=== PATIENT | female | born 1990 | race Two or more races ===

== ENCOUNTER 2023-09-21 12:13 | Outpatient (REF) | payer MEDICAID, SELFPAY ==
[2023-09-21 13:19] LABS: MANUAL DIFF FLAG NO
[2023-09-21 13:37] LABS: Basophils Percent Auto 0.3 % (0-2); Eosinophils Absolute Auto 0.1 X10*3/uL (0.0-0.4); Eosinophils Percent Auto 0.8 % (0-4); Hematocrit 39.1 % (37.0-47.0); Hemoglobin 12.3 g/dl (12.0-16.0); Imm Gran Abs Auto 0.05 X10*3/uL (0.00-0.03); Imm Gran Pct Auto 0.4 % (0.0-0.4); Lymphocytes Percent Auto 23.7 % (20-40); Mean Corpuscular HGB Conc 31.5 g/dl (31.0-35.0); Mean Corpuscular Hemoglobin 27.8 pg (27.0-33.0); Mean Corpuscular Volume 88.3 fL (80.0-98.0); Mean Platelet Volume 11.8 fL (9.4-12.3); Monocytes Absolute Auto 0.5 X10*3/uL (0.1-1.2); Monocytes Percent Auto 4.1 % (2-11); Neutrophils Absolute Auto 8.9 x10*3/uL (2.0-8.3); Neutrophils Percent Auto 70.7 % (45-73); Platelet Count 216 X10*3/uL (160-400); Red Blood Count 4.43 X10*6/uL (4.20-5.50); Red Cell Distribution Width 13.8 % (11.0-16.0); White Blood Count 12.5 X10*3/uL (4.8-10.8)
[2023-09-21 13:49] LABS: Estimated Average Glucose 97 mg/dL
[2023-09-21 13:55] LABS: Alanine Aminotransferase 12 U/L (0-31); Alkaline Phosphatase 70 U/L (39-117); Anion Gap 11 (12-20); Aspartate Amino Transferase 16 U/L (5-31); Bilirubin Direct 0.2 mg/dL (0.0-0.5); Bilirubin Total 0.5 mg/dL (0.0-1.0); Blood Urea Nitrogen 23 mg/dL (9-16); Calcium 8.9 mg/dL (8.4-10.2); Carbon Dioxide 22 mmol/L (22-29); Chloride 109 mmol/L (96-108); Estimated Glomerular Filt Rate 22; Glucose Random 84 mg/dL (60-115); Potassium 3.3 mmol/L (3.3-5.1); Sodium 139 mmol/L (135-145); Total Protein 7.6 g/dL (6.5-8.0)
[2023-09-22 06:04] LABS: HIV AB/AG Nonreactive (Nonreactive); HIV Num 1 0.06 S/CO (0.00-0.99); ~Hepatitis C Antibody Nonreactive (Nonreactive)
== END 2023-09-21 12:14 | disposition home or self-care (01) ==
LOC: HO.HHCL 12:13
PROVIDERS: Visit Provider Internal Medicine
DX: N18.30 Chronic kidney disease, stage 3 unspecified (principal)
CPT/HCPCS: 36415; 80048; 80076; 83036; 85025; 86803; 87389

== ENCOUNTER 2023-11-10 09:46 | Outpatient (RCR) | payer MEDICAID, SELFPAY | END 2023-11-24 11:37 | disposition home or self-care (01) | LOC: HO.PT 09:46 | PROVIDERS: PCP Internal Medicine; Visit Provider Internal Medicine | DX: M54.50 Low back pain, unspecified (principal) | CPT/HCPCS: 97110; 97161 ==

== ENCOUNTER 2024-03-20 13:30 | Outpatient (REF) | payer MEDICAID, SELFPAY ==
[2024-03-23 02:33] LABS: TS Negative Control Passed; TS Panel A 0; TS Panel B 1; TS Positive Control Passed; TSpotTB Negative (Negative)
== END 2024-03-20 13:31 | disposition home or self-care (01) ==
LOC: HO.HHCL 13:30
PROVIDERS: Visit Provider Internal Medicine
DX: Z11.1 Encounter for screening for respiratory tuberculosis (principal)
CPT/HCPCS: 36415; 86481

== ENCOUNTER 2024-07-07 13:18 | Outpatient (REF) | payer MEDICAID, SELFPAY ==
--- NOTE | ~2024-07-07 | XR_ITS ---
EXAMINATION: XR FOOT, LEFT CLINICAL INFORMATION: Atraumatic left foot pain. Dorsal lump/mass. COMPARISON: None available. TECHNIQUE: AP, lateral, and oblique views of the left foot. FINDINGS: No acute fracture or dislocation. No joint space narrowing or marginal osteophytes. No osseous erosion. Tiny plantar calcaneal spur. Focal soft tissue swelling dorsal to the first tarsometatarsal joint which could represent an underlying ganglion cyst. XR/XR foot LT min 3V IMPRESSION: 1. Focal soft tissue swelling dorsal to the first tarsometatarsal joint which could represent an underlying ganglion cyst. 2. Tiny plantar calcaneal spur. Electronically signed by: Fredis Mari MD 07/07/2024 02:47 PM [facility]
== END 2024-07-07 13:19 | disposition home or self-care (01) ==
LOC: HO.HHCX 13:18
PROVIDERS: Visit Provider Nurse Practitioner Primary Care
DX: M79.672 Pain in left foot (principal)
CPT/HCPCS: 73630

== ENCOUNTER 2024-07-13 12:09 | Outpatient (REF) | payer MEDICAID, SELFPAY ==
--- NOTE | ~2024-07-13 | US_ITS ---
EXAMINATION: US TRIPLEX LOWER EXTREMITY, LEFT CLINICAL INFORMATION: Left foot swelling, pain COMPARISON: None available. TECHNIQUE: Color-flow triplex imaging with spectral analysis and compression Doppler were performed on the left lower extremity. FINDINGS: Respiratory variation, normal compression and augmented flow are noted throughout the left lower extremity. The visualized common femoral vein, superficial femoral vein, profunda femoral vein, popliteal vein and midcalf peroneal and posterior tibial venous segments show no evidence of deep venous thrombosis. There is no Crawford's cyst. Over the dorsum of the foot, there is a cyst measuring 2.3 x 0.9 x 2.0 cm which is adjacent to the dorsalis pedis artery and likely represents a ganglion cyst US/US venous duplex LE LT IMPRESSION: 1. No evidence of deep venous thrombosis involving the left lower extremity. 2. Ganglion cyst over the dorsum of the foot. Electronically signed by: Cedric Olson MD 07/13/2024 01:34 PM EST RP
== END 2024-07-13 12:10 | disposition home or self-care (01) ==
LOC: HO.US 12:09
PROVIDERS: PCP Internal Medicine; Visit Provider Nurse Practitioner Primary Care
DX: M79.605 Pain in left leg (principal); R22.42 Localized swelling, mass and lump, left lower limb
CPT/HCPCS: 93971

== ENCOUNTER 2024-09-13 11:22 | Outpatient (REF) | payer MEDICAID, SELFPAY ==
--- OUTSIDE RECORDS SUMMARY | 2024-09-13 13:07 | XMS_ITS | Encounter Summary ---
Author Organization [employer] Address [address] [place] [address] Care Team Providers Care Commodities Requirements Analyst Name Role Phone Anabel Patel MD Primary Care Provide r Reason for Visit * Reason Onset Date Comments rs SRP appt 06/06/2024 Encounter Details Date Type Department Care Team ([facility] st Contact Info) Description 06/06/[address] [facility] AD[facility] D[facility]AL [address] [place] [address] Jeremiah Shepherd rs SRP appt Social History Tobacco Use Types Packs/Day Years Used Date Smoking Tobacco: Every Day Cigarettes Passive Smoke Exposure: Current Smokeless Tobacco: Never Depression Answer Date Recorded Patient Health Questionnaire-9 Score 09/21/2023 Patient Health Questionnaire-9 Score 19 09/21/2023 Last PHQ-9: Questionnaire Data Not on file 0 09/21/2023 Housing Stability Answer Date Recorded What is your housing situation today? I have mernalit leal 09/10/[address] you li ve. Do you have problems with any of the following? None of the above 09/10/2023 Food Insecurity Answer Date Recorded Within the past 12 months, y ou worried that your food would run out before you got money to buy more: Never True 09/21/2023 Within the past 12 months,th e food you bought just didn't last and you didn't have enough money to get more: Never True Transportation Answer Date Recorded In the past 12 months, has l ack of transportation kept you from medical appts, meetings, work or from getting things needed for daily living? No 09/21/2023 Utilities Answer Date Recorded In the past 12 months, has t he electric, gas, oil or water company threatened to shut off services in your home? No 09/10/2023 Depression Answer Date Recorded Patient Health Questionnaire-2 Score 6 09/21/2023 Comments Unknown Sex and Gender Information Value Date Recorded Sex Assigned at Female 07/27/2023 1:41 PM EST Legal Sex Female 12:24 PM EDT Gender Identity Female 07/27/2023 1:41 PM EST Sexual Orientation Don't know 07/27/2023 1: 41 PM EST documented as of this encounter Miscellaneous Notes * Telephone Encounter - Frida Fontenot - 06/06/2024 11:19 AM EDT Patient called in unable to make it to SRP appt today due to illness. She would like to rs. [facility] appts not available on PAR side. Pls reach out to patient for rajan HADDAD documented in this encounter Plan of Treatment Not on file documented as of this encounter Visit Diagnoses Not on filedocumented in this encounter Additional Health Concerns Assessment Noted Time PHQ-9 Depression Total Score: 19 024 10:24 AM EST documented as of this encounter Care Teams Commodities Requirements Analyst Relationship Specialty Start Date End Date Anabel Patel MD [address] [place] [id number] PCP - General Internal Medicine 09/21/23 documented as of this encounter
--- OUTSIDE RECORDS SUMMARY | 2024-09-13 13:07 | XMS_ITS | Clinical Summary ---
Author Organization [facility] Address [address] [place] [address] Care Team Providers Care Is Technician Name Role Phone Unavailable Primary Care Provider Unavailabl e Source Comments PLEASE NOTE, if this patient is a minor, it may be UNLAWFUL to discuss sensitive information that is contained in these records (such as FAMILY PLANNING, MENTAL HEALTH or SUBSTANCE ABUSE) with the minor patient's parent or other person without the patient's specific authorization.[facility] Medications ibuprofen (ADVIL,MOTRIN) 600 mg tablet Take 1 Tab by mouth 4 (four) times daily as needed for pain 20 Tab 11/29/2018 Active Social History Tobacco Use Types Packs/Day Years Used Date Smoking Tobacco: Never Assessed Social Connections Answer Date Recorded Social Connections and Isolation 0 10/15/2021 Financial Resource Strain Answer Date R ecorded Financial Resource Strain 0 2021 Stress Answer Date Recorded Stress 0 10/15/2021 Physical Activity Answer Date Recorded Physical Activity 0 10/15/2021 Food Insecurity Answer Date Recorded Food 0 10/15/2021 Transportation Needs Answer Date Record ed Transportation 0 10/15/2021 Housing Stability Answer Date Recorded Housing 0 10/15/2021 Safety and Environment Answer Date Beau rded Safety 0 10/15/2021 Utilities Answer Date Recorded Utilities 0 10/15/2021 Employment Answer Date Recorded Employment 0 10/15/2021 Comments Unknown Sex and Gender Information Value Date Recorded Sex Assigned at Not on file Legal Sex Female 8:30 AM PDT Gender Identity Not on file Sexual Orientation Not on file Plan of Treatment Not on file Insurance [place] D[place] [facility] [place] [address]
--- OUTSIDE RECORDS SUMMARY | 2024-09-13 13:07 | XMS_ITS | Encounter Summary ---
Author Organization [employer] Address [address] [place] [address] Care Team Providers Care Servicer Name Role Phone Anabel Patel MD Primary Care Provide r Reason for Visit * Reason Onset Date Comments ER Follow-up 08/31/2024 Encounter Details Date Type Department Care Team ([facility] st Contact Info) Description 08/31/2024 Telephone [facility] MEDICINE [address] [place], [place] [phone] Anabel Patel MD [address] [place], [place] [phone] ER Follow-up Social History Tobacco Use Types Packs/Day Years Used Date Smoking Tobacco: Every Day Cigarettes Passive Smoke Exposure: Current Smokeless Tobacco: Never Depression Answer Date Recorded Patient Health Questionnaire-9 Score 09/21/2023 Patient Health Questionnaire-9 Score 19 09/21/2023 Last PHQ-9: Questionnaire Data Not on file 0 09/21/2023 Housing Stability Answer Date Recorded What is your housing situation today? I have merna leal 09/10/[address] you [...] encounter Miscellaneous Notes * Telephone Encounter - Nahed López RN - 08/31/2024 2:10 PM EST Call returned to Thomas Dougherty Fontenot to triage below. Reports continues to have diarrhea, cold like sx. New onset of vomiting with bright red blood and clots. 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 Pt advised of disposition, agrees to return to [facility] ER now for re-evaluation. Will send Status check reminder for triage team tomorrow. Protocol Used: Vomiting Blood (Adult) Protocol-Based Disposition: Go to ED Now Positive Triage Question: * Vomited blood (Exceptions: Few streaks that occurred only once, or swallowed blood from a nosebleed or cut in the mouth.) * All higher-acuity triage questions were negative * Telephone Encounter - Carlos Molina - 08/31/2024 1:47 PM EST Patient calling to report ED visit on : Date: 08/29/24 Hospital: [facility] Seen for: RSV Symptomatic Yes Symptom: Breathing Trouble Outcome: Talk to a nurse or provider within 15 minutes Reason: Trouble breathing through the mouth Please contact pt at [phone]. (Georgian Speaker) documented in this encounter Plan of Treatment Not on file documented as of this encounter Visit Diagnoses Not on filedocumented in this encounter Additional Health Concerns Assessment Noted Time PHQ-9 Depression Total Score: 19 024 10:24 AM EST documented as of this encounter Care Teams Servicer Relationship Specialty Start Date End Date Anabel Patel MD [address] [place] [address] PCP - General Internal Medicine 09/21/23 documented as of this encounter
--- OUTSIDE RECORDS SUMMARY | 2024-09-13 13:07 | XMS_ITS | Encounter Summary ---
Author Organization [employer] Address [address] [facility] [address] [place] [address] Care Team Providers Care Photoengraver Apprentice Name Role Phone Anabel Patel MD Primary Care Provide r Reason for Referral * Imaging (Routine) - Pending Review Specialty Diagnoses / Procedures Referred By Contnicolas t Referred To Contact Radiology Diagnoses Abdominal bloating Procedures US Abdomen Complete Kristel Marin DO [address] [place] [address] Phone: tel: fax: Referral ID Status Reason Start Date Expiration Date V isits Requested Visits Authorized [id number] Pending Review 09/13/2024 09/13/2025 1 1 Reason for Visit * Reason Comments Gas Nausea Encounter Details Date Type Department Care Team (Late st Contact Info) Description 09/13/2024 11:00 AM EST Office Visit [facility] [address] [place] [address] Kristel Marin DO [address] [place] [address] Decreased appetite (Primary Dx); Abdominal bloating Social History Tobacco Use Types Packs/Day Years Used Date Smoking Tobacco: Every Day Cigarettes Passive Smoke Exposure: Current Smokeless Tobacco: Never Depression Answer Date Recorded Patient Health Questionnaire-9 Score 19 09/21/2023 Patient Health Questionnaire-9 Score 19 09/21/2023 [...] PM EST documented as of this encounter Last Filed Vital Signs Vital Sign Reading Time Taken Comments Blood Pressure 120/79 09/13/2024 10:54 AM EST Pulse 88 09/13/2024 10:54 AM EST Temperature - - Respiratory Rate 18 09/13/2024 10:54 AM EST Oxygen Saturation 100% 09/13/2024 10:54 AM EST Inhaled Oxygen Concentration - - Weight 92.5 kg (204 lb) 09/13/2024 10:54 AM EST Height 162.6 cm (5' 4 ) 09/13/2024 10:54 AM EST Body Mass Index 35.02 09/13/2024 10:54 AM EST documented in this encounter Progress Notes * Kristel Marin, DO - 09/13/2024 11:00 AM EST SUBJECTIVE: Thomas Fontenot is a 34 y.o. year old female who presents for sick visit . She comes to [place] c/o abdominal discomfort and bloating. She says that her sx have been present sinceshe was sick. She was seen in [facility] ED a couple of times earlier this mos RSV bronchitis and finally admitted. Her hospitalization was c/b ARF and electrolyte abnormalities. She says that since she's been home she has not had any appetite and every time she eats she feels bloated and gassy. She is belching a lot. She has some nausea but no vomiting. She denies any diarrhea or constipation. She has not had BM recently. She has not tried any OTC meds. No fevers. History provided by: Patient arts administrator or manager used: No Abdominal Pain This is a new problem. The current episode started in the past 7 days. The onset quality is gradual. The problem has been unchanged. The quality of the pain is colicky and a sensation of fullness. The abdominal pain does not radiate. Associated symptoms include anorexia, belching and nausea. Pertinent negatives include no constipation, diarrhea, dysuria, fever, headaches or vomiting. She has tried nothing for the symptoms. Review of Systems Constitutional: Positive for appetite change and fatigue. Negative for chills and fever. Respiratory: Negative for shortness of breath. Cardiovascular: Negative for chest pain and leg swelling. Gastrointestinal: Positive for abdominal pain, anorexia and nausea. Negative for constipation, diarrhea and vomiting. Genitourinary: Negative for dysuria. Neurological: Negative for headaches. Patient Active Problem List Diagnosis Stage 3 chronic kidney disease ([facility]) Chronic midline low back pain without sciatica Bipolar 2 disorder ([facility]) Depression with anxiety Cannabis abuse CKD (chronic kidney disease) stage 4, GFR 15-29 ml/min ([facility]) Allergies Allergen Reactions Penicillins Anaphylaxis and Swelling OBJECTIVE Vitals: 09/13/24 1054 BP: 120/79 BP Location: Left arm Patient Position: Sitting BP Cuff Size: Adult Pulse: 88 Resp: 18 SpO2: 100% Weight: 204 lb (92.5 kg) Height: 5' 4 (1.626 m) Physical Exam Constitutional: General: She is not in acute distress. Appearance: Normal appearance. Cardiovascular: Rate and Rhythm: Normal rate and regular rhythm. Heart sounds: Normal heart sounds. No murmur heard. Pulmonary: Effort: Pulmonary effort is normal. Breath sounds: Normal breath sounds. No wheezing or rhonchi. Abdominal: Palpations: Abdomen is soft. There is no mass. Tenderness: There is no abdominal tenderness. There is no guarding or rebound. Neurological: General: No focal deficit present. Mental Status: She is alert and oriented to person, place, and time. Cranial Nerves: No cranial nerve deficit. Motor: No weakness. Gait: Gait normal. Psychiatric: Mood and Affect: Mood normal. ASSESSMENT/PLAN Diagnoses and all orders for this visit: Decreased appetite Abdominal bloating Persistent sx since hospitalization for RSV bronchitis -provided reassurance -advised pt that appetite decreases with illness and will slowly return to nml -advised pt that gut motility has likely decreased with decreased PO intake and needs time to normalize -check basic labs -referred for abd US -trial simethicone to help with gassiness -cont zofran prn -will have HDF appt scheduled -advised rtc if sx change or worsen, she agrees with plans - CBC auto differential; Future - Basic Metabolic Panel; Future - Hepatic Function Panel; Future - Amylase; Future - Lipase; Future - US Abdomen Complete; Future F/U with PCP for HDF or sooner prn Current Outpatient Medications: allopurinol (Zyloprim) 100 MG tablet, TAKE 1 TABLET BY MOUTH EVERY DAY IN THE MORNING, Disp: 90 tablet, Rfl: 1 buPROPion XL (Wellbutrin XL) 150 MG 24 hr tablet, , Disp: , Rfl: busPIRone (Buspar) 15 MG tablet, TAKE 1 TABLET BY MOUTH EVERY DAY, Disp: 90 tablet, Rfl: 1 Farxiga 10 MG, TAKE 1 TABLET BY MOUTH EVERY DAY IN THE MORNING, Disp: 90 tablet, Rfl: 0 FLUoxetine (PROzac) 10 MG capsule, Take 10 mg by mouth in the morning., Disp: , Rfl: gabapentin (Neurontin) 300 MG capsule, Take 1 capsule (300 mg) by mouth every 12 (twelve) hours., Disp: 60 capsule, Rfl: 1 hydrOXYzine HCl (Atarax) 25 MG tablet, Take 1 tablet (25 mg) by mouth every 8 (eight) hours if needed for itching for up to 20 days., Disp: 30 tablet, Rfl: 1 ondansetron (Zofran) 4 MG tablet, Take 4 mg by mouth., Disp: , Rfl: traZODone (Desyrel) 50 MG tablet, TAKE 1/2-1 TABLET BY MOUTH AT BEDTIME TOME 08/24-1 TABLETA 30 MIN RONY ROOT, Disp: , Rfl: documented in this encounter Plan of Treatment Scheduled Orders Name Type Priority Associated Diagnoses Orde r Schedule CBC auto differential Lab Routine Abdominal bloating Expected: 09/13/2024 (Approximate), Expires: 09/13/2025 Basic Metabolic Panel Lab Routine Abdominal bloating Expected: 09/13/2024 (Approximate), Expires: 09/13/2025 Hepatic Function Panel Lab Routine Abdominal bloating Expected: 09/13/2024 (Approximate), Expires: 09/13/2025 Amylase Lab Routine Abdominal bloating Expected: 09/13/2024 (Approximate), Expires: 09/13/2025 Lipase Lab Routine Abdominal bloating Expected: 09/13/2024, Expires: 09/13/2025 US Abdomen Complete Imaging Routine Abdominal bloating Expected: 09/13/2024, Expires: 09/13/2025 documented as of this encounter Visit Diagnoses Diagnosis Decreased appetite- Primary Anorexia Abdominal bloating Flatulence, eructation, and gas pain documented in this encounter Additional Health Concerns Assessment Noted Time PHQ-9 Depression Total Score: 19 024 10:24 AM EST documented as of this encounter Care Teams Photoengraver Apprentice Relationship Specialty Start Date End Date Anabel Patel MD [address] [place] [id number] PCP - General Internal Medicine 09/21/23 documented as of this encounter
--- OUTSIDE RECORDS SUMMARY | 2024-09-13 13:07 | XMS_ITS | Clinical Summary ---
Author Organization [employer] Address [address] [facility] [address] [place] [address] Care Team Providers Care Diabetes Specialist Name Role Phone Anabel Patel MD Primary Care Provide r Allergies Active Allergy Reactions Criticality Noted Date Comments Penicillins Anaphylaxis,Swelling High 01/20/2023 Medications * This document contains information received from the source organization and may not represent a complete record from that organization. gabapentin (Neurontin) 300 MG capsuleIndicati ons:Chronic midline low back pain without sciatica Take 1 capsule (300 mg) by mouth every 12 (twelve) hours. 60 capsule 1 10/19/19 24 025 Active hydrOXYzine HCl (Atarax) 25 MG tabletIndicatio ns:Depression with anxiety Take 1 tablet (25 mg) by mouth every 8 (eight) hours if needed for itching for up to 20 days. 30 tablet 1 10/19/19 24 Active busPIRone (Buspar) 15 MG tabletIndicatio ns:Depression with anxiety TAKE 1 TABLET BY MOUTH EVERY DAY 90 tablet 1 12/07/19 24 Active buPROPion XL (Wellbutrin XL) 150 MG 24 hr tablet 03/17/20 18 Active FLUoxetine (PROzac) 10 MG capsule Take 10 mg by mouth in the morning. 12/15/19 24 Active traZODone (Desyrel) 50 MG tablet TAKE 1/2-1 TABLET BY MOUTH AT BEDTIME TOME 1/2-1 TABLETA 30 MIN ANTES DE DORMIR 12/14/19 24 Active allopurinol (Zyloprim) 100 MG tabletIndicatio ns:Stage 3 chronic kidney disease, unspecified whether stage 3a or 3b CKD (CMS/HCC) TAKE 1 TABLET BY MOUTH EVERY DAY IN THE MORNING 90 tablet 1 06/06/20 24 Active Farxiga 10 MGIndications:S caesar 3 chronic kidney disease, unspecified whether stage 3a or 3b CKD (CMS/HCC) TAKE 1 TABLET BY MOUTH EVERY DAY IN THE MORNING 90 tablet 06/12/20 24 Active ondansetron (Zofran) 4 MG tablet Take 1 tablet (4 mg) by mouth every 8 (eight) hours if needed for nausea or vomiting. 20 tablet 09/13/19 25 Active Simethicone (Gas-Ex) 125 MG tablet tablet Take 1 tablet (125 mg) by mouth every 6 (six) hours if needed (gassiness) . 60 tablet 1 09/13/19 25 Active ondansetron (Zofran) 4 MG tablet Take 4 mg by mouth. 10/28/19 24 025 Discontinued(Re order (will not trigger notification to Pharmacy)) Active Problems Problem Noted Date Diagnosed Date CKD (chronic kidney disease) stage 4, GFR 15-29 ml/min 10/19/2023 Cannabis abuse 09/22/2023 Stage 3 chronic kidney disease 09/21/2023 Assessment & Plan (09/22/2023 11:14 AM EST): Patient was educated to avoid nephrotoxic medications like NSAIDs BMP ordered today records to be review Nephrology referral Chronic midline low back pain without sciatica 0 09/21/2023 Assessment & Plan (10/19/2023 12:03 PM EST): Apply heat on affected area XRAY ordered PT referral Gabapentin dose had to be reduce to 300mg BID due to eGFR, I added acetaminophen PRN Assessment & Plan (09/22/2023 11:15 AM EST): Apply heat on affected area Gabapentin used to help her a lot prescription done today Consider PT referral on next appointments Bipolar 2 disorder 09/21/2023 Assessment & Plan (09/22/2023 11:21 AM EST): [facility] call today Counseling done today I will renew her buspar today Depression with anxiety 09/21/2023 Assessment & Plan (10/19/2023 12:04 PM EST): I added today hydroxyzine 25mg Q 8hrs for anxiety Assessment & Plan (09/22/2023 11:24 AM EST): As above Resolved Problems Problem Noted Date Diagnosed Date Resolved Date Gout 09/21/2023 09/22/2023 Encounters Date Type Department Care Team Description 09/13/2024 11:00 AM EST Office Visit [facility] [address] [place] [phone] Kristel Marin DO Decreased appetite (Primary Dx); Abdominal bloating 09/01/[address] [address] Anabel Patel MD ER Follow-up 08/31/[address] [address] Anabel Patel MD ER Follow-up 07/14/2024 Telephone [facility] [address] [place] [address] Hazel Lopes, SILAS Results 07/13/2024 Orders Only [address] [address] Leoncio Hendricks ANP 07/07/2024 1:00 PM EST Office Visit [facility] [address] [place] [phone] Leoncio Hendricks ANP Localized swelling of left foot (Primary Dx); Left foot pain; Left leg pain; Smoking 07/07/[address] [address] Anabel Patel MD Triage from Last 3 Months Immunizations Name Administration Dates Next Due INFLUENZA INJECTABLE QUADRIV ALANT CCIIV4 MDCK Multi-dose vial 06/02/2018 Influenza injectable quadrivalent preservative f ree 09/21/2023 Influenza, Unspecified 05/19/2017,09/09/2011 Tdap 02/18/2012 Social History Tobacco Use Types Packs/Day Years Used Date Smoking Tobacco: Every Day Cigarettes Passive Smoke Exposure: Current Smokeless Tobacco: Never Tobacco Cessation:Ready to Q uit: Not Asked; Counseling Given: Not Answered Depression Answer Date Recorded Patient Health Questionnaire-9 [...] Don't know 07/27/2023 1: 41 PM EST Last Filed Vital Signs Vital Sign Reading Time Taken Comments Blood Pressure 120/79 09/13/2024 10:54 AM EST Pulse 88 09/13/2024 10:54 AM EST Temperature 36.1 ??C (96.9 ??F) 07/07/2024 1:03 PM ES T Respiratory Rate 18 09/13/2024 10:54 AM EST Oxygen Saturation 100% 09/13/2024 10:54 AM EST Inhaled Oxygen Concentration - - Weight 92.5 kg (204 lb) 09/13/2024 10:54 AM EST Height 162.6 cm (5' 4 ) 09/13/2024 10:54 AM EST Body Mass Index 35.02 09/13/2024 10:54 AM EST Plan of Treatment Health Maintenance Due Date Last Done Comments Lipid Panel 1988 Pneumococcal Vaccine: Pediatrics (0 to 5 Years) and At-Risk Patients (6 to 64 Years) (1 of 2 - PCV) 1994 Family Planning (PISQ) 2003 Hepatitis A Vaccines (1 of 2 - Risk 2-dose series) 2007 Hepatitis B Vaccines (1 of 3 - 19+ 3-dose series) 2007 DTaP/Tdap/Td Vaccines (2 - Td or Tdap) 02/17/2022 02/18/2012 Dental Oral Exam 03/18/2024 09/17/2023 Depression Monitoring (PHQ-9) 03/21/2024 09/21/2023, 09/21/2023 COVID-19 Vaccine ( season) 2024 Influenza Vaccine (#1) 2024 , 06/02/2018, 05/19/2017, Additional history exists Dental Prophylaxis 07/03/2024 12/31/2023 Dental X-Ray: Bitewings 09/18/2024 09/17/2023 Alcohol/Substance Use Screening 09/21/2024 09/21/2023 Depression Screening 09/21/2024 09/21/2023, 09/21/19 24 SDOH Screening 09/21/2024 09/21/2023 Tobacco Screening 07/07/2025 07/07/2024 Cervical Cancer Screening 05/07/2026 HPV/Cotest 05/07/2026 05/07/2021 Pap Smear 05/07/2026 05/07/2021 Dental X-Ray: Full Mouth 09/18/2026 09/17/2023 Zoster Vaccines (1 of 2) 2038 RSV Patients and Patients Aged 60 years or older (1 - 1-dose 75+ series) 2063 HIV Screening Completed 09/21/2023 Hepatitis C Screening Completed 09/21/2023 HIB Vaccines Aged Out No longer eligi ble based on patient's age to complete this topic HPV Vaccines Aged Out No longer eligi ble based on patient's age to complete this topic IPV Vaccines Aged Out No longer eligi ble based on patient's age to complete this topic Meningococcal Vaccine Aged Out No loi saranya eligible based on patient's age to complete this topic RSV under 20 months Aged Out No longe r eligible based on patient's age to complete this topic Rotavirus Vaccines Aged Out No longer eligible based on patient's age to complete this topic Procedures Procedure Name Priority Date/Time Associated Diagnosis Comments US VENOUS DUPLEX LE LT Routine 12:12 PM EST XR FOOT 3+ VIEWS LEFT Routine 07/07/2024 1:18 PM EST Left foot pain Full PROPHYLAXIS - ADULT Routine 12/31/2023 2:00 PM EDT HEPATITIS C AB W/REFL TO HCV RNA, QN, PCR Routine 09/21/2023 12:19 PM EST Stage 3 chronic kidney disease, unspecified whether stage 3a or 3b CKD (CMS/HCC) HIV 1/2 ANTIGEN/ANTIBODY, FOURTH GENERATION W/RFL Routine 09/21/2023 12:19 PM EST Stage 3 chronic kidney disease, unspecified whether stage 3a or 3b CKD (CMS/HCC) DIAGNOSTIC - DIAGNOSTIC IMAGING - INTRAORAL - COMPREHENSIVE SERIES OF RADIOGRAPHIC IMAGES Routine 09/17/2023 8:00 AM EST COMPREHENSIVE ORAL EVALUATION - NEW OR ESTABLISHED PATIENT Routine 09/17/2023 8:00 AM EST HM PAP/HPV Routine 05/07/2021 from Last 3 Months or Most Recently Relevant to Health Maintenance Results * US VENOUS DUPLEX LE LT (07/13/2024 12:12 PM EST) Anatomical Region Laterality Modality Abdomen Ultrasound 07/13/2024 12:1 2 PM EST Narrative 07/13/2024 1:36 PM EST ? [facility] ?[address] ?[place] [address] ? Ultrasound Report ? Signed ? Patient: Dougherty Fontenot,Jashira ?MR#: [id number] ?? [id number] ? : 1990 ?Acct:[id number] ? Age/Sex: 33 / F ?ADM Date: 11/21/24 ? Loc: HO.US ? Attending Dr: Leoncio Hendricks NP ? Ordering Physician: LEONCIO HENDRICKS NP ?? Date of Service: 07/13/24 ?? Procedure(s): US venous duplex LE LT ?? Accession Number(s): [id number] ? cc: Anabel Patel MD; LEONCIO HENDRICKS NP ? EXAMINATION: ?? US TRIPLEX LOWER EXTREMITY, LEFT ? CLINICAL INFORMATION: ?? Left foot swelling, pain ? COMPARISON: ?? None available. ? TECHNIQUE: ?? Color-flow triplex imaging with spectral analysis and compression ?? Doppler were performed on the left lower extremity. ? FINDINGS: ?? Respiratory variation, normal compression and augmented flow are noted ?? throughout the left lower extremity. The visualized common femoral ?? vein, superficial femoral vein, profunda femoral vein, popliteal vein ?? and midcalf peroneal and posterior tibial venous segments show no ?? evidence of deep venous thrombosis. ? There is no Crawford's cyst. ? Over the dorsum of the foot, there is a cyst measuring 2.3 x 0.9 x 2.0 ?? cm which is adjacent to the dorsalis pedis artery and likely represents ?? a ganglion cyst ? US/US venous duplex LE LT ?? IMPRESSION: ?? 1. ??No evidence of deep venous thrombosis involving the left lower ?? extremity. ?? 2. ??Ganglion cyst over the dorsum of the foot. ? Electronically signed by: ??Cedric Olson MD ??07/13/2024 01:34 PM EST RP ? Dictated By: ?Cedric Olson MD ? Signed By: ?<Electronically signed by Cedric Olson MD in OV> ? 07/13/24 1334 ? DD/ 1212 ? TD/TT: 07/13/24 1240 ? Reinforced Ironworker: ? Procedure Note Edward, Image - 07/13/[address] [address] Ultrasound Report Signed Patient: Thomas Valentin#: [id number] : 1990Acct:[id number] Age/Sex: 33 / FADM Date: 07/13/24 Loc: HO.US Attending Dr: Leoncio Hendricks WATER SUPPLY TECHNICIAN Ordering Physician: LEONCIO HENDRICKS NP Date of Service: 07/13/24 Procedure(s): US venous duplex LE LT Accession Number(s): [id number] cc: Anabel Patel MD; LEONCIO HENDRICKS NP EXAMINATION: US TRIPLEX LOWER EXTREMITY, LEFT CLINICAL INFORMATION: Left foot swelling, pain COMPARISON: None available. TECHNIQUE: Color-flow triplex imaging with spectral analysis and compression Doppler were performed on the left lower extremity. FINDINGS: Respiratory variation, normal compression and augmented flow are noted throughout the left lower extremity. The visualized common femoral vein, superficial femoral vein, profunda femoral vein, popliteal vein and midcalf peroneal and posterior tibial venous segments show no evidence of deep venous thrombosis. There is no Crawford's cyst. Over the dorsum of the foot, there is a cyst measuring 2.3 x 0.9 x 2.0 cm which is adjacent to the dorsalis pedis artery and likely represents a ganglion cyst US/US venous duplex LE LT IMPRESSION: 1. No evidence of deep venous thrombosis involving the left lower extremity. 2. Ganglion cyst over the dorsum of the foot. Electronically signed by: Cedric Olson MD 07/13/2024 01:34 PM EST RP Dictated By: Cedric Olson MD Signed By: <Electronically signed by Cedric Olson MD in OV> 07/13/24 1334 DD/ 1212 TD/TT: 07/13/24 1240 Reinforced Ironworker: us Leoncio Hendricks ANP IMG US PROCEDURES Final Result * XR Foot 3+ Views Left (07/07/2024 1:18 PM EST) Anatomical Region Laterality Modality Lower Extremities, Foot Left Radiogra phic Imaging 07/07/2024 1:18 PM EST Narrative 07/07/2024 2:50 PM EST ?[facility] ?[address] ?[place] [address] ?XRay Report ? Signed ? Patient: Doughertykeri Fontenot,Jashira ?MR#: [id number] ?? [id number] ? : 1990 ?Acct:[id number] ? Age/Sex: 33 / F ?ADM Date: 11/15/24 ? Loc: HO.HHCX ? Attending Dr: Leoncio Hendricks WATER SUPPLY TECHNICIAN ? Ordering Physician: LEONCIO HENDRICKS NP ?? Date of Service: 07/07/24 ?? Procedure(s): XR foot LT min 3V ?? Accession Number(s): [id number] ? cc: LEONCIO HENDRICKS NP ? EXAMINATION: ?? XR FOOT, LEFT ? CLINICAL INFORMATION: ?? Atraumatic left foot pain. Dorsal lump/mass. ? COMPARISON: ?? None available. ? TECHNIQUE: ?? AP, lateral, and oblique views of the left foot. ? FINDINGS: ?? No acute fracture or dislocation. No joint space narrowing or marginal ?? osteophytes. No osseous erosion. Tiny plantar calcaneal spur. Focal ?? soft tissue swelling dorsal to the first tarsometatarsal joint which ?? could represent an underlying ganglion cyst. ? XR/XR foot LT min 3V ?? IMPRESSION: ?? 1. Focal soft tissue swelling dorsal to the first tarsometatarsal joint ?? which could represent an underlying ganglion cyst. ? 2. Tiny plantar calcaneal spur. ? Electronically signed by: ??Fredis Mari MD ??07/07/2024 02:47 PM EST ? Dictated By: ?Fredis Mari MD ? Signed By: ?<Electronically signed by Fredis Mari MD in OV> ?07/07/24 1447 ? DD/ 1318 ? TD/TT: 07/07/24 1325 ? Reinforced Ironworker: SR ? Procedure Note Edward, Image - 07/07/[address] [address] XRay Report Signed Patient: Thomas ValentinMR#: [id number] : 1990Acct:[id number] Age/Sex: 33 / FADM Date: 07/07/24 Loc: HO.HHCX Attending Dr: Leoncio Hendricks NP Ordering Physician: LEONCIO HENDRICKS NP Date of Service: 07/07/24 Procedure(s): XR foot LT min 3V Accession Number(s): [id number] cc: LEONCIO HENDRICKS NP EXAMINATION: XR FOOT, LEFT CLINICAL INFORMATION: Atraumatic left foot pain. Dorsal lump/mass. COMPARISON: None available. TECHNIQUE: AP, lateral, and oblique views of the left foot. FINDINGS: No acute fracture or dislocation. No joint space narrowing or marginal osteophytes. No osseous erosion. Tiny plantar calcaneal spur. Focal soft tissue swelling dorsal to the first tarsometatarsal joint which could represent an underlying ganglion cyst. XR/XR foot LT min 3V IMPRESSION: 1. Focal soft tissue swelling dorsal to the first tarsometatarsal joint which could represent an underlying ganglion cyst. 2. Tiny plantar calcaneal spur. Electronically signed by: Fredis Mari MD 07/07/2024 02:47 PM EST RP Workstation: Yo Dictated By: rFedis Mari MD Signed By: <Electronically signed by Fredis Mari MD in OV> 07/07/24 1447 DD/ 1318 TD/TT: 07/07/24 1325 Reinforced Ironworker: SR Leoncio GE IMG XR PROCEDURES Final Result * Hepatitis C Antibody with Reflex to HCV, RNA, Quantitative, Real-Time PCR (09/21/2023 12:19 PM EST) Hepatitis C Antibody Nonreactive Nonreactive [facility] Comment:Antibodies to HCV no t detected; does not exclude early acuteHCV infection. Blood Venous blood specimen / Unknown 09/21/2023 12:19 PM EST 09/21/2023 1:14 PM EST us Anabel Cardona MD LAB BLOOD ORDERABLES Final Result [facility] [address] [place], [place] [phone] * HIV-1/2 Antigen and Antibodies, Fourth Generation, with Reflexes (09/21/2023 12:19 PM EST) HIV AB/AG Nonreactive Nonreactive [facility] Comment:HIV-1 p24 Ag and/or HIV-1/HIV-2 Ab not detected.A test result that is nonreactive does not exclude thepossibility of exposure to or infection with HIV-1 and/orHIV-2. Nonreactive results in this assay for individualswith prior exposure to HIV-1 and/or HIV-2 may be due toantigen and antibody levels that are below the limit ofdetection of this assay.The [employer] HIV Ag/Ab Combo assay result andsupplemental assay results should be interpreted inconjunction with the patient's clinical presentation,history and other laboratory results. If the results areinconsistent with clinical evidence, additional testing issuggested to confirm the result. Blood Venous blood specimen / Unknown 09/21/2023 12:19 PM EST 09/21/2023 1:14 PM EST Anabel Cardona MD LAB BLOOD ORDERABLES Final Result [facility] [address] [place] [phone] * PAP/HPV (05/07/2021) Pap Smear 1. NILM 1. NILM HPV Not Detected Undetected, Indeterminat e, Quantitative , Not Detected Historical Provider HEALTH MAINTENANCE Final Result from Last 3 Months or Most Recently Relevant to Health Maintenance Insurance [facility] C[place] ADULT Care Teams Diabetes Specialist Relationship Specialty Start Date End Date Anabel Patel MD [address] [place] [phone] PCP - General Internal Medicine 09/21/23
--- OUTSIDE RECORDS SUMMARY | 2024-09-13 13:07 | XMS_ITS | Encounter Summary ---
Author Organization [employer] Address [address] [facility] [address] [place] [address] Care Team Providers Care Aligner Barrel And Receiver Name Role Phone Anabel Patel MD Primary Care Provide r Reason for Visit * Reason Onset Date Comments ER Follow-up 09/01/2024 Encounter Details Date Type Department Care Team ([facility] st Contact Info) Description 09/01/2024 Telephone [facility] [address] [place], [place] [phone] Anabel Patel MD [address] [place], [place] [phone] ER Follow-up Social History Tobacco Use Types [...] Telephone Encounter - Nahed López RN - 09/01/2024 10:02 AM EST Per chart review. Pt did return to [facility] ER as instructed. Pt currently admitted. Will send to PCP as FYI. Benjamin notes in chart under encounters. * Telephone Encounter - Nahed López RN - 09/01/2024 10:02 AM EST ----- Message from Nurse Nahed Osorio sent at 08/31/2024 2:12 PM EST ----- Regarding: [facility] ER STATUS CHECK Please call patient for status check after disposition ER for bloody vomit. See triage note 08/31/24. documented in this encounter Plan of Treatment Not on file documented as of this encounter Visit Diagnoses Not on filedocumented in this encounter Additional Health Concerns Assessment Noted Time PHQ-9 Depression Total Score: 19 024 10:24 AM EST documented as of this encounter Care Teams Aligner Barrel And Receiver Relationship Specialty Start Date End Date Anabel Patel MD [address] [place] [address] PCP - General Internal Medicine 09/21/23 documented as of this encounter
--- OUTSIDE RECORDS SUMMARY | 2024-09-13 13:07 | XMS_ITS | Encounter Summary ---
Author Organization [employer] Address [address] [facility] [address] [place] [address] Care Team Providers Care Surgical Assistant Certified Name Role Phone Anabel Patel MD Primary Care Provide r Reason for Visit * Reason Onset Date Comments New patient 06/25/2023 Encounter Details Date Type Department Care Team ([facility] st Contact Info) Description 06/25/2023 Telephone [facility] [address] [place], [place] [phone] Elvis Tsai MD [address] [place] [address] New patient Social History Tobacco Use Types Packs/Day Years Used Date Smoking Tobacco: Never Assessed Comments Unknown Sex and Gender Information Value Date Recorded Sex Assigned at Female 07/27/2023 1:41 PM EST Legal Sex Female 12:24 PM EDT Gender Identity Female 07/27/2023 1:41 PM EST Sexual Orientation Don't know 07/27/2023 1: 41 PM EST documented as of this encounter Miscellaneous Notes * Telephone Encounter - Varsha Soto - 06/25/2023 12:26 PM EDT Pt has been transfer over to wait list for ENVIRONMENTAL SERVICES SPECIALIST. EFFECTIVE SINCE 06/25/2023 documented in this encounter Plan of Treatment Not on file documented as of this encounter Visit Diagnoses Not on filedocumented in this encounter Care Teams Surgical Assistant Certified Relationship Specialty Start Date End Date Anabel Patel MD [address] [place] [address] PCP - General Internal Medicine 09/21/23 documented as of this encounter
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
--- OUTSIDE RECORDS SUMMARY | 2024-09-13 13:08 | XMS_ITS | Encounter Summary ---
Author Organization [facility] Address [id number] [place] [phone] Care Team Providers Care Budget Assistant Name Role Phone Tatyana Murillo MD Primary Care Provider [phone] Reason for Visit * Reason Comments Cough Vomiting * Auth/Cert (Routine) Specialty Diagnoses / Procedures Referred By Contac t Referred To Contact Diagnoses Hypokalemia Procedures [id number] Didier Overton MD [address] [place] [id number] sp Emergency [address] [place] [phone] Referral ID Status Reason Start Date Expiration Date Visits Re quested Visits Authorized [id number] 1 1 Encounter Details Date Type Department Care Team (Late st Contact Info) Description 08/31/2024 7:27 PM EST - 09/02/2024 2:13 PM EST Emergency [facility] Intermediate Care Unit B [address] [place] [phone] Didier Overton MD [address] [place] [address] [phone] Leif Dillard MD [address] [place] [phone] Chauncey Medina MD [address] [place] [phone] Acute bronchitis due to respiratory syncytial virus (RSV) (Primary Dx) Discharge Disposition: Home or Self Care Social History Tobacco Use Types Packs/Day Years [...] file Not on file Not on file documented as of this encounter Last Filed [...] Mass Index 34.33 08/31/2024 2:30 PM EST documented in this encounter Discharge Summaries * Leif Dillard MD - 09/02/2024 2:13 PM EST Images from the original note were not included. DISCHARGE SUMMARY Patient Information Thomas Lynne : 1990 [34 y.o.] Admitting Provider Didier Overton MD Discharge Provider Leif Dillard MD, No att. providers found Primary Care Physician Tatyana Murillo MD Admission Date 08/31/2024 Discharge Date 09/02/2024 Discharge disposition- home Summary of Hospital Problems Primary Discharge Diagnosis: RSV bronchitis, possible underlying COPD Hospital Course Summary Admission HPI per admission provider- This is a 34-year-old female with a past medical history significant for chronic kidney disease, bipolar disorder, chronic low back pain, cannabis abuse, and the below mentioned medical problems. Patient was seen here on 08/29/2024 and diagnosed with RSV bronchitis she was discharged on Robitussin with codeine and Advair entheses I do not see that they were filled). She comes back today with worsening symptoms reports that she feels feverish on and off and that she cannot take the cough she was coughing so hard that she coughed up blood. Is a smoker but states she has not smoked since her symptoms started. She overall states that it hurts to take a deep breath and cough and that she feels very weak and tired. No one else in the house is sick. She states that sometimes she feels hungry but she can eat as when she tries to swallow she starts coughing and feels like she is going to vomit. Denies any urinary symptoms no lower extremity edema. Brief Hospital course 34 years old female with chronic nicotine use, CKD presents to the hospital with shortness of breath, cough. RSV bronchitis Possible COPD exacerbation Possible secondary bacterial pneumonia -Respiratory viral panel positive for RSV -X-ray chest does not show any active pulmonary disease however repeat chest x- ray done on 09/01 showed some patchy opacity again low suspicion for bacterial pneumonia. However there is possibility ofsecondary bacterial pneumonia --Patient reports chronic smoking and smokes about 1 pack/day however reports quitting about coupleof weeks ago. Denies any history of COPD however she has not been seen by pulmonology formally. -Patient was given IV steroid dose. Patient saturating well on room air. On ambulation maintains [id number] well in high 90s and no significant increased work of breathing. However patient is lethargic with severe cough and receiving opioids in the hospital. -Will discharge patient on as needed albuterol, scheduled Anoro for possible COPD, prednisone and azithromycin. -I have prescribed azithromycin after discharge but I called the patient and she was instructed to pick it up from the pharmacy Abnormal chest x-ray [id number] showed 2 lucent structure in the mid right lung which could represent cavitary lesions. Recommend outpatient follow-up for repeat imaging. CKD-presents with creatinine of 3.87. Reports CKD at baseline and follows up with nephrology outpatient. Avoid nephrotoxin Hypokalemia-significant hypokalemia with potassium/2.7. Replaced electrolytes aggressively. Recommend outpatient follow-up with PCP/nephrology for repeat blood work Physical Exam at time of Discharge Temp (24hrs), Av.7 ??C (98 ??F), Min:36.3 ??C (97.4 ??F), Max:37.2 ??C (98.9 ??F) Body mass index is 34.33 kg/m??. No results found for: PTWT , PTHT Physical Exam General-patient appears comfortable, no acute distress HEENT-NCAT Eyes-anicteric Cardiology-no significant murmur appreciated Respiratory-bilateral rhonchi and crackles abdomen-nontender nondistended Extremity-no significant lower extremity edema noted Neurology-awake alert oriented to time place and person Skin-warm and dry Follow-Up Instructions and Recommendations Discharge Medications Your medication list START taking these medications Instructions Last Dose Given Next Dose Due acetaminophen 325 mg tablet Commonly known as: TYLENOL Take 1.5 tablets (487.5 mg total) by mouth every 6 (six) hours if needed for mild pain, headaches or fever - temperature GREATER than 38 C (100.4 F) for up to 10 days. albuterol HFA 90 mcg/actuation inhaler Commonly known as: Proventil HFA Inhale 2 puffs by mouth every 4 (four) hours if needed for wheezing or shortness of breath. dextromethorphan-guaiFENesin 30-600 mg per 12 hr tablet Commonly known as: MUCINEX DM Take 1 tablet by mouth every 12 (twelve) hours for 10 days. Do not crush, chew, or split. predniSONE 20 mg tablet Commonly known as: DELTASONE Take 2 tablets (40 mg total) by mouth 1 (one) time each day for 5 days. umeclidinium-vilanteroL 62.5-25 mcg/actuation inhaler Commonly known as: ANORO ELLIPTA Inhale 1 puff by mouth 1 (one) time each day. STOP taking these medications fluticasone propion-salmeteroL 115-21 mcg/actuation inhaler Commonly known as: ADVAIR HFA guaiFENesin-codeine 100-10 mg/5 mL syrup Commonly known as: ROBITUSSIN-AC Where to Get Your Medications These medications were sent to [facility]/pharmacy #[id number] - [place], [place] - [facility] [address] [address] acetaminophen 325 mg tablet albuterol HFA 90 mcg/actuation inhaler dextromethorphan-guaiFENesin 30-600 mg per 12 hr tablet predniSONE 20 mg tablet umeclidinium-vilanteroL 62.5-25 mcg/actuation inhaler Lab Results Component Value Date GLUCOSE 88 09/02/2024 CALCIUM 8.0 (L) 09/02/2024 NA 136 09/02/2024 K 3.4 (L) 09/02/2024 CO2 20 (L) 09/02/2024 CL 107 09/02/2024 BUN 35 (H) 09/02/2024 CREATININE 3.54 (H) 09/02/2024 Lab Results Component Value Date WBC 17.2 (H) 09/02/2024 HGB 9.3 (L) 09/02/2024 HCT 29.7 (L) 09/02/2024 MCV 91.4 09/02/2024 PLT 216 09/02/2024 XR Chest 2 Views Result Date: 09/01/2024 PA and lateral views of the chest dated 09/01/2024. HISTORY: rsv ? progressed to pneumonia. COMPARISON: 08/29/2024. FINDINGS: Mildly hypoventilatory inspiratory effort. There are patchy opacities in the mid and lower right lung. 2 closely adjacent rounded lucencies projecting in the mid right lung which could represent cavitary lesions. No pleural effusion, pulmonary edema, or pneumothorax. Cardiomediastinal contours are normal. Cholecystectomy clips. Patchy opacities in the mid and lower right lung which could represent patchy pneumonia. 2 adjacentlucent structures in the mid right lung which could represent cavitary lesions. -------- FINAL REPORT -------- Dictated By: Fredis Melendez Dictated Date: 09/01/2024 15:10 ET Assigned Physician: Fredis Arzola Reviewed and Electronically Signed By: Fredis Melendez Signed Date: 09/01/2024 15:13 ET Workstation ID: [id number] Transcribed By: Self Edit Transcribed Date: 09/01/2024 15:10 ET documented in this encounter Discharge Instructions * Discharge Instructions* Leif Dillard MD - 09/02/2024 11:25 AM EST Changes in your medications are as mentioned below- - take medications as prescribed Special Instructions- - follow up outpatient with PCP -Follow-up outpatient with residential recycle driver; you will need repeat blood work on follow-up. -Maintain isolation for precaution per CDC protocol for RSV. If you develop any chest pain, shortness of breath, nausea, vomiting, palpitations, abdominal discomfort, worsening weakness, or any other symptoms then please contact 911. Please contact your primary care physician (family doctor) within 1 week of discharge. If you do not have a primary care provider, please contact one of the following to make arrangements to follow up. [facility] documented in this encounter Medications at Time of Discharge Medication Sig Dispensed Refills Start Date End Date albuterol HFA (Proventil HFA) 90 mcg/actuation inhaler Inhale 2 puffs by mouth every 4 (four) hours if needed for wheezing or shortness of breath. 1 each 1 09/02/2024 10/02/2024 umeclidinium-vilanter oL (ANORO ELLIPTA) 62.5-25 mcg/actuation inhaler Inhale 1 puff by mouth 1 (one) time each day. 1 each 1 09/02/2024 09/02/2025 acetaminophen (TYLENOL) 325 mg tablet Take 1.5 tablets (487.5 mg total) by mouth every 6 (six) hours if needed for mild pain, headaches or fever - temperature GREATER than 38 C (100.4 F) for up to 10 days. 20 tablet 09/02/2024 09/12/2024 predniSONE (DELTASONE) 20 mg tablet Take 2 tablets (40 mg total) by mouth 1 (one) time each day for 5 days. 10 each 09/02/2024 09/07/2024 azithromycin (ZITHROMAX) 500 mg tablet Take 1 tablet (500 mg total) by mouth 1 (one) time each day for 5 days. 5 each 09/02/2024 09/07/2024 dextromethorphan-guai FENesin (MUCINEX DM) 30-600 mg per 12 hr tablet Take 1 tablet by mouth every 12 (twelve) hours for 10 days. Do not crush, chew, or split. 20 tablet 09/02/2024 09/12/2024 documented as of this encounter Ordered Prescriptions Prescription Sig Dispensed Refills Start Date End Da te albuterol HFA (Proventil HFA) 90 mcg/actuation inhaler Inhale 2 puffs by mouth every 4 (four) hours if needed for wheezing or shortness of breath. 1 each 1 09/02/2024 10/02/2024 umeclidinium-vilantero L (ANORO ELLIPTA) 62.5-25 mcg/actuation inhaler Inhale 1 puff by mouth 1 (one) time each day. 1 each 1 09/02/2024 09/02/2025 azithromycin (ZITHROMAX) 500 mg tablet Take 1 tablet (500 mg total) by mouth 1 (one) time each day for 5 days. 5 each 09/02/2024 09/07/2024 acetaminophen (TYLENOL) 325 mg tablet Take 1.5 tablets (487.5 mg total) by mouth every 6 (six) hours if needed for mild pain, headaches or fever - temperature GREATER than 38 C (100.4 F) for up to 10 days. 20 tablet 09/02/2024 09/12/2024 dextromethorphan-guaiF ENesin (MUCINEX DM) 30-600 mg per 12 hr tablet Take 1 tablet by mouth every 12 (twelve) hours for 10 days. Do not crush, chew, or split. 20 tablet 09/02/2024 09/12/2024 predniSONE (DELTASONE) 20 mg tablet Take 2 tablets (40 mg total) by mouth 1 (one) time each day for 5 days. 10 each 09/02/2024 09/07/2024 predniSONE (DELTASONE) 20 mg tablet Take 2 tablets (40 mg total) by mouth 1 (one) time each day for 5 days. 10 each 09/02/2024 09/02/2024 acetaminophen (TYLENOL) 325 mg tablet Take 1.5 tablets (487.5 mg total) by mouth every 6 (six) hours if needed for mild pain, headaches or fever - temperature GREATER than 38 C (100.4 F) for up to 10 days. 20 tablet 09/02/2024 09/02/2024 documented in this encounter Discharge Disposition Disposition Code Departure Means Destination Comment s Home or Self Care documented in this encounter Progress Notes * tSephani Reyna RN - 09/02/2024 1:48 PM EST Goals: Identify possible barriers to meeting goals/advancing plan of care: None Stability of the patient: Moderately Stable - Low risk of patient condition declining or worsening End of Shift Summary: Pt is to be discharged today * Ariella Dior RN - 09/01/2024 11:50 AM EST ED RN HANDOFF (All Costa Below Must Be Completed) Reason/Diagnosis for Admission: Type of Admission: [] Medsurg, [x] Telemetry Already in a Hospital Bed: [] Yes / [x] No Room Considerations/Precautions (ex: fever, diarrhea, or any infectious concerns): [x] Yes / [] No Weather Strip Installer: [x] Yes / [] No If YES, Cardiac Rhythm: [x] NSR, [] SB, [] ST, [] A-FIB, [] A-Flutter, [] Pacemaker, [] 1st Degree HB, [] 2nd Degree HB, [] 3rd Degree HB Reason for Weather Strip Installer: VS: Visit Vitals BP 128/61 (BP Location: Left arm, Patient Position: Sitting) Pulse (!) 115 Comment: sinus tach, hbupendra aware Temp 36.9 ??C (98.5 ??F) (Oral) Resp 20 Ht 1.626 m (64 ) Wt 90.7 kg (200 lb) LMP 07/28/2024 SpO2 98% BMI 34.33 kg/m?? Smoking Status Every Day BSA 1.96 m?? Current Mental Status: A/O x [x]4, []3, []2, []1 Current Ambulation Status: independent IV Access: [x] Yes / [] No Field IV present: [] Yes / [x] No Hx of Violence: [] Yes / [] No / [x] Unknown Fall Risk:[] Yes / [x] No Yellow Bracelet Applied [] Yes / [x] No Yellow Socks Applied [] Yes / [x] No Patient Belongings inventoried and BL completed: [x] Yes / [] No Patient belongings stored in the security closet: [] Yes (If Yes please supply Security bag #): [x] No Patient Medications stored in Pharmacy: [] Yes (If Yes please supply Medication Security bag #): [x] No ED Summary of Care: Admitted d/t tele changes (flat twave r/t <K+), dx with rsv x2days agp/ Regular diet Contact/droplet precautions Submitted by and Phone Extension: [place] pod [id number] * Xenia Arora RN - 08/31/2024 2:27 PM EST Pt coming in for coughing up blood and feeling weak, body aches, pt has had symptoms since last Wednesday, pt was here on Wednesday and continues with same symptoms * SHONDA Hammer - 08/31/2024 2:16 PM EST Emergency Medicine Note Patient Name: Thomas Lynne Initial Evaluation: 08/31/2024 : 1990 Patient's PCP: Tatyana Murillo MD Emergency Physician: SHONDA Hammer History of Present Illness Chief Complaint: Chief Complaint Patient presents with Cough Vomiting HPI: 58-year-old female with history of CKD presents with cough, vomiting, difficulty eating, epigastric pain/sore throat. She was seen in the ER 2 days ago diagnosed with RSV bronchitis. Unfortunately the outpatient treatment/medications are not helping her at this time. -She denies previous cardiac history, diarrhea ROS: I have performed a ROS with the pertinent positives and negatives documented in the history ofpresent illness. Previous History Past Medical History: Diagnosis Date Anxiety and depression 10/25/2017 DX:Anxiety and depression Bipolar 2 disorder (CMS/HCC) 10/25/2017 DX:Bipolar 2 disorder (HCC) CKD (chronic kidney disease) stage 3, GFR 30-59 ml/min (CMS/HCC) 10/26/2017 DX:CKD (chronic kidney disease) stage 3, GFR 30-59 ml/min ([facility]); COMMENT: S/p renal biopsy, pathology report pending. Follows with nephrology Hypothyroidism 10/25/2017 DX:Hypothyroidism Hypothyroidism 2017 DX:Hypothyroidism Kidney disease 2017 DX:Kidney disease; COMMENT: stage 3 Migraine 2017 DX:Migraine Migraine headache 10/25/2017 DX:Migraine headache Obesity 2017 DX:Obesity Obesity (BMI 30-39.9) 10/25/2017 DX:Obesity (BMI 30-39.9) Tobacco abuse 10/25/2017 DX:Tobacco abuse Vitamin D insufficiency 10/25/2017 DX:Vitamin D insufficiency Vitamin D insufficiency 2017 DX:Vitamin D insufficiency Past Surgical History: Procedure Laterality Date OTHER SURGICAL HISTORY PROCEDURE: KIDNEY STONE PANEL THYROIDECTOMY PROCEDURE: HISTORICAL TOTAL THYROIDECTOMY TUBAL LIGATION 2011 PROCEDURE: HISTORICAL TUBAL LIGATION Social History Tobacco Use Smoking status: Every Day Current packs/day: 0.50 Types: Cigarettes Smokeless tobacco: Never Substance Use Topics Alcohol use: No Drug use: Yes Types: Marijuana/Cannabis Family History Problem Relation Name Age of Onset Diabetes Mother Hypertension Hypertension Father Diabetes Other (Other: cancer bone) Maternal Grandmother is allergic to penicillins. No current facility-administered medications on file prior to encounter. Current Outpatient Medications on File Prior to Encounter Medication Sig Dispense Refill fluticasone propion-salmeteroL (ADVAIR HFA) 115-21 mcg/actuation inhaler Inhale 2 puffs by mouth 2 (two) times a day for 7 days. Rinse mouth with water after use to reduce aftertaste and incidence ofcandidiasis. Do not swallow. 1 each 0 guaiFENesin-codeine (ROBITUSSIN-AC) 100-10 mg/5 mL syrup Take 5 mL by mouth every 6 (six) hours if needed for cough for up to 5 days. Max Daily Amount: 20 mL 100 mL 0 [DISCONTINUED] guaiFENesin-codeine (ROBITUSSIN-AC) 100-10 mg/5 mL syrup Take 5 mL by mouth every 6 (six) hours if needed for cough for up to 5 days. Max Daily Amount: 20 mL 120 mL 0 Physical Exam ED Triage Vitals [08/31/24 1430] Temp Heart Rate Resp BP 37.2 ??C (99 ??F) 108 18 125/83 SpO2 Temp Source Heart Rate Source Patient Position 95 % Oral Monitor Sitting BP Location FiO2 (%) Left arm -- General: awake, calm, coughing, cooperative, No apparent distress Skin: warm, dry, No diaphoresis Eyes: PERRLA, EOMI ENT: mucosa moist, throat is clear, no lymphadenopathy, TMs clear bilaterally Neck: soft/supple, full range of motion, no nuchal rigidity Respiratory: clear to auscultation Cardiovascular: regular rate and rhythm, no peripheral edema Gastrointestinal: soft nontender, normal active bowel sounds, no hepatomegaly Musculoskeletal: no calf tenderness, no pedal edema, appropriate range of motion in upper and lowerextremities Neurological: alert and oriented X3, no focal deficit, DTR intact, cranial nerves III through XII intact, strength 5/5 bilateral hands, 5/5 strength upper and lower extremities Psychiatric: stable mood and affect Results Labs Reviewed COMPREHENSIVE METABOLIC PANEL - Abnormal Result Value Sodium 133 Potassium 2.7 (*) Chloride 101 CO2 23 Anion Gap 9 Glucose 110 (*) BUN 37 (*) Creatinine 3.87 (*) eGFR 15 (*) BUN/Creatinine Ratio 9.6 Calcium 8.6 AST (SGOT) 40 ALT (SGPT) 68 (*) Alkaline Phosphatase 175 (*) Total Protein 7.3 Albumin 3.0 (*) Total Bilirubin 0.8 CBC WITH AUTO DIFFERENTIAL - Abnormal WBC 18.1 (*) RBC 3.90 Hemoglobin 11.0 (*) Hematocrit 33.9 (*) MCV 88.1 MCH 28.6 MCHC 32.4 RDW 13.8 Platelets 199 MPV 10.7 NRBC 0.0 NRBC Absolute 0.00 Neutrophils Relative 84.7 Lymphocytes Relative 8.7 Monocytes Relative 4.2 Eosinophils Relative 0.3 Basophils Relative 0.6 Immature Granulocytes Relative 1.5 Neutrophils Absolute 15.35 (*) Lymphocytes Absolute 1.58 Monocytes Absolute 0.76 Eosinophils Absolute 0.05 Basophils Absolute 0.10 Immature Granulocytes Absolute 0.27 (*) MAGNESIUM - Abnormal Magnesium 1.8 (*) LIPASE - Normal Lipase 26 CBC AND DIFFERENTIAL Narrative: The following orders were created for panel order CBC and differential. Procedure Abnormality Status --------- ------ CBC auto differential[[id number]] Abnormal Final result Please view results for these tests on the individual orders. Abnormal Labs Reviewed COMPREHENSIVE METABOLIC PANEL - Abnormal; Notable for the following components: Result Value Potassium 2.7 (*) Glucose 110 (*) BUN 37 (*) Creatinine 3.87 (*) eGFR 15 (*) ALT (SGPT) 68 (*) Alkaline Phosphatase 175 (*) Albumin 3.0 (*) All other components within normal limits CBC WITH AUTO DIFFERENTIAL - Abnormal; Notable for the following components: WBC 18.1 (*) Hemoglobin 11.0 (*) Hematocrit 33.9 (*) Neutrophils Absolute 15.35 (*) Immature Granulocytes Absolute 0.27 (*) All other components within normal limits MAGNESIUM - Abnormal; Notable for the following components: Magnesium 1.8 (*) All other components within normal limits No orders to display I have discussed the incidental/abnormal imaging and/or lab abnormalities with the patient and haveinstructed them the need for further evaluation and workup with their primary care doctor. The laboratory results, imaging results and other diagnostic exam results were reviewed in the EMR. EKG Interpretation Critical Care Time None ? Medical Decision Making Medications potassium chloride 10 mEq/100 mL IVPB 10 mEq (10 mEq intravenous New Bag 08/31/242106) benzonatate (TESSALON) capsule 100 mg (has no administration in time range) morphine 2 mg/mL injection 2 mg (has no administration in time range) magnesium sulfate 2 gram/50 mL (4 %) IVPB 2 g (has no administration in time range) sodium chloride 0.9 % flush 10 mL (10 mL intravenous Not Given 08/31/242228) And sodium chloride 0.9 % flush 10 mL (has no administration in time range) acetaminophen (TYLENOL) tablet 650 mg (has no administration in time range) ondansetron ODT (ZOFRAN-ODT) disintegrating tablet 4 mg (has no administration in time range) Or ondansetron (PF) (ZOFRAN) injection 4 mg (has no administration in time range) prochlorperazine (COMPAZINE) tablet 10 mg (has no administration in time range) Or prochlorperazine (COMPAZINE) injection 10 mg (has no administration in time range) Or prochlorperazine (COMPAZINE) suppository 25 mg (has no administration in time range) enoxaparin (LOVENOX) injection 30 mg (has no administration in time range) albuterol 2.5 mg /3 mL (0.083 %) nebulizer solution 2.5 mg (has no administration in time range) sodium chloride 0.9 % bolus 1,000 mL (1,000 mL intravenous New Bag 08/31/242002) ondansetron (PF) (ZOFRAN) injection 4 mg (4 mg intravenous Given 08/31/242002) ED Course as of 08/31/242238 [place] Aug 31, 20242012 Seen and evaluated. History and physical exam performed. Vitals reviewed. Patient with known RSV bronchitis unfortunately returning with continued/worsening symptoms now with hypokalemia and EKGchanges including flattened T waves throughout. Will proceed with ultralight replacement, fluid hydration. Of note she has a known chronic leukocytosis likely increased from the vomiting. Discussed with my attending and will discuss with inpatient management team. [AT] ED Course User Index [AT] SHONDA Hammer Clinical Impressions as of 08/31/242238 Acute bronchitis due to respiratory syncytial virus (RSV) Procedures Procedures Diagnosis 1. Acute bronchitis due to respiratory syncytial virus (RSV) Differential Diagnosis RSV Gastroenteritis Electrolyte disturbance Dehydration Disposition Admit to Inpatient ED Prescriptions None Physician Attestation SHONDA Hammer 08/31/242015 SHONDA Hammer 08/31/242239 documented in this encounter H&P Notes * Modesta Bedoya NP - 09/01/2024 11:44 AM EST Images from the original note were not included. History of present illness: This is a 34-year-old female with a past medical history significant for chronic kidney disease, bipolar disorder, chronic low back pain, cannabis abuse, and the below mentioned medical problems. Patient was seen here on 08/29/2024 and diagnosed with RSV bronchitis she was discharged on Robitussin with codeine and Advair entheses I do not see that they were filled). She comes back today with worsening symptoms reports that she feels feverish on and off and that she cannot take the cough she was coughing so hard that she coughed up blood. Is a smoker but states she has not smoked since her symptoms started. She overall states that it hurts to take a deep breath and cough and that she feels very weak and tired. No one else in the house is sick. She states that sometimes she feels hungry but she can eat as when she tries to swallow she starts coughing and feels like she is going to vomit. Denies any urinary symptoms no lower extremity edema. Review of Systems: This medical history: Chronic kidney disease stage IIIb had been seeing Dr. Mcginnis but has not seen him in quite a while History of hidradenitis Parathyroid adenoma Obstructive sleep apnea, noncompliant with PAP Medullary nephrocalcinosis Prediabetes Neuropathy Bipolar disorder Anxiety and depression Chronic back pain History of cannabis abuse Liver steatosis Past surgical history: Thyroid adenoma resection Tubaligation Family history: Mother has diabetes. Social history: She lives at home with partnerand children Had been smoking 1/2 ppd of cigarettes She has been using marijuana Denies alcohol and recreational drug use. Independent in activities of daily living. Allergies: Penicillins-anaphylaxis Home medications: She was recently ordered Advair and guaifenesin with codeine I do not see that either 1 of those were picked up. She states that she stopped all of her medications and has not been taking anything. Physical Exam: GENERAL: HEENT: Patient is normocephalic atraumatic pupils round and reactive no scleral icterus EOMI. Oral mucous membranes are pink and moist neck is supple without JVD. Trachea is midline CARDIAC: S1 and S2 heard without murmurs rubs gallops. RESPIRATORY: Lungs are clear to auscultation. No wheezing rales or rhonchi. No accessory muscle use. GI: Abdomen is soft no guarding no rebound tenderness bowel sounds are present. : Deferred EXTREMITIES: No asymmetrical edema distal pulses are palpable. Feet are warm and well perfused withcapillary refill less than 2 seconds. NEUROLOGICAL: Patient is alert and oriented. Cranial nerves II through XII are intact strength is 5/5. There is no pronator drift. Positive finger to nose. Babinski is downgoing. Assessment and Plan: 1. RSV bronchitis. Given that her symptoms have worsened we will repeat the chest x-ray now. Continue guaifenesin with codeine and as needed albuterol. The patient denies history of asthma/COPD although she was smoking half a pack a day until the onset of the symptoms. Supplemental oxygen as neededcurrently she is breathing easily on room air. 2. Chronic kidney disease stage IIIb she has not followed up with Dr. Mcginnis and I have urged her to do so. Will monitor renal function closely and avoid nephrotoxins. 3. Hypokalemia. She did have potassium replacement yesterday and this morning her potassium is still 3.1 I will give her another 10 mEq p.o. check in a.m. 4. Reported prediabetes we will change her diet to diabetic diet monitor [id number] see 5. Tobacco abuse nicotine replacement has been ordered 6. Bipolar disorder patient stopped her Wellbutrin and antianxiety medications when asked why she said I just did. DVT prophylaxis: [facility] proxy: No formal designation but she lists her partner Calvin Calles as her contactand his number is [phone] CODE STATUS: Full code Case and plan discussed with Dr Medina. Associated attestation - Chauncey Medina MD - 09/10/2024 6:46 PM EST This is a split/shared visit with Modesta Bedoya NP. I personally performed the medical decision making (MDM) for the care of this patient on 09/01/24 as documented below Patient was discussed with Advanced Practice Provider. I personally saw and examined the patient atbedside. I independently obtained further history and reviewed significant updates, labs and imaging. I also contacted pertinent consultants in order to facilitate patient's medical care. Otherwise, I agree with the documentation and plan as outlined in the note below. Chauncey Medina MD 09/10/24 6:30 PM EST documented in this encounter Plan of Treatment Not on file documented as of this encounter Procedures Procedure Name Priority Date/Time Associated Diagnosis Comments CBC WITH AUTO DIFFERENTIAL Routine 09/02/2024 5:53 AM EST CBC AND DIFFERENTIAL Routine 09/02/2024 5:53 AM EST MAGNESIUM Routine 09/02/2024 5:53 AM EST BASIC METABOLIC PANEL Routine 09/02/2024 5:53 AM EST XR CHEST 2 VIEWS Routine 09/01/2024 3:08 PM EST CBC WITH AUTO DIFFERENTIAL Routine 09/01/2024 5:06 AM EST CBC AND DIFFERENTIAL Routine 09/01/2024 5:06 AM EST PHOSPHORUS Routine 09/01/2024 5:06 AM EST MAGNESIUM Routine 09/01/2024 5:06 AM EST BASIC METABOLIC PANEL Routine 09/01/2024 5:06 AM EST ECG 12-LEAD STAT 08/31/2024 5:09 PM EST CBC WITH AUTO DIFFERENTIAL STAT 08/31/2024 3:44 PM EST CBC AND DIFFERENTIAL STAT 08/31/2024 3:44 PM EST MAGNESIUM Add-On 08/31/2024 3:44 PM EST LIPASE STAT 08/31/2024 3:44 PM EST COMPREHENSIVE METABOLIC PANEL STAT 08/31/2024 3:44 PM EST ECG ANNOTATED 08/31/2024 documented in this encounter Results * (ABNORMAL) CBC auto differential (09/02/2024 5:53 AM EST) [facility] Signature WBC 17.2(H) 4.8 - 10.8 K/[facility] LAB HEMETOLOGY METHOD 09/02/2024 7:09 AM [facility] [...] 7:09 AM [facility] Monocytes Absolute 0.86 0.20 - 1.00 K/mcL LAB HEMETOLOGY METHOD 09/02/2024 7:09 AM [facility] Eosinophils Absolute 0.22 0.00 - 0.50 K/mcL LAB HEMETOLOGY METHOD 09/02/2024 7:09 AM [facility] Basophils Absolute 0.05 0.00 - 0.20 K/mcL LAB HEMETOLOGY METHOD 09/02/2024 7:09 AM [facility] Immature Granulocytes Absolute 0.23(H) 0.00 - 0.03 K/mcL LAB HEMETOLOGY METHOD 09/02/2024 7:09 AM [facility] Blood Venous blood specimen / Unknown Venipuncture / Unknown 09/02/2024 5:53 AM EST 09/02/2024 6:30 AM EST Chauncey Medina MD LAB BLOOD ORDERABLES Performing Organization Address City/[facility]/ZIP Co de Phone Number [facility] [address] [place] [address], * (ABNORMAL) Magnesium (09/02/2024 5:53 AM EST) Magnesium 1.8(L) 1.9 - 2.6 mg/dL LAB CHEMISTRY METHOD 09/02/2024 7:04 AM [facility] Blood Venous blood specimen / Unknown Venipuncture / Unknown 09/02/2024 5:53 AM EST 09/02/2024 6:30 AM EST Chauncey Medina MD LAB BLOOD ORDERABLES Performing Organization Address [facility]/ZIP Co de Phone Number [facility] [address] [place] [address], * (ABNORMAL) Basic metabolic panel (09/02/2024 5:53 AM EST) Sodium 136 133 - 145 mmol/L LAB [...] LAB CHEMISTRY METHOD 09/02/2024 7:04 AM EST [facility] eGFR 16(L) >=60 mL/min/1. 73m2 LAB CHEMISTRY METHOD 09/02/2024 7:04 AM EST [facility] Comment:Calculation based on the??Chronic Kidney Disease [...] EST Chauncey Medina MD LAB BLOOD ORDERABLES [facility] [address] [place] [address], * XR Chest 2 Views (09/01/2024 3:08 PM EST) Anatomical Region Laterality Modality Body Radiographic Danay [...] Signed Date: 09/01/2024 15:13 ET Workstation ID: [id number] Transcribed By: Self Edit Transcribed Date: 09/01/2024 [...] Signed Date: 09/01/2024 15:13 ET Workstation ID: [id number] Transcribed By: Self Edit Transcribed Date: 09/01/2024 15:10 ET Modesta Bedoya SPEED OPERATOR IMG XR PROCEDURES * (ABNORMAL) CBC auto differential (09/01/2024 5:06 AM EST) WBC 15.9(H) 4.8 - 10.8 /[facility] LAB HEMETOLOGY METHOD 09/01/2024 6:11 AM EST [facility] RBC 3.20(L) 3.80 - 4.80 M/mcL LAB HEMETOLOGY METHOD 09/01/2024 6:11 AM [facility] Hemoglobin 9.0(L) 11.5 - 16.0 g/dL LAB HEMETOLOGY METHOD 09/01/2024 6:11 AM [facility] Hematocrit 28.7(L) 35.0 - 47.0 % LAB HEMETOLOGY METHOD 09/01/2024 6:11 AM [facility] MCV 89.7 79.0 - 98.0 FL LAB HEMETOLOGY METHOD 09/01/2024 6:11 AM [facility] MCH 28.1 27.0 - 32.0 pcg LAB HEMETOLOGY METHOD 09/01/2024 6:11 AM [facility] MCHC 31.4(L) 32.0 - 37.0 g/dL LAB HEMETOLOGY METHOD 09/01/2024 6:11 AM [facility] RDW 13.6 11.0 - 15.0 % LAB HEMETOLOGY METHOD 09/01/2024 6:11 AM [facility] Platelets 170 130 - 400 K/mcL LAB HEMETOLOGY METHOD 09/01/2024 6:11 AM [facility] MPV 10.9 7.0 - 11.0 FL LAB HEMETOLOGY METHOD 09/01/2024 6:11 AM [facility] NRBC 0.0 <1.0 % LAB HEMETOLOGY METHOD 09/01/2024 6:11 AM [facility] NRBC Absolute 0.00 <0.10 K/mcL LAB HEMETOLOGY METHOD 09/01/2024 6:11 AM [facility] Neutrophils Relative 82.7 % LAB HEMETOLOGY METHOD 09/01/2024 6:11 AM [facility] Lymphocytes Relative 10.5 % LAB HEMETOLOGY METHOD 09/01/2024 6:11 AM EST [facility] Monocytes Relative 5.1 % LAB HEMETOLOGY METHOD 09/01/2024 6:11 AM [facility] Eosinophils Relative 0.9 % LAB HEMETOLOGY METHOD 09/01/2024 6:11 AM [facility] Basophils Relative 0.1 % LAB HEMETOLOGY METHOD 09/01/2024 6:11 AM [facility] Immature Granulocytes Relative 0.7 % LAB HEMETOLOGY METHOD 09/01/2024 6:11 AM [facility] Neutrophils Absolute 13.17(H) 1.50 - 7.00 K/mcL LAB HEMETOLOGY METHOD 09/01/2024 6:11 AM [facility] Lymphocytes Absolute 1.68 1.00 - 5.00 K/mcL LAB HEMETOLOGY METHOD 09/01/2024 6:11 AM [facility] Monocytes Absolute 0.81 0.20 - 1.00 K/mcL LAB HEMETOLOGY METHOD 09/01/2024 6:11 AM [facility] Eosinophils Absolute 0.14 0.00 - 0.50 K/mcL LAB HEMETOLOGY METHOD 09/01/2024 6:11 AM [facility] Basophils Absolute 0.02 0.00 - 0.20 K/mcL LAB HEMETOLOGY METHOD 09/01/2024 6:11 AM [facility] Immature Granulocytes Absolute 0.11(H) 0.00 - 0.03 K/mcL LAB HEMETOLOGY METHOD 09/01/2024 6:11 AM [facility] Blood Venous blood specimen / Unknown Venipuncture / Unknown 09/01/2024 5:06 AM EST 09/01/2024 5:40 AM EST Didier Ovreton MD LAB BLOOD ORDERABLE S [facility] [address] [place] [address], * (ABNORMAL) Phosphorus (09/01/2024 5:06 AM EST) [facility] Phosphorus 1.9(L) 2.5 - 4.5 mg/dL LAB CHEMISTRY METHOD 09/01/2024 6:09 AM EST [facility] Blood Venous blood specimen / Unknown Venipuncture / Unknown 09/01/2024 5:06 AM EST 09/01/2024 5:42 AM EST Didier Overton MD LAB BLOOD ORDERABLE S Performing Organization Address [facility]/ZIP Co de Phone Number [facility] [address] [place] [address], [place] [phone] * Magnesium (09/01/2024 5:06 AM EST) [facility] Magnesium 1.9 1.9 - 2.6 mg/dL LAB CHEMISTRY METHOD 09/01/2024 6:09 AM EST [facility] Blood Venous blood specimen / Unknown Venipuncture / Unknown 09/01/2024 5:06 AM EST 09/01/2024 5:42 AM EST Didier Overton MD LAB BLOOD ORDERABLE S Performing Organization Address City/[facility]/ZIP Co de Phone Number [facility] [address] [place] [address], * (ABNORMAL) Basic metabolic panel (09/01/2024 5:06 AM EST) [facility] Sodium 134 133 - 145 mmol/L LAB CHEMISTRY METHOD 09/01/2024 6:09 AM EST [facility] Potassium 3.1(L) 3.5 - 5.5 mmol/L LAB CHEMISTRY METHOD 09/01/2024 6:09 AM EST [facility] Chloride 104 96 - 110 mmol/L LAB CHEMISTRY METHOD 09/01/2024 6:09 AM [facility] CO2 23 21 - 32 mmol/L LAB CHEMISTRY METHOD 09/01/2024 6:09 AM [facility] Anion Gap 7 3 - 11 LAB CHEMISTRY METHOD 09/01/2024 6:09 AM [facility] Glucose 107(H) 70 - 100 mg/dL LAB CHEMISTRY METHOD 09/01/2024 6:09 AM [facility] BUN 38(H) 5 - 25 mg/dL LAB CHEMISTRY METHOD 09/01/2024 6:09 AM [facility] Creatinine 3.79(H) 0.50 - 1.10 mg/dL LAB CHEMISTRY METHOD 09/01/2024 6:09 AM [facility] eGFR 15(L) >=60 mL/min/1. 73m2 LAB CHEMISTRY METHOD 09/01/2024 6:09 AM [facility] Comment:Calculation based on the??Chronic Kidney Disease Epidemiology Collaboration (CKD-EPI) equation refit??without adjustment for race. BUN/Creatinine Ratio 10.0 LAB CHEMISTRY METHOD 09/01/2024 6:09 AM [facility] Calcium 7.4(L) 8.5 - 10.5 mg/dL LAB CHEMISTRY METHOD 09/01/2024 6:09 AM [facility] Blood Venous blood specimen / Unknown Venipuncture / Unknown 09/01/2024 5:06 AM EST 09/01/2024 5:42 AM EST Didier Overton MD LAB BLOOD ORDERABLE S [facility] [address] [place] [address], * ECG 12 lead (08/31/2024 5:09 PM EST) Ventricular Rate ECG 99 BPM GEMUSE Atrial Rate 99 BPM GEMUSE P-R Interval 128 ms GEMUSE QRS Duration 92 ms GEMUSE Q-T Interval 354 ms GEMUSE QTc 454 ms GEMUSE P Wave [place] 59 degrees GEMUSE R [place] -12 degrees GEMUSE T [place] -13 degrees GEMUSE ECG Interpretation Normal sinus [...] Overton MD ECG ORDERABLES Performing Organization Address City/[facility]/ZIP Co de Phone Number GEMUSE * (ABNORMAL) Magnesium (08/31/2024 3:44 PM EST) Pathologist [facility] Magnesium 1.8(L) 1.9 - 2.6 mg/dL LAB CHEMISTRY METHOD 08/31/2024 8:21 PM EST [facility] Blood Venous blood specimen / Unknown Venipuncture / Unknown 08/31/2024 3:44 PM EST 08/31/2024 3:49 PM EST Anai MERCHANT LAB BLOOD ORDERA BLES Performing Organization Address City/[facility]/ZIP Co de Phone Number [facility] [address] [place] [address], * (ABNORMAL) CBC auto differential (08/31/2024 3:44 PM EST) WBC 18.1(H) 4.8 - 10.8 K/[facility] LAB HEMETOLOGY METHOD 08/31/2024 4:00 PM EST [facility] RBC 3.90 3.80 - 4.80 M/mcL LAB HEMETOLOGY METHOD 08/31/2024 4:00 PM EST [facility] Hemoglobin 11.0(L) 11.5 - 16.0 g/dL LAB HEMETOLOGY METHOD 08/31/2024 4:00 PM [facility] Hematocrit 33.9(L) 35.0 - 47.0 % LAB HEMETOLOGY METHOD 08/31/2024 4:00 PM [facility] MCV 88.1 79.0 - 98.0 FL LAB HEMETOLOGY METHOD 08/31/2024 4:00 PM [facility] MCH 28.6 27.0 - 32.0 pcg LAB HEMETOLOGY METHOD 08/31/2024 4:00 PM [facility] MCHC 32.4 32.0 - 37.0 g/dL LAB HEMETOLOGY METHOD 08/31/2024 4:00 PM [facility] RDW 13.8 11.0 - 15.0 % LAB HEMETOLOGY METHOD 08/31/2024 4:00 PM [facility] Platelets 199 130 - 400 K/mcL LAB HEMETOLOGY METHOD 08/31/2024 4:00 PM [facility] MPV 10.7 7.0 - 11.0 FL LAB HEMETOLOGY METHOD 08/31/2024 4:00 PM [facility] NRBC 0.0 <1.0 % LAB HEMETOLOGY METHOD 08/31/2024 4:00 PM [facility] NRBC Absolute 0.00 <0.10 K/mcL LAB HEMETOLOGY METHOD 08/31/2024 4:00 PM [facility] Neutrophils Relative 84.7 % LAB HEMETOLOGY METHOD 08/31/2024 4:00 PM [facility] Lymphocytes Relative 8.7 % LAB HEMETOLOGY METHOD 08/31/2024 4:00 PM [facility] Monocytes Relative 4.2 % LAB HEMETOLOGY METHOD 08/31/2024 4:00 PM [facility] Eosinophils Relative 0.3 % LAB HEMETOLOGY METHOD 08/31/2024 4:00 PM [facility] Basophils Relative 0.6 % LAB HEMETOLOGY METHOD 08/31/2024 4:00 PM [facility] Immature Granulocytes Relative 1.5 % LAB HEMETOLOGY METHOD 08/31/2024 4:00 PM [facility] Neutrophils Absolute 15.35(H) 1.50 - 7.00 K/mcL LAB HEMETOLOGY METHOD 08/31/2024 4:00 PM [facility] Lymphocytes Absolute 1.58 1.00 - 5.00 K/mcL LAB HEMETOLOGY METHOD 08/31/2024 4:00 PM [facility] Monocytes Absolute 0.76 0.20 - 1.00 K/mcL LAB HEMETOLOGY METHOD 08/31/2024 4:00 PM [facility] Eosinophils Absolute 0.05 0.00 - 0.50 K/mcL LAB HEMETOLOGY METHOD 08/31/2024 4:00 PM EST [facility] Basophils Absolute 0.10 0.00 - 0.20 K/mcL LAB HEMETOLOGY METHOD 08/31/2024 4:00 PM [facility] Immature Granulocytes Absolute 0.27(H) 0.00 - 0.03 K/mcL LAB HEMETOLOGY METHOD 08/31/2024 4:00 PM [facility] Blood Venous blood specimen / Unknown Venipuncture / Unknown 08/31/2024 3:44 PM EST 08/31/2024 3:49 PM EST Tejas Hyde MD LAB BLOOD ORDERABLES [facility] [address] [place] [address], * Lipase (08/31/2024 3:44 PM EST) Pathologist [facility] Lipase 26 13 - 75 unit/L LAB CHEMISTRY METHOD 08/31/2024 4:26 PM [facility] Blood Venous blood specimen / Unknown Venipuncture / Unknown 08/31/2024 3:44 PM EST 08/31/2024 3:49 PM EST Tejas Hyde MD LAB BLOOD ORDERABLES [facility] [address] [place] [address], [place] [phone] * (ABNORMAL) Comprehensive metabolic panel (08/31/2024 3:44 PM EST) [facility] Sodium 133 133 - 145 mmol/L LAB CHEMISTRY METHOD 08/31/2024 4:31 PM [facility] Potassium 2.7(LL) 3.5 - 5.5 mmol/L LAB CHEMISTRY METHOD 08/31/2024 4:31 PM [facility] Chloride 101 96 - 110 mmol/L LAB CHEMISTRY METHOD 08/31/2024 4:31 PM [facility] CO2 23 21 - [...] 4:31 PM [facility] Total Bilirubin 0.8 0.0 - 1.4 mg/dL LAB CHEMISTRY METHOD 08/31/2024 4:31 PM [facility] Blood Venous blood specimen / Unknown Venipuncture / Unknown 08/31/2024 3:44 PM EST 08/31/2024 3:49 PM EST Tejas Hyde MD LAB BLOOD ORDERABLES [facility] [address] [place] [address], * ECG-Annotated (08/31/2024) Provider Onbase ECG ORDERABLES documented in this encounter Visit Diagnoses Diagnosis Acute bronchitis due to respiratory syncytial virus (RSV)- Primary Acute bronchitis due to respiratory syncytial virus (RSV) Hypokalemia Hypopotassemia documented in this encounter Admitting Diagnoses Diagnosis Hypokalemia Hypopotassemia Acute bronchitis due to respiratory syncytial virus (RSV) documented in this encounter Administered Medications Inactive Administered Medications - up to 3 most recent administrations Medication Order MAR Action Action Date Dose Rate Site acetaminophen (TYLENOL) tablet 650 mg 650 mg, oral, Every 4 hours PRN, mild pain, headaches, fever - temperature GREATER than 38 C (100.4 F), Starting on Wed08/31/24 at 2228 Given 09/02/2024 12:29 PM EST 650 mg Given 09/01/2024 2:40 AM EST 650 mg albuterol 2.5 mg /3 mL (0.083 %) nebulizer solution 2.5 mg 2.5 mg, nebulization, Every 6 hours PRN, wheezing, Starting on Wed08/31/24 at 2228 Given 09/02/2024 8:36 AM EST 2.5 mg benzonatate (TESSALON) capsule 100 mg 100 mg, oral, Once, On Wed08/31/24 at 2057, For 1 dose, Do not crush or chew. Given 08/31/2024 11:03 PM EST 100 mg enoxaparin (LOVENOX) injection 30 mg 30 mg, subcutaneous, Every 24 hours scheduled, First dose on Wed09/01/24 at 0900, Renal dosing, Indication: VTE/PE Prophylaxis Given 09/02/2024 8:48 AM EST 30 mg Right Lower Abdomen Given 09/01/2024 9:21 AM EST 30 mg Le ft Lower Abdomen guaiFENesin-codeine (ROBITUSSIN-AC) 100-10 mg/5 mL syrup 10 mL 10 mL, oral, Every 6 hours PRN, cough, Starting on Wed09/01/24 at 0849 Given 09/02/2024 3:33 AM EST 10 mL Given 09/01/2024 7:34 PM EST 10 mL Given 09/01/2024 11:57 AM EST 10 mL HYDROmorphone (PF) injection 0.5 mg 0.5 mg, intravenous, Every 3 hours PRN, severe pain or when therapies for moderate pain were not effective, Starting on Wed09/01/24 at 0847 Given 09/02/2024 8:47 AM EST 0.5 mg Given 09/02/2024 5:32 AM EST 0.5 mg Given 09/02/2024 1:39 AM EST 0.5 mg magnesium sulfate 2 gram/50 mL (4 %) IVPB 2 g 2 g, intravenous, at 25 mL/hr, Administer over 2 Hours, Once, On Hope 08/31/24 at 2109, For 1 dose New Bag 08/31/2024 11:01 PM EST 2 g 25 mL/hr methylPREDNISolone sodium succ (SOLU-Medrol) injection 60 mg 60 mg, intravenous, Every 12 hours scheduled, First dose on Wed09/02/24 at 1345, Reconstitute each 125 mg vial with 2 mL sterile water for injection to a concentration of 62.5 mg/mL. Given 09/02/2024 2:01 PM EST 60 mg morphine 2 mg/mL injection 2 mg 2 mg, intravenous, Once, On Hope 08/31/24 at 2057, For 1 dose Given 08/31/2024 11:02 PM EST 2 mg naloxone (NARCAN) injection 0.04 mg 0.04 mg, intravenous, As needed, opioid reversal, IV Push every 1 min for 10 doses, Starting on Wed09/01/24 at 0847, For 10 doses, To Dilute: -Use 0.4 mg/mL vial , withdraw 1 mL and add 9 mL NS -FOLLOWING DILUTION, dose of 0.04 mg = 1 mL For PARTIAL Opioid Reversal: -For respiratory rate LESS than 10 or [place] Opioid-induced Sedation Scale (POSS) equal to 4 -May be repeated at 1 minute intervals to restore adequate respirations -Administer up to 10 doses (0.4 mg) nicotine (NICODERM CQ) 21 mg/24 hr patch 1 patch 1 patch, transdermal, Administer over 24 Hours, Daily, First dose on Wed09/01/24 at 1146 ondansetron (PF) (ZOFRAN) injection 4 mg 4 mg, intravenous, Once, On Hoep 08/31/24 at 1957, For 1 dose Given 08/31/2024 8:03 PM EST 4 mg Right Forearm ondansetron (PF) (ZOFRAN) injection 4 mg 4 mg, intravenous, Every 8 hours PRN, vomiting, nausea, Starting on Wed08/31/24 at 2229, -ONLY give IV if patient is unable to take orally. -If inadequate response within 30 minutes, proceed to next-line agent or contact provider if no further options ordered. Given 09/02/2024 12:43 PM EST 4 mg potassium chloride (KLOR-CON M10) CR tablet 10 mEq 10 mEq, oral, Once, On Wed09/01/24 at 1202, For 1 dose, Tablet may be swallowed whole (do not crush/chew/suck on) OR broken in half and each half swallowed separately OR dissolved (whole tablet) in ~4 ounces of water (allow ~2 minutes to dissolve, stir well and administer immediately). Given 09/01/2024 12:33 PM EST 10 mEq potassium chloride (KLOR-CON M20) CR tablet 40 mEq 40 mEq, oral, Once, On Wed09/02/24 at 0900, For 1 dose, Tablet may be swallowed whole (do not crush/chew/suck on) OR broken in half and each half swallowed separately OR dissolved (whole tablet) in ~4 ounces of water (allow ~2 minutes to dissolve, stir well and administer immediately). Given 09/02/2024 12:30 PM EST 40 mEq potassium chloride 10 mEq/100 mL IVPB 10 mEq 10 mEq, intravenous, at 100 mL/hr, Administer over 1 Hours, Every 1 hour, First dose on Wed08/31/24 at 1957, For 4 doses New Bag 08/31/2024 9:07 PM EST 10 mEq 100 mL/hr New Bag 08/31/2024 8:04 PM EST 10 mEq 100 mL/hr Ri ght Forearm potassium chloride 10 mEq/100 mL IVPB 10 mEq 10 mEq, intravenous, at 100 mL/hr, Administer over 1 Hours, Every 1 hour, First dose (after last reorder) on Wed09/01/24 at 0357, For 2 doses New Bag 09/01/2024 5:43 AM EST 10 mEq 100 mL/hr New Bag 09/01/2024 3:59 AM EST 10 mEq 100 mL/hr prochlorperazine (COMPAZINE) injection 10 mg 10 mg, intravenous, Every 6 hours PRN, nausea, vomiting, Starting on Hope 08/31/24 at 2229, 2nd Line Option: -ONLY give IV if patient is unable to take orally. -Give IM if patient does not have IV Access -If inadequate response within 30 minutes, proceed to next-line agent or contact provider if no further options ordered. prochlorperazine (COMPAZINE) suppository 25 mg 25 mg, rectal, Every 12 hours PRN, nausea, vomiting, Starting on Hope 08/31/24 at 2229, 2nd Line Option: -ONLY give IN if patient is unable to take orally and cannot receive IV/IM. -If inadequate response within 30 minutes, proceed to next-line agent or contact provider if no further options ordered. prochlorperazine (COMPAZINE) tablet 10 mg 10 mg, oral, Every 6 hours PRN, nausea, vomiting, Starting on Hope 08/31/24 at 2229, 2nd Line Option: -Give IV or IM if patient is unable to take orally. -If inadequate response within 30 minutes, proceed to next-line agent or contact provider if no further options ordered. sodium chloride 0.9 % bolus 1,000 mL 1,000 mL, intravenous, at 1,000 mL/hr, Administer over 1 Hours, Once, On Hope 08/31/24 at 1952, For 1 dose New Bag 08/31/2024 8:03 PM EST 1,000 mL 1000 mL/hr Right Forearm sodium chloride 0.9 % flush 10 mL 10 mL, intravenous, 2 times daily, First dose on Hope 08/31/24 at 2230 Given 09/02/2024 8:48 AM EST 10 mL Given 09/01/2024 8:24 PM EST 10 mL Given 09/01/2024 9:22 AM EST 10 mL sodium chloride 0.9 % flush 10 mL 10 mL, intravenous, As needed, line care, Starting on Hope 08/31/24 at 2229 documented in this encounter Discontinued Medications Medication Sig Discontinue Reason Start Date End Da te acetaminophen (TYLENOL) 325 mg tablet Take 1.5 tablets (487.5 mg total) by mouth every 6 (six) hours if needed for mild pain, headaches or fever - temperature GREATER than 38 C (100.4 F) for up to 10 days. 09/02/2024 09/02/2024 predniSONE (DELTASONE) 20 mg tablet Take 2 tablets (40 mg total) by mouth 1 (one) time each day for 5 days. 09/02/2024 09/02/2024 fluticasone propion-salmeteroL (ADVAIR HFA) 115-21 mcg/actuation inhaler Inhale 2 puffs by mouth 2 (two) times a day for 7 days. Rinse mouth with water after use to reduce aftertaste and incidence of candidiasis. Do not swallow. Stop Taking at Discharge 08/29/2024 09/02/2024 guaiFENesin-codeine (ROBITUSSIN-AC) 100-10 mg/5 mL syrup Take 5 mL by mouth every 6 (six) hours if needed for cough for up to 5 days. Max Daily Amount: 20 mL Stop Taking at Discharge 08/29/2024 09/02/2024 documented as of this encounter Active and Recently Administered Medications Times are shown in EST. Scheduled Medication Order 08/31/2024 09/01/2024 09/02/2024 benzonatate (TESSALON) capsule 100 mg (COMPLETED) 100 mg, oral, Once, On [place] 08/31/24 at 2057, For 1 dose, Do not crush or chew. 2303 (Given - Provider: Meaghan Beauchamp, SILAS) enoxaparin (LOVENOX) injection 30 mg 30 mg, subcutaneous, Every 24 hours scheduled, First dose on Wed09/01/24 at 0900, Renal dosing, Indication: VTE/PE Prophylaxis 0921 (Given - Provider: Anabel Ortiz RN) 0848 (Given - Provider: Stephani Reyna, SILAS) magnesium sulfate 2 gram/50 mL (4 %) IVPB 2 g (COMPLETED) 2 g, intravenous, at 25 mL/hr, Administer over 2 Hours, Once, On [place] 08/31/24 at 2109, For 1 dose 2301 (New Bag - Provider: Meaghan Beauchamp RN - Comment: no iv access) 0101 (Stopped - Provider: Barbara Brunson RN) methylPREDNISolone sodium succ (SOLU-Medrol) injection 60 mg 60 mg, intravenous, Every 12 hours scheduled, First dose on Wed09/02/24 at 1345, Reconstitute each 125 mg vial with 2 mL sterile water for injection to a concentration of 62.5 mg/mL. 1401 (Given - Provider: Stephani Reyna, SILAS) morphine 2 mg/mL injection 2 mg (COMPLETED) 2 mg, intravenous, Once, On Hope 08/31/24 at 2057, For 1 dose 2302 (Given - Provider: Meaghan Beauchamp RN - Comment: no iv access) nicotine (NICODERM CQ) 21 mg/24 hr patch 1 patch 1 patch, transdermal, Administer over 24 Hours, Daily, First dose on Wed09/01/24 at 1146 1815 (Not Given - Provider: Marialuisa Mora RN - Reason: Patient/Resident/Agen t refused - education provided ) 0848 (Not Given - Provider: Stephani Reyna RN - Reason: Patient/Resident/Age nt refused - education provided ) ondansetron (PF) (ZOFRAN) injection 4 mg (COMPLETED) 4 mg, intravenous, Once, On [place] 08/31/24 at 1957, For 1 dose 2002 (Given - Provider: Carlos Winston RN) potassium chloride (KLOR-CON M10) CR tablet 10 mEq (COMPLETED) 10 mEq, oral, Once, On Wed09/01/24 at 1202, For 1 dose, Tablet may be swallowed whole (do not crush/chew/suck on) OR broken in half and each half swallowed separately OR dissolved (whole tablet) in ~4 ounces of water (allow ~2 minutes to dissolve, stir well and administer immediately). 1233 (Given - Provider: Marialuisa Mora RN) potassium chloride (KLOR-CON M20) CR tablet 40 mEq (COMPLETED)(Linked Group 1) 40 mEq, oral, Once, On Wed09/02/24 at 0900, For 1 dose, Tablet may be swallowed whole (do not crush/chew/suck on) OR broken in half and each half swallowed separately OR dissolved (whole tablet) in ~4 ounces of water (allow ~2 minutes to dissolve, stir well and administer immediately). 1230 (Given - Provider: Stephani Reyna RN) potassium chloride 10 mEq/100 mL IVPB 10 mEq () 10 mEq, intravenous, at 100 mL/hr, Administer over 1 Hours, Every 1 hour, First dose on [place] 08/31/24 at 1957, For 4 doses 2003 (New Bag - Provider: Carlos Winston RN)2105 (Stopped - Provider: Carlos Winston RN)2106 (New Bag - Provider: Carlos Winston RN)232 (Stopped - Provider: Barbara Brunson RN) 0625 (Not Given - Provider: Barbara Brunson RN - Reason: See Provider Order - Comment: additional 2 bags re-ordered under new order)0929 (Not Given - Provider: Anabel Ortiz RN - Reason: Other - Comment: not given , pt administered 2 doses per order) potassium chloride 10 mEq/100 mL IVPB 10 mEq (COMPLETED) 10 mEq, intravenous, at 100 mL/hr, Administer over 1 Hours, Every 1 hour, First dose (after last reorder) on Wed09/01/24 at 0357, For 2 doses 0359 (New Bag - Provider: Barbara Brunson RN)0542 (Stopped - Provider: Barbara Brunson RN)0543 (New Bag - Provider: Barbara Brunson RN)0747 (Stopped - Provider: Anabel Ortiz RN) sodium chloride 0.9 % bolus 1,000 mL (COMPLETED) 1,000 mL, intravenous, at 1,000 mL/hr, Administer over 1 Hours, Once, On Wed08/31/24 at 1952, For 1 dose 2002 (New Bag - Provider: Carlos Winston RN)2325 (Stopped - Provider: Barbara Brunson RN) sodium chloride 0.9 % flush 10 mL(Linked Group 2) 10 mL, intravenous, 2 times daily, First dose on Wed08/31/24 at 2230 2229 (Not Given - Provider: Meaghan Beauchamp RN - Reason: Other) 0922 (Given - Provider: Anabel Ortiz RN)2023 (Given - Provider: Matty Lowe RN) 0848 (Given - Provider: Stephani Reyna, SILAS) PRN Medication Order 08/31/2024 09/01/2024 09/02/2024 acetaminophen (TYLENOL) tablet 650 mg 650 mg, oral, Every 4 hours PRN, mild pain, headaches, fever - temperature GREATER than 38 C (100.4 F), Starting on Wed08/31/24 at 2228 0240 (Given - Provider: Barbara Brunson RN) 1229 (Given - Provider: Stephani Reyna, SILAS) albuterol 2.5 mg /3 mL (0.083 %) nebulizer solution 2.5 mg 2.5 mg, nebulization, Every 6 hours PRN, wheezing, Starting on [place] 08/31/24 at 2228 0836 (Given - Provid er: Nahed Mora) guaiFENesin-codeine (ROBITUSSIN-AC) 100-10 mg/5 mL syrup 10 mL 10 mL, oral, Every 6 hours PRN, cough, Starting on Wed09/01/24 at 0849 1157 (Given - Provider: Ariella Dior, SILAS)1851 (Not Given - Provider: Marialuisa Mora RN - Reason: Patient/Resident/Agent refused - education provided )1934 (Given - Provider: Matty Lowe, SILAS) 0333 (Given - Provider: Matty Lowe, SILAS)0847 (Canceled Entry - Provider: Stephani Reyna RN - Comment: Pt changed mind and wanted to save for later in the day) HYDROmorphone (PF) injection 0.5 mg (CANCELED) 0.5 mg, intravenous, Every 3 hours PRN, severe pain or when therapies for moderate pain were not effective, Starting on Wed09/01/24 at 0847 0922 (Given - Provider: Anabel Ortiz RN)1241 (Given - Provider: Marialuisa Mora, SILAS)1818 (Given - Provider: Marialuisa Mora RN)2218 (Given - Provider: Matty Lowe RN) 0139 (Given - Provider: Matty Lowe, SILAS)0532 (Given - Provider: Matty Lowe, SILAS)0847 (Given - Provider: Stephani Reyna RN) naloxone (NARCAN) injection 0.04 mg 0.04 mg, intravenous, As needed, opioid reversal, IV Push every 1 min for 10 doses, Starting on Wed09/01/24 at 0847, For 10 doses, To Dilute: -Use 0.4 mg/mL vial , withdraw 1 mL and add 9 mL NS -FOLLOWING DILUTION, dose of 0.04 mg = 1 mL For PARTIAL Opioid Reversal: -For respiratory rate LESS than 10 or [place] Opioid-induced Sedation Scale (POSS) equal to 4 -May be repeated at 1 minute intervals to restore adequate respirations -Administer up to 10 doses (0.4 mg) ondansetron (PF) (ZOFRAN) injection 4 mg(Linked Group 3) 4 mg, intravenous, Every 8 hours PRN, vomiting, nausea, Starting on [place] 08/31/24 at 2229, -ONLY give IV if patient is unable to take orally. -If inadequate response within 30 minutes, proceed to next-line agent or contact provider if no further options ordered. 1243 (Given - Provid er: Stephani Reyna RN) prochlorperazine (COMPAZINE) injection 10 mg(Linked Group 4) 10 mg, intravenous, Every 6 hours PRN, nausea, vomiting, Starting on [place] 08/31/24 at 2229, 2nd Line Option: -ONLY give IV if patient is unable to take orally. -Give IM if patient does not have IV Access -If inadequate response within 30 minutes, proceed to next-line agent or contact provider if no further options ordered. prochlorperazine (COMPAZINE) suppository 25 mg(Linked Group 4) 25 mg, rectal, Every 12 hours PRN, nausea, vomiting, Starting on [place] 08/31/24 at 2229, 2nd Line Option: -ONLY give IN if patient is unable to take orally and cannot receive IV/IM. -If inadequate response within 30 minutes, proceed to next-line agent or contact provider if no further options ordered. prochlorperazine (COMPAZINE) tablet 10 mg(Linked Group 4) 10 mg, oral, Every 6 hours PRN, nausea, vomiting, Starting on [place] 08/31/24 at 2229, 2nd Line Option: -Give IV or IM if patient is unable to take orally. -If inadequate response within 30 minutes, proceed to next-line agent or contact provider if no further options ordered. sodium chloride 0.9 % flush 10 mL(Linked Group 2) 10 mL, intravenous, As needed, line care, Starting on [place] 08/31/24 at 2229 Linked Groups Order Group 1: potassium chloride (KLOR-CON M20) CR tablet 40 mEq (COMPLETED)Jump to med 40 mEq, oral, Once, On 09/02/24 at 0900, For 1 dose, Tablet may be swallowed whole (do not crush/chew/suck on) OR broken in half and each half swallowed separately OR dissolved (whole tablet) in ~4 ounces of water (allow ~2 minutes to dissolve, stir well and administer immediately). Followed by potassium chloride (KLOR-CON M20) CR tablet 20 mEq (CANCELED) 20 mEq, oral, Once, On 09/02/24 at 1100, For 1 dose, Tablet may be swallowed whole (do not crush/chew/suck on) OR broken in half and each half swallowed separately OR dissolved (whole tablet) in ~4 ounces of water (allow ~2 minutes to dissolve, stir well and administer immediately). Group 2: Insert peripheral IV (CANCELED) STAT, Once, On [place] 08/31/24 at 2229, For 1 occurrence And Maintain IV access (CANCELED) Until discontinued, Starting on [place] 08/31/24 at 2229, Until Specified And Saline lock IV (CANCELED) Routine, Once, On [place] 08/31/24 at 2229, For 1 occurrence And sodium chloride 0.9 % flush 10 mLJump to med 10 mL, intravenous, 2 times daily, First dose on [place] 08/31/24 at 2230 And sodium chloride 0.9 % flush 10 mLJump to med 10 mL, intravenous, As needed, line care, Starting on [place] 08/31/24 at 2229 Group 3: ondansetron ODT (ZOFRAN-ODT) disintegrating tablet 4 mg (CANCELED) 4 mg, oral, Every 8 hours PRN, vomiting, nausea, Starting on [place] 08/31/24 at 2229, -Give IV if patient is unable to take orally. -If inadequate response within 30 minutes, proceed to next-line agent or contact provider if no further options ordered. For ODT tablets: -Do not remove from blister pack until just before administering. -Patient should allow tablet to dissolve on tongue. Or ondansetron (PF) (ZOFRAN) injection 4 mgJump to med 4 mg, intravenous, Every 8 hours PRN, vomiting, nausea, Starting on [place] 08/31/24 at 2229, -ONLY give IV if patient is unable to take orally. -If inadequate response within 30 minutes, proceed to next-line agent or contact provider if no further options ordered. Group 4: prochlorperazine (COMPAZINE) tablet 10 mgJump to med 10 mg, oral, Every 6 hours PRN, nausea, vomiting, Starting on Hope 08/31/24 at 2229, 2nd Line Option: -Give IV or IM if patient is unable to take orally. -If inadequate response within 30 minutes, proceed to next-line agent or contact provider if no further options ordered. Or prochlorperazine (COMPAZINE) injection 10 mgJump to med 10 mg, intravenous, Every 6 hours PRN, nausea, vomiting, Starting on Hope 08/31/24 at 2229, 2nd Line Option: -ONLY give IV if patient is unable to take orally. -Give IM if patient does not have IV Access -If inadequate response within 30 minutes, proceed to next-line agent or contact provider if no further options ordered. Or prochlorperazine (COMPAZINE) suppository 25 mgJump to med 25 mg, rectal, Every 12 hours PRN, nausea, vomiting, Starting on [place] 08/31/24 at 2229, 2nd Line Option: -ONLY give IN if patient is unable to take orally and cannot receive IV/IM. -If inadequate response within 30 minutes, proceed to next-line agent or contact provider if no further options ordered. documented in this encounter Orders Medications Ordered That Gurdeep ht Not Have Been Administered Count Last Ordered Date First Ordered Date potassium chloride (KLOR-CON M20) CR tablet 20 mEq 1 09/02/2024 naloxone (NARCAN) injection 0.04 mg 1 09/01 nicotine (NICODERM CQ) 21 mg /24 hr patch 1 patch 1 09/01/2024 oxyCODONE (ROXICODONE) immed iate release tablet 5 mg 1 09/01/2024 ondansetron ODT (ZOFRAN-ODT) disintegrating tablet 4 mg 1 08/31/2024 prochlorperazine (COMPAZINE) injection 10 mg 1 08/31/2024 prochlorperazine (COMPAZINE) suppository 25 mg 1 08/31/2024 prochlorperazine (COMPAZINE) tablet 10 mg 1 08/31/2024 sodium chloride 0.9 % flush 10 mL 1 025 Admission Count Last Ordered Date First Orde red Date INITIATE OBSERVATION STATUS 1 08/31/2024 Transfer Count Last Ordered Date First Orde red Date ED TO FLOOR BED REQUEST 1 08/31/2024 Discharge Count Last Ordered Date First Orde red Date DISCHARGE PATIENT 1 09/02/2024 documented in this encounter Additional Health Concerns Infection Onset Date Last Indicated Resolved Time RSV 08/29/2024 08/29/2024 documented as of this encounter Care Teams Budget Assistant Relationship Specialty Start Date End Date Tatyana Murillo MD [address] [place] [address] PCP - General Internal Medicine 06/26/21 documented as of this encounter
--- OUTSIDE RECORDS SUMMARY | 2024-09-13 13:08 | XMS_ITS | Encounter Summary ---
Author Organization [facility] Address [address] [place] [address] Care Team Providers Care Strategic Planning Consultant Name Role Phone Tatyana Murillo MD Primary Care Provider [phone] Reason for Visit * Reason Comments Diarrhea Abdominal Pain, Diar floridalma x 5 days Encounter Details Date Type Department Care Team (Late st Contact Info) Description 08/29/2024 8:40 PM EST - 08/29/2024 11:[address] [facility] Emergency [address] [place] [id number] Simon Cartagena MD [address] [place] [address] Joe Elliott MD [address] [place] [address] RSV bronchitis (Primary Dx) Discharge Disposition: Home or Self Care Social History Tobacco Use Types Packs/Day Years Used Date Smoking Tobacco: Every Day Cigarettes Smokeless Tobacco: Never Alcohol Use Standard Drinks/Week Comments No 0 (1 standard drink = 0.6 oz pur e alcohol) Sex and Gender Information Value Date Recorded Sex Assigned at Female 08/31/2024 7:58 PM EST Gender Identity Female 08/31/2024 7:58 PM EST Sexual Orientation Straight 08/31/2024 7: 58 PM EST Job Start Date Occupation Industry Not on file Not on file Not on file documented as of this encounter Last Filed Vital Signs Vital Sign Reading Time Taken Comments Blood Pressure 111/67 08/29/2024 11:24 PM EST Pulse 96 08/29/2024 11:24 PM EST Temperature 36.9 ??C (98.4 ??F) 08/29/2024 11:[address] Respiratory Rate 18 08/29/2024 9:02 PM EST Oxygen Saturation 94% 08/29/2024 11:24 PM EST Inhaled Oxygen Concentration - - Weight 90.7 kg (200 lb) 08/29/2024 5:05 PM EST Height 162.6 cm (5' 4 ) 08/29/2024 5:05 PM EST Body Mass Index 34.33 08/29/2024 5:05 PM EST documented in this encounter Discharge Instructions * Discharge Instructions* SHONDA Santana - 08/29/2024 11:21 PM EST You tested positive for a common seasonal virus (RSV). There is unfortunately no specific treatmentfor this -- the body will get rid of it on its own. Drink plenty of fluids. Viruses can cause dehydration which in turn can cause a lot of side effectssuch as weakness, dizziness, lightheadedness, weakness, fatigue and body aches. Take tylenol and ibuprofen as needed for aches, pains and fevers. Wash your hands frequently. Get plenty of rest! Advair inhaler as prescribed, twice daily for the next 7 days. Cough medicine as needed. Return to the ER with new or worsening symptoms. * Attachments The following attachments cannot be sent through Care Everywhere. * Bronchitis (Bangladeshi) * Infection: Respiratory Syncytial Virus (RSV) (Bangladeshi) documented in this encounter Medications at Time of Discharge Medication Sig Dispensed Refills Start Date End Date guaiFENesin-codeine (ROBITUSSIN-AC) 100-10 mg/5 mL syrup Take 5 mL by mouth every 6 (six) hours if needed for cough for up to 5 days. Max Daily Amount: 20 mL 100 mL 08/29/2024 09/02/2024 fluticasone propion-salmeteroL (ADVAIR HFA) 115-21 mcg/actuation inhaler Inhale 2 puffs by mouth 2 (two) times a day for 7 days. Rinse mouth with water after use to reduce aftertaste and incidence of candidiasis. Do not swallow. 1 each 08/29/2024 09/02/2024 documented as of this encounter Ordered Prescriptions Prescription Sig Dispensed Refills Start Date End Da te guaiFENesin-codeine (ROBITUSSIN-AC) 100-10 mg/5 mL syrup Take 5 mL by mouth every 6 (six) hours if needed for cough for up to 5 days. Max Daily Amount: 20 mL 100 mL 08/29/2024 09/02/2024 fluticasone propion-salmeteroL (ADVAIR HFA) 115-21 mcg/actuation inhaler Inhale 2 puffs by mouth 2 (two) times a day for 7 days. Rinse mouth with water after use to reduce aftertaste and incidence of candidiasis. Do not swallow. 1 each 08/29/2024 09/02/2024 guaiFENesin-codeine (ROBITUSSIN-AC) 100-10 mg/5 mL syrup Take 5 mL by mouth every 6 (six) hours if needed for cough for up to 5 days. Max Daily Amount: 20 mL 120 mL 08/29/2024 08/29/2024 documented in this encounter Discharge Disposition Disposition Code Departure Means Destination Comment s Home or Self Detention documented in this encounter Progress Notes * Radha Gardner RN - 08/29/2024 5:02 PM EST Presents c/o RUQ abd pain that started 5 days ago along with n/v/d. Also c/o a productive cough x 5days also. Taking otc meds with no relief * Simon Cartagena MD - 08/29/2024 4:52 PM EST [facility] Emergency Department Encounter Note Patient Name: Thomas Lynne Initial Evaluation: 08/29/2024 : 1990 Patient's PCP: Tatyana Murillo MD Emergency Physician: Simon Cartagena MD History of Present Illness Chief Complaint: Chief Complaint Patient presents with Diarrhea Abdominal Pain, Diarrhea x 5 days HPI: Pleasant 34-year-old female with reported history of CKD followed by nephrology, kidney stone;presents for evaluation of acute cough, abdominal pain with nausea and vomiting. Abdominal pain of sudden onset, constant started approximately 4 days ago. Associated nausea and vomiting, worsening symptoms postprandially. She is also had diarrhea after meals, and of late is not tolerating anythingby mouth. Nonproductive cough for the same period of time, with posttussive emesis. Subjective fevers and chills, typically in the evening hours. No recent illness or sick contacts. No notes at home with similar symptoms. No new foods. Denies abdominal surgical history. Otherwise denies weakness, c/p, sob, constipation. No headache, LOC, lightheadedness, dizziness. Nodysuria, frequency, or hematuria. ROS: I have performed a ROS with the pertinent positives and negatives documented in the history ofpresent illness. Previous History Past Medical History: Diagnosis Date Anxiety and depression 10/25/2017 DX:Anxiety and depression Bipolar 2 disorder ([facility]) 10/25/2017 DX:Bipolar 2 disorder ([facility]) CKD (chronic kidney disease) stage 3, GFR 30-59 ml/min ([facility]) 10/26/2017 DX:CKD (chronic kidney disease) stage 3, GFR 30-59 ml/min ([facility]); COMMENT: S/p renal biopsy, pathology report pending. [...] facility-administered medications on file prior to encounter. No current outpatient medications on file prior to encounter. Physical Exam ED Triage Vitals [08/29/24 1705] Temp Heart Rate Resp BP 37.2 ??C (99 ??F) 64 20 103/65 SpO2 Temp Source Heart Rate Source Patient Position 95 % Oral -- Sitting BP Location FiO2 (%) -- -- GENERAL: Uncomfortable however non-toxic appearing, no acute distress. SKIN: [place], warm, dry. HEENT: EOMI. NECK: Supple, full ROM. CARDIOVASCULAR: Heart regular rate and rhythm. No discernible MRG. PULMONARY: + Intermittent nonproductive coughing fits. Breathing adequately on room air. CTAB. ABDOMINAL: TTP to the epigastrium, RUQ. + Garcia sign. Mild degree of guarding. Nontender to the lower abdominal quadrants. No active GI upset. MUSCULOSKELETAL: Nonpainful and purposeful movements of all extremities bilaterally, equal strengthbilaterally NEURO: AOx3 PSYCHIATRIC: Normal affect, fluid speech, good eye contact and appropriate demeanor. Results Labs Reviewed RESPIRATORY VIRUS PANEL MOLECULAR STUDY - Abnormal Result Value Adenovirus Detection by PCR Not Detected Influenza A PCR Not Detected Influenza B PCR Not Detected Coronavirus 229E Not Detected Coronavirus HKU1 Not Detected Coronavirus OC43 Not Detected Coronavirus NL63 Not Detected Parainfluenza Virus 1 Not Detected Parainfluenza Virus 2 Not Detected Parainfluenza Virus 3 Not Detected Parainfluenza Virus 4 Not Detected RSV PCR Detected (*) Human Metapneumovirus A and B Not Detected Rhinovirus/Enterovirus Not Detected Bordetella pertussis Not Detected Bordetella parapertussis Not Detected Mycoplasma pneumo by PCR Not Detected Chlamydia pneumoniae Not Detected SARS COV-2 Not Detected Narrative: Testing was performed using the Appl[employer]ze Respiratory Pathogen PCR Assay. All results must [...] that are below the limit of detection. COMPREHENSIVE METABOLIC PANEL - Abnormal Sodium 135 Potassium 3.1 (*) Chloride 104 CO2 19 (*) Anion Gap 12 (*) Glucose 85 BUN 33 (*) Creatinine 3.59 (*) eGFR 16 (*) BUN/Creatinine Ratio 9.2 Calcium 8.3 (*) AST (SGOT) 71 (*) ALT (SGPT) 80 (*) Alkaline Phosphatase 161 (*) Total Protein 7.7 Albumin 3.4 Total Bilirubin 0.7 CBC WITH AUTO DIFFERENTIAL - Abnormal WBC 16.5 (*) RBC 4.30 Hemoglobin 12.1 Hematocrit 38.2 MCV 89.3 MCH 28.3 MCHC 31.7 (*) RDW 13.6 Platelets 222 MPV 11.1 (*) NRBC 0.0 NRBC Absolute 0.00 Neutrophils Relative 86.6 Lymphocytes Relative 7.6 Monocytes Relative 4.4 Eosinophils Relative 0.7 Basophils Relative 0.2 Immature Granulocytes Relative 0.5 Neutrophils Absolute 14.32 (*) Lymphocytes Absolute 1.26 Monocytes Absolute 0.72 Eosinophils Absolute 0.11 Basophils Absolute 0.03 Immature Granulocytes Absolute 0.09 (*) LIPASE - Normal Lipase 41 CBC AND DIFFERENTIAL Narrative: The following orders were created for panel order CBC and differential. Procedure Abnormality Status --------- ------ CBC auto differential[[id number]] Abnormal Final result Please view results for these tests on the individual orders. URINALYSIS WITH REFLEX MICROSCOPIC AND CULTURE Narrative: The following orders were created for panel order Urinalysis with reflex microscopic and culture. Procedure Abnormality Status --------- ------ Urinalysis with reflex ...[[id number]] Sorto urine culture tube[[id number]] Please view results for these tests on the individual orders. URINALYSIS WITH REFLEX MICROSCOPIC AND CULTURE Abnormal Labs Reviewed RESPIRATORY VIRUS PANEL MOLECULAR STUDY - Abnormal; Notable for the following components: Result Value RSV PCR Detected (*) All other components within normal limits Narrative: Testing was performed using the Applauze Respiratory Pathogen PCR Assay. All results must [...] that are below the limit of detection. COMPREHENSIVE METABOLIC PANEL - Abnormal; Notable for the following components: Potassium 3.1 (*) CO2 19 (*) Anion Gap 12 (*) BUN 33 (*) Creatinine 3.59 (*) eGFR 16 (*) Calcium 8.3 (*) AST (SGOT) 71 (*) ALT (SGPT) 80 (*) Alkaline Phosphatase 161 (*) All other components within normal limits CBC WITH AUTO DIFFERENTIAL - Abnormal; Notable for the following components: WBC 16.5 (*) MCHC 31.7 (*) MPV 11.1 (*) Neutrophils Absolute 14.32 (*) Immature Granulocytes Absolute 0.09 (*) All other components within normal limits XR Chest 2 Views ED Interpretation 2-view radiographs of the chest independently reviewed, demonstrating no obvious consolidative pattern, effusion, or pneumothorax. No obvious bony deformity. Cardiac silhouette WNL. Trachea midline. US Abdomen Limited (Results Pending) I have discussed the incidental/abnormal imaging and/or lab abnormalities with the patient and haveinstructed them the need for further evaluation and workup with their primary care doctor. I have provided the patient with a paper copy of the abnormality. The laboratory results, imaging results and other diagnostic exam results were reviewed in the EMR. EKG Interpretation Critical Care Time None Differential Diagnosis Gastritis Gastroenteritis Acute pancreatitis Acute cholecystitis Choledocholithiasis Viral syndrome Bacterial pneumonia Acute bronchitis ? Medical Decision Making Pleasant 34-year-old female with reported history of kidney stones, CKD followed by nephrology; presents for evaluation of acute abdominal pain, nausea/vomiting/diarrhea, nonproductive cough with posttussive emesis. On initial assessment she does have intermittent nonproductive coughing fits and is somewhat uncomfortable appearing however nontoxic, no acute distress, hemodynamically stable and afebrile. Tender to the epigastrium and RUQ with mild degree of guarding, no significant peritonitis however. No active GI upset. Per our and [facility] EMR, patient's last labs on record are dated 05/29/2023. She does however appear to have a chronic leukocytosis, with WBC 16.5 here today. Creatinine 3.59 with GFR 16, last comparison of 2.50 and 25, respectively on 05/29/2023. Mild hypokalemia of 3.1 likely reactive from the vomiting. I do not appreciate any significant consolidative pattern on CXR that would indicate a bacterial pneumonia. Will bolus fluids and provide symptomatic management. Ultrasound gallbladder and respiratory panel are pending. 9:41 PM: Ultrasound was ultimately able discontinued as patient is s/p cholecystectomy by previous CT, apparently patient unaware. 11:19 AM: Abdominal examination is now reassuring, her abdominal discomfort has improved following symptomatic treatment. I do not suspect acute abdomen at this time and as such we will defer CT imaging. Additionally treated with DuoNeb which appears to have helped. Will discharge on Advair, guaifenesin/codeine. We discussed the importance of supportive care, maintain hydration. Short-term follow-up with PCP. Medically and hemodynamically stable, safe for discharge. Discussed this plan with the patient who is agreeable. Red flag symptoms and return precautions discussed, all questions asked and answered, plan for discharge with outpatient follow-up. TMAT dictation software was utilized for documentation and may have resulted in unintentional typographical errors. *All documented times are approximate and may not reflect exact time of rendered care or intervention.* Clinical Impressions as of 08/29/242327 RSV bronchitis Medications lactated Ringer's bolus 1,000 mL (0 mL intravenous Stopped 08/29/242215) ondansetron (PF) (ZOFRAN) injection 4 mg (4 mg intravenous Given 08/29/242109) benzonatate (TESSALON) capsule 200 mg (200 mg oral Given 08/29/242103) morphine injection 4 mg (4 mg intravenous Given 08/29/242109) acetaminophen (TYLENOL) tablet 1,000 mg (1,000 mg oral Given 08/29/242115) guaiFENesin-codeine (ROBITUSSIN-AC) 100-10 mg/5 mL syrup 10 mL (10 mL oral Given 08/29/242115) aluminum-magnesium hydroxide-simethicone (MAALOX) 200-200-20 mg/5 mL suspension 30 mL (30 mL oral Given 08/29/242225) famotidine (PEPCID) tablet 40 mg (40 mg oral Given 08/29/242225) lidocaine (XYLOCAINE) 2 % mouth solution 15 mL (15 mL Mouth/Throat Given 08/29/242225) ipratropium-albuteroL (DUONEB) 0.5-2.5 mg/3 mL nebulizer solution 3 mL (3 mL nebulization Given 08/29/242245) Procedures Procedures Diagnosis 1. RSV bronchitis Disposition Discharge ED Prescriptions Medication Sig Dispense Start Date End Date Auth. Provider guaiFENesin-codeine (ROBITUSSIN-AC) 100-10 mg/5 mL syrup (Status: Discontinued) Take 5 mL by mouth every 6 (six) hours if needed for cough for up to 5 days. Max Daily Amount: 20 mL 120 mL 08/29/2024 08/29/2024 SHONDA Santana fluticasone propion-salmeteroL (ADVAIR HFA) 115-21 mcg/actuation inhaler Inhale 2 puffs by mouth 2 (two) times a day for 7 days. Rinse mouth with water after use to reduce aftertaste and incidence ofcandidiasis. Do not swallow. 1 each 08/29/2024 09/05/2024 SHONDA Santana guaiFENesin-codeine (ROBITUSSIN-AC) 100-10 mg/5 mL syrup Take 5 mL by mouth every 6 (six) hours if needed for cough for up to 5 days. Max Daily Amount: 20 mL 100 mL 08/29/2024 09/03/2024 SHONDA Santana Physician Attestation Electronically signed by Simon Cartagena MD This is a split/shared visit with SHONDA Santana. I personally performed the medical decision making (MDM) for the care of this patient on 08/29/24 as documented below Patient presented with ongoing cough, she had some other nonspecific complaints such as nausea vomiting but that is not the biggest concern, it seems that the respiratory symptoms are, she does have history of CKD, and she will be worked up for an JESUS, chest x-ray to evaluate for pneumonia, she does have hemorrhagic conjunctivitis from coughing around her left eye Otherwise she is nontoxic-appearing, she is not oxygen dependent, with reassuring workup and symptomatic control anticipating discharge, her abdominal exam is benign, she has history of cholecystectomy I did not feel she requires further imaging. Simon Cartagena MD 08/29/24 11:28 PM EST MD Rad Lewis PA 08/29/242100 Simon Cartagena MD 08/29/242127 SHONDA Santana 08/29/242140 SHONDA Santana 08/29/242324 Simon Cartagena MD 08/29/248 documented in this encounter Plan of Treatment Pending Results Name Type Priority Associated Diagnoses Date /Time US Abdomen Limited Imaging STAT 2024 9:20 PM EST Scheduled Orders Name Type Priority Associated Diagnoses Orde r Schedule US Abdomen Limited Imaging Routine Once f or 1 Occurrences starting 08/29/2024 until 08/29/2024 documented as of this encounter Procedures Procedure Name Priority Date/Time Associated Diagnosis Comments RESPIRATORY VIRUS PANEL MOLECULAR STUDY STAT 08/29/2024 8:57 PM EST XR CHEST 2 VIEWS STAT 08/29/2024 6:24 PM EST CBC WITH AUTO DIFFERENTIAL STAT 08/29/2024 6:16 PM EST CBC AND DIFFERENTIAL STAT 08/29/2024 6:16 PM EST LIPASE STAT 08/29/2024 6:16 PM EST COMPREHENSIVE METABOLIC PANEL STAT 08/29/2024 6:16 PM EST documented in this encounter Results * (ABNORMAL) Respiratory virus panel molecular study (08/29/2024 8:57 PM EST) Adenovirus Detection by PCR Not Detected Not Detected LAB MICROBIOLOGY METHOD 08/29/2024 10:04 PM [facility] Influenza A PCR Not Detected Not Detected LAB MICROBIOLOGY METHOD 08/29/2024 10:04 PM [facility] Influenza B PCR Not Detected Not Detected LAB MICROBIOLOGY METHOD 08/29/2024 10:04 PM [facility] Coronavirus 229E Not Detected Not Detected LAB MICROBIOLOGY METHOD 08/29/2024 10:04 PM [facility] Coronavirus HKU1 Not Detected Not Detected LAB MICROBIOLOGY METHOD 08/29/2024 10:04 PM [facility] Coronavirus OC43 Not Detected Not Detected LAB MICROBIOLOGY METHOD 08/29/2024 10:04 PM [facility] Coronavirus NL63 Not Detected Not Detected LAB MICROBIOLOGY METHOD 08/29/2024 10:04 PM [facility] Parainfluenza Virus 1 Not Detected Not Detected LAB MICROBIOLOGY METHOD 08/29/2024 10:04 PM [facility] Parainfluenza Virus 2 Not Detected Not Detected LAB MICROBIOLOGY METHOD 08/29/2024 10:04 PM [facility] Parainfluenza Virus 3 Not Detected Not Detected LAB MICROBIOLOGY METHOD 08/29/2024 10:04 PM [facility] Parainfluenza Virus 4 Not Detected Not Detected LAB MICROBIOLOGY METHOD 08/29/2024 10:04 PM [facility] RSV PCR Detected(A ) Not Detected LAB MICROBIOLOGY METHOD 08/29/2024 10:04 PM [facility] Human Metapneumovirus A and B Not Detected Not Detected LAB MICROBIOLOGY METHOD 08/29/2024 10:04 PM [facility] Rhinovirus/Entero virus Not Detected Not Detected LAB MICROBIOLOGY METHOD 08/29/2024 10:04 PM [facility] Bordetella pertussis Not Detected Not Detected LAB MICROBIOLOGY METHOD 08/29/2024 10:04 PM [facility] Bordetella parapertussis Not Detected Not Detected LAB MICROBIOLOGY METHOD 08/29/2024 10:04 PM [facility] Mycoplasma pneumo by PCR Not Detected Not Detected LAB MICROBIOLOGY METHOD 08/29/2024 10:04 PM [facility] Chlamydia pneumoniae Not Detected Not Detected LAB MICROBIOLOGY METHOD 08/29/2024 10:04 PM [facility] SARS COV-2 Not Detected Not Detected LAB MICROBIOLOGY METHOD 08/29/2024 10:04 PM [facility] Swab Both anterior nares / Unknown Non-blood Collection / Unknown 08/29/2024 8:57 PM EST 08/29/2024 9:05 PM EST Narrative [facility] - 08/29/2024 10:04 PM EST Testing was performed using the [employer]ze Respiratory Pathogen PCR Assay. All results must [...] Rad MERCHANT LAB MICROBIOLOGY - GENERAL ORDERABLES [facility] [address] [place] [address], * XR Chest 2 Views (08/29/2024 6:24 PM EST) Anatomical Region Laterality Modality Body Radiographic Danay ging 08/30/2024 8:15 AM EST Impressions 08/30/2024 8:16 AM EST Impression: Stable radiographic appearance of the chest. No active pulmonary process identified. Telerad SHONDA ([id number]) -------- FINAL REPORT -------- Dictated By: Shantel Sarabia Dictated Date: 08/30/2024 08:15 ET Assigned Physician: Shantel Sarabia Reviewed and Electronically Signed By: Shantel Sarabia Signed Date: 08/30/2024 08:16 ET Workstation ID: [id number] Transcribed By: Self Edit Transcribed Date: 08/30/2024 08:15 ET Narrative 08/30/2024 8:16 AM EST History: Dyspnea and cough. Fever. Comparison: 08/14/19 Findings: PA and lateral views. The cardiomediastinal silhouette, hilar contours and pulmonary vascularity remain normal in appearance. The lungs are clear. The costophrenic angles are sharp. Minimal thoracic vertebral endplate spurring is seen. Cholecystectomy clips are noted. Procedure Note Shantel Sarabia MD - 08/30/2024 History: Dyspnea and cough. Fever. Comparison: 08/14/19 Findings: PA and lateral views. The cardiomediastinal silhouette, hilar contours andpulmonary vascularity remain normal in appearance. The lungs are clear.The costophrenic angles are sharp. Minimal thoracic vertebral endplate spurring is seen. Cholecystectomyclips are noted. IMPRESSION: Impression: Stable radiographic appearance of the chest. No active pulmonary processidentified. Telerad PA ([id number]) -------- FINAL REPORT -------- Dictated By: Shantel Sarabia Dictated Date: 08/30/2024 08:15 ET Assigned Physician: Shantel Sarabia Reviewed and Electronically Signed By: Shantel Sarabia Signed Date: 08/30/2024 08:16 ET Workstation ID: [id number] Transcribed By: Self Edit Transcribed Date: 08/30/2024 08:15 ET Simon Cartagena MD IMG XR PROCEDURES * (ABNORMAL) CBC auto differential (08/29/2024 6:16 PM EST) WBC 16.5(H) 4.8 - 10.8 K/mcL LAB HEMETOLOGY METHOD 08/29/2024 6:36 PM [facility] RBC 4.30 3.80 - 4.80 M/mcL LAB HEMETOLOGY METHOD 08/29/2024 6:36 PM [facility] Hemoglobin 12.1 11.5 - 16.0 g/dL LAB HEMETOLOGY METHOD 08/29/2024 6:36 PM [facility] Hematocrit 38.2 35.0 - 47.0 % LAB HEMETOLOGY METHOD 08/29/2024 6:36 PM [facility] MCV 89.3 79.0 - 98.0 FL LAB HEMETOLOGY METHOD 08/29/2024 6:36 PM [facility] MCH 28.3 27.0 - 32.0 pcg LAB HEMETOLOGY METHOD 08/29/2024 6:36 PM [facility] MCHC 31.7(L) 32.0 - 37.0 g/dL LAB HEMETOLOGY METHOD 08/29/2024 6:36 PM [facility] RDW 13.6 11.0 - 15.0 % LAB HEMETOLOGY METHOD 08/29/2024 6:36 PM [facility] Platelets 222 130 - 400 K/mcL LAB HEMETOLOGY METHOD 08/29/2024 6:36 PM [facility] MPV 11.1(H) 7.0 - 11.0 FL LAB HEMETOLOGY METHOD 08/29/2024 6:36 PM [facility] NRBC 0.0 <1.0 % LAB HEMETOLOGY METHOD 08/29/2024 6:36 PM [facility] NRBC Absolute 0.00 <0.10 K/mcL LAB HEMETOLOGY METHOD 08/29/2024 6:36 PM [facility] Neutrophils Relative 86.6 % LAB HEMETOLOGY METHOD 08/29/2024 6:36 PM [facility] Lymphocytes Relative 7.6 % LAB HEMETOLOGY METHOD 08/29/2024 6:36 PM [facility] Monocytes Relative 4.4 % LAB HEMETOLOGY METHOD 08/29/2024 6:36 PM [facility] Eosinophils Relative 0.7 % LAB HEMETOLOGY METHOD 08/29/2024 6:36 PM [facility] Basophils Relative 0.2 % LAB HEMETOLOGY METHOD 08/29/2024 6:36 PM [facility] Immature Granulocytes Relative 0.5 % LAB HEMETOLOGY METHOD 08/29/2024 6:36 PM [facility] Neutrophils Absolute 14.32(H) 1.50 - 7.00 K/mcL LAB HEMETOLOGY METHOD 08/29/2024 6:36 PM [facility] Lymphocytes Absolute 1.26 1.00 - 5.00 K/mcL LAB HEMETOLOGY METHOD 08/29/2024 6:36 PM EST [place] [facility] Monocytes Absolute 0.72 0.20 - 1.00 K/mcL LAB HEMETOLOGY METHOD 08/29/2024 6:36 PM EST [facility] Eosinophils Absolute 0.11 0.00 - 0.50 K/[facility] LAB HEMETOLOGY METHOD 08/29/2024 6:36 PM EST [facility] Basophils Absolute 0.03 0.00 - 0.20 K/[facility] LAB HEMETOLOGY METHOD 08/29/2024 6:36 PM EST [facility] Immature Granulocytes Absolute 0.09(H) 0.00 - 0.03 K/[facility] LAB HEMETOLOGY METHOD 08/29/2024 6:36 PM EST [facility] Blood Venous blood specimen / Unknown Venipuncture / Unknown 08/29/2024 6:16 PM EST 08/29/2024 6:27 PM EST Simon Cartagena MD LAB BLOOD ORDERAB LES [facility] [address] [place] [address], [place] [phone] * Lipase (08/29/2024 6:16 PM EST) Lipase 41 13 - 75 unit/L LAB CHEMISTRY METHOD 08/29/2024 6:53 PM EST [facility] Blood Venous blood specimen / Unknown Venipuncture / Unknown 08/29/2024 6:16 PM EST 08/29/2024 6:27 PM EST Simon Cartagena MD LAB BLOOD ORDERAB LES [facility] [address] [place] [address], [place] [phone] * (ABNORMAL) Comprehensive metabolic panel (08/29/2024 6:16 PM EST) Sodium 135 133 - 145 mmol/L LAB CHEMISTRY METHOD 08/29/2024 6:53 PM [facility] Potassium 3.1(L) 3.5 - 5.5 mmol/L LAB CHEMISTRY METHOD 08/29/2024 6:53 PM [facility] Chloride 104 96 - 110 mmol/L LAB CHEMISTRY METHOD 08/29/2024 6:53 PM [facility] CO2 19(L) 21 - 32 mmol/L LAB CHEMISTRY METHOD 08/29/2024 6:53 PM [facility] Anion Gap 12(H) 3 - 11 LAB CHEMISTRY METHOD 08/29/2024 6:53 PM [facility] Glucose 85 70 - 100 mg/dL LAB CHEMISTRY METHOD 08/29/2024 6:53 PM [facility] BUN 33(H) 5 - 25 mg/dL LAB CHEMISTRY METHOD 08/29/2024 6:53 PM [facility] Creatinine 3.59(H) 0.50 - 1.10 mg/dL LAB CHEMISTRY METHOD 08/29/2024 6:53 PM [facility] eGFR 16(L) >=60 mL/min/1. 73m2 LAB CHEMISTRY METHOD 08/29/2024 6:53 PM [facility] Comment:Calculation based on the??Chronic Kidney Disease Epidemiology Collaboration (CKD-EPI) equation refit??without adjustment for race. BUN/Creatinine Ratio 9.2 LAB CHEMISTRY METHOD 08/29/2024 6:53 PM [facility] Calcium 8.3(L) 8.5 - 10.5 mg/dL LAB CHEMISTRY METHOD 08/29/2024 6:53 PM [facility] AST (SGOT) 71(H) 10 - 42 unit/L LAB CHEMISTRY METHOD 08/29/2024 6:53 PM EST [facility] ALT (SGPT) 80(H) 10 - 60 unit/L LAB CHEMISTRY METHOD 08/29/2024 6:53 PM EST [facility] Alkaline Phosphatase 161(H) 42 - 121 unit/L LAB CHEMISTRY METHOD 08/29/2024 6:53 PM EST [facility] Total Protein 7.7 6.0 - 8.0 g/dL LAB CHEMISTRY METHOD 08/29/2024 6:53 PM EST [facility] Albumin 3.4 3.2 - 5.0 g/dL LAB CHEMISTRY METHOD 08/29/2024 6:53 PM [facility] Total Bilirubin 0.7 0.0 - 1.4 mg/dL LAB CHEMISTRY METHOD 08/29/2024 6:53 PM [facility] Blood Venous blood specimen / Unknown Venipuncture / Unknown 08/29/2024 6:16 PM EST 08/29/2024 6:27 PM EST Simon Cartagena MD LAB BLOOD ORDERAB LES [facility] [address] [place] [address], documented in this encounter Visit Diagnoses Diagnosis RSV bronchitis- Primary documented in this encounter Administered Medications Inactive Administered Medications - up to 3 most recent administrations Medication Order MAR Action Action Date Dose Rate Site acetaminophen (TYLENOL) tablet 1,000 mg 1,000 mg, oral, Once, On Wed08/29/24 at 2103, For 1 dose Given 08/29/2024 9:16 PM EST 1,000 mg aluminum-magnesium hydroxide-simethicone (MAALOX) 200-200-20 mg/5 mL suspension 30 mL 30 mL, oral, Once, On Wed08/29/24 at 2205, For 1 dose Given 08/29/2024 10:26 PM EST 30 mL benzonatate (TESSALON) capsule 200 mg 200 mg, oral, Once, On Wed08/29/24 at 2048, For 1 dose, Do not crush or chew. Given 08/29/2024 9:04 PM EST 200 mg famotidine (PEPCID) tablet 40 mg 40 mg, oral, Once, On Wed08/29/24 at 2206, For 1 dose Given 08/29/2024 10:26 PM EST 40 mg guaiFENesin-codeine (ROBITUSSIN-AC) 100-10 mg/5 mL syrup 10 mL 10 mL, oral, Once, On Wed08/29/24 at 2114, For 1 dose Given 08/29/2024 9:16 PM EST 10 mL ipratropium-albuteroL (DUONEB) 0.5-2.5 mg/3 mL nebulizer solution 3 mL 3 mL, nebulization, Once, On Wed08/29/24 at 2245, For 1 dose Given 08/29/2024 10:46 PM EST 3 mL lactated Ringer's bolus 1,000 mL 1,000 mL, intravenous, at 1,000 mL/hr, Administer over 1 Hours, Once, On Wed08/29/24 at 2040, For 1 dose New Bag 08/29/2024 9:11 PM EST 1,000 mL 1000 mL/hr lidocaine (XYLOCAINE) 2 % mouth solution 15 mL 15 mL, Mouth/Throat, Once, On Wed08/29/24 at 220, For 1 dose Given 08/29/2024 10:26 PM EST 15 mL morphine injection 4 mg 4 mg, intravenous, Once, On Wed08/29/24 at 2056, For 1 dose Given 08/29/2024 9:10 PM EST 4 mg ondansetron (PF) (ZOFRAN) injection 4 mg 4 mg, intravenous, Once, On Wed08/29/24 at 2040, For 1 dose Given 08/29/2024 9:10 PM EST 4 mg documented in this encounter Discontinued Medications Medication Sig Discontinue Reason Start Date End Da te guaiFENesin-codeine (ROBITUSSIN-AC) 100-10 mg/5 mL syrup Take 5 mL by mouth every 6 (six) hours if needed for cough for up to 5 days. Max Daily Amount: 20 mL 08/29/2024 08/29/2024 documented as of this encounter Active and Recently Administered Medications Times are shown in EST. Scheduled Medication Order 08/27/2024 08/28/2024 08/29/2024 acetaminophen (TYLENOL) tablet 1,000 mg (COMPLETED) 1,000 mg, oral, Once, On Wed08/29/24 at 2103, For 1 dose 2115 (Given - Provid er: Anabel Hanks RN) aluminum-magnesium hydroxide-simethicone (MAALOX) 200-200-20 mg/5 mL suspension 30 mL (COMPLETED) 30 mL, oral, Once, On Wed08/29/24 at 2205, For 1 dose 2225 (Given - Provid er: Anabel Hanks RN) benzonatate (TESSALON) capsule 200 mg (COMPLETED) 200 mg, oral, Once, On Wed08/29/24 at 2048, For 1 dose, Do not crush or chew. 2103 (Given - Provid er: Anabel Hanks RN) famotidine (PEPCID) tablet 40 mg (COMPLETED) 40 mg, oral, Once, On Wed08/29/24 at 2205, For 1 dose 2225 (Given - Provid er: Anabel Hanks RN) guaiFENesin-codeine (ROBITUSSIN-AC) 100-10 mg/5 mL syrup 10 mL (COMPLETED) 10 mL, oral, Once, On Wed08/29/24 at 2113, For 1 dose 2115 (Given - Provid er: Anabel Hanks RN) ipratropium-albuteroL (DUONEB) 0.5-2.5 mg/3 mL nebulizer solution 3 mL (COMPLETED) 3 mL, nebulization, Once, On Wed08/29/24 at 2244, For 1 dose 2245 (Given - Provid er: Ariella Dior RN) lactated Ringer's bolus 1,000 mL (COMPLETED) 1,000 mL, intravenous, at 1,000 mL/hr, Administer over 1 Hours, Once, On Wed08/29/24 at 2040, For 1 dose 2110 (New Bag - Prov ider: Anabel Hanks RN)2215 (Stopped - Provider: Anabel Hanks RN) lidocaine (XYLOCAINE) 2 % mouth solution 15 mL (COMPLETED) 15 mL, Mouth/Throat, Once, On Wed08/29/24 at 2205, For 1 dose 2225 (Given - Provid er: Anabel Hanks RN) morphine injection 4 mg (COMPLETED) 4 mg, intravenous, Once, On Wed08/29/24 at 2056, For 1 dose 2109 (Given - Provid er: Anabel Hanks RN) ondansetron (PF) (ZOFRAN) injection 4 mg (COMPLETED) 4 mg, intravenous, Once, On Wed08/29/24 at 2040, For 1 dose 2109 (Given - Provid er: Anabel Hanks RN) documented in this encounter Additional Health Concerns Infection Onset Date Last Indicated Resolved Time Respiratory Rule-Out 08/29/2024 08/29/2024 025 10:04 PM EST COVID-19 Rule-Out 08/29/2024 08/29/2024 08/29/2024 10:04 PM EST RSV 08/29/2024 08/29/2024 documented as of this encounter Care Teams Strategic Planning Consultant Relationship Specialty Start Date End Date Tatyana Murillo MD [address] [place] [address] PCP - General Internal Medicine 06/26/21 documented as of this encounter
--- OUTSIDE RECORDS SUMMARY | 2024-09-13 13:08 | XMS_ITS | Data Portability ---
Author Organization [place] [facility], [facility], [facility] Address [address] [place] [address] Care Team Providers Care Supervisor [employer] Name Role Phone HEIDI BANEGAS Data Architect NATY HARVEY Primary Care Provider [phone] Assessment Encounter Date Assessment Date Assessment LastModified by Organization Details LastModified Time 11/12/2022 11/12/2022 32 y.o. 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 Not available 11/12/2022 17:28:21 01/13/2023 01/13/2023 32 y.o. 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 Not available 01/13/2023 07:26:34 Plan of Treatment Reminders Order Date Submit Date Provider Last Modified By Organization Details Last Modified Time Details Appointments None recorded. Lab PTH (parathyro id hormone), intact, serum or plasma 2022 023 [email or web address] [facility] AT [address], [address], 3 10:25:09 vitamin D, 25-hydroxy , total, serum 2022 023 [email or web address] [facility] [address], [address], 3 10:25:09 vitamin D, 25-hydroxy + 1,25-dihyd joyce, serum 2022 023 [facility], [address] [place] [address], [address], 10:25:10 HbA1c (hemoglobi n A1c), blood 2022 023 [facility], [address] [place] [address], [address], 10:25:10 urinalysis , complete 2022 023 [facility], [address] [place] [address], [address], 10:35:45 renal function panel, serum 2022 023 [facility], [address] [place] [address], [address], 10:35:45 renal function panel, serum 2022 023 AIME [facility], [address] [place] [address], [address], 11:08:35 uric acid, serum or plasma 2022 023 [facility], [address] [place] [address], [address], 10:35:45 ESR (erythrocy te sedimentat ion rate), blood 2022 023 AIME [facility], [address] [place] [address], [address], 11:08:40 RPR (rapid plasma reagin), serum 2022 023 AIME [facility], [address] [place] [address], [place], [address], 3 11:08:38 protein:cr eatinine ratio, urine 2022 023 AIME [facility], [address] [place] [address], [place], [address], 3 05:38:44 MARLA (antinucle ar antibodies ) screen, serum 2022 023 AIME [facility], [address] [place] [address], [place], [address], 3 11:08:39 lipid panel, serum 2022 023 [facility], [address] [place] [address], [place], [address], 3 11:08:36 anca panel, serum 2022 023 [facility], [address] [place] [address], [place], [address], 3 10:25:09 immunofixa tion + protein electropho resis + free light chains, serum 2022 023 [facility], [address] [place] [address], [place], [address], 3 10:25:09 hepatitis panel (A+B+C), acute, serum 2022 023 [facility], [address] [place] [address], [place], [address], 3 10:25:09 HIV 1 + 2, meaningful use set 2022 023 [facility], [address] [place] [address], [place], [address], 3 10:25:09 C reactive protein, QN, serum or plasma 2022 023 [facility], [address] [place] [address], [address], 3 10:25:10 TSH + free T4, serum 2022 023 [facility], [address] [place] [address], [address], 3 10:25:10 magnesium, serum or plasma 2022 023 [facility], [address] [place] [address], [address], 10:25:10 PTH (parathyro id hormone), intact, serum or plasma 2022 023 [email or web address] [facility], [address] [place] [address], [address], 3 17:11:29 vitamin D, 25-hydroxy , total, serum 2022 023 [email or web address] [facility], [address] [place] [address], [address], 17:11:29 urinalysis , complete 2022 023 [email or web address] [facility], [address] [place] [address], [address], 3 17:11:28 renal function panel, serum 2022 023 [email or web address] [facility], [address] [place] [address], [address], 17:11:29 protein + creatinine panel, urine 2022 023 [email or web address] [facility], [address] [place] [address], [place], [address], 17:11:29 cystatin C + glomerular filtration rate by cystatin-b ased formula panel, cystatin-b ased formula panel, serum or plasma 2022 023 [email or web address] [facility], [id number] [place] [address], [place], [address], 17:11:29 uric acid, serum or plasma 2022 023 [email or web address] [facility], [id number] [place] [address], [place], [address], 17:11:29 Referral None recorded. Procedures None recorded. Surgeries None recorded. Imaging US, retroperit oneum, complete - check kidney and bladder. 2022 023 [facility] Scheduling Dept (Imaging), [address] [place] [address], [id number], 11:32:37 Medication Orders allopurino l 100 mg tablet 2022 023 [id number], [address], [address], [place], [address], 17:30:39 Patient TargetsNo targets recorded. Patient Instructions Encounter Date Encounter Id Patient Instructions Last Modified By Organization Details Last Modified Time 11/12/2022 [id number] Cuando desea baj ar de peso: Instrucciones de cuidado - [When You Want to Lose Weight: Care Instructions] Not available 11/12/2022 17:30:29 medicamentos que debe evitar cuando tiene katelyn enfermedad renal: instrucciones de cuidado - [medicines to avoid with kidney disease: care instructions] Not available 11/12/2022 17:30:28 dieta para la enfermedad renal cr? ? ?jigar (antes de la di? ? ?lisis): instrucciones de cuidado - [diet for chronic kidney disease (before dialysis): care instructions] Not available 11/12/2022 17:30:29 01/13/2023 [id number] Cuando desea baj ar de peso: Instrucciones de cuidado - [When You Want to Lose Weight: Care Instructions] Not available 01/13/2023 10:23:34 medicamentos que debe evitar cuando tiene katelyn enfermedad renal: instrucciones de cuidado - [medicines to avoid with kidney disease: care instructions] Not available 01/13/2023 10:23:34 dieta para la enfermedad renal cr? ? ?jigar (antes de la di? ? ?lisis): instrucciones de cuidado - [diet for chronic kidney disease (before dialysis): care instructions] Not available 01/13/2023 10:23:34 Reason for Referral None Reported. Results Created Date Observation Date Name Description Value Unit Range Abnormal Flag Note LastModifiedBy Organization Detail LastModifiedTime 10/31/1910/30/2022 CBC WITH DIFFE RENTI AL/PL ATELE T WBC 12.9 x10e3 /uL 3.4-10 .8 above high normal Not Available [facility] ([facility]) [address] [place], [address], 10/30/2022 14:09:16 10/31/1910/30/2022 CBC WITH DIFFE RENTI AL/PL ATELE T RBC 4.25 x10e6 /uL 3.77-5 .28 Not Available [facility] ([facility]) [address] [place], [address], 10/30/2022 14:09:16 10/31/1910/30/2022 CBC WITH DIFFE RENTI AL/PL ATELE T hemoglobin 12.1 g/dL 11.1-1 5.9 Not Available [facility] ([facility]) [address] [place], [address], 10/30/2022 14:09:16 10/31/19 23 10/30/2022 CBC WITH DIFFE RENTI AL/PL ATELE T hematocrit 36.9 % 34.0-4 6.6 Not Available [facility] ([facility]) [address] [facility], [place], [address], 10/30/2022 14:09:16 10/31/19 23 10/30/2022 CBC WITH DIFFE RENTI AL/PL ATELE T MCV 87 fL 79-97 Not Available [facility] ([facility]) [address] [facility], [place], [address], 10/30/2022 14:09:16 10/31/19 23 10/30/2022 CBC WITH DIFFE RENTI AL/PL ATELE T MCH 28.5 pg 26.6-3 3.0 Not Available [facility] ([facility]) [address] [facility], [place], [address], 10/30/2022 14:09:16 10/31/19 23 10/30/2022 CBC WITH DIFFE RENTI AL/PL ATELE T MCHC 32.8 g/dL 31.5-3 5.7 Not Available [facility] ([facility]) [address] [facility], [place], [address], 10/30/2022 14:09:16 10/31/1910/30/2022 CBC WITH DIFFE RENTI AL/PL ATELE T RDW 13.5 % 11.7-1 5.4 Not Available [facility] ([facility]) [address] [place], [address], 10/30/2022 14:09:16 10/31/1910/30/2022 CBC WITH DIFFE RENTI AL/PL ATELE T platelets 235 x10e3 /uL 150-45 0 Not Available [facility] ([facility]) [address] [place], [address], 10/30/2022 14:09:16 10/31/19 23 10/30/2022 CBC WITH DIFFE RENTI AL/PL ATELE T neutrophils 73 % not estab. Not Available [facility] ([facility]) [address] [facility], [place], [address], 10/30/2022 14:09:16 10/31/19 23 10/30/2022 CBC WITH DIFFE RENTI AL/PL ATELE T lymphs 21 % not estab. Not Available [facility] ([facility]) [address] [facility], [place], [address], 10/30/2022 14:09:16 10/31/19 23 10/30/2022 CBC WITH DIFFE RENTI AL/PL ATELE T monocytes 4 % not estab. Not Available [facility] ([facility]) [address] [facility], [place], [address], 10/30/2022 14:09:16 10/31/19 23 10/30/2022 CBC WITH DIFFE RENTI AL/PL ATELE T eos 2 % not estab. Not Available [facility] ([facility]) [address] [facility], [place], [address], 10/30/2022 14:09:16 10/31/19 23 10/30/2022 CBC WITH DIFFE RENTI AL/PL ATELE T basos 0 % not estab. Not Available [facility] ([facility]) [address] [facility], [place], [address], 10/30/2022 14:09:16 10/31/19 23 10/30/2022 CBC WITH DIFFE RENTI AL/PL ATELE T immature cells GEOPHYSICAL COMPUTER Not Available [facility] ([facility]) [address] [facility], [place], [address], 10/30/2022 14:09:16 10/31/19 23 10/30/2022 CBC WITH DIFFE RENTI AL/PL ATELE T neutrophils (absolute) 9.5 x10e3 /uL 1.4-7. 0 above high normal Not Available [facility] ([facility]) [address] [facility], [place], [address], 10/30/2022 14:09:16 10/31/19 23 10/30/2022 CBC WITH DIFFE RENTI AL/PL ATELE T lymphs (absolute) 2.7 x10e3 /uL 0.7-3. 1 Not Available [facility] ([facility]) [address] [facility], [place], [address], 10/30/2022 14:09:16 10/31/19 23 10/30/2022 CBC WITH DIFFE RENTI AL/PL ATELE T monocytes(ab solute) 0.6 x10e3 /uL 0.1-0. 9 Not Available [facility] ([facility]) [address] [facility], [place], [address], 10/30/2022 14:09:16 10/31/19 23 10/30/2022 CBC WITH DIFFE RENTI AL/PL ATELE T eos (absolute) 0.2 x10e3 /uL 0.0-0. 4 Not Available [facility] ([facility]) [address] [facility], [place], [address], 10/30/2022 14:09:16 10/31/19 23 10/30/2022 CBC WITH DIFFE RENTI AL/PL ATELE T baso (absolute) 0.0 x10e3 /uL 0.0-0. 2 Not Available [facility] ([facility]) [address] [place], [address], 10/30/2022 14:09:16 10/31/1910/30/2022 CBC WITH DIFFE RENTI AL/PL ATELE T immature granulocytes GEOPHYSICAL COMPUTER Not Available [facility] ([facility]) [address] [facility], [place], [address], 10/30/2022 14:09:16 10/31/19 23 10/30/2022 CBC WITH DIFFE RENTI AL/PL ATELE T immature grans (abs) GEOPHYSICAL COMPUTER Not Available [facility] ([facility]) [address] [facility], [place], [address], 10/30/2022 14:09:16 10/31/19 23 10/30/2022 CBC WITH DIFFE RENTI AL/PL ATELE T NRBC GEOPHYSICAL COMPUTER Not Available [facility] ([facility]) [address] [facility], [place], [address], 10/30/2022 14:09:16 10/31/19 23 10/30/2022 CBC WITH DIFFE RENTI AL/PL ATELE T hematology comments: GEOPHYSICAL COMPUTER Not Available [facility] ([facility]) [address] [facility], [place], [address], 10/30/2022 14:09:16 10/31/19 23 10/30/2022 URINA LYSIS , ROUTI NE specific gravity 1.020 1.005- 1.030 Not Available [facility] ([facility]) [address] [facility], [place], [address], 10/30/2022 14:09:17 10/31/19 23 10/30/2022 URINA LYSIS , ROUTI NE pH 6.0 5.0-7. 5 Not Available [facility] ([facility]) [address] [facility], [place], [address], 10/30/2022 14:09:17 10/31/1910/30/2022 URINA LYSIS , ROUTI NE urine-color Yellow yellow Not Available [facility] ([facility]) [address] [facility], [place], [address], 10/30/2022 14:09:17 10/31/1910/30/2022 URINA LYSIS , ROUTI NE appearance Clear clear Not Available [facility] ([facility]) [address] [facility], [place], [address], 10/30/2022 14:09:17 10/31/19 23 10/30/2022 URINA LYSIS , ROUTI NE WBC esterase Trace negati ve abnormal Not Available [facility] ([facility]) [address] [facility], [place], [address], 10/30/2022 14:09:17 10/31/19 23 10/30/2022 URINA LYSIS , ROUTI NE protein 2+ negati ve/tra ce abnormal Not Available [facility] ([facility]) [address] [place], [address], 10/30/2022 14:09:17 10/31/19 23 10/30/2022 URINA LYSIS , ROUTI NE glucose Negati ve negati ve Not Available [facility] ([facility]) [address] [place], [address], 10/30/2022 14:09:17 10/31/19 23 10/30/2022 URINA LYSIS , ROUTI NE ketones Negati ve negati ve Not Available [facility] ([facility]) [address] [place], [address], 10/30/2022 14:09:17 10/31/19 23 10/30/2022 URINA LYSIS , ROUTI NE occult blood Trace negati ve abnormal Not Available [facility] ([facility]) [address] [place], [address], 10/30/2022 14:09:17 10/31/19 23 10/30/2022 URINA LYSIS , ROUTI NE bilirubin Negati ve negati ve Not Available [facility] ([facility]) [address] [place], [address], 10/30/2022 14:09:17 10/31/19 23 10/30/2022 URINA LYSIS , ROUTI NE urobilinogen ,semi-qn 0.2 mg/dL 0.2-1. 0 Not Available [facility] ([facility]) [address] [facility], [place], [address], 10/30/2022 14:09:17 10/31/19 23 10/30/2022 URINA LYSIS , ROUTI NE nitrite, urine Negati ve negati ve Not Available [facility] ([facility]) [address] [facility], [place], [address], 10/30/2022 14:09:17 10/31/19 23 10/30/2022 URINA LYSIS , ROUTI NE microscopic examination See below: Not Available [facility] ([facility]) [address] [facility], [place], [address], 10/30/2022 14:09:17 10/31/19 23 10/30/2022 URINA LYSIS , ROUTI NE WBC 11-30 /hpf 0 - 5 abnormal Not Available [facility] ([facility]) [address] [facility], [place], [address], 10/30/2022 14:09:17 10/31/19 23 10/30/2022 URINA LYSIS , ROUTI NE RBC 0-2 /hpf 0 - 2 Not Available [facility] ([facility]) [address] [facility], [place], [address], 10/30/2022 14:09:17 10/31/19 23 10/30/2022 URINA LYSIS , ROUTI NE epithelial cells (non renal) >10 /hpf 0 - 10 abnormal Not Available [facility] ([facility]) [address] [facility], [place], [address], 10/30/2022 14:09:17 10/31/19 23 10/30/2022 URINA LYSIS , ROUTI NE epithelial cells (renal) GEOPHYSICAL COMPUTER Not Available [facility] ([facility]) [address] [facility], [place], [address], 10/30/2022 14:09:17 10/31/19 23 10/30/2022 URINA LYSIS , ROUTI NE casts GEOPHYSICAL COMPUTER Not Available [facility] ([facility]) [address] [facility], [place], [address], 10/30/2022 14:09:17 10/31/19 23 10/30/2022 URINA LYSIS , ROUTI NE cast type GEOPHYSICAL COMPUTER Not Available [facility] ([facility]) [address] [facility], [place], [address], 10/30/2022 14:09:17 10/31/19 23 10/30/2022 URINA LYSIS , ROUTI NE crystals GEOPHYSICAL COMPUTER Not Available [facility] ([facility]) [address] [facility], [place], [address], 10/30/2022 14:09:17 10/31/19 23 10/30/2022 URINA LYSIS , ROUTI NE crystal type GEOPHYSICAL COMPUTER Not Available [facility] ([facility]) [address] [facility], [place], [address], 10/30/2022 14:09:17 10/31/19 23 10/30/2022 URINA LYSIS , ROUTI NE mucus threads Presen t not estab. Not Available [facility] ([facility]) [address] [facility], [place], [address], 10/30/2022 14:09:17 10/31/19 23 10/30/2022 URINA LYSIS , ROUTI NE bacteria Few none seen/f ew Not Available [facility] ([facility]) [address] [facility], [place], [address], 10/30/2022 14:09:17 10/31/19 23 10/30/2022 URINA LYSIS , ROUTI NE yeast GEOPHYSICAL COMPUTER Not Available [facility] ([facility]) [address] [place], [address], 10/30/2022 14:09:17 10/31/19 23 10/30/2022 URINA LYSIS , ROUTI NE trichomonas GEOPHYSICAL COMPUTER Not Available [facility] ([facility] [address] [place], [address], 10/30/2022 14:09:17 10/31/19 23 10/30/2022 SAMUEL KING NE comment GEOPHYSICAL COMPUTER Not Available [facility] ([facility]) [address] [place], [address], 10/30/2022 14:09:17 10/31/19 23 10/30/2022 RENAL PANEL (10) glucose 80 mg/dL 70-99 Not Available [facility] ([facility]) [address] [place], [address], 10/30/2022 14:09:17 10/31/19 23 10/30/2022 RENAL PANEL (10) BUN 21 mg/dL 6-20 above high normal Not Available [facility] ([facility]) [address] [place], [address], 10/30/2022 14:09:17 10/31/19 23 10/30/2022 RENAL PANEL (10) creatinine 2.22 mg/dL 0.57-1 .00 above high normal Not Available [facility] ([facility]) [address] [facility], [place], [address], 10/30/2022 14:09:17 10/31/19 23 10/30/2022 RENAL PANEL (10) eGFR 29 mL/mi n/1.7 3 >59 below low normal Not Available [facility] ([facility]) [address] [place] [place], [address], 10/30/2022 14:09:17 10/31/19 23 10/30/2022 RENAL PANEL (10) BUN/creatini ne ratio 9 9-23 Not Available [facility] ([facility]) [address] [place] [place], [address], 10/30/2022 14:09:17 10/31/19 23 10/30/2022 RENAL PANEL (10) sodium 138 mmol/ L 134-14 4 Not Available [facility] ([facility]) [address] [place], [address], 10/30/2022 14:09:17 10/31/19 23 10/30/2022 RENAL PANEL (10) potassium 4.3 mmol/ L 3.5-5. 2 Not Available [facility] ([facility]) [address] [place], [address], 10/30/2022 14:09:17 10/31/19 23 10/30/2022 RENAL PANEL (10) chloride 102 mmol/ L 96-106 Not Available [facility] ([facility]) [address] [place], [address], 10/30/2022 14:09:17 10/31/19 23 10/30/2022 RENAL PANEL (10) carbon dioxide, total 23 mmol/ L 20-29 Not Available [facility] ([facility]) [address] [place], [address], 10/30/2022 14:09:17 10/31/19 23 10/30/2022 RENAL PANEL (10) calcium 9.1 mg/dL 8.7-10 .2 Not Available [facility] ([facility]) [address] [place], [address], 10/30/2022 14:09:17 10/31/19 23 10/30/2022 RENAL PANEL (10) phosphorus 3.3 mg/dL 3.0-4. 3 Not Available [facility] ([facility]) [address] [place], [address], 10/30/2022 14:09:17 10/31/19 23 10/30/2022 RENAL PANEL (10) albumin 3.9 g/dL 3.8-4. 8 Not Available [facility] ([facility]) [address] [facility] [place], [address], 10/30/2022 14:09:17 10/31/19 23 10/30/2022 URIC ACID uric acid 9.3 mg/dL 2.6-6. 2 above high normal Thera kasia root t for gout patie nts: <6.0 Not Available [facility] ([facility]) [address] [facility], [place], [address], 10/30/2022 14:09:18 10/31/19 23 10/31/2022 URINA LYSIS , ROUTI NE specific gravity 1.012 1.005- 1.030 Not Available [facility] ([facility]) [address] [facility], [place], [address], 10/31/2022 10:35:36 10/31/19 23 10/31/2022 URINA LYSIS , ROUTI NE pH 6.0 5.0-7. 5 Not Available [facility] ([facility]) [address] [facility], [place], [address], 10/31/2022 10:35:36 10/31/19 23 10/31/2022 URINA LYSIS , ROUTI NE urine-color Yellow yellow Not Available [facility] ([facility]) [address] [place], [address], 10/31/2022 10:35:36 10/31/19 23 10/31/2022 URINA LYSIS , ROUTI NE appearance Clear clear Not Available [facility] ([facility]) [address] [place], [address], 10/31/2022 10:35:36 10/31/19 23 10/31/2022 URINA LYSIS , ROUTI NE WBC esterase Trace negati ve abnormal Not Available [facility] ([facility]) [address] [facility], [place], [address], 10/31/2022 10:35:36 10/31/19 23 10/31/2022 URINA LYSIS , ROUTI NE protein 2+ negati ve/tra ce abnormal Not Available [facility] ([facility]) [address] [facility], [place], [address], 10/31/2022 10:35:36 10/31/1910/31/2022 URINA LYSIS , ROUTI NE glucose Negati ve negati ve Not Available [facility] ([facility]) [address] [facility], [place], [address], 10/31/2022 10:35:36 10/31/19 23 10/31/2022 URINA LYSIS , ROUTI NE ketones Negati ve negati ve Not Available [facility] ([facility]) [address] [facility], [place], [address], 10/31/2022 10:35:36 10/31/19 23 10/31/2022 URINA LYSIS , ROUTI NE occult blood Trace negati ve abnormal Not Available [facility] ([facility]) [address] [facility], [place], [address], 10/31/2022 10:35:36 10/31/19 23 10/31/2022 URINA LYSIS , ROUTI NE bilirubin Negati ve negati ve Not Available [facility] ([facility]) [address] [facility], [place], [address], 10/31/2022 10:35:36 10/31/19 23 10/31/2022 URINA LYSIS , ROUTI NE urobilinogen ,semi-qn 0.2 mg/dL 0.2-1. 0 Not Available [facility] ([facility]) [address] [place], [address], 10/31/2022 10:35:36 10/31/19 23 10/31/2022 URINA LYSIS , ROUTI NE nitrite, urine Negati ve negati ve Not Available [facility] ([facility]) [address] [place], [address], 10/31/2022 10:35:36 10/31/19 23 10/31/2022 URINA LYSIS , ROUTI NE microscopic examination See below: Micro scopi c was indic ated and was perfo rmed. Not Available [facility] ([facility]) [address] [facility], [place], [address], 10/31/2022 10:35:36 10/31/19 23 10/31/2022 URINA LYSIS , ROUTI NE WBC 0-5 /hpf 0 - 5 Not Available [facility] ([facility]) [address] [facility], [place], [address], 10/31/2022 10:35:36 10/31/19 23 10/31/2022 URINA LYSIS , ROUTI NE RBC None seen /hpf 0 - 2 Not Available [facility] ([facility]) [address] [facility], [place], [address], 10/31/2022 10:35:36 10/31/19 23 10/31/2022 URINA LYSIS , ROUTI NE epithelial cells (non renal) 0-10 /hpf 0 - 10 Not Available [facility] [facility]) [address] [facility], [place], [address], 10/31/2022 10:35:36 10/31/19 23 10/31/2022 URINA LYSIS , ROUTI NE epithelial cells (renal) GEOPHYSICAL COMPUTER Not Available [facility] ([facility]) [address] [facility], [place], [address], 10/31/2022 10:35:36 10/31/19 23 10/31/2022 URINA LYSIS , ROUTI NE casts None seen /lpf none seen Not Available [facility] ([facility]) [address] [facility], [place], [address], 10/31/2022 10:35:36 10/31/19 23 10/31/2022 URINA LYSIS , ROUTI NE cast type GEOPHYSICAL COMPUTER Not Available [facility] ([facility]) [address] [facility], [place], [address], 10/31/2022 10:35:36 10/31/19 23 10/31/2022 URINA LYSIS , ROUTI NE crystals GEOPHYSICAL COMPUTER Not Available [facility] ([facility]) [address] [facility], [place], [address], 10/31/2022 10:35:36 10/31/19 23 10/31/2022 URINA LYSIS , ROUTI NE crystal type GEOPHYSICAL COMPUTER Not Available [facility] ([facility]) [address] [facility], [place], [address], 10/31/2022 10:35:36 10/31/19 23 10/31/2022 URINA LYSIS , ROUTI NE mucus threads GEOPHYSICAL COMPUTER Not Available [facility] ([facility]) [address] [facility], [place], [address], 10/31/2022 10:35:36 10/31/19 23 10/31/2022 URINA LYSIS , ROUTI NE bacteria None seen none seen/f ew Not Available [facility] ([facility]) [address] [facility], [place], [address], 10/31/2022 10:35:36 10/31/19 23 10/31/2022 URINA LYSIS , ROUTI NE yeast GEOPHYSICAL COMPUTER Not Available [facility] ([facility]) [address] [facility], [place], [address], 10/31/2022 10:35:36 10/31/19 23 10/31/2022 URINA LYSIS , ROUTI NE trichomonas GEOPHYSICAL COMPUTER Not Available [facility] ([facility]) [address] [facility], [place], [address], 10/31/2022 10:35:36 10/31/19 23 10/31/2022 URINA LYSIS , ROUTI NE comment GEOPHYSICAL COMPUTER Not Available [facility] ([facility]) [address] [facility], [place], [address], 10/31/2022 10:35:36 11/03/19 23 11/03/2022 CREAT U+PRO T U creatinine, urine 54.9 mg/dL not estab. Total Volum e: 0800 mL Not Available [facility] ([facility]) [address] [facility], [place], [address], 11/03/2022 17:07:11 11/03/19 23 11/03/2022 CREAT U+PRO T U creatinine, ur 24HR 439 mg/24 _HR 800-18 00 below low normal Not Available [facility] ([facility]) [address] [facility], [place], [address], 11/03/2022 17:07:11 11/03/1911/03/2022 CREAT U+PRO T U prot,24HR calculated 735 mg/24 _HR 30-150 above high normal Not Available [facility] ([facility]) [address] [facility], [place], [address], 11/03/2022 17:07:11 11/03/19 23 11/03/2022 CREAT U+PRO T U protein,tota l,urine 91.9 mg/dL not estab. Not Available [facility] ([facility]) [address] [facility], [place], [address], 11/03/2022 17:07:11 11/03/19 23 11/03/2022 CREAT U+PRO T U protein/crea t ratio 1674 mg/g_ creat 0-200 above high normal Not Available [facility] ([facility]) [address] [facility], [place], [address], 11/03/2022 17:07:11 11/21/19 23 11/20/2022 NURY, PE AND FLC, SERUM please note: Commen t Prote in elect ropho resis scan will follo w via compu ter, mail, or couri er francisca ordonez. Not Available [facility] ([facility]) [address] [facility], [place], [address], 11/25/2022 11:08:34 11/21/19 23 11/21/2022 NURY, PE AND FLC, SERUM immunoglobul in g, qn, serum 988 mg/dL 586-16 02 Not Available [facility] ([facility]) [address] [place] [place], [address], 11/25/2022 11:08:34 11/21/19 23 11/21/2022 NURY, PE AND FLC, SERUM immunoglobul in A, qn, serum 367 mg/dL 87-352 above high normal Not Available [facility] ([facility]) [address] [place] [place], [address], 11/25/2022 11:08:34 11/21/19 23 11/21/2022 NURY, PE AND FLC, SERUM immunoglobul in M, qn, serum 92 mg/dL 26-217 Not Available [facility] ([facility]) [address] [place] [place], [address], 11/25/2022 11:08:34 11/21/19 23 11/21/2022 NURY, PE AND FLC, SERUM protein, total 6.7 g/dL 6.0-8. 5 Not Available [facility] ([facility]) [address] [place] [place], [address], 11/25/2022 11:08:34 11/21/19 23 11/21/2022 NURY, PE AND FLC, SERUM free kappa lt chains,S 86.8 mg/L 3.3-19 .4 above high normal Not Available [facility] ([facility]) [address] [place] [place], [address], 11/25/2022 11:08:34 11/21/19 23 11/21/2022 NURY, PE AND FLC, SERUM free lambda lt chains,S 52.7 mg/L 5.7-26 .3 above high normal Not Available [facility] ([facility]) [address] [place], [address], 11/25/2022 11:08:34 11/21/19 23 11/21/2022 NURY, PE AND FLC, SERUM kappa/lambda ratio,S 1.65 0.26-1 .65 Not Available [facility] ([facility]) [address] [place], [address], 11/25/2022 11:08:34 11/21/19 23 11/25/2022 NURY, PE AND FLC, SERUM albumin 3.3 g/dL 2.9-4. 4 Not Available [facility] ([facility]) [address] [place], [address], 11/25/2022 11:08:34 11/21/19 23 11/25/2022 NURY, PE AND FLC, SERUM zbvgs-4-xusn ulin 0.3 g/dL 0.0-0. 4 Not Available [facility] ([facility]) [address] [place], [address], 11/25/2022 11:08:34 11/21/19 23 11/25/2022 NURY, PE AND FLC, SERUM tovok-8-wuta ulin 0.9 g/dL 0.4-1. 0 Not Available [facility] ([facility]) [address] [place], [address], 11/25/2022 11:08:34 11/21/19 23 11/25/2022 NURY, PE AND FLC, SERUM beta globulin 1.2 g/dL 0.7-1. 3 Not Available [facility] ([facility]) [address] [place], [address], 11/25/2022 11:08:34 11/21/19 23 11/25/2022 NURY, PE AND FLC, SERUM gamma globulin 0.9 g/dL 0.4-1. 8 Not Available [facility] ([facility]) [address] [place], [address], 11/25/2022 11:08:34 11/21/19 23 11/25/2022 NURY, PE AND FLC, SERUM M-spike Not Observ ed g/dL not observ ed Not Available [facility] ([facility]) [address] [place], [address], 11/25/2022 11:08:34 11/21/19 23 11/25/2022 NURY, PE AND FLC, SERUM globulin, total 3.4 g/dL 2.2-3. 9 Not Available [facility] ([facility]) [address] [place], [address], 11/25/2022 11:08:34 11/21/19 23 11/25/2022 NURY, PE AND FLC, SERUM A/G ratio 1.0 0.7-1. 7 Not Available [facility] ([facility]) [address] [place], [address], 11/25/2022 11:08:34 11/21/19 23 11/25/2022 NURY, PE AND FLC, SERUM immunofixati on result, serum Commen t The immun ofixa tion ryder rn appea rs unrem arkab le. Evide nce of monoc lonal prote in is not appar ent. Not Available [facility] ([facility]) [address] [place], [address], 11/25/2022 11:08:34 11/21/19 23 11/25/2022 NURY, PE AND FLC, SERUM pdf . Not Available [facility] ([facility]) [address] [place], [address], 11/25/2022 11:08:34 11/21/19 23 11/21/2022 TSH+F REE T4 TSH 1.170 uIU/m L 0.450- 4.500 Not Available [facility] ([facility]) [address] [place], [address], 11/25/2022 11:08:34 11/21/19 23 11/21/2022 TSH+F REE T4 T4,free(dire ct) 0.99 NG/dL 0.82-1 .77 Not Available [facility] ([facility]) [address] [place] [place], [address], 11/25/2022 11:08:34 11/21/19 23 11/21/2022 RENAL PANEL (10) glucose 82 mg/dL 70-99 Not Available [facility] ([facility]) [address] [place] [place], [address], 11/25/2022 11:08:35 11/21/19 23 11/21/2022 RENAL PANEL (10) BUN 19 mg/dL 6-20 Not Available [facility] ([facility]) [address] [place], [address], 11/25/2022 11:08:35 11/21/19 23 11/21/2022 RENAL PANEL (10) creatinine 1.94 mg/dL 0.57-1 .00 above high normal Not Available [facility] ([facility]) [address] [place], [address], 11/25/2022 11:08:35 11/21/19 23 11/21/2022 RENAL PANEL (10) eGFR 34 mL/mi n/1.7 3 >59 below low normal Not Available [facility] ([facility]) [address] [place], [address], 11/25/2022 11:08:35 11/21/19 23 11/21/2022 RENAL PANEL (10) BUN/creatini ne ratio 10 9-23 Not Available [facility] ([facility]) [address] [place], [address], 11/25/2022 11:08:35 11/21/19 23 11/21/2022 RENAL PANEL (10) sodium 139 mmol/ L 134-14 4 Not Available [facility] ([facility]) [address] [place], [address], 11/25/2022 11:08:35 11/21/19 23 11/21/2022 RENAL PANEL (10) potassium 3.7 mmol/ L 3.5-5. 2 Not Available [facility] ([facility]) [address] [place], [address], 11/25/2022 11:08:35 11/21/19 23 11/21/2022 RENAL PANEL (10) chloride 104 mmol/ L 96-106 Not Available [facility] ([facility]) [address] [place], [address], 11/25/2022 11:08:35 11/21/19 23 11/21/2022 RENAL PANEL (10) carbon dioxide, total 24 mmol/ L 20-29 Not Available [facility] ([facility]) [address] [place], [address], 11/25/2022 11:08:35 11/21/19 23 11/21/2022 RENAL PANEL (10) calcium 8.7 mg/dL 8.7-10 .2 Not Available [facility] ([facility]) [address] [place], [address], 11/25/2022 11:08:35 11/21/19 23 11/21/2022 RENAL PANEL (10) phosphorus 2.8 mg/dL 3.0-4. 3 below low normal Not Available [facility] ([facility]) [address] [place], [address], 11/25/2022 11:08:35 11/21/19 23 11/21/2022 RENAL PANEL (10) albumin 3.8 g/dL 3.8-4. 8 Not Available [facility] ([facility]) [address] [place], [address], 11/25/2022 11:08:35 11/21/19 23 11/21/2022 LIPID PANEL cholesterol, total 202 mg/dL 100-19 9 above high normal Not Available [facility] ([facility]) [address] [place] [place], [address], 11/25/2022 11:08:35 11/21/19 23 11/21/2022 LIPID PANEL triglyceride s 135 mg/dL 0-149 Not Available [facility] ([facility]) [address] [facility], [place], [address], 11/25/2022 11:08:35 11/21/19 23 11/21/2022 LIPID PANEL HDL cholesterol 39 mg/dL >39 below low normal Not Available [facility] ([facility]) [address] [facility], [place], [address], 11/25/2022 11:08:35 11/21/19 23 11/21/2022 LIPID PANEL VLDL cholesterol artis 24 mg/dL 5-40 Not Available [facility] ([facility]) [address] [facility], [place], [address], 11/25/2022 11:08:35 11/21/19 23 11/21/2022 LIPID PANEL LDL chol calc ([facility]) 139 mg/dL 0-99 above high normal Not Available [facility] ([facility]) [address] [facility], [place], [address], 11/25/2022 11:08:35 11/21/19 23 11/21/2022 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 Not Available [facility] ([facility]) [address] [facility], [place], [address], 11/25/2022 11:08:35 11/21/19 23 11/21/2022 ACUTE HEPAT ITIS hep A Ab, IgM Negati ve negati ve Not Available [facility] ([facility]) [address] [facility], [place], [address], 11/25/2022 11:08:36 11/21/19 23 11/21/2022 ACUTE HEPAT ITIS HBsAg screen Negati ve negati ve Not Available [facility] ([facility]) [address] [place], [address], 11/25/2022 11:08:36 11/21/19 23 11/21/2022 ACUTE HEPAT ITIS hep B core Ab, IgM Negati ve negati ve Not Available [facility] ([facility]) [address] [facility], [place], [address], 11/25/2022 11:08:36 11/21/19 23 11/21/2022 ACUTE HEPAT ITIS HCV Ab Non Reacti ve non reacti ve Not Available [facility] ([facility]) [address] [facility], [place], [address], 11/25/2022 11:08:36 11/21/19 23 11/21/2022 ACUTE HEPAT ITIS interpretati on: Commen t Not infec jose g with HCV unles s early or acute infec tion is suspe cted (whic h may be delay ed in an immun ocomp romis ed indiv idual ), or other evide nce exist s to indic ate HCV infec tion. Not Available [facility] ([facility]) [address] [facility], [place], [address], 11/25/2022 11:08:36 11/21/19 23 11/22/2022 ANCA PROFI LE anti-mpo antibodies <0.2 units 0.0-0. 9 Not Available [facility] ([facility]) [address] [place], [address], 11/25/2022 11:08:36 11/21/19 23 11/22/2022 ANCA PROFI LE anti-pr3 antibodies <0.2 units 0.0-0. 9 Not Available [facility] ([facility]) [address] [place], [address], 11/25/2022 11:08:36 11/21/19 23 11/23/2022 ANCA PROFI LE cytoplasmic (C-anca) <1:20 titer neg:<1 :20 Not Available [facility] ([facility]) [address] [facility], [place], [address], 11/25/2022 11:08:36 11/21/19 23 11/23/2022 ANCA PROFI LE perinuclear (P-anca) <1:20 titer neg:<1 :20 The prese nce of posit lu fluor escen ce exhib iting P-ANC A or C-ANC A patte rns alone is not speci fic for the diagn osis of Wegen er's Granu lomat osis (WG) or micro scopi c polya ngiit is. Decis ions about treat ment shoul d not be based solel y on ANCA IFA resul ts. The Inter natio nal ANCA Group Conse nsus recom mends follo w up testi ng of posit lu sera with both AL-3 and MPO-A NCA enzym e immun oassa ys. As many as 5% serum sampl es are posit lu only by EIA. Ref. AM J Clin Patho l 1999; 111:5 07-51 3. Not Available [facility] ([facility]) [address] [facility], [place], [address], 11/25/2022 11:08:36 11/21/19 23 11/23/2022 ANCA PROFI LE atypical panca <1:20 titer neg:<1 :20 The atypi artis pANCA patte rn has been obser brooks in a signi fican t perce ntage of patie nts with ulcer ative colit is, prima ry scler osing chola ngiti s and autoi mmune hepat itis. Not Available [facility] ([facility]) [address] [facility], [place], [address], 11/25/2022 11:08:36 11/21/19 23 11/21/2022 VITAM IN D, 1,25 + 25-HY DROXY calcitriol(1 ,25 di-oh vit D) 24.8 pg/mL 24.8-8 1.5 Not Available [facility] ([facility]) [address] [facility], [place], [address], 11/25/2022 11:08:37 11/21/19 23 11/21/2022 VITAM IN D, 1,25 + 25-HY DROXY vitamin D, 25-hydroxy 13.3 NG/mL 30.0-1 00.0 below low normal Vitam in D defic iency has been defin ed by the Insti tute of Medic ine and an Endoc rine Socie ty pract ice guide line as a level of serum 25-OH vitam in D less than 20 ng/mL (1,2) . The Endoc rine Socie ty went on to furth er defin e vitam in D insuf ficie ncy as a level betwe en 21 and 29 ng/mL (2). 1. IOM (Inst itute of Medic ine). 2009. Magy ry refer ence robert es for calci um and D. Renata prakash DC: The [facility] Press . 2. Disha bennett MF, Britney uribe [place], Srikanth off-F errar i [place], et al. Evalu ation , treat ment, and preve ntion of vitam in D defic iency : an Endoc rine Socie ty clini artis pract ice guide line. JCEM. 2010; 96(7) :1911 -30. Not Available [facility] ([facility]) [address] [facility], [place], [address], 11/25/2022 11:08:37 11/21/19 23 11/21/2022 HEMOG LOBIN A1C hemoglobin A1C 5.4 % 4.8-5. 6 Predi abete s: 5.7 - 6.4 Diabe alexis: >6.4 Glyce darci contr ol for adult s with diabe alexis: <7.0 Not Available [facility] ([facility]) [address] [facility], [place], [address], 11/25/2022 11:08:38 11/21/19 23 11/21/2022 RPR, RFX QN RPR/C ONFIR M TP RPR Non Reacti ve non reacti ve Not Available [facility] ([facility]) [address] [place], [address], 11/25/2022 11:08:38 11/21/19 23 11/21/2022 HIV AB/P2 4 AG WITH REFLE X HIV Ab/P24 Ag screen Non Reacti ve non reacti ve HIV Negat lu HIV-1 /HIV- 2 antib odies and HIV-1 p24 antig en were NOT detec jose g. There is no labor atory evide nce of HIV infec tion. Not Available [facility] ([facility]) [address] [facility], [place], [address], 11/25/2022 11:08:39 11/21/19 23 11/22/2022 ANTIN UCLEA R AB MULTI PLEX RFX 5 MARLA direct Negati ve negati ve Not Available [facility] ([facility]) [address] [facility], [place], [address], 11/25/2022 11:08:39 11/21/19 23 11/21/2022 SEDIM ENTAT ION RATE- WESTE RGREN sedimentatio n rate-westerg janell 78 mm/HR 0-32 above high normal Not Available [facility] ([facility]) [address] [place], [address], 11/25/2022 11:08:40 11/21/19 23 11/21/2022 MAGNE SIUM magnesium 1.9 mg/dL 1.6-2. 3 Not Available [facility] ([facility]) [address] [place], [address], 11/25/2022 11:08:40 11/21/19 23 11/21/2022 C-REGINO CTIVE PROTE IN, QUANT C-reactive protein, quant 10 mg/L 0-10 Not Available [facility] ([facility]) [address] [place], [address], 11/25/2022 11:08:41 11/21/1911/21/2022 PTH, INTAC T PTH, intact 120 pg/mL 15-65 above high normal Not Available [facility] ([facility]) [address] [facility], [place], [address], 11/25/2022 11:08:41 12/01/1912/02/2022 CREAT U+PRO T U creatinine, urine 61.8 mg/dL not estab. Total Volum e: 1850 mL Not Available [facility] ([facility]) [address] [place] [place], [address], 12/03/2022 00:06:14 12/01/1912/02/2022 CREAT U+PRO T U creatinine, ur 24HR 1143 mg/24 _HR 800-18 00 Not Available [facility] ([facility]) [address] [place], [address], 12/03/2022 00:06:14 12/01/1912/02/2022 CREAT U+PRO T U prot,24HR calculated 860 mg/24 _HR 30-150 above high normal Not Available [facility] ([facility]) [address] [place], [address], 12/03/2022 00:06:14 12/01/1912/02/2022 CREAT U+PRO T U protein,tota l,urine 46.5 mg/dL not estab. Not Available [facility] ([facility]) [address] [place], [address], 12/03/2022 00:06:14 12/01/1912/02/2022 CREAT U+PRO T U protein/crea t ratio 752 mg/g_ creat 0-200 above high normal Not Available [facility] ([facility]) [address] [place], [address], 12/03/2022 00:06:14 11/19/19 23 11/16/2022 US, retro perit oneum , compl ete No observ ation record ed. [email or web address] [address] [address], [place], [address], 12/15/2022 10:43:48 Result Notes None recorded. Problems Name Problem SNOMED Code Status Onset Date Resolution Date Notes Provider Name and Address Organization Details Recorded Time Medullary nephrocal cinosis 832814570 Completed 200801/29/2009 Jackelyn Jasso [facility], [facility] 3 10:27:13 Clinical finding Active 2022 Jackelyn Jasso [facility], [facility] 3 10:36:06 Chronic kidney disease stage 3 980650674 Active 2022 Zeenat Gabriel [facility], [facility] 3 09:39:19 Vitamin D deficienc y 60975791 Active 2022 Magaly hWipple [facility], [facility] 3 16:15:12 Chronic kidney disease stage 4 911177554 [place] 2022 [place] [address] [place], [address], [facility], [facility] 3 10:05:53 Proteinur ia 51930140 Active 2022 [place] [address] [place], [address], [facility], [facility] 3 10:05:55 Nephrocal cinosis 04653309 Active 2022 [place] [address] [place], [address] , [facility], [facility] 3 10:05:57 Hyperuric emia 56433910 Active 2022 [place] [address] [place], [address], [facility], [facility] 3 10:05:59 Fatigue 99932381 Active 2022 [place] [address] [facility] [place], [address], [facility], [facility] 3 10:06:00 History of parathyro idectomy 147828768856 103 Active 2022 [place] [address] [place], [address], [facility], [facility] 3 10:06:03 Obesity 894508586 Active 2022 [place] [address] [facility] [place], [address], [facility], [facility] 3 10:06:05 Chronic low back pain 118378552 Active 2022 [place] [address] [facility] [place], [address], [facility], [facility] 08:43:53 Problem Notes None recorded. Procedures Surgical History Date Name Laterality Status Provider Name and Address Organization Details Recorded Time ligation of fallopian tube completed Jackelyn Romero [facility], [facility] 09/24/2022 10:32:23 Imaging Results Imaging Date Name Status LastModified by Organiz ation Details LastModified Time 11/16/2022 US, retroperitone um, complete completed [email or web address] [facility] [address], [address], 12/15/2022 10:43:48 Procedure Notes None recorded. Medical Equipment None Reported. Allergies Allergen ID Allergen Name Allergen Category Reaction Reaction Severity Criticality Documentation Date Start Date Code Code System Note Provider Name and Address Organization Details Recorded Time 83138 Product containin g penicilli n and antibioti c (product) medicatio n Not available Not available Not available 09/24/2022 27071 05 SNOMED Jackelyn Romero [facility], [facility] 10:44:11 Medications Name Sig Start Date Stop Date Status Note LastModified by Organization Details LastModified Time venlafaxi ne ER 150 mg capsule,e xtended release 24 hr Take 150 mg every day by oral route. 11/12 completed Do not crush or chew Not Available Not Available Not Available allopurin ol 100 mg tablet Take 1 tablet every day by oral route for 30 days. 2022 active Not Available Not Available Not Avai lable famotidin e 20 mg tablet Take 1 tablet twice a day by oral route. 2020 active Take 2 tablets by mouth in AM and at Bedtime Not Available Not Available Not Available hydroxyzi ne HCl 25 mg tablet Take 1 tablet 3 times a day by oral route as needed. active Not Available Not Available No t Available oxycodone -acetamin ophen 2.5 mg-325 mg tablet Take 1 tablet every 4 hours by oral route as needed. 01/13 completed Not Available Not Available Not Available gabapenti n 100 mg capsule Take 2 capsules every 8 hours by oral route. active Not Available Not Available No t Available ergocalci ferol (vitamin D2) 1,250 mcg (50,000 unit) capsule Take 1 capsule every week by oral route. 2022 active Not Available Not Available Not Avai lable zolpidem 10 mg tablet Take by mouth 1 time each day active Not Available Not Available No t Available topiramat e 100 mg tablet 01/13 completed Not Available Not Available Not Available dicyclomi ne 10 mg capsule Take 1 capsule by mouth 4 times a day. before meals and nightly 2020 active Not Available Not Available Not Avai lable bupropion HCl XL 150 mg 24 hr tablet, extended release 2017 active Not Available Not Available Not Avai lable Vraylar 1.5 mg capsule Take 1 capsule every day by oral route. 01/13 completed Not Available Not Available Not Available Vitals Date Recorded Body height Provider Name an d Address Organization Details Last Updated DateTime 11/12/2022 162.56 cm Magaly [facility], [facility] 11/12/2022 16:42:58 Date Recorded Body mass index (BMI) Body weight Provider Name and Address Organization Details Last Updated DateTime 11/12/2022 35.7 kg/m2 23361.21 g [facility], [facility] 11/12/2022 16:43:04 Date Recorded Heart rate Provider Name an d Address Organization Details Last Updated DateTime 11/12/2022 77 /min [facility], [facility] 11/12/2022 16:44:53 Date Recorded Body height Provider Name an d Address Organization Details Last Updated DateTime 01/13/2023 162.56 cm [facility], [facility] 01/13/2023 09:54:30 Date Recorded Body mass index (BMI) Body weight Provider Name and Address Organization Details Last Updated DateTime 01/13/2023 37.2 kg/m2 29673.54 g [facility], [facility] 01/13/2023 09:54:37 Date Recorded Heart rate Provider Name an d Address Organization Details Last Updated DateTime 01/13/2023 73 /min [facility], [facility] 01/13/2023 09:56:10 Date Recorded Systolic blood pressure Diastolic blood pressure Provider Name and Address Organization Details Last Updated DateTime 11/12/2022 133 mm[Hg] 99 mm[Hg] [facility], [facility] 11/12/2022 16:43:37 Date Recorded Systolic blood pressure Diastolic blood pressure Provider Name and Address Organization Details Last Updated DateTime 11/12/2022 128 mm[Hg] 82 mm[Hg] [place] [address] [place], [address], [facility] 11/12/2022 17:13:25 Date Recorded Systolic blood pressure Diastolic blood pressure Provider Name and Address Organization Details Last Updated DateTime 01/13/2023 138 mm[Hg] 104 mm[Hg] [facility], [facility] 01/13/2023 09:56:06 Social History Question Answer Notes LastModified by Organizat ion Details LastModified Time Tobacco Smoking Status Current Every Day Smoker Jackelyn enriquez, [facility], [facility] 09/24/2022 10:32:52 Are You Currently Employed? No Information not available 10/05/2022 What Was The Date Of Your Most Recent Tobacco Screening? 01/13/2023 [email or web address] Information not available 01/13/2023 What Is Your Relationship Status? Single Information not available 10/05/2022 How Much Tobacco Do You Smoke? 1 PPW Information not available 10/05/2022 Do You Use Any Illicit Or Recreational Drugs? Yes Cannabis Dependence Information not available 10/05/2022 How Many Years Have You Smoked Tobacco? 18 Information not available 10/05/2022 Do You Or Have You Ever Used Any Other Forms Of Tobacco Or Nicotine? No Information not available 10/05/2022 Sex: Unknown Functional Status None recorded. Mental Status None recorded. Family History Relationship Description Onset Age of this Age Resolved Age Notes LastModified by Organization Details LastModified Time Son Attention deficit hyperactivit y disorder phaag Not available 10/05 15:11:48 Son Developmenta l delay phaag Not available 2022 15:11:58 Son Anger reaction phaag Not available 2022 15:12:06 Brother Bipolar disorder phaag Not available 2022 15:12:18 Brother Developmenta l delay phaag Not available 2022 15:12:21 Brother Attention deficit hyperactivit y disorder phaag Not available 10/05 15:12:27 Mother Bipolar disorder phaag Not available 2022 15:12:32 Mother Generalized anxiety disorder phaag Not available 2022 15:12:50 Mother Major depressive disorder phaag Not available 2022 15:12:58 Medical History Condition Response Vitamin D Deficiency Y Kidney Disease (CKD) Y Anxiety Y Sleep Apnea Y Thyroid Disorder Y Gynecological HistoryNo gynecological history recorded. Obstetrics History GPAL:G 0 P 0 0 0 0 Immunizations Vaccine Type Date Status Note Provider Nam e and Address Organization Details Recorded Time Influenza, MDCK, quadrivalent, preservative 8 completed Jackelyn Romero null, [facility], [facility] 09/24/2022 10:27:13 influenza, unspecified formulation 2 completed Jackelyn Romero null, [facility], [facility] 09/24/2022 10:27:13 influenza, unspecified formulation 7 completed Jackelyn Romero null, [facility], [facility] 09/24/2022 10:27:13 Tdap 2 completed Jackelyn Romero enriquez [place] [facility] [place] [facility], [facility] 09/24/2022 10:27:13 Past Encounters Encounter ID Performer Location Encounter Start Date Encounter Closed Date Diagnosis/Indication Diagnosis SNOMED-CT Code Diagnosis ICD10 Code Diagnosis Note [id number] Henry Robin MD [facility] [address] [place] [address] 11/12/2022 15:52:23 11/13/2022 13:09:38 Chronic kidney disease stage 4 201330165 N18.4 CKD stage 4 possible progressio n from nephrocalc inosis.Scr 2.2 on labs from 11/12.No labs to review since 2020 noted from nephrology notes.Advi sed patient to bring all her meds next visit.will do kidney USSend serologies Check bmp on november and december to monitor trend. Patient is readvised regarding the need for tight control of HTN (130/80), DM (Hb A1c < 7) and Hyperlipid emia ( LDL < 100) as recommend by KDOQI guidelines , to slow the progressio n of CKD.We also recommend, abundance of caution in the use of potential nephrotoxi c medication s such as NSAIDs and Iodinated IV contrast amongst others, in the use of MRI gadolinium contrast material, and medication s at risk of interactio ns with others and from increased half life associated with diminished renal function.D ietary sodium intake is recommende d to be <2000 mg/day. Other dietary restrictio ns were specifical ly discussed as needed.Juan Antonio gracia frequent home BP monitoring and maintenanc e of a log, which should be brought to subsequent appointmen ts along with most current list of medication s. Proteinuria 63836774 R80 .9 UPC 1.6 g.Unclear no prior serologies to review.Paramjit hebert send all serologies . Nephrocalcinosis 2967190 2 N29 Hx of nephrocalc inosis.No prior imaging to review.paramjit hebert send US kidney Hyperuricemia 59807994 E 79.0 Uric acid ~9. Goal <6Will start allopurino l. Fatigue 62963536 R53.83 Will check TSH History of parathyroidectomy [id number] 47768 Z90.89 ? Unclear. Will check PTH and vitamin dCalcium and phos stable. Obesity 221519516 E66.9 Advised weight lossCKD diet provided.C heck a1c. [id number] Henry Robin MD [facility] [address] [facility] [place] [address] 01/13/2023 09:18:53 01/13/2023 10:29:35 Chronic kidney disease stage 4 152553358 N18.4 CKD stage 4 possible progressio n from nephrocalc inosis.Bas denny scr 1.9 to 2.2 mg/dl.Most recent scr 1.9 mg/dl.[place] ey US reviewed, 12 cm kidney, stable appearance of medullary sponge kidney.No hydronephr osis or stones. Patient is re-advised regarding the need for tight control of HTN (130/80), DM (Hb A1c < 7) and Hyperlipid emia ( LDL < 100) as recommend by KDOQI guidelines , to slow the progressio n of CKD.We also recommend, abundance of caution in the use of potential nephrotoxi c medication s such as NSAIDs and Iodinated IV contrast amongst others, in the use of MRI gadolinium contrast material, and medication s at risk of interactio ns with others and from increased half life associated with diminished renal function.D ietary sodium intake is recommende d to be <2000 mg/day. Other dietary restrictio ns were specifical ly discussed as needed.Juan Antonio gracia frequent home BP monitoring and maintenanc e of a log, which should be brought to subsequent appointmen ts along with most current list of medication s. Proteinuria 08572434 R80 .9 24 hour Protein ~860.Serol ogies negative.L ikely from Chronic interstiti al damage. Nephrocalcinosis 9376434 2 N29 Hx of nephrocalc inosis.Us reviewed. stable. Hyperuricemia 96946251 E 79.0 Uric acid ~9. Goal <6C/W allopurino l Fatigue 12840341 R53.83 TSH at goal. History of parathyroidectomy 5382036725 Z90.89 ? Unclear. Will check PTH and vitamin dCalcium and phos stable. Obesity 686111368 E66.9 Advised weight lossCKD diet provided.H b A1C 5.4At goal. Chronic low back pain 27 2457529 M54.50 Advised. Exercise diet, ptFollow up with PMD. Health Concerns Section Related Observation LastModified by Organization Detai ls LastModified Time None Recorded Concern Status LastModified by Organization Details LastModified Time None Recorded Advance Directives Directive None Recorded Payers Encounter Date Sequence Insurance Name Policy Number Policy Byrnes Covered Member ID Byrnes Member ID Guarantor Name 11/12/2022 [facility] HMO) Thomas Fontenot [id number] Thomas Fontenot 01/13/2023 [facility]PL[facility] - HMO) Thomas Fontenot [id number] Thomas Fontenot Notes Date Note Type Note Provider Name and Address Organization Details Recorded Time 11/12/2022 text/html 32 y.o. 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 Was referred by PMD due to abnormal kidney function. She came accompanied by , c/o of fatigue, intolerance to cold temp, cramps. Poor historian, not able to provide good medical hx.Had hx of kidney stones.Med reviewed, she was not clear what is she taking. Topiramate on the list, but not longer taking.Reports sob/johns as well, no chest pain, reports abdominal pain episodes of vomiting , back pain arthralgia. Denies cp/n/diarrhea or constipation, no dysuria, urgency, frequency, hematuria, foamy urine, fever or chills, no tremors. [place] [address] [place], [address], [facility], [facility] 11/12/2022 17:30:40 01/13/2023 text/html 32 y.o. 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 Labs reviewed, it seem her scr is within 1.9 to 2.2 mg/dl. Most recent scr 1.9 mg/d. PTH elevated, vitamin D low, started on Vitamin D.Continues to report faigue and low back pain.Poor appetite has nausea.Depression lack of energy. Denies cp/n/diarrhea or constipation, no dysuria, urgency, frequency, hematuria, foamy urine, fever or chills, no tremors[place] [address] [facility], [place], [address], [facility], [facility] 01/13/2023 10:25:35 OBGyn Episode No OBEpisode recorded.
--- OUTSIDE RECORDS SUMMARY | 2024-09-13 13:09 | XMS_ITS | Clinical Summary ---
Author Organization [facility], Address [address] [place] [address] [place] [address] Phone Care Team Providers Care [employer] Specialist Name Role Phone Isabel Cota MD Primary Care Provider [phone] Allergies Active Allergy Reactions Criticality Noted Date Comments Penicillins 10/25/2017 Medications zolpidem (AMBIEN) 10 MG tablet Take by mouth 1 (one) time each day Active dicyclomine (BENTYL) 10 MG capsule TAKE 1 CAPSULE BY MOUTH 4 TIMES A DAY. BEFORE MEALS & NIGHTLY. 08/27/2020 Active venlafaxine XR (EFFEXOR-XR) 150 MG 24 hr capsule Take 150 mg by mouth 1 (one) time each day Do not crush or chew. Active hydrOXYzine (ATARAX) 25 MG tablet Take 25 mg by mouth 3 (three) times a day if needed for itching Active famotidine (PEPCID) 20 MG tablet Take 1 tablet (20 mg total) by mouth twice a day Take two tablets by mouth in am and at bedtime 120 tablet 06/03/2021 Active topiramate (TOPAMAX) 100 MG tablet 05/27/2021 Active buPROPion XL (WELLBUTRIN XL) 150 MG 24 hr tablet TOME EMMA TABLETA TODOS LOS D? EN LA MA?MARLA 03/17/2018 Active ondansetron (Zofran) 4 MG tablet Take 1 tablet (4 mg total) by mouth every 8 (eight) hours if needed for nausea or vomiting 20 tablet 04/26/2024 Active Active Problems Problem Noted Date Diagnosed Date Hidradenitis suppurativa 12/05/2021 Obstructive sleep apnea syndrome 08/30/2019 Overview (05/28/2021): Does not use CPAP machine 10/2019 Home Sleep Study did not reveal sleep apnea or nocturnal hypoxia. Presently patient asking if she wishes for diagnostic study. Will order the study if she plans to pursue CPAP treatment if sleep apnea identified. Chronic kidney disease stage 3 10/26/2017 Overview (05/28/2021): S/p renal biopsy, pathology report pending. 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 Immunizations Name Administration Dates Next Due Influenza, MDCK, Quadrivalent, with preservative 06/02/2018 Influenza, Unspecified 05/19/2017,09/09/2011 Tdap 02/18/2012 Social History Tobacco Use Types Packs/Day Years Used Date Smoking Tobacco: Every Day Cigarettes Smokeless Tobacco: Never Comments Unknown Sex and Gender Information Value Date Recorded Sex Assigned at Not on file Legal Sex Female 5:18 PM EST Gender Identity Not on file Sexual Orientation Not on file Last Filed Vital Signs Vital Sign Reading Time Taken Comments Blood Pressure 124/60 06/18/2021 10:46 AM EDT Pulse - - Temperature - - Respiratory Rate - - Oxygen Saturation - - Inhaled Oxygen Concentration - - Weight - - Height - - Body Mass Index - - Plan of Treatment Upcoming Encounters Date Type Department Care Team (Late st Contact Info) Description 09/13/2024 4:20 PM EST Office Visit [facility], [address] [place] [address] Guille Mcginnis MD [address] [place] [address] [place] [address] Health Maintenance Due Date Last Done Comments Pneumococcal Vaccine: Pediat rics (0 to 5 Years) and At-Risk Patients (6 to 64 Years) (1 of 2 - PCV) 1994 Hepatitis B Vaccine (1 of 3 - 19+ 3-dose series) 2007 Influenza Vaccine (#1) 2024 , 06/02/2018, 05/19/2017, Additional history exists Insurance [place] Care Teams [employer] Specialist Relationship Specialty Start Date End Date Isabel Cota MD [address] [place] [address] PCP - General Internal Medicine 05/29/21
[2024-09-13 13:28] LABS: MANUAL DIFF FLAG NO
[2024-09-13 13:31] LABS: Basophils Absolute Auto 0.1 X10*3/uL (0.0-0.2); Basophils Percent Auto 0.2 % (0-2); Eosinophils Absolute Auto 0.1 X10*3/uL (0.0-0.4); Eosinophils Percent Auto 0.4 % (0-4); Hematocrit 33.5 % (37.0-47.0); Hemoglobin 11.2 g/dl (12.0-16.0); Imm Gran Abs Auto 0.16 X10*3/uL (0.00-0.03); Imm Gran Pct Auto 0.8 % (0.0-0.4); Lymphocytes Absolute Auto 2.2 X10*3/uL (1.2-4.9); Lymphocytes Percent Auto 10.8 % (20-40); Mean Corpuscular HGB Conc 33.4 g/dl (31.0-35.0); Mean Corpuscular Hemoglobin 28.6 pg (27.0-33.0); Mean Corpuscular Volume 85.5 fL (80.0-98.0); Mean Platelet Volume 10.6 fL (9.4-12.3); Monocytes Absolute Auto 0.8 X10*3/uL (0.1-1.2); Neutrophils Percent Auto 83.8 % (45-73); Platelet Count 291 X10*3/uL (160-400); Red Blood Count 3.92 X10*6/uL (4.20-5.50); Red Cell Distribution Width 14.2 % (11.0-16.0); White Blood Count 20.3 X10*3/uL (4.8-10.8)
[2024-09-13 13:52] LABS: Alanine Aminotransferase 110 U/L (0-31); Albumin Level 3.9 g/dL (3.5-5.0); Alkaline Phosphatase 124 U/L (39-117); Amylase 122 U/L (28-100); Anion Gap 15 (12-20); Aspartate Amino Transferase 41 U/L (5-31); Bilirubin Direct 0.3 mg/dL (0.0-0.5); Bilirubin Total 0.8 mg/dL (0.0-1.0); Blood Urea Nitrogen 64 mg/dL (9-16); Calcium 9.1 mg/dL (8.4-10.2); Carbon Dioxide 18 mmol/L (22-29); Chloride 106 mmol/L (96-108); Estimated Glomerular Filt Rate 16; Glucose Random 96 mg/dL (60-115); Potassium 3.4 mmol/L (3.3-5.1); Sodium 136 mmol/L (135-145)
[2024-09-13 13:55] LABS: Alanine Aminotransferase 113 U/L (0-31); Alkaline Phosphatase 125 U/L (39-117); Anion Gap 14 (12-20); Aspartate Amino Transferase 40 U/L (5-31); Bilirubin Direct 0.3 mg/dL (0.0-0.5); Bilirubin Total 0.8 mg/dL (0.0-1.0); Blood Urea Nitrogen 64 mg/dL (9-16); Calcium 9.1 mg/dL (8.4-10.2); Carbon Dioxide 18 mmol/L (22-29); Chloride 107 mmol/L (96-108); Cholesterol 182 mg/dL (<200); Estimated Glomerular Filt Rate 16; Glucose Random 97 mg/dL (60-115); HDL Cholesterol 38 mg/dL (>40); LDL Cholesterol Calculated 114 mg/dL (<100); Lipase 86 U/L (8-78); Potassium 3.4 mmol/L (3.3-5.1); Sodium 136 mmol/L (135-145); Total Protein 8.2 g/dL (6.5-8.0); Triglycerides 151 mg/dL (<150)
[2024-09-13 14:01] LABS: Estimated Average Glucose 111 mg/dL; Hemoglobin A1C 103.5156 umol/L; Hemoglobin A1c % 5.5 % (<6.0); Total Hemoglobin (HGBA1C) 2858.1404 umol/L
[2024-09-14 08:07] LABS: HIV AB/AG Nonreactive (Nonreactive); HIV Num 1 0.05 S/CO (0.00-0.99); ~HepC Num1 0.09 S/CO (0.00-0.79); ~Hepatitis C Antibody Nonreactive (Nonreactive)
== END 2024-09-13 11:23 | disposition home or self-care (01) ==
LOC: HO.HHCL 11:22
PROVIDERS: Internal Medicine; Visit Provider Family Medicine
DX: N18.30 Chronic kidney disease, stage 3 unspecified (principal); R14.0 Abdominal distension (gaseous)
CPT/HCPCS: 36415; 80048; 80061; 80076; 82150; 83036; 83690; 85025; 86803; 87389

== ENCOUNTER 2024-09-26 08:38 | Outpatient (REF) | payer MEDICAID, SELFPAY ==
--- NOTE | ~2024-09-26 | US_ITS ---
CLINICAL HISTORY: abdominal bloating US abdomen complete Comparison: None Findings: The visualized pancreas is normal. The aorta and inferior vena cava are normal caliber. Increased hepatic echogenicity. Liver size was not measured. There is no intrahepatic bile duct dilatation. The common duct is 12.6 mm in diameter. Cholecystectomy. The main portal vein is antegrade. The right kidney is 6 cm in length. The left kidney is 11.4 cm in length. Bilateral increased renal cortical echogenicity. Bilateral increased echogenicity of the renal medullary pyramids bilaterally. No hydronephrosis. The spleen is normal. Spleen measures 10.9 cm in length. No ascites. IMPRESSION: 1. Bilateral increased renal cortical echogenicity and echogenicity of the renal medullary pyramids. 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 2. Hepatic steatosis. This document has been electronically signed by: Donna Novoa MD on 09/26/2024 10:07:17
--- OUTSIDE RECORDS SUMMARY | 2024-09-26 08:52 | XMS_ITS | Clinical Summary ---
Author Organization [employer] Address [address] [facility] 7t [place] [address] Care Team Providers Care [employer] Director Name Role Phone Anabel Patel MD Primary [...] Encounters Date Type Department Care Team Description 09/15/[address] [address] Trupti Smith, RN Results 09/13/2024 11:00 AM EST Office Visit [facility] [address] [place] [phone] Kristel Marin DO Decreased appetite (Primary Dx); Abdominal bloating 09/01/[address] [address] Anabel Patel MD ER Follow-up 08/31/[address] [address] Anabel Patel MD ER Follow-up 07/14/2024 Telephone [facility] [address] [place] [address] Hazel Lopes, SILAS Results 07/13/2024 Orders Only [address] [address] Leoncio Hendricks ANP 07/07/2024 1:00 PM EST Office Visit [facility] [address] [place] [phone] Leoncio Hendricks ANP Localized swelling of left foot (Primary Dx); Left foot pain; Left leg pain; Smoking 07/07/[address] [address] Anabel Patel MD Triage from Last 3 [...] 09/13/2024 10:54 AM EST Plan of Treatment Upcoming Encounters Date Type Department Care Team (Late st Contact Info) Description 10/05/2024 2:00 PM EST Office Visit [facility] [address] [place] [address] Anabel Patel MD [address] [place] [address] Health Maintenance Due Date Last Done Comments Alcohol/Substance Use Screening 2000 Family Planning (PISQ) 2003 Hepatitis A Vaccines (1 of 2 - Risk 2-dose series) 2007 Hepatitis B Vaccines (1 of 3 - 19+ 3-dose series) 2007 Pneumococcal Vaccine: Pediatrics (0 to 5 Years) and At-Risk Patients (6 to 49) Years) (1 of 2 - PCV) 2007 DTaP/Tdap/Td Vaccines (2 - Td or Tdap) 02/17/2022 02/18/2012 Dental Oral Exam 03/18/2024 09/17/2023 Depression Monitoring (PHQ-9) 03/21/2024 09/21/2023, 09/21/2023 COVID-19 Vaccine ( season) 2024 Influenza Vaccine (#1) 2024 , 06/02/2018, 05/19/2017, Additional history exists Dental Prophylaxis 07/03/2024 12/31/2023 Dental X-Ray: Bitewings 09/18/2024 09/17/2023 Depression Screening 09/21/2024 09/21/2023, 09/21/19 SDOH Screening 09/21/2024 09/21/2023 Tobacco Screening 09/13/2025 09/13/2024 Cervical Cancer Screening 05/07/2026 HPV/Cotest 05/07/2026 05/07/2021 Pap Smear 05/07/2026 05/07/2021 Dental X-Ray: Full Mouth 09/18/2026 09/17/2023 Lipid Panel 09/13/2029 09/13/2024 Zoster Vaccines (1 of 2) 2038 RSV Patients and Patients Aged 60 years or older (1 - 1-dose 75+ series) 2063 HIV Screening Completed 09/13/2024, 09/21/2023 Hepatitis C Screening Completed 09/13/2024, 024 HIB Vaccines Aged Out No longer eligi [...] Procedure Name Priority Date/Time Associated Diagnosis Comments HIV 1/2 ANTIGEN/ANTIBODY, FOURTH GENERATION W/RFL Routine 09/13/2024 11:25 AM EST HEPATITIS C AB W/REFL TO HCV RNA, QN, PCR Routine 09/13/2024 11:25 AM EST HEMOGLOBIN A1C Routine 09/13/2024 11:25 AM EST BASIC METABOLIC PANEL Routine 09/13/2024 11:25 AM EST HEPATIC FUNCTION PANEL Routine 11:25 AM EST CBC WITH AUTO DIFFERENTIAL Routine 09/13/2024 11:25 AM EST LIPASE Routine 09/13/2024 11:25 AM EST Abdominal bloating AMYLASE Routine 09/13/2024 11:25 AM EST Abdominal bloating HEPATIC FUNCTION PANEL Routine 11:25 AM EST Abdominal bloating BASIC METABOLIC PANEL Routine 09/13/2024 11:25 AM EST Abdominal bloating LIPID PANEL, STANDARD Routine 09/13/2024 11:25 AM EST Stage 3 chronic kidney disease, unspecified whether stage 3a or 3b CKD (CMS/HCC) US VENOUS DUPLEX LE LT Routine 12:12 PM EST XR FOOT 3+ VIEWS LEFT Routine 07/07/2024 1:18 PM EST Left foot pain Full PROPHYLAXIS - ADULT Routine 12/31/2023 2:00 PM EDT DIAGNOSTIC - DIAGNOSTIC IMAGING - INTRAORAL - COMPREHENSIVE SERIES OF RADIOGRAPHIC IMAGES Routine 09/17/2023 8:00 AM EST COMPREHENSIVE ORAL EVALUATION - NEW OR ESTABLISHED PATIENT Routine 09/17/2023 8:00 AM EST HM PAP/HPV Routine 05/07/2021 from Last 3 Months or Most Recently Relevant to Health Maintenance Results * (ABNORMAL) CBC auto differential (09/13/2024 11:25 AM EST) White Blood Count 20.3(H) 4.8 - 10.8 X10*3/uL [facility] Red Blood Count 3.92(L) 4.20 - 5.50 X10*6/uL [facility] Hemoglobin 11.2(L) 12.0 - 16.0 g/dl [facility] Hematocrit 33.5(L) 37.0 - 47.0 % [facility] Mean Corpuscular Volume 85.5 80.0 - 98.0 fL [facility] Mean Corpuscular Hemoglobin 28.6 27.0 - 33.0 pg [facility] Mean Corpuscular HGB Conc 33.4 31.0 - 35.0 g/dl [facility] Red Cell Distribution Width 14.2 11.0 - 16.0 % [facility] Platelet Count 291 160 - 400 X10*3/uL [facility] Mean Platelet Volume 10.6 9.4 - 12.3 fL [facility] Neutrophils Percent Auto 83.8(H) 45 - 73 % [facility] Imm Gran Pct Auto 0.8(H) 0.0 - 0.4 % [facility] Lymphocytes Percent Auto 10.8(L) 20 - 40 % [facility] Monocytes Percent Auto 4.0 2 - 11 % [facility] Eosinophils Percent Auto 0.4 0 - 4 % [facility] Basophils Percent Auto 0.2 0 - 2 % [facility] NRBC Pct Auto 0.0 0.0 - 0.2 /100WBC [facility] Neutrophils Absolute Auto 17.0(H) 2.0 - 8.3 x10*3/uL [facility] Imm Gran Abs Auto 0.16(H) 0.00 - 0.03 X10*3/uL [facility] Lymphocytes Absolute Auto 2.2 1.2 - 4.9 X10*3/uL [facility] Monocytes Absolute Auto 0.8 0.1 - 1.2 X10*3/uL [facility] Eosinophils Absolute Auto 0.1 0.0 - 0.4 X10*3/uL [facility] Basophils Absolute Auto 0.1 0.0 - 0.2 X10*3/uL [facility] NRBC Abs Auto 0.000 0.0 - 0.012 X10*3/uL [facility] 09/13/2024 11:2 5 AM EST 09/13/2024 1:19 PM EST Anabel Cardona MD LAB BLOOD ORDERABLES Final Result [facility] [address] [place] [phone] * Hepatitis C Antibody with Reflex to HCV, RNA, Quantitative, Real-Time PCR (09/13/2024 11:25 AM EST) Hepatitis C Antibody Nonreactive Nonreactive [facility] Comment:Antibodies to HCV no t detected; does not exclude early acuteHCV infection. 09/13/2024 11:2 5 AM EST 09/13/2024 1:19 PM EST us Anabel Cardona MD LAB BLOOD ORDERABLES Final Result Performing Organization Address [facility] Co de Phone Number [facility] [address] [place] [phone] * HIV-1/2 Antigen and Antibodies, Fourth Generation, with Reflexes (09/13/2024 11:25 AM EST) HIV AB/AG Nonreactive Nonreactive [facility] Comment:HIV-1 p24 Ag and/or HIV-1/HIV-2 Ab not detected.A test result that is nonreactive does not exclude thepossibility of exposure to or infection with HIV-1 and/orHIV-2. Nonreactive results in this assay for individualswith prior exposure to HIV-1 and/or HIV-2 may be due toantigen and antibody levels that are below the limit ofdetection of this assay.The [employer] HIV Ag/Ab Combo assay result andsupplemental assay results should be interpreted inconjunction with the patient's clinical presentation,history and other laboratory results. If the results areinconsistent with clinical evidence, additional testing issuggested to confirm the result. 09/13/2024 11:2 5 AM EST 09/13/2024 1:19 PM EST us Anabel Cardona MD LAB BLOOD ORDERABLES Final Result Performing Organization Address [facility] Co de Phone Number [facility] [address] [place] [phone] * (ABNORMAL) Lipase (09/13/2024 11:25 AM EST) Pathologist [facility] Lipase 86(H) 8 - 78 U/L [facility] Blood Venous blood specimen / Unknown 09/13/2024 11:25 AM EST 09/13/2024 1:19 PM EST us Kristel Jurcsak DO LAB BLOOD ORDERABLES Final R esult Performing Organization Address City/[facility]/ZIP Co de Phone Number [facility] [address] [place] [phone] * Hemoglobin A1c (09/13/2024 11:25 AM EST) Hemoglobin A1c 5.5 <6.0 % [facility] Comment:Hemoglobin A1C Refer ence Range Adults: 4.8 - 6.0 % Non diabetic: < 6.0 % Goal: < 7.0 %Additional Action Suggested: > 8.0 %Note: Hemoglobin A1c results are invalid for patients with abnormal amounts of HbF. Blood transfusions may impact the HbA1c concentration in the patient sample. Estimated Average Glucose 111 mg/dL [facility] Comment:eAG = Estimated ave rage glucose which is %A1C expressed asaverage glucose, using the formula of the E7A-JnmadnsObbvzhx Glucose study (ADAG), Diabetes Care, Vol.31,#8,Mar. 2007 09/13/2024 11:2 5 AM EST 09/13/2024 1:19 PM EST us Anabel Cardona MD LAB BLOOD ORDERABLES Final Result Performing Organization Address [facility] Co de Phone Number [facility] [address] [place] [phone] * (ABNORMAL) Amylase (09/13/2024 11:25 AM EST) Amylase 122(H) 28 - 100 U/L [facility] Blood Venous blood specimen / Unknown 09/13/2024 11:25 AM EST 09/13/2024 1:19 PM EST us Kristel Marin DO LAB BLOOD ORDERABLES Final R esult Performing Organization Address [facility] Co de Phone Number [facility] [address] [place] [phone] * (ABNORMAL) Hepatic Function Panel (09/13/2024 11:25 AM EST) Only the most recent of2 resultswithin the time period is included. Bilirubin, Total 0.8 0.0 - 1.0 mg/dL [facility] Bilirubin, Direct 0.3 0.0 - 0.5 mg/dL [facility] Aspartate Amino Transferase 40(H) 5 - 31 U/L [facility] Alanine Aminotransferase 113(H) 0 - 31 U/L [facility] Total Protein 8.2(H) 6.5 - 8.0 g/dL [facility] Albumin Level 4.0 3.5 - 5.0 g/dL [facility] Alkaline Phosphatase 125(H) 39 - 117 U/L [facility] 09/13/2024 11:2 5 AM EST 09/13/2024 1:19 PM EST us Anabel Cardona MD LAB BLOOD ORDERABLES Final Result [facility] [address] [place] [phone] * (ABNORMAL) Lipid Panel, Standard (09/13/2024 11:25 AM EST) Triglycerides 151(H) <150 mg/dL [facility] Comment:Desirable Triglyceri de: less than 150 mg/dLBorderline High Triglyceride 150-199 mg/dLHigh Triglyceride: 200-499 mg/dLVery High Triglyceride: greater than or equal to 5OO mg/dL Cholesterol 182 <200 mg/dL [facility] Comment:Desirable Cholestero l: less than 200 mg/dLBorderline High Cholesterol: 200-239 mg/dLHigh Cholesterol: greater than 239 mg/dL LDL Cholesterol Calculated 114(H) <100 mg/dL [facility] Comment:Desirable LDL: less than 100 mg/dLNear Optimal/Above Optimal LDL: 110- 129 mg/dLBorderline High LDL: 130-159 mg/dLHigh LDL: 160-189 mg/dLVery High LDL: greater than or equal to 190 mg/dL HDL Cholesterol 38(L) >40 mg/dL [facility] Comment:Desirable HDL: great er than 40 mg/dL Note: This HDL assay may give artificially low results in patients with liver disease. Blood Venous blood specimen / Unknown 09/13/2024 11:25 AM EST 09/13/2024 1:19 PM EST Anabel Cardona MD LAB BLOOD ORDERABLES Final Result Performing Organization Address [facility]/ZIP Co de Phone Number [facility] [address] [place] [phone] * (ABNORMAL) Basic Metabolic Panel (09/13/2024 11:25 AM EST) Only the most recent of2 resultswithin the time period is included. Sodium 136 135 - 145 mmol/L [facility] Potassium 3.4 3.3 - 5.1 mmol/L [facility] Chloride 107 96 - 108 mmol/L [facility] Carbon Dioxide 18(L) 22 - 29 mmol/L [facility] Anion Gap 14 12 - 20 [facility] Urea Nitrogen (BUN) 64(H) 9 - 16 mg/dL [facility] Creatinine, Serum 3.27(H) 0.5 - 1.4 mg/dL [facility] Estimated Glomerular Filt Rate 16 [facility] Comment:Chronic Kidney Disea se: Estimated GFR < 60 mL/min/1.23w7Bvaogr Kidney Disease: Estimated GFR < 15 mL/min/1.73m2 Glucose 97 60 - 115 mg/dL [facility] Calcium 9.1 8.4 - 10.2 mg/dL [facility] 09/13/2024 11:2 5 AM EST 09/13/2024 1:19 PM EST us Anabel Cardona MD LAB BLOOD ORDERABLES Final Result Performing Organization Address [facility]/ZIP Co de Phone Number [facility] [address] [place] [phone] * US VENOUS DUPLEX LE LT (07/13/2024 12:12 PM EST) Anatomical Region Laterality Modality Abdomen Ultrasound 07/13/2024 12:1 2 PM EST Narrative 07/13/2024 1:36 PM EST ? [facility] ?[address] ?[place] [address] ? Ultrasound Report ? Signed ? Patient: Thomas Valentin ?MR#: [id number] ?? [id number] ? : 1990 ?Acct:[id number] ? Age/Sex: 33 / F ?ADM Date: 07/13/24 ? Loc: HO.US ? Attending Dr: Leoncio Hendricks NP ? Ordering Physician: LEONCIO HENDRICKS NP ?? Date of Service: 07/13/24 ?? Procedure(s): US venous duplex LE LT ?? Accession Number(s): [id number] ? cc: Anabel Patel MD; LEONCIO HENDRICKS [...] DD/ 1212 ? TD/TT: 07/13/24 1240 ? Passenger Booking Clerk: ? Procedure Note Donotuseinterpreter, Image - 07/13/2024 [place] [address] Ultrasound Report Signed Patient: Thomas ValentinMR#: [id number] : 1990Acct:[id number] Age/Sex: 33 / FADM Date: 07/13/24 Loc: HO.US Attending Dr: Leoncio Hendricks NP Ordering Physician: LEONCIO HENDRICKS NP Date of Service: 07/13/24 Procedure(s): US venous duplex LE LT Accession Number(s): [id number] cc: Anabel Patel MD; LEONCIO HENDRICKS NP [...] Cedric Olson MD 07/13/2024 01:34 PM EST Dictated By: Cedric Olson MD Signed By: <Electronically signed by Cedric Olson MD in OV> 07/13/24 1334 DD/ 1212 TD/TT: 07/13/24 1240 Passenger Booking Clerk: us Leoncio Hendricks ANP IMG US PROCEDURES Final Result * XR Foot 3+ Views Left (07/07/2024 1:18 PM EST) Anatomical Region Laterality Modality Lower Extremities, Foot Left Radiogra phic Imaging 07/07/2024 1:18 PM EST Narrative 07/07/2024 2:50 PM EST ?[facility] ?[address] ?[place] [address] ?XRay Report ? Signed ? Patient: Thomas Valentin ?MR#: [id number] ?? [id number] ? : 1990 ?Acct:[id number] ? Age/Sex: 33 / F ?ADM Date: 07/07/24 ? Loc: HO.HHCX ? Attending Dr: Leoncio Hendricks NP ? Ordering Physician: LEONCIO HENDRICKS NP ?? Date of Service: 07/07/24 ?? Procedure(s): XR foot LT min 3V ?? Accession Number(s): [id number] ? cc: LEONCIO HENDRICKS NP ? EXAMINATION: [...] ??Fredis Mari MD ??07/07/2024 02:47 PM EST ?? RP ? Dictated By: ?Fredis Mari MD ? Signed By: ?<Electronically signed by Fredis Mari MD in OV> ?07/07/24 1447 ? DD/ 1318 ? TD/TT: 07/07/24 1325 ? Passenger Booking Clerk: SR ? Procedure Note Edward, Image - 11/15/[address] [address] XRay Report Signed Patient: Thomas ValentinMR#: [id number] : 1990Acct:[id number] Age/Sex: 33 / FADM Date: 07/07/24 Loc: HO.HHCX Attending Dr: Leoncio Hendricks [place] Ordering Physician: LEONCIO HENDRICKS NP Date of Service: 07/07/24 Procedure(s): XR foot LT min 3V Accession Number(s): [id number] cc: LEONCIO HENDRICKS NP EXAMINATION: XR FOOT, [...] by: Fredis Mari MD 07/07/2024 02:47 PM [facility] Dictated By: Fredis Mari MD Signed By: <Electronically signed by Fredis Mari MD in OV> 07/07/24 1447 DD/ 1318 TD/TT: 07/07/24 1325 Passenger Booking Clerk: Leoncio Hendricks ANP IMG XR PROCEDURES Final Result * HM PAP/HPV (05/07/2021) Pap Smear 1. NILM 1. NILM HPV Not Detected Undetected, Indeterminat e, Quantitative , Not Detected Historical Provider HEALTH MAINTENANCE Final Result from Last 3 Months or Most Recently Relevant to Health Maintenance Insurance [place] [facility] MEDICAID STAND ADULT Care Teams [employer] Director Relationship Specialty Start Date End Date Anabel Patel MD [address] [place] [phone] PCP - General Internal Medicine 09/21/23
--- OUTSIDE RECORDS SUMMARY | 2024-09-26 08:53 | XMS_ITS | Encounter Summary ---
Author Organization [employer] Address [address] [facility] [address] [place] [address] Care Team Providers Care Ruby Engineer Name Role Phone Anabel Patel MD Primary Care Provide r Reason for Visit * Reason Onset Date Comments rs SRP appt 06/06/2024 Encounter Details Date Type Department Care Team ([facility] st Contact Info) Description 06/06/2024 Telephone [facility] [address] [place] [address] Jeremiah Shepherd rs SRP appt Social History [...] Miscellaneous Notes * Telephone Encounter - Frida Po - 06/06/2024 11:19 AM EDT Patient called in unable to make it to SRP appt today due to illness. She would like to rs. [facility] appts not available on PAR side. Pls reach out to patient for rs documented in this encounter Plan of Treatment Upcoming Encounters Date Type Department Care Team (Late st Contact Info) Description 10/05/2024 2:00 PM EST Office Visit [facility] [address] [place] [address] Anabel Patel MD [address] [place] [address] documented as of this encounter Visit Diagnoses Not on filedocumented in this encounter Additional Health Concerns Assessment Noted Time PHQ-9 Depression Total Score: 19 024 10:24 AM EST documented as of this encounter Care Teams Ruby Engineer Relationship Specialty Start Date End Date Anabel Patel MD [address] [place], [place] [phone] PCP - General Internal Medicine 09/21/23 documented as of this encounter
--- OUTSIDE RECORDS SUMMARY | 2024-09-26 08:53 | XMS_ITS | Data Portability ---
Author Organization [place] - [facility], [facility], [place], 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, [address] [place] [address], [address], 10:25:10 HbA1c (hemoglobi n A1c), blood 2022 023 [facility], [address] [place] [address], [address], 10:25:10 urinalysis , complete 2022 023 [facility], [address] [place] [address], [address], 10:35:45 renal function panel, serum 2022 023 [facility], [address] [place] [address], [address], 10:35:45 renal function panel, serum 2022 023 AIME [facility], [address] [place] [address], [address], 11:08:35 uric acid, serum or plasma 2022 023 [facility], [address] [place] [address], [address], 10:35:45 ESR (erythrocy te sedimentat ion rate), blood 2022 023 AIME [facility], [address] [place] [address], [address], 11:08:40 RPR (rapid plasma reagin), serum 2022 023 A[facility], [address] [place] [address], [place], [address], 3 11:08:38 protein:cr eatinine ratio, urine 2022 023 A[facility], [address] [place] [address], [place], [address], 3 05:38:44 MARLA (antinucle ar antibodies ) screen, serum 2022 023 A[facility], [address] [place] [address], [place], [address], 3 11:08:39 lipid panel, serum 2022 023 [facility], [address] [place] [address], [place], [address], 3 11:08:36 anca panel, serum 2022 023 [facility], [address] [place] [address], [place], [address], 3 10:25:09 immunofixa tion + protein electropho resis + free light chains, serum 2022 023 [facility], [address] [place] [address], [place], [address], 3 10:25:09 hepatitis panel (A+B+C), acute, serum 2022 023 [facility], [address] [place] [address], [place], [address], 3 10:25:09 HIV 1 + 2, meaningful use set 2022 023 [employer] [facility], [address] [place] [address], [place], [address], 3 10:25:09 C reactive protein, QN, serum or plasma 2022 023 [employer] [facility], [address] [place] [address], [address], 3 10:25:10 TSH + free T4, serum 2022 023 [employer] [facility], [address] [place] [address], [address], 3 10:25:10 magnesium, serum or plasma 2022 023 [employer] [facility], [address] [place] [address], [address], 10:25:10 PTH (parathyro id hormone), intact, serum or plasma 2022 023 [email or web address] [facility], [address] [place] [address], [address], 3 17:11:29 vitamin D, 25-hydroxy , total, serum 2022 023 [facility], [address] [place] [address], [address], 17:11:29 urinalysis , complete 2022 023 [email or web address] [facility], [address] [place] [address], [address], 3 17:11:28 renal function panel, serum 2022 023 [email or web address] [facility], [address] [place] [address], [address], 17:11:29 protein + creatinine panel, urine 2022 023 [email or web address] [facility], [address] [place] [address], [place], [address], 17:11:29 cystatin C + glomerular filtration rate by cystatin-b ased formula panel, cystatin-b ased formula panel, serum or plasma 2022 023 [email or web address] [facility], [id number] [place] [address], [place], [address], 17:11:29 uric acid, serum or plasma 2022 023 [email or web address] [facility], [address] [place] [address], [place], [address], 17:11:29 Referral None recorded. Procedures None recorded. Surgeries None recorded. Imaging US, retroperit oneum, complete - check kidney and bladder. 2022 023 [facility] Scheduling Dept (Imaging), [address] [place] [address], [id number], 11:32:37 Medication Orders allopurino l 100 mg tablet 2022 023 [facility] [id number], [address], [address], [place], [address], 17:30:39 Patient TargetsNo targets recorded. Patient Instructions Encounter Date Encounter Id Patient Instructions Last Modified By Organization Details Last Modified Time 11/12/2022 [id number] Cuando desea baj ar de peso: Instrucciones [...] care instructions] Not available 11/12/2022 17:30:29 01/13/2023 [id number] Cuando desea baj ar de peso: Instrucciones [...] .8 above high normal Not Available [facility] ([facility]) [address] [place], [address], 10/30/2022 14:09:16 10/31/1910/30/2022 CBC WITH DIFFE RENTI AL/PL ATELE T RBC 4.25 x10e6 /uL 3.77-5 .28 Not Available [facility] ([facility]) [address] [place], [address], 10/30/2022 14:09:16 10/31/1910/30/2022 CBC WITH DIFFE RENTI AL/PL ATELE T hemoglobin 12.1 g/dL 11.1-1 5.9 Not Available [facility] ([facility]) [address] [place], [address], 10/30/2022 14:09:16 10/31/19 23 10/30/2022 CBC WITH DIFFE RENTI AL/PL ATELE T hematocrit 36.9 % 34.0-4 6.6 Not Available [facility] ([facility]) [address] [facility], [place], [address], 10/30/2022 14:09:16 10/31/19 23 10/30/2022 CBC WITH DIFFE RENTI AL/PL ATELE T MCV 87 fL 79-97 Not Available [facility] ([facility]) [address] [facility], [place], [address], 10/30/2022 14:09:16 10/31/19 23 10/30/2022 CBC WITH DIFFE RENTI AL/PL ATELE T MCH 28.5 pg 26.6-3 3.0 Not Available [facility] ([facility]) [address] [facility], [place], [address], 10/30/2022 14:09:16 10/31/19 23 10/30/2022 CBC WITH DIFFE RENTI AL/PL ATELE T MCHC 32.8 g/dL 31.5-3 5.7 Not Available [facility] ([facility]) [address] [facility], [place], [address], 10/30/2022 14:09:16 10/31/1910/30/2022 CBC WITH DIFFE RENTI AL/PL ATELE T RDW 13.5 % 11.7-1 5.4 Not Available [facility] ([facility]) [address] [place], [address], 10/30/2022 14:09:16 10/31/1910/30/2022 CBC WITH DIFFE RENTI AL/PL ATELE T platelets 235 x10e3 /uL 150-45 0 Not Available [facility] ([facility]) [address] [place], [address], 10/30/2022 14:09:16 10/31/19 23 10/30/2022 CBC WITH DIFFE RENTI AL/PL ATELE T neutrophils 73 % not estab. Not Available [facility] ([facility]) [address] [facility], [place], [address], 10/30/2022 14:09:16 10/31/19 23 10/30/2022 CBC WITH DIFFE RENTI AL/PL ATELE T lymphs 21 % not estab. Not Available [facility] ([facility]) [address] [facility], [place], [address], 10/30/2022 14:09:16 10/31/19 23 10/30/2022 CBC WITH DIFFE RENTI AL/PL ATELE T monocytes 4 % not estab. Not Available [facility] ([facility]) [address] [facility], [place], [address], 10/30/2022 14:09:16 10/31/19 23 10/30/2022 CBC WITH DIFFE RENTI AL/PL ATELE T eos 2 % not estab. Not Available [facility] ([facility]) [address] [facility], [place], [address], 10/30/2022 14:09:16 10/31/19 23 10/30/2022 CBC WITH DIFFE RENTI AL/PL ATELE T basos 0 % not estab. Not Available [facility] ([facility]) [address] [facility], [place], [address], 10/30/2022 14:09:16 10/31/19 23 10/30/2022 CBC WITH DIFFE RENTI AL/PL ATELE T immature cells REPAIRER EVAPORATOR Not Available [facility] ([facility]) [address] [facility], [place], [address], 10/30/2022 14:09:16 10/31/19 23 10/30/2022 CBC WITH DIFFE RENTI AL/PL ATELE T neutrophils (absolute) 9.5 x10e3 /uL 1.4-7. 0 above high normal Not Available [facility] ([facility]) [address] [facility], [place], [address], 10/30/2022 14:09:16 10/31/19 23 10/30/2022 CBC WITH DIFFE RENTI AL/PL ATELE T lymphs (absolute) 2.7 x10e3 /uL 0.7-3. 1 Not Available [facility] ([facility]) [address] [facility], [place], [address], 10/30/2022 14:09:16 10/31/19 23 10/30/2022 CBC WITH DIFFE RENTI AL/PL ATELE T monocytes(ab solute) 0.6 x10e3 /uL 0.1-0. 9 Not Available [facility] ([facility]) [address] [facility], [place], [address], 10/30/2022 14:09:16 10/31/19 23 10/30/2022 CBC WITH DIFFE RENTI AL/PL ATELE T eos (absolute) 0.2 x10e3 /uL 0.0-0. 4 Not Available [facility] ([facility]) [address] [facility], [place], [address], 10/30/2022 14:09:16 10/31/19 23 10/30/2022 CBC WITH DIFFE RENTI AL/PL ATELE T baso (absolute) 0.0 x10e3 /uL 0.0-0. 2 Not Available [facility] ([facility]) [address] [place], [address], 10/30/2022 14:09:16 10/31/1910/30/2022 CBC WITH DIFFE RENTI AL/PL ATELE T immature granulocytes REPAIRER EVAPORATOR Not Available [facility]) [address] [facility], [place], [address], 10/30/2022 14:09:16 10/31/19 23 10/30/2022 CBC WITH DIFFE RENTI AL/PL ATELE T immature grans (abs) REPAIRER EVAPORATOR Not Available [facility] ([facility]) [address] [facility], [place], [address], 10/30/2022 14:09:16 10/31/19 23 10/30/2022 CBC WITH DIFFE RENTI AL/PL ATELE T NRBC REPAIRER EVAPORATOR Not Available [facility] ([facility]) [address] [facility], [place], [address], 10/30/2022 14:09:16 10/31/19 23 10/30/2022 CBC WITH DIFFE RENTI AL/PL ATELE T hematology comments: REPAIRER EVAPORATOR Not Available [facility] ([facility]) [address] [facility], [place], [address], 10/30/2022 14:09:16 10/31/19 23 10/30/2022 URINA LYSIS , ROUTI NE specific gravity 1.020 1.005- 1.030 Not Available [facility] ([facility]) [address] [facility], [place], [address], 10/30/2022 14:09:17 10/31/19 23 10/30/2022 URINA LYSIS , ROUTI NE pH 6.0 5.0-7. 5 Not Available [facility] ([facility]) [address] [facility], [place], [address], 10/30/2022 14:09:17 10/31/1910/30/2022 URINA LYSIS , ROUTI NE urine-color Yellow yellow Not Available [facility] ([facility]) [address] [facility], [place], [address], 10/30/2022 14:09:17 10/31/1910/30/2022 URINA LYSIS , ROUTI NE appearance Clear clear Not Available [facility] ([facility]) [address] [facility], [place], [address], 10/30/2022 14:09:17 10/31/19 23 10/30/2022 URINA LYSIS , ROUTI NE WBC esterase Trace negati ve abnormal Not Available [facility] ([facility]) [address] [facility], [place], [address], 10/30/2022 14:09:17 10/31/19 23 10/30/2022 URINA LYSIS , ROUTI NE protein 2+ negati ve/tra ce abnormal Not Available [facility] ([facility]) [address] [place], [address], 10/30/2022 14:09:17 10/31/19 23 10/30/2022 URINA LYSIS , ROUTI NE glucose Negati ve negati ve Not Available [facility] ([facility]) [address] [place], [address], 10/30/2022 14:09:17 10/31/19 23 10/30/2022 URINA LYSIS , ROUTI NE ketones Negati ve negati ve Not Available [facility] ([facility]) [address] [place], [address], 10/30/2022 14:09:17 10/31/19 23 10/30/2022 URINA LYSIS , ROUTI NE occult blood Trace negati ve abnormal Not Available [facility] ([facility]) [address] [place], [address], 10/30/2022 14:09:17 10/31/19 23 10/30/2022 URINA LYSIS , ROUTI NE bilirubin Negati ve negati ve Not Available [facility] ([facility]) [address] [place], [address], 10/30/2022 14:09:17 10/31/19 23 10/30/2022 URINA LYSIS , ROUTI NE urobilinogen ,semi-qn 0.2 mg/dL 0.2-1. 0 Not Available [facility] ([facility]) [address] [facility], [place], [address], 10/30/2022 14:09:17 10/31/19 23 10/30/2022 URINA LYSIS , ROUTI NE nitrite, urine Negati ve negati ve Not Available [facility] ([facility]) [address] [facility], [place], [address], 10/30/2022 14:09:17 10/31/19 23 10/30/2022 URINA LYSIS , ROUTI NE microscopic examination See below: Not Available [facility] ([facility]) [address] [facility], [place], [address], 10/30/2022 14:09:17 10/31/19 23 10/30/2022 URINA LYSIS , ROUTI NE WBC 11-30 /hpf 0 - 5 abnormal Not Available [facility] ([facility]) [address] [facility], [place], [address], 10/30/2022 14:09:17 10/31/19 23 10/30/2022 URINA LYSIS , ROUTI NE RBC 0-2 /hpf 0 - 2 Not Available [facility] ([facility]) [address] [facility], [place], [address], 10/30/2022 14:09:17 10/31/19 23 10/30/2022 URINA LYSIS , ROUTI NE epithelial cells (non renal) >10 /hpf 0 - 10 abnormal Not Available [facility] ([facility]) [address] [facility], [place], [address], 10/30/2022 14:09:17 10/31/19 23 10/30/2022 URINA LYSIS , ROUTI NE epithelial cells (renal) REPAIRER EVAPORATOR Not Available [facility] ([facility]) [address] [facility], [place], [address], 10/30/2022 14:09:17 10/31/19 23 10/30/2022 URINA LYSIS , ROUTI NE casts REPAIRER EVAPORATOR Not Available [facility] ([facility]) [address] [facility], [place], [address], 10/30/2022 14:09:17 10/31/19 23 10/30/2022 URINA LYSIS , ROUTI NE cast type REPAIRER EVAPORATOR Not Available [facility] ([facility]) [address] [facility], [place], [address], 10/30/2022 14:09:17 10/31/19 23 10/30/2022 URINA LYSIS , ROUTI NE crystals REPAIRER EVAPORATOR Not Available [facility] ([facility]) [address] [facility], [place], [address], 10/30/2022 14:09:17 10/31/19 23 10/30/2022 URINA LYSIS , ROUTI NE crystal type REPAIRER EVAPORATOR Not Available [facility] ([facility]) [address] [facility], [place], [address], 10/30/2022 14:09:17 10/31/19 23 10/30/2022 URINA LYSIS , ROUTI NE mucus threads Presen t not estab. Not Available [facility] ([facility]) [address] [facility], [place], [address], 10/30/2022 14:09:17 10/31/19 23 10/30/2022 URINA LYSIS , ROUTI NE bacteria Few none seen/f ew Not Available [facility] ([facility]) [address] [facility], [place], [address], 10/30/2022 14:09:17 10/31/19 23 10/30/2022 URINA LYSIS , ROUTI NE yeast REPAIRER EVAPORATOR Not Available [facility] ([facility]) [address] [place], [address], 10/30/2022 14:09:17 10/31/19 23 10/30/2022 URINA LYSIS , ROUTI NE trichomonas REPAIRER EVAPORATOR Not Available [facility] ([facility]) [address] [place], [address], 10/30/2022 14:09:17 10/31/19 23 10/30/2022 SAMUEL KING NE comment REPAIRER EVAPORATOR Not Available [facility] ([facility]) [address] [facility] [place], [address], 10/30/2022 14:09:17 10/31/19 23 10/30/2022 RENAL PANEL (10) glucose 80 mg/dL 70-99 Not Available [facility] ([facility]) [address] [facility] [place], [address], 10/30/2022 14:09:17 10/31/19 23 10/30/2022 RENAL PANEL (10) BUN 21 mg/dL 6-20 above high normal Not Available [facility] ([facility]) [address] [facility] [place], [address], 10/30/2022 14:09:17 10/31/19 23 10/30/2022 RENAL PANEL (10) creatinine 2.22 mg/dL 0.57-1 .00 above high normal Not Available [facility] ([facility]) [address] [facility] [place], [address], 10/30/2022 14:09:17 10/31/19 23 10/30/2022 RENAL PANEL (10) eGFR 29 mL/mi n/1.7 3 >59 below low normal Not Available [facility] ([facility]) [address] [facility] [place], [address], 10/30/2022 14:09:17 10/31/19 23 10/30/2022 RENAL PANEL (10) BUN/creatini ne ratio 9 9-23 Not Available [facility] ([facility]) [address] [facility] [place], [address], 10/30/2022 14:09:17 10/31/19 23 10/30/2022 RENAL PANEL (10) sodium 138 mmol/ L 134-14 4 Not Available [facility] ([facility]) [address] [place], [address], 10/30/2022 14:09:17 10/31/19 23 10/30/2022 RENAL PANEL (10) potassium 4.3 mmol/ L 3.5-5. 2 Not Available [facility] ([facility]) [address] [place], [address], 10/30/2022 14:09:17 10/31/19 23 10/30/2022 RENAL PANEL (10) chloride 102 mmol/ L 96-106 Not Available [facility] ([facility]) [address] [place], [address], 10/30/2022 14:09:17 10/31/19 23 10/30/2022 RENAL PANEL (10) carbon dioxide, total 23 mmol/ L 20-29 Not Available [facility] ([facility]) [address] [place], [address], 10/30/2022 14:09:17 10/31/19 23 10/30/2022 RENAL PANEL (10) calcium 9.1 mg/dL 8.7-10 .2 Not Available [facility] ([facility]) [address] [place], [address], 10/30/2022 14:09:17 10/31/19 23 10/30/2022 RENAL PANEL (10) phosphorus 3.3 mg/dL 3.0-4. 3 Not Available [facility] ([facility]) [address] [place], [address], 10/30/2022 14:09:17 10/31/19 23 10/30/2022 RENAL PANEL (10) albumin 3.9 g/dL 3.8-4. 8 Not Available [facility] ([facility]) [address] [facility] [place], [address], 10/30/2022 14:09:17 10/31/19 23 10/30/2022 URIC ACID uric acid 9.3 mg/dL 2.6-6. 2 above high normal Thera kasia root t for gout patie nts: <6.0 Not Available [facility] ([facility]) [address] [facility], [place], [address], 10/30/2022 14:09:18 10/31/19 23 10/31/2022 URINA LYSIS , ROUTI NE specific gravity 1.012 1.005- 1.030 Not Available [facility] ([facility]) [address] [facility], [place], [address], 10/31/2022 10:35:36 10/31/19 23 10/31/2022 URINA LYSIS , ROUTI NE pH 6.0 5.0-7. 5 Not Available [facility] ([facility]) [address] [facility] [place], [address], 10/31/2022 10:35:36 10/31/19 23 10/31/2022 URINA LYSIS , ROUTI NE urine-color Yellow yellow Not Available [facility] ([facility]) [address] [place], [address], 10/31/2022 10:35:36 10/31/19 23 10/31/2022 URINA LYSIS , ROUTI NE appearance Clear clear Not Available [facility] ([facility]) [address] [place], [address], 10/31/2022 10:35:36 10/31/19 23 10/31/2022 URINA LYSIS , ROUTI NE WBC esterase Trace negati ve abnormal Not Available [facility] ([facility]) [address] [facility], [place], [address], 10/31/2022 10:35:36 10/31/19 23 10/31/2022 URINA LYSIS , ROUTI NE protein 2+ negati ve/tra ce abnormal Not Available [facility] ([facility]) [address] [facility], [place], [address], 10/31/2022 10:35:36 10/31/1910/31/2022 URINA LYSIS , ROUTI NE glucose Negati ve negati ve Not Available [facility] ([facility]) [address] [facility] [place], [address], 10/31/2022 10:35:36 10/31/19 23 10/31/2022 URINA LYSIS , ROUTI NE ketones Negati ve negati ve Not Available [facility] ([facility]) [address] [facility], [place], [address], 10/31/2022 10:35:36 10/31/19 23 10/31/2022 URINA LYSIS , ROUTI NE occult blood Trace negati ve abnormal Not Available [facility] ([facility]) [address] [facility], [place], [address], 10/31/2022 10:35:36 10/31/19 23 10/31/2022 URINA LYSIS , ROUTI NE bilirubin Negati ve negati ve Not Available [facility] ([facility]) [address] [facility] [place], [address], 10/31/2022 10:35:36 10/31/19 23 10/31/2022 URINA LYSIS , ROUTI NE urobilinogen ,semi-qn 0.2 mg/dL 0.2-1. 0 Not Available [facility] ([facility]) [address] [place], [address], 10/31/2022 10:35:36 10/31/19 23 10/31/2022 URINA LYSIS , ROUTI NE nitrite, urine Negati ve negati ve Not Available [facility] ([facility]) [address] [place], [address], 10/31/2022 10:35:36 10/31/19 23 10/31/2022 URINA LYSIS , ROUTI NE microscopic examination See below: Micro scopi c was indic ated and was perfo rmed. Not Available [facility] ([facility]) [address] [facility], [place], [address], 10/31/2022 10:35:36 10/31/19 23 10/31/2022 URINA LYSIS , ROUTI NE WBC 0-5 /hpf 0 - 5 Not Available [facility] ([facility]) [address] [facility] [place], [address], 10/31/2022 10:35:36 10/31/19 23 10/31/2022 URINA LYSIS , ROUTI NE RBC None seen /hpf 0 - 2 Not Available [facility] ([facility]) [address] [facility], [place], [address], 10/31/2022 10:35:36 10/31/19 23 10/31/2022 URINA LYSIS , ROUTI NE epithelial cells (non renal) 0-10 /hpf 0 - 10 Not Available [facility] ([facility]) [address] [facility], [place], [address], 10/31/2022 10:35:36 10/31/19 23 10/31/2022 URINA LYSIS , ROUTI NE epithelial cells (renal) REPAIRER EVAPORATOR Not Available [facility] ([facility]) [address] [facility] [place], [address], 10/31/2022 10:35:36 10/31/19 23 10/31/2022 URINA LYSIS , ROUTI NE casts None seen /lpf none seen Not Available [facility] ([facility]) [address] [facility] [place], [address], 10/31/2022 10:35:36 10/31/19 23 10/31/2022 URINA LYSIS , ROUTI NE cast type REPAIRER EVAPORATOR Not Available [facility] ([facility]) [address] [facility] [place], [address], 10/31/2022 10:35:36 10/31/19 23 10/31/2022 URINA LYSIS , ROUTI NE crystals REPAIRER EVAPORATOR Not Available [facility] ([facility]) [address] [facility] [place], [address], 10/31/2022 10:35:36 10/31/19 23 10/31/2022 URINA LYSIS , ROUTI NE crystal type REPAIRER EVAPORATOR Not Available [facility] ([facility]) [address] [facility], [place], [address], 10/31/2022 10:35:36 10/31/19 23 10/31/2022 URINA LYSIS , ROUTI NE mucus threads REPAIRER EVAPORATOR Not Available [facility] ([facility]) [address] [facility], [place], [address], 10/31/2022 10:35:36 10/31/19 23 10/31/2022 URINA LYSIS , ROUTI NE bacteria None seen none seen/f ew Not Available [facility] ([facility]) [address] [facility], [place], [address], 10/31/2022 10:35:36 10/31/19 23 10/31/2022 URINA LYSIS , ROUTI NE yeast REPAIRER EVAPORATOR Not Available [facility] ([facility]) [address] [facility], [place], [address], 10/31/2022 10:35:36 10/31/19 23 10/31/2022 URINA LYSIS , ROUTI NE trichomonas REPAIRER EVAPORATOR Not Available [facility] ([facility]) [address] [facility], [place], [address], 10/31/2022 10:35:36 10/31/19 23 10/31/2022 URINA LYSIS , ROUTI NE comment REPAIRER EVAPORATOR Not Available [facility] ([facility]) [address] [facility], [place], [address], 10/31/2022 10:35:36 11/03/19 23 11/03/2022 CREAT U+PRO T U creatinine, urine 54.9 mg/dL not estab. Total Volum e: 0800 mL Not Available [facility] ([facility]) [address] [facility], [place], [address], 11/03/2022 17:07:11 11/03/19 23 11/03/2022 CREAT U+PRO T U creatinine, ur 24HR 439 mg/24 _HR 800-18 00 below low normal Not Available [facility] ([facility]) [address] [facility], [place], [address], 11/03/2022 17:07:11 11/03/1911/03/2022 CREAT U+PRO T U prot,24HR calculated 735 mg/24 _HR 30-150 above high normal Not Available [facility] ([facility]) [address] [facility], [place], [address], 11/03/2022 17:07:11 11/03/19 23 11/03/2022 CREAT U+PRO T U protein,tota l,urine 91.9 mg/dL not estab. Not Available [facility] ([facility]) [address] [facility], [place], [address], 11/03/2022 17:07:11 11/03/19 23 11/03/2022 CREAT U+PRO T U protein/crea t ratio 1674 mg/g_ creat 0-200 above high normal Not Available [facility] ([facility]) [address] [facility], [place], [address], 11/03/2022 17:07:11 11/21/19 23 11/20/2022 NURY, PE AND FLC, SERUM please note: Commen t Prote in elect ropho resis scan will follo w via compu ter, mail, or couri er francisca ordonez. Not Available [facility] ([facility]) [address] [facility], [place], [address], 11/25/2022 11:08:34 11/21/19 23 11/21/2022 NURY, PE AND FLC, SERUM immunoglobul in g, qn, serum 988 mg/dL 586-16 02 Not Available [facility] ([facility]) [address] [facility] [place], [address], 11/25/2022 11:08:34 11/21/19 23 11/21/2022 NURY, PE AND FLC, SERUM immunoglobul in A, qn, serum 367 mg/dL 87-352 above high normal Not Available [facility] ([facility]) [address] [facility] [place], [address], 11/25/2022 11:08:34 11/21/19 23 11/21/2022 NURY, PE AND FLC, SERUM immunoglobul in M, qn, serum 92 mg/dL 26-217 Not Available [facility] ([facility]) [address] [facility] [place], [address], 11/25/2022 11:08:34 11/21/19 23 11/21/2022 NURY, PE AND FLC, SERUM protein, total 6.7 g/dL 6.0-8. 5 Not Available [facility] ([facility]) [address] [facility] [place], [address], 11/25/2022 11:08:34 11/21/19 23 11/21/2022 NURY, PE AND FLC, SERUM free kappa lt chains,S 86.8 mg/L 3.3-19 .4 above high normal Not Available [facility] ([facility]) [address] [facility] [place], [address], 11/25/2022 11:08:34 11/21/19 23 11/21/2022 NURY, PE AND FLC, SERUM free lambda lt chains,S 52.7 mg/L 5.7-26 .3 above high normal Not Available [facility] ([facility]) [address] [place], [address], 11/25/2022 11:08:34 11/21/19 23 11/21/2022 NURY, PE AND FLC, SERUM kappa/lambda ratio,S 1.65 0.26-1 .65 Not Available [facility] ([facility]) [address] [place], [address], 11/25/2022 11:08:34 11/21/19 23 11/25/2022 NURY, PE AND FLC, SERUM albumin 3.3 g/dL 2.9-4. 4 Not Available [facility] ([facility]) [address] [place], [address], 11/25/2022 11:08:34 11/21/19 23 11/25/2022 NURY, PE AND FLC, SERUM wyjef-3-sbqh ulin 0.3 g/dL 0.0-0. 4 Not Available [facility] ([facility]) [address] [place], [address], 11/25/2022 11:08:34 11/21/19 23 11/25/2022 NURY, PE AND FLC, SERUM hsosv-4-sjmv ulin 0.9 g/dL 0.4-1. 0 Not Available [facility] ([facility]) [address] [place], [address], 11/25/2022 11:08:34 11/21/19 23 11/25/2022 NURY, PE AND FLC, SERUM beta globulin 1.2 g/dL 0.7-1. 3 Not Available [facility] ([facility]) [address] [place], [address], 11/25/2022 11:08:34 11/21/19 23 11/25/2022 NURY, PE AND FLC, SERUM gamma globulin 0.9 g/dL 0.4-1. 8 Not Available [facility] ([facility]) [address] [facility] [place], [address], 11/25/2022 11:08:34 11/21/19 23 11/25/2022 NURY, PE AND FLC, SERUM M-spike Not Observ ed g/dL not observ ed Not Available [facility] ([facility]) [address] [place], [address], 11/25/2022 11:08:34 11/21/19 23 11/25/2022 NURY, PE AND FLC, SERUM globulin, total 3.4 g/dL 2.2-3. 9 Not Available [facility] ([facility]) [address] [place], [address], 11/25/2022 11:08:34 11/21/19 23 11/25/2022 NURY, PE AND FLC, SERUM A/G ratio 1.0 0.7-1. 7 Not Available [facility] ([facility]) [address] [place], [address], 11/25/2022 11:08:34 11/21/19 23 11/25/2022 NURY, PE AND FLC, SERUM immunofixati on result, serum Commen t The immun ofixa tion ryder rn appea rs unrem arkab le. Evide nce of monoc lonal prote in is not appar ent. Not Available [facility] ([facility]) [address] [place], [address], 11/25/2022 11:08:34 11/21/19 23 11/25/2022 NURY, PE AND FLC, SERUM pdf . Not Available [facility] ([facility]) [address] [place], [address], 11/25/2022 11:08:34 11/21/19 23 11/21/2022 TSH+F REE T4 TSH 1.170 uIU/m L 0.450- 4.500 Not Available [facility] ([facility]) [address] [place], [address], 11/25/2022 11:08:34 11/21/19 23 11/21/2022 TSH+F REE T4 T4,free(dire ct) 0.99 NG/dL 0.82-1 .77 Not Available [facility] ([facility]) [address] [facility] [place], [address], 11/25/2022 11:08:34 11/21/19 23 11/21/2022 RENAL PANEL (10) glucose 82 mg/dL 70-99 Not Available [facility] ([facility]) [address] [facility] [place], [address], 11/25/2022 11:08:35 11/21/19 23 11/21/2022 RENAL PANEL (10) BUN 19 mg/dL 6-20 Not Available [facility] ([facility]) [address] [place], [address], 11/25/2022 11:08:35 11/21/19 23 11/21/2022 RENAL PANEL (10) creatinine 1.94 mg/dL 0.57-1 .00 above high normal Not Available [facility] ([facility]) [address] [place], [address], 11/25/2022 11:08:35 11/21/19 23 11/21/2022 RENAL PANEL (10) eGFR 34 mL/mi n/1.7 3 >59 below low normal Not Available [facility] ([facility]) [address] [place], [address], 11/25/2022 11:08:35 11/21/19 23 11/21/2022 RENAL PANEL (10) BUN/creatini ne ratio 10 9-23 Not Available [facility] ([facility]) [address] [place], [address], 11/25/2022 11:08:35 11/21/19 23 11/21/2022 RENAL PANEL (10) sodium 139 mmol/ L 134-14 4 Not Available [facility] ([facility]) [address] [place], [address], 11/25/2022 11:08:35 11/21/19 23 11/21/2022 RENAL PANEL (10) potassium 3.7 mmol/ L 3.5-5. 2 Not Available [facility] ([facility]) [address] [place], [address], 11/25/2022 11:08:35 11/21/19 23 11/21/2022 RENAL PANEL (10) chloride 104 mmol/ L 96-106 Not Available [facility] ([facility]) [address] [place], [address], 11/25/2022 11:08:35 11/21/19 23 11/21/2022 RENAL PANEL (10) carbon dioxide, total 24 mmol/ L 20-29 Not Available [facility] ([facility]) [address] [place], [address], 11/25/2022 11:08:35 11/21/19 23 11/21/2022 RENAL PANEL (10) calcium 8.7 mg/dL 8.7-10 .2 Not Available [facility] ([facility]) [address] [place], [address], 11/25/2022 11:08:35 11/21/19 23 11/21/2022 RENAL PANEL (10) phosphorus 2.8 mg/dL 3.0-4. 3 below low normal Not Available [facility] ([facility]) [address] [place], [address], 11/25/2022 11:08:35 11/21/19 23 11/21/2022 RENAL PANEL (10) albumin 3.8 g/dL 3.8-4. 8 Not Available [facility] ([facility]) [address] [place], [address], 11/25/2022 11:08:35 11/21/19 23 11/21/2022 LIPID PANEL cholesterol, total 202 mg/dL 100-19 9 above high normal Not Available [facility] ([facility]) [address] [facility] [place], [address], 11/25/2022 11:08:35 11/21/19 23 11/21/2022 LIPID PANEL triglyceride s 135 mg/dL 0-149 Not Available [facility] ([facility]) [address] [facility], [place], [address], 11/25/2022 11:08:35 11/21/19 23 11/21/2022 LIPID PANEL HDL cholesterol 39 mg/dL >39 below low normal Not Available [facility] ([facility]) [address] [facility], [place], [address], 11/25/2022 11:08:35 11/21/19 23 11/21/2022 LIPID PANEL VLDL cholesterol artis 24 mg/dL 5-40 Not Available [facility] ([facility]) [address] [facility], [place], [address], 11/25/2022 11:08:35 11/21/19 23 11/21/2022 LIPID PANEL LDL chol calc ([facility]) 139 mg/dL 0-99 above high normal Not Available [facility] (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) [address] [facility], [place], [address], 11/25/2022 11:08:35 11/21/19 23 11/21/2022 ACUTE HEPAT ITIS hep A Ab, IgM Negati ve negati ve Not Available [facility] ([facility]) [address] [facility], [place], [address], 11/25/2022 11:08:36 11/21/19 23 11/21/2022 ACUTE HEPAT ITIS HBsAg screen Negati ve negati ve Not Available [facility] ([facility]) [address] [place], [address], 11/25/2022 11:08:36 11/21/19 23 11/21/2022 ACUTE HEPAT ITIS hep B core Ab, IgM Negati ve negati ve Not Available [facility] ([facility]) [address] [facility], [place], [address], 11/25/2022 11:08:36 11/21/19 23 11/21/2022 ACUTE HEPAT ITIS HCV Ab Non Reacti ve non reacti ve Not Available [facility] ([facility]) [address] [facility], [place], [address], 11/25/2022 11:08:36 11/21/19 23 11/21/2022 ACUTE HEPAT ITIS interpretati on: Commen t Not infec jose g with HCV unles s early or acute infec tion is suspe cted (whic h may be delay ed in an immun ocomp romis ed indiv idual ), or other evide nce exist s to indic ate HCV infec tion. Not Available [facility] ([facility]) [address] [facility], [place], [address], 11/25/2022 11:08:36 11/21/19 23 11/22/2022 ANCA PROFI LE anti-mpo antibodies <0.2 units 0.0-0. 9 Not Available [facility] ([facility]) [address] [place], [address], 11/25/2022 11:08:36 11/21/19 23 11/22/2022 ANCA PROFI LE anti-pr3 antibodies <0.2 units 0.0-0. 9 Not Available [facility] ([facility]) [address] [place], [address], 11/25/2022 11:08:36 11/21/19 23 11/23/2022 ANCA PROFI LE cytoplasmic (C-anca) <1:20 titer neg:<1 :20 Not Available [facility] ([facility]) [address] [facility], [place], [address], 11/25/2022 11:08:36 11/21/19 23 11/23/2022 ANCA PROFI [...] ng of posit lu sera with both VA-3 and MPO-A NCA enzym e immun oassa ys. As many as 5% serum sampl es are posit lu only by EIA. Ref. AM J Clin Patho l 1999; 111:5 07-51 3. Not Available [facility] ([facility]) [address] [facility], [place], [address], 11/25/2022 11:08:36 11/21/19 23 11/23/2022 ANCA PROFI LE atypical panca <1:20 titer neg:<1 :20 The atypi artis pANCA patte rn has been obser brooks in a signi fican t perce ntage of patie nts with ulcer ative colit is, prima ry scler osing chola ngiti s and autoi mmune hepat itis. Not Available [facility] ([facility]) [address] [facility], [place], [address], 11/25/2022 11:08:36 11/21/19 23 11/21/2022 VITAM IN D, 1,25 + 25-HY DROXY calcitriol(1 ,25 di-oh vit D) 24.8 pg/mL 24.8-8 1.5 Not Available [facility] ([facility]) [address] [facility], [place], [address], 11/25/2022 11:08:37 11/21/19 23 11/21/2022 VITAM IN [...] um and D. Renata prakash DC: [facility] . 2. Disha bennett MF, Britney uribe [place], Srikanth off-F errar i [place], et al. Evalu ation , treat ment, and preve ntion of vitam in D defic iency : an Endoc rine Socie ty clini artis pract ice guide line. JCEM. 2010; 96(7) :1911 -30. Not Available [facility] ([facility]) [address] [facility], [place], [address], 11/25/2022 11:08:37 11/21/19 23 11/21/2022 HEMOG LOBIN A1C hemoglobin A1C 5.4 % 4.8-5. 6 Predi abete s: 5.7 - 6.4 Diabe alexis: >6.4 Glyce darci contr ol for adult s with diabe alexis: <7.0 Not Available [facility] ([facility]) [address] [facility], [place], [address], 11/25/2022 11:08:38 11/21/19 23 11/21/2022 RPR, RFX QN RPR/C ONFIR M TP RPR Non Reacti ve non reacti ve Not Available [facility] ([facility]) [address] [place], [address], 11/25/2022 11:08:38 11/21/19 23 11/21/2022 HIV AB/P2 4 AG WITH REFLE X HIV Ab/P24 Ag screen Non Reacti ve non reacti ve HIV Negat lu HIV-1 /HIV- 2 antib odies and HIV-1 p24 antig en were NOT detec jose g. There is no labor atory evide nce of HIV infec tion. Not Available [facility] ([facility]) [address] [facility], [place], [address], 11/25/2022 11:08:39 11/21/19 23 11/22/2022 ANTIN UCLEA R AB MULTI PLEX RFX 5 MARLA direct Negati ve negati ve Not Available [facility] ([facility]) [address] [facility], [place], [address], 11/25/2022 11:08:39 11/21/19 23 11/21/2022 SEDIM ENTAT ION RATE- WESTE RGREN sedimentatio n rate-westerg janell 78 mm/HR 0-32 above high normal Not Available [facility] ([facility]) [address] [place], [address], 11/25/2022 11:08:40 11/21/19 23 11/21/2022 MAGNE SIUM magnesium 1.9 mg/dL 1.6-2. 3 Not Available [facility] ([facility]) [address] [place], [address], 11/25/2022 11:08:40 11/21/19 23 11/21/2022 C-REGINO CTIVE PROTE IN, QUANT C-reactive protein, quant 10 mg/L 0-10 Not Available [facility] ([facility]) [address] [place], [address], 11/25/2022 11:08:41 11/21/1911/21/2022 PTH, INTAC T PTH, intact 120 pg/mL 15-65 above high normal Not Available [facility] ([facility]) [address] [facility], [place], [address], 11/25/2022 11:08:41 12/01/1912/02/2022 CREAT U+PRO T U creatinine, urine 61.8 mg/dL not estab. Total Volum e: 1850 mL Not Available [facility] ([facility]) [address] [facility] [place], [address], 12/03/2022 00:06:14 12/01/1912/02/2022 CREAT U+PRO T U creatinine, ur 24HR 1143 mg/24 _HR 800-18 00 Not Available [facility] ([facility]) [address] [place], [address], 12/03/2022 00:06:14 12/01/1912/02/2022 CREAT U+PRO T U prot,24HR calculated 860 mg/24 _HR 30-150 above high normal Not Available [facility] ([facility]) [address] [place], [address], 12/03/2022 00:06:14 12/01/1912/02/2022 CREAT U+PRO T U protein,tota l,urine 46.5 mg/dL not estab. Not Available [facility] ([facility]) [address] [place], [address], 12/03/2022 00:06:14 12/01/1912/02/2022 CREAT U+PRO T U protein/crea t ratio 752 mg/g_ creat 0-200 above high normal Not Available [facility] ([facility]) [address] [place], [address], 12/03/2022 00:06:14 11/19/19 23 11/16/2022 US, retro perit oneum , compl ete No observ ation record ed. [email or web address] [address] [address], [place], [address], 12/15/2022 10:43:48 Result Notes None recorded. Problems Name Problem SNOMED Code Status Onset Date Resolution Date Notes Provider Name and Address Organization Details Recorded Time Medullary nephrocal cinosis 588322335 Completed 200801/29/2009 Jackelny Jasso [facility], [facility] 3 10:27:13 Clinical finding Active 2022 Jackelyn Jasso [facility], [facility] 3 10:36:06 Chronic kidney disease stage 3 826810969 Active 2022 Zeenat Gabriel [facility], [facility] 3 09:39:19 Vitamin D deficienc y 57120844 Active 2022 Magaly Whipple [facility], [facility] 3 16:15:12 Chronic kidney disease stage 4 700492111 Active 2022 [place] [address] [place], [address], [facility], [facility] 3 10:05:53 Proteinur ia 47609847 Active 2022 [place] [address] [place], [address], [facility], [facility] 3 10:05:55 Nephrocal cinosis 83357143 Active 2022 [place] [address] [place], [address] , [facility], [facility] 3 10:05:57 Hyperuric emia 05150137 Active 2022 [place] [address] [place], [address], [facility], [facility] 3 10:05:59 Fatigue 67240303 Active 2022 [place] [address] [facility] [place], [address], [facility], [facility] 3 10:06:00 History of parathyro idectomy 818114492284 103 Active 2022 [place] [address] [place], [address], [facility], [facility] 3 10:06:03 Obesity 660710477 Active 2022 [place] [address] [facility] [place], [address], [facility], [facility] 3 10:06:05 Chronic low back pain 081403035 Active 2022 [place] [address] [facility] [place], [address], [facility], [facility] 08:43:53 Problem Notes None recorded. Procedures Surgical History Date Name Laterality Status Provider Name and Address Organization Details Recorded Time ligation of fallopian tube completed Jackelyn Romero [facility], [facility] 09/24/2022 10:32:23 Imaging Results Imaging Date Name Status LastModified by Organiz ation Details LastModified Time 11/16/2022 US, retroperitone um, complete completed [email or web address] [address], [address], 12/15/2022 10:43:48 Procedure Notes None recorded. Medical Equipment None Reported. Allergies Allergen ID Allergen Name Allergen Category Reaction Reaction Severity Criticality Documentation Date Start Date Code Code System Note Provider Name and Address Organization Details Recorded Time 47776 Product containin g penicilli n and antibioti c (product) medicatio n Not available Not available Not available 09/24/2022 14170 05 SNOMED Jackelyn Romero [facility], [facility] 10:44:11 Medications Name Sig Start Date [...] Not Available Vitals Date Recorded Body height Body mass index (BMI) Body weight Heart rate Systolic blood pressure Diastolic blood pressure Provider Name and Address Organization Details Last Updated DateTime 3 162.56 cm 35.7 kg/m2 93342.2 1 g 77 /min 133 mm[Hg] 99 mm[Hg] [facility] [place] [facility], [facility] 3 16:43:37 Date Recorded Systolic blood pressure Diastolic blood pressure Provider Name and Address Organization Details Last Updated DateTime 11/12/2022 128 mm[Hg] 82 mm[Hg] [place] [address] [place], [address], [facility], [facility] 11/12/2022 17:13:25 Date Recorded Body height Body mass index (BMI) Body weight Heart rate Systolic blood pressure Diastolic blood pressure Provider Name and Address Organization Details Last Updated DateTime 3 162.56 cm 37.2 kg/m2 86635.5 4 g 73 /min 138 mm[Hg] 104 mm[Hg] [employer] [facility], [facility] 3 09:56:06 Social History Question Answer Notes LastModified by Organizat ion Details LastModified Time Tobacco Smoking Status Current Every Day Smoker Jackelyn enriquez [facility], [facility] 09/24/2022 10:32:52 Are You Currently Employed? No Information not available 10/05/2022 What Was The Date Of Your Most Recent Tobacco Screening? 01/13/2023 [email or web address] Information not available 01/13/2023 What Is Your [...] History Condition Response Vitamin D Deficiency Y Anxiety Y Kidney Disease (CKD) Y Sleep Apnea Y Thyroid Disorder Y Gynecological HistoryNo gynecological history recorded. Obstetrics History GPAL:G 0 P 0 0 0 0 Immunizations Vaccine Type Date Status Note Provider Nam e and Address Organization Details Recorded Time Influenza, MDCK, quadrivalent, preservative 8 completed Jackelyn Romero [facility], [facility] 09/24/2022 10:27:13 influenza, unspecified formulation 2 completed Jackelyn Romero null, [facility] 09/24/2022 10:27:13 influenza, unspecified formulation 7 completed [facility] Romero null, [facility] 09/24/2022 10:27:13 Tdap 2 completed Jackelyn Romero [facility], [facility] 09/24/2022 10:27:13 Past Encounters Encounter ID Performer Location Encounter Start Date Encounter Closed Date Diagnosis/Indication Diagnosis SNOMED-CT Code Diagnosis ICD10 Code Diagnosis Note [id number] [facility] [address] [place] [address] 11/12/2022 15:52:23 11/13/2022 13:09:38 Chronic kidney disease stage 4 574658926 N18.4 CKD stage 4 possible progressio n [...] most current list of medication s. Proteinuria 05815767 R80 .9 UPC 1.6 g.Unclear no prior serologies to review.Paramjit hebert send all serologies . Nephrocalcinosis 0437049 2 N29 Hx of nephrocalc inosis.No prior imaging to review.paramjit hebert send US kidney Hyperuricemia [id number] E 79.0 Uric acid ~9. Goal <6Will start allopurino l. Fatigue 76221056 R53.83 Will check TSH History of parathyroidectomy [id number] 93444 Z90.89 ? Unclear. Will check PTH and vitamin dCalcium and phos stable. Obesity [id number] E66.9 Advised weight lossCKD diet provided.C heck a1c. [id number] Henry Robin MD [facility] [place] [address] [place] [address] 01/13/2023 09:18:53 01/13/2023 10:29:35 Chronic kidney disease stage 4 [id number] N18.4 CKD stage 4 possible progressio n from nephrocalc inosis.Bas denny scr 1.9 to 2.2 mg/dl.Most recent scr 1.9 mg/dl.Margie uribe US reviewed, 12 cm kidney, stable appearance [...] most current list of medication s. Proteinuria 24647229 R80 .9 24 hour Protein ~860.Serol ogies negative.L ikely from Chronic interstiti al damage. Nephrocalcinosis 8844617 2 N29 Hx of nephrocalc inosis.Us reviewed. stable. Hyperuricemia 01522815 E 79.0 Uric acid ~9. Goal <6C/W allopurino l Fatigue 21141934 R53.83 TSH at goal. History of parathyroidectomy [id number] 16115 Z90.89 ? Unclear. Will check PTH and vitamin dCalcium and phos stable. Obesity 950132804 E66.9 Advised weight lossCKD diet provided.H b A1C 5.4At goal. Chronic low back pain 27 2688104 M54.50 Advised. Exercise diet, ptFollow up with PMD. Health Concerns Section Related Observation LastModified by Organization Detai ls LastModified Time None Recorded Concern Status LastModified by Organization Details LastModified Time None Recorded Advance Directives Directive None Recorded Payers Encounter Date Sequence Insurance Name Policy Number Policy Byrnes Covered Member ID Byrnes Member ID Guarantor Name 11/12/2022 1 [facility] (MEDICAID REPLACEMENT - HMO) Thomas Fontenot [id number] Thomas Fontenot 01/13/2023 1 [facility] (MEDICAID REPLACEMENT - HMO) Thomas Fontenot [id number] Thomas Fontenot Notes Date Note Type Note Provider Name and Address Organization Details Recorded Time 11/12/2022 text/html 32 y.o. 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 in the setting of ?medullary nephrocalcinosis Patient used to follow with nephrology in [place] last office visit was on 07/24/21, labs reviewed from note was 1.9 mg/dl in 2020.She has hx of Obstructive sleep apnea syndrome 08/30/2019, Vitamin D deficiency 10/25/2017Hypocalcemia 05/08/2014, Parathyroid adenoma 05/08/2014, Medullary nephrocalcinosis 01/29/2009.She moved from [place], ~10 months ago, has not seen any [...] tremors. [place] [address] [place], [address], [facility] - [facility], [facility] 11/12/2022 17:30:40 01/13/2023 text/html 32 y.o. 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
--- OUTSIDE RECORDS SUMMARY | 2024-09-26 08:53 | XMS_ITS | Clinical Summary ---
Author Organization [facility] Address [address] [place] [address] Phone Care Team Providers Care Eight Section Blower Name Role Phone Tatyana Murillo MD Primary Care Provider [phone] Allergies Active Allergy Reactions Criticality Noted Date [...] EST - 09/02/2024 2:13 PM EST Emergency [facility] Intermediate [facility] Unit [address] [place] [address] Didier Overton MD Kela, Kashyap Devendrabhai, MD Flores, Carlos M, MD Acute bronchitis due to respiratory syncytial virus (RSV) (Primary Dx) Discharge Disposition: Home or Self Care 08/29/2024 8:40 PM EST - 08/29/2024 11:37 PM EST [facility] Emergency [address] [place] [address] Simon Cartagena MD Millay, Scot [...] disorder (CMS/HCC) 10/25/2017 DX: Bipolar 2 disorder ([facility]) Hypothyroidism 10/25/2017 DX:Hypothyroidis m Vitamin D insufficiency 10/25/2017 DX:Vitam in D insufficiency Tobacco abuse 10/25/2017 DX:Tobacco abuse Migraine headache 10/25/2017 DX:Migraine he adache Obesity (BMI 30-39.9) 10/25/2017 DX:Obesity (BMI 30-39.9) CKD (chronic kidney disease) stage 3, GFR 30-59 ml/min (CMS/HCC) 10/26/2017 DX:CKD (chronic kidney dise ase) stage 3, GFR 30-59 ml/min ([facility]); COMMENT: S/p renal biopsy, pathology [...] K/mcL LAB HEMETOLOGY METHOD 09/02/2024 7:09 AM [facility] RBC 3.30(L) 3.80 - 4.80 M/mcL LAB HEMETOLOGY METHOD 09/02/2024 7:09 AM [facility] Hemoglobin 9.3(L) 11.5 - 16.0 g/dL LAB HEMETOLOGY METHOD 09/02/2024 7:09 AM [facility] Hematocrit 29.7(L) 35.0 - 47.0 % LAB HEMETOLOGY METHOD 09/02/2024 7:09 AM [facility] MCV 91.4 79.0 - 98.0 FL LAB HEMETOLOGY METHOD 09/02/2024 7:09 AM [facility] MCH 28.6 27.0 - 32.0 pcg LAB HEMETOLOGY METHOD 09/02/2024 7:09 AM [facility] MCHC 31.3(L) 32.0 - 37.0 g/dL LAB HEMETOLOGY METHOD 09/02/2024 7:09 AM [facility] RDW 14.0 11.0 - 15.0 % LAB HEMETOLOGY METHOD 09/02/2024 7:09 AM [facility] Platelets 216 130 - 400 K/mcL LAB HEMETOLOGY METHOD 09/02/2024 7:09 AM [facility] MPV 11.1(H) 7.0 - 11.0 FL LAB HEMETOLOGY METHOD 09/02/2024 7:09 AM [facility] NRBC 0.0 <1.0 % LAB HEMETOLOGY METHOD 09/02/2024 7:09 AM [facility] NRBC Absolute 0.00 <0.10 K/mcL LAB HEMETOLOGY METHOD 09/02/2024 7:09 AM [facility] Neutrophils Relative 78.5 % LAB HEMETOLOGY METHOD 09/02/2024 7:09 AM [facility] Lymphocytes Relative 13.6 % LAB HEMETOLOGY METHOD 09/02/2024 7:09 AM [facility] Monocytes Relative 5.0 % LAB HEMETOLOGY METHOD 09/02/2024 7:09 AM [facility] Eosinophils Relative 1.3 % LAB HEMETOLOGY METHOD 09/02/2024 7:09 AM [facility] Basophils Relative 0.3 % LAB HEMETOLOGY METHOD 09/02/2024 7:09 AM [facility] Immature Granulocytes Relative 1.3 % LAB HEMETOLOGY METHOD 09/02/2024 7:09 AM [facility] Neutrophils Absolute 13.51(H) 1.50 - 7.00 K/mcL LAB HEMETOLOGY METHOD 09/02/2024 7:09 AM [facility] Lymphocytes Absolute 2.34 1.00 - 5.00 K/mcL LAB HEMETOLOGY METHOD 09/02/2024 7:09 AM EST [facility] Monocytes Absolute 0.86 0.20 - 1.00 K/mcL LAB HEMETOLOGY METHOD 09/02/2024 7:09 AM EST [facility] Eosinophils Absolute 0.22 0.00 - 0.50 K/mcL LAB HEMETOLOGY METHOD 09/02/2024 7:09 AM EST [facility] Basophils Absolute 0.05 0.00 - 0.20 K/[facility] LAB HEMETOLOGY METHOD 09/02/2024 7:[address] [facility] Immature Granulocytes Absolute 0.23(H) 0.00 - 0.03 K/mcL LAB HEMETOLOGY METHOD 09/02/2024 7:09 AM [facility] Blood Venous blood specimen / Unknown Venipuncture / Unknown 09/02/2024 5:53 AM EST 09/02/2024 6:30 AM EST Chauncey Medina MD LAB BLOOD ORDERABLES [facility] [address] [place] [address], * (ABNORMAL) Magnesium (09/02/2024 5:53 AM EST) [...] ORDERABLES [facility] [address] [place] [address], * (ABNORMAL) Basic metabolic panel (09/02/2024 5:53 AM EST) Only the most recent of2 resultswithin the time period is included. Sodium 136 133 - 145 mmol/L LAB CHEMISTRY METHOD 09/02/2024 7:04 AM [facility] Potassium 3.4(L) 3.5 - 5.5 mmol/L LAB CHEMISTRY METHOD 09/02/2024 7:04 AM [facility] Chloride 107 96 - 110 mmol/L LAB CHEMISTRY METHOD 09/02/2024 7:04 AM [facility] CO2 20(L) 21 - 32 mmol/L LAB CHEMISTRY METHOD 09/02/2024 7:04 AM [facility] Anion Gap 9 3 - 11 LAB CHEMISTRY METHOD 09/02/2024 7:04 AM [facility] Glucose 88 70 - 100 mg/dL LAB CHEMISTRY METHOD 09/02/2024 7:04 AM [facility] BUN 35(H) 5 - 25 mg/dL LAB CHEMISTRY METHOD 09/02/2024 7:04 AM [facility] Creatinine 3.54(H) 0.50 - 1.10 mg/dL LAB CHEMISTRY METHOD 09/02/2024 7:04 AM [facility] LAB eGFR 16(L) >=60 mL/min/1. 73m2 LAB CHEMISTRY METHOD 09/02/2024 7:04 AM [facility] LAB Comment:Calculation based on the??Chronic Kidney Disease Epidemiology Collaboration (CKD-EPI) equation refit??without adjustment for race. BUN/Creatinine Ratio 9.9 LAB CHEMISTRY METHOD 09/02/2024 7:04 AM [facility] Calcium 8.0(L) 8.5 - 10.5 mg/dL LAB CHEMISTRY METHOD 09/02/2024 7:04 AM [facility] Blood Venous blood specimen / Unknown Venipuncture / Unknown 09/02/2024 5:53 AM EST 09/02/2024 6:30 AM EST Chauncey Medina MD LAB BLOOD ORDERABLES BERTHA TATE MD ([facility]) [facility] [address] [place] [address], * XR Chest 2 Views (09/01/2024 3:08 [...] Signed Date: 09/01/2024 15:13 ET Workstation ID: [id number] Transcribed By: Self Edit Transcribed Date: 09/01/2024 [...] Signed Date: 09/01/2024 15:13 ET Workstation ID: [id number] Transcribed By: Self Edit Transcribed Date: 09/01/2024 15:10 ET Modesta Bedoya CLINICAL DATA ABSTRACTOR IMG XR PROCEDURES * (ABNORMAL) Phosphorus (09/01/2024 5:06 AM EST) Pathologist [facility] Phosphorus 1.9(L) 2.5 - 4.5 mg/dL LAB CHEMISTRY METHOD 09/01/2024 6:09 AM EST [facility] Blood Venous blood specimen / Unknown Venipuncture / Unknown 09/01/2024 5:06 AM EST 09/01/2024 5:42 AM EST Didier Overton MD LAB BLOOD ORDERABLE S [facility] [address] [place] [address], * ECG 12 lead (08/31/2024 5:09 PM EST) Ventricular Rate ECG 99 BPM GEMUSE Atrial Rate 99 BPM GEMUSE P-R Interval 128 ms GEMUSE QRS Duration 92 ms GEMUSE Q-T Interval 354 ms GEMUSE QTc 454 ms GEMUSE P Wave [place] 59 degrees GEMUSE R [place] -12 degrees GEMUSE T [place] -13 degrees GEMUSE ECG Interpretation Normal sinus [...] Overton MD ECG ORDERABLES Performing Organization Address City/[facility]/ZIP Co de Phone Number GEMUSE * Lipase (08/31/2024 3:44 PM EST) Only the most recent of2 resultswithin the time period is included. Lipase 26 13 - 75 unit/L LAB CHEMISTRY METHOD 08/31/2024 4:26 PM EST [facility] Blood Venous blood specimen / Unknown Venipuncture / Unknown 08/31/2024 3:44 PM EST 08/31/2024 3:49 PM EST Tejas Hyde MD LAB BLOOD ORDERABLES Performing Organization Address City/[facility]/ZIP Co de Phone Number [facility] [address] [place] [address], * (ABNORMAL) Comprehensive metabolic panel (08/31/2024 3:44 PM EST) Only the most recent of2 resultswithin the time period is included. Sodium 133 133 - 145 mmol/L LAB CHEMISTRY METHOD 08/31/2024 4:31 PM EST [facility] Potassium 2.7(LL) 3.5 - 5.5 mmol/L LAB CHEMISTRY METHOD 08/31/2024 4:31 PM EST [facility] Chloride 101 96 - 110 mmol/L LAB CHEMISTRY METHOD 08/31/2024 4:31 PM EST [facility] CO2 23 21 - 32 mmol/L LAB CHEMISTRY METHOD 08/31/2024 4:31 PM [facility] Anion Gap 9 3 - 11 LAB CHEMISTRY METHOD 08/31/2024 4:31 PM [facility] Glucose 110(H) 70 - 100 mg/dL LAB CHEMISTRY METHOD 08/31/2024 4:31 PM [facility] BUN 37(H) 5 - 25 mg/dL LAB CHEMISTRY METHOD 08/31/2024 4:31 PM [facility] Creatinine 3.87(H) 0.50 - 1.10 mg/dL LAB CHEMISTRY METHOD 08/31/2024 4:31 PM [facility] eGFR 15(L) >=60 mL/min/1. 73m2 LAB CHEMISTRY METHOD 08/31/2024 4:31 PM [facility] Comment:Calculation based on the??Chronic Kidney Disease Epidemiology Collaboration (CKD-EPI) equation refit??without adjustment for race. BUN/Creatinine Ratio 9.6 LAB CHEMISTRY METHOD 08/31/2024 4:31 PM [facility] Calcium 8.6 8.5 - 10.5 mg/dL LAB CHEMISTRY METHOD 08/31/2024 4:31 PM [facility] AST (SGOT) 40 10 - 42 unit/L LAB CHEMISTRY METHOD 08/31/2024 4:31 PM [facility] ALT (SGPT) 68(H) 10 - 60 unit/L LAB CHEMISTRY METHOD 08/31/2024 4:31 PM [facility] Alkaline Phosphatase 175(H) 42 - 121 unit/L LAB CHEMISTRY METHOD 08/31/2024 4:31 PM [facility] Total Protein 7.3 6.0 - 8.0 g/dL LAB CHEMISTRY METHOD 08/31/2024 4:31 PM [facility] Albumin 3.0(L) 3.2 - 5.0 g/dL LAB CHEMISTRY METHOD 08/31/2024 4:31 PM EST [facility] Total Bilirubin 0.8 0.0 - 1.4 mg/dL LAB CHEMISTRY METHOD 08/31/2024 4:31 PM EST [facility] Blood Venous blood specimen / Unknown Venipuncture / Unknown 08/31/2024 3:44 PM EST 08/31/2024 3:49 PM EST Tejas Hyde MD LAB BLOOD ORDERABLES [facility] [address] [place] [address], * ECG-Annotated (08/31/2024) Provider Onbase ECG ORDERABLES * (ABNORMAL) Respiratory virus panel molecular study (08/29/2024 8:57 PM EST) Adenovirus Detection by PCR Not Detected Not Detected LAB MICROBIOLOGY METHOD 08/29/2024 10:04 PM [facility] Influenza A PCR Not Detected Not Detected LAB MICROBIOLOGY METHOD 08/29/2024 10:04 PM [facility] Influenza B PCR Not Detected Not Detected LAB MICROBIOLOGY METHOD 08/29/2024 10:04 PM [facility] Coronavirus 229E Not Detected Not Detected LAB MICROBIOLOGY METHOD 08/29/2024 10:04 PM [facility] Coronavirus HKU1 Not Detected Not Detected LAB MICROBIOLOGY METHOD 08/29/2024 10:04 PM [facility] Coronavirus OC43 Not Detected Not Detected LAB MICROBIOLOGY METHOD 08/29/2024 10:04 PM [facility] Coronavirus NL63 Not Detected Not Detected LAB MICROBIOLOGY METHOD 08/29/2024 10:04 PM [facility] Parainfluenza Virus 1 Not Detected Not Detected LAB MICROBIOLOGY METHOD 08/29/2024 10:04 PM [facility] Parainfluenza Virus 2 Not Detected Not Detected LAB MICROBIOLOGY METHOD 08/29/2024 10:04 PM [facility] Parainfluenza Virus 3 Not Detected Not Detected LAB MICROBIOLOGY METHOD 08/29/2024 10:04 PM [facility] Parainfluenza Virus 4 Not Detected Not Detected LAB MICROBIOLOGY METHOD 08/29/2024 10:04 PM [facility] RSV PCR Detected(A ) Not Detected LAB MICROBIOLOGY METHOD 08/29/2024 10:04 PM [facility] Human Metapneumovirus A and B Not Detected Not Detected LAB MICROBIOLOGY METHOD 08/29/2024 10:04 PM [facility] Rhinovirus/Entero virus Not Detected Not Detected LAB MICROBIOLOGY METHOD 08/29/2024 10:04 PM [facility] Bordetella pertussis Not Detected Not Detected LAB MICROBIOLOGY METHOD 08/29/2024 10:04 PM [facility] Bordetella parapertussis Not Detected Not Detected LAB MICROBIOLOGY METHOD 08/29/2024 10:04 PM [facility] Mycoplasma pneumo by PCR Not Detected Not Detected LAB MICROBIOLOGY METHOD 08/29/2024 10:04 PM [facility] Chlamydia pneumoniae Not Detected Not Detected LAB MICROBIOLOGY METHOD 08/29/2024 10:04 PM [facility] SARS COV-2 Not Detected Not Detected LAB MICROBIOLOGY METHOD 08/29/2024 10:04 PM [facility] Swab Both anterior nares / Unknown Non-blood Collection / Unknown 08/29/2024 8:57 PM EST 08/29/2024 9:[address] [facility] - 08/29/2024 10:04 PM EST Testing was performed using the [employer] Respiratory Pathogen PCR Assay. All results must [...] MERCHANT LAB MICROBIOLOGY - GENERAL ORDERABLES [facility] [address] [place] [address], from Last 3 Months Advance Directives * Full Code - Default [...] currently active code status orders. Care Teams Eight Section Blower Relationship Specialty Start Date End Date Tatyana Murillo MD [address] [place] [address] PCP - General Internal Medicine 06/26/21
--- OUTSIDE RECORDS SUMMARY | 2024-09-26 08:53 | XMS_ITS | Encounter Summary ---
Author Organization [employer] Address [address] [place] [address] Care Team Providers Care Franchise Sales Director Name Role Phone Anabel Patel MD Primary Care Provide r Reason for Visit * Reason Onset Date Comments ER Follow-up 09/01/2024 Encounter Details Date Type Department Care Team ([facility] st Contact Info) Description 09/01/2024 Telephone [facility] [address] [place], [place] [phone] Anabel Patel MD [address] [place], [place] [phone] ER Follow-up Social History Tobacco Use Types Packs/Day Years Used Date Smoking Tobacco: Every Day Cigarettes Passive Smoke Exposure: Current Smokeless Tobacco: Never Depression Answer Date Recorded Patient Health Questionnaire-9 Score 19 09/21/2023 Patient Health Questionnaire-9 Score 19 09/21/2023 Last PHQ-9: Questionnaire Data Not on file 0 09/21/2023 Housing Stability Answer Date Recorded What is your housing situation today? I have mrena leal 09/10/[address] you [...] Per chart review. Pt did return to [facility] ER as instructed. Pt currently admitted. Will send to PCP as FYI. Benjamin notes in chart under encounters. * Telephone Encounter - Nahed López RN - 09/01/2024 10:02 AM EST ----- Message from Nurse Nahed Osorio sent at 08/31/2024 2:12 PM EST ----- Regarding: [facility] ER STATUS CHECK Please call patient for status check after disposition ER for bloody vomit. See triage note 08/31/24. documented in this encounter Plan of Treatment Upcoming Encounters Date Type Department Care Team (Late st Contact Info) Description 10/05/2024 2:00 PM EST Office Visit [facility] [address] [place] [address] Anabel Patel MD [address] [place], [place] [phone] documented as of this encounter Visit Diagnoses Not on filedocumented in this encounter Additional Health Concerns Assessment Noted Time PHQ-9 Depression Total Score: 19 024 10:24 AM EST documented as of this encounter Care Teams Franchise Sales Director Relationship Specialty Start Date End Date Anabel Ptael MD [address] [place] [address] PCP - General Internal Medicine 09/21/23 documented as of this encounter
--- OUTSIDE RECORDS SUMMARY | 2024-09-26 08:54 | XMS_ITS | Encounter Summary ---
Author Organization [employer] Address [address] [facility] [address]t [place] [address] Care Team Providers Care Vamp Seamer Name Role Phone Anabel Patel MD Primary Care Provide r Reason for Referral * Imaging (Routine) - Authorized Specialty Diagnoses / Procedures Referred By Contac t Referred To Contact Radiology Diagnoses Abdominal bloating Procedures US Abdomen Complete Kristel Marin DO [address] [place] [address] Phone: tel: fax: [facility] [address], [address] [place] [address] Phone: tel: fax: Referral ID Status Reason Start Date Expiration Date V isits Requested Visits Authorized [id number] Authorized 09/13/2024 09/13/2025 1 1 Reason for Visit * Reason Comments Gas Nausea Encounter Details Date Type Department Care Team (Late st Contact Info) Description 09/13/2024 11:00 AM EST Office Visit [facility] [address] [place], [place] [phone] Kristel Marin DO [address] [place], [place] [phone] Decreased appetite (Primary Dx); Abdominal bloating Social [...] in this encounter Progress Notes * Kristel Marin DO - 09/13/2024 11:00 AM EST SUBJECTIVE: Thomas Fontenot is a 34 y.o. year old female who presents for sick visit . She comes to [place] c/o abdominal discomfort and bloating. She says that her sx have been present sinceshe was sick. She was seen in [facility] a couple of times earlier this [...] meds. No fevers. History provided by: Patient trimmer and reinforcer used: No Abdominal Pain This is a [...] List Diagnosis Stage 3 chronic kidney disease ([facility]/HCC) Chronic midline low back pain without sciatica Bipolar 2 disorder ([facility]/HCC) Depression with anxiety Cannabis abuse CKD (chronic kidney disease) stage 4, GFR 15-29 ml/min ([facility]/HCC) Allergies Allergen Reactions Penicillins Anaphylaxis and Swelling [...] TOME 1/2-1 TABLETA 30 MIN ANTES DE ULISES, Disp: , Rfl: documented in this encounter Plan of Treatment Upcoming Encounters Date Type Department Care Team (Late st Contact Info) Description 10/05/2024 2:00 PM EST Office Visit [facility] [address] [place], [place] [phone] Anabel Patel MD [address] [place], [place] [phone] Scheduled Orders Name Type Priority Associated Diagnoses Orde r Schedule CBC auto differential Lab Routine Abdominal bloating Expected: 09/13/2024 (Approximate), Expires: 09/13/2025 US Abdomen Complete Imaging Routine Abdominal bloating Expected: 09/13/2024, Expires: 09/13/2025 documented as of this encounter Procedures Procedure Name Priority Date/Time Associated Diagnosis Comments LIPASE Routine 09/13/2024 11:25 AM EST Abdominal bloating AMYLASE Routine 09/13/2024 11:25 AM EST Abdominal bloating HEPATIC FUNCTION PANEL Routine 09/13/2024 11:25 AM EST Abdominal bloating BASIC METABOLIC PANEL Routine 09/13/2024 11:25 AM EST Abdominal bloating documented in this encounter Results * (ABNORMAL) Lipase (09/13/2024 11:25 AM EST) Lipase 86(H) 8 - 78 U/L [facility] Blood Venous blood specimen / Unknown 09/13/2024 11:25 AM EST 09/13/2024 1:19 PM EST us Kristel Jurcsak DO LAB BLOOD ORDERABLES Final R esult Performing Organization Address City/[facility]/ZIP Co de Phone Number [facility] [address] [place] [phone] * (ABNORMAL) Amylase (09/13/2024 11:25 AM EST) Amylase 122(H) 28 - 100 U/L [facility] Blood Venous blood specimen / Unknown 09/13/2024 11:25 AM EST 09/13/2024 1:19 PM EST Kristel Marin DO LAB BLOOD ORDERABLES Final R esult Performing Organization Address [facility] Co de Phone Number [facility] [address] [place] [phone] * (ABNORMAL) Hepatic Function Panel (09/13/2024 11:25 AM EST) Bilirubin, Total 0.8 0.0 - 1.0 mg/dL [facility] Bilirubin, Direct 0.3 0.0 - 0.5 mg/dL [facility] Aspartate Amino Transferase 41(H) 5 - 31 U/L [facility] Alanine Aminotransferase 110(H) 0 - 31 U/L [facility] Total Protein 8.0 6.5 - 8.0 g/dL [facility] Albumin Level 3.9 3.5 - 5.0 g/dL [facility] Alkaline Phosphatase 124(H) 39 - 117 U/L [facility] Blood Venous blood specimen / Unknown 09/13/2024 11:25 AM EST 09/13/2024 1:19 PM EST Kristel Marin DO LAB BLOOD ORDERABLES Final R esult Performing Organization Address [facility] Co de Phone Number [facility] [address] [place] [phone] * (ABNORMAL) Basic Metabolic Panel (09/13/2024 11:25 AM EST) Sodium 136 135 - 145 mmol/L [facility] Potassium 3.4 3.3 - 5.1 mmol/L [facility] Chloride 106 96 - 108 mmol/L [facility] Carbon Dioxide 18(L) 22 - 29 mmol/L [facility] Anion Gap 15 12 - 20 [facility] Urea Nitrogen (BUN) 64(H) 9 - 16 mg/dL [facility] Creatinine, Serum 3.26(H) 0.5 - 1.4 mg/dL [facility] Estimated Glomerular Filt Rate 16 [facility] Comment:Chronic Kidney Disea se: Estimated GFR < 60 mL/min/1.83i5Zebnbg Kidney Disease: Estimated GFR < 15 mL/min/1.73m2 Glucose 96 60 - 115 mg/dL [facility] Calcium 9.1 8.4 - 10.2 mg/dL [facility] Blood Venous blood specimen / Unknown 09/13/2024 11:25 AM EST 09/13/2024 1:19 PM EST us Kristel Marin DO LAB BLOOD ORDERABLES Final R esult [facility] [address] [place] [phone] documented in this encounter Visit Diagnoses Diagnosis Decreased appetite- Primary Anorexia Abdominal bloating Flatulence, eructation, and gas pain documented in this encounter Additional Health Concerns Assessment Noted Time PHQ-9 Depression Total Score: 19 024 10:24 AM EST documented as of this encounter Care Teams Vamp Seamer Relationship Specialty Start Date End Date Anabel Patel MD [address] [place] [address] PCP - General Internal Medicine 09/21/23 documented as of this encounter
--- OUTSIDE RECORDS SUMMARY | 2024-09-26 08:54 | XMS_ITS | Encounter Summary ---
Author Organization [employer] Address [address] [facility] 7t [place] [address] Care Team Providers Care Events Director Name Role Phone Anabel Patel MD Primary Care Provide r Reason for Visit * Reason Onset Date Comments Results 09/15/2024 Encounter Details Date Type Department Care Team ([facility] Contact Info) Description 09/15/2024 Telephone [facility] [address] [place], [place] [phone] Trupti Smith, SILAS [address] [place] [address] Results Social History Tobacco Use Types Packs/Day Years [...] encounter Miscellaneous Notes * Telephone Encounter - Trupti Smith RN - 09/15/2024 1:18 PM EST PCP reviewed results with RN. Patients blood work returned showing elevated WBC's most likely r/t recent bronchitis and steroid use (WBC's should be repeated in 1 month), elevated LFT's likely r/t tofatty liver (abd US already ordered at 08/24/24 visit) and elevation in creatinine (r/t CKD however needs f/u with director of group counseling program). Dr. Marin also reports patient needs HDF with PCP. TC placed to patient [phone] in regards to above message. Patient reports she has an appointment with her director of group counseling program in 09/2024 (does not recall date at this time). Patient also reports abd USis scheduled for 09/26/24. Patient is aware of WBC's needing to be repeated in 1 month. RN has scheduled patient for HDF with PCP on 10/05/24 at 2pm. Patient to f/u PRN. documented in this encounter Plan of Treatment Upcoming Encounters Date Type Department Care Team (Late st Contact Info) Description 10/05/2024 2:00 PM EST Office Visit [facility] [address] [place] [phone] Anabel Patel MD [address] [place] [address] documented as of this encounter Visit Diagnoses Not on filedocumented in this encounter Additional Health Concerns Assessment Noted Time PHQ-9 Depression Total Score: 19 024 10:24 AM EST documented as of this encounter Care Teams Events Director Relationship Specialty Start Date End Date Anabel Patel MD [address] [place] [address] PCP - General Internal Medicine 09/21/23 documented as of this encounter
--- OUTSIDE RECORDS SUMMARY | 2024-09-26 08:54 | XMS_ITS | Clinical Summary ---
Author Organization [facility] Address [address] [place] [address] Care Team Providers Care Senior Operations Analyst Name Role Phone Unavailable Primary Care Provider [...] Plan of Treatment Not on file Insurance [place] MEDICA[place] DENTAL [facility] [id number]
--- OUTSIDE RECORDS SUMMARY | 2024-09-26 08:54 | XMS_ITS | Encounter Summary ---
Author Organization [employer] Address [address] [facility] 7[address] [place] [address] Care Team Providers Care Completion Manager Name Role Phone Anabel Patel MD Primary Care Provide r Reason for Visit * Reason Onset Date Comments ER Follow-up 08/31/2024 Encounter Details Date Type Department Care Team ([facility] st Contact Info) Description 08/31/2024 Telephone [facility] [address] [place], [place] [phone] Anabel Patel MD [address] [place], [place] [phone] ER Follow-up Social History Tobacco Use Types [...] 2:10 PM EST Call returned to Thomas Fontenot to triage below. Reports continues to have diarrhea, cold like sx. New onset of vomiting with bright red blood and clots. Pt sound weak event management consultant with triager. Pt advised of disposition, agrees to return to [facility] ER now for re-evaluation. Will send [...] ED visit on : Date: 08/29/24 Hospital: [facility] Seen for: RSV Symptomatic Yes Symptom: Breathing Trouble Outcome: Talk to a nurse or provider within 15 minutes Reason: Trouble breathing through the mouth Please contact pt at [phone]. (Divehi Speaker) documented in this encounter Plan of Treatment Upcoming Encounters Date Type Department Care Team (Late st Contact Info) Description 10/05/2024 2:00 PM EST Office Visit [facility] [address] [place] [phone] Anabel Patel MD [address] [place] [address] documented as of this encounter Visit Diagnoses Not on filedocumented in this encounter Additional Health Concerns Assessment Noted Time PHQ-9 Depression Total Score: 19 024 10:24 AM EST documented as of this encounter Care Teams Completion Manager Relationship Specialty Start Date End Date Anabel Patel MD [address] [place] [address] [phone] PCP - General Internal Medicine 09/21/23 documented as of this encounter
--- OUTSIDE RECORDS SUMMARY | 2024-09-26 08:54 | XMS_ITS | Encounter Summary ---
Author Organization [employer] [facility] Address [address] [facility] 7t [place] [address] Care Team Providers Care Potato Chip Processing Supervisor Name Role Phone Anabel Patel MD Primary Care Provide r Reason for Visit * Reason Onset Date Comments New patient 06/25/2023 Encounter Details Date Type Department Care Team (Late st Contact Info) Description 06/25/2023 Telephone [facility] [address] [place] [address] [phone] Elvis Tsai MD [address] [place] [address] [phone] New patient Social History Tobacco Use Types [...] 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 EFFECTIVE SINCE 06/25/2023 documented in this encounter Plan of Treatment Upcoming Encounters Date Type Department Care Team (Late st Contact Info) Description 10/05/2024 2:00 PM EST Office Visit [facility] [address] [place] [address] Anabel Patel MD [address] [place] [address] documented as of this encounter Visit Diagnoses Not on filedocumented in this encounter Care Teams Potato Chip Processing Supervisor Relationship Specialty Start Date End Date Anabel Patel MD [address] [place] [address] PCP - General Internal Medicine 09/21/23 documented as of this encounter
--- OUTSIDE RECORDS SUMMARY | 2024-09-26 08:54 | XMS_ITS | Clinical Summary ---
Author Organization [facility], Address [address] [place] [address] [place] [address] Phone Care Team Providers Care Homogenizer Operator Name Role Phone Isabel Cota MD Primary Care Provider [phone] Allergies Active Allergy Reactions Criticality Noted Date [...] Care Team (Late st Contact Info) Description 11/01/2024 4:50 PM EDT Office Visit [facility], [address] [place] [phone] Guille Mcginnis MD [address] [place] [phone] Health Maintenance Due Date Last Done Comments Pneumococcal Vaccine: Pediat rics (0 to 5 Years) and At-Risk Patients (6 to 64 Years) (1 of 2 - PCV) 1994 Hepatitis B Vaccine (1 of 3 - 19+ 3-dose series) 2007 Influenza Vaccine (#1) 2024 , 06/02/2018, 05/19/2017, Additional history exists Insurance MEDICAID [place] Care Teams Homogenizer Operator Relationship Specialty Start Date End Date Isabel Cota MD [address] [place] [address] PCP - General Internal Medicine 05/29/21
--- OUTSIDE RECORDS SUMMARY | 2024-09-26 08:55 | XMS_ITS | Encounter Summary ---
Author Organization [facility] Address [address] [place] [address] Care Team Providers Care Assembler Flexible Leads Name Role Phone Tatyana Murillo MD Primary Care Provider [phone] Reason for Visit * Reason Comments Diarrhea Abdominal Pain, Diar floridalma x 5 days Encounter Details Date Type Department Care Team (Late st Contact Info) Description 08/29/2024 8:40 PM EST - 08/29/2024 11:37 PM EST [facility] Emergency [address] [place] [id number] Simon Cartagena MD [address] [place] [address] Joe Elliott MD [address] [place] [address] RSV bronchitis (Primary Dx) Discharge Disposition: Home [...] be sent through Care Everywhere. * Bronchitis (Latvian) * Infection: Respiratory Syncytial Virus (RSV) (Latvian) documented in this encounter Medications at Time [...] Means Destination Comment s Home or Self [facility] documented in this encounter Progress Notes * Radha Gardner RN - 08/29/2024 5:02 PM EST Presents c/o RUQ abd pain that started 5 days ago along with n/v/d. Also c/o a productive cough x 5days also. Taking otc meds with no relief * Simon Cartagena MD - 08/29/2024 4:52 PM EST [facility] Emergency Department Encounter Note Patient Name: [...] 10/25/2017 DX:Anxiety and depression Bipolar 2 disorder ([facility]) 10/25/2017 DX:Bipolar 2 disorder ([facility]) CKD (chronic kidney disease) stage 3, GFR 30-59 ml/min ([facility]) 10/26/2017 DX:CKD (chronic kidney disease) stage 3, GFR 30-59 ml/min ([facility]); COMMENT: S/p renal biopsy, pathology [...] however non-toxic appearing, no acute distress. SKIN: [place], warm, dry. HEENT: EOMI. NECK: Supple, full [...] Detected Narrative: Testing was performed using the [employer] Respiratory Pathogen PCR Assay. All results must [...] Procedure Abnormality Status --------- ------ CBC auto differential[[id number]] Abnormal Final result Please view results for these tests on the individual orders. URINALYSIS WITH REFLEX MICROSCOPIC AND CULTURE Narrative: The following orders were created for panel order Urinalysis with reflex microscopic and culture. Procedure Abnormality Status --------- ------ Urinalysis with reflex ...[[id number]] Sorto urine culture tube[[id number]] Please view results for these tests on the individual orders. URINALYSIS WITH REFLEX MICROSCOPIC AND CULTURE Abnormal Labs Reviewed RESPIRATORY VIRUS PANEL MOLECULAR STUDY - Abnormal; Notable for the following components: Result Value RSV PCR Detected (*) All other components within normal limits Narrative: Testing was performed using the [employer] Respiratory Pathogen PCR Assay. All results must [...] No active GI upset. Per our and [facility] EMR, patient's last labs on record are [...] answered, plan for discharge with outpatient follow-up. [employer] dictation software was utilized for documentation and [...] Detected LAB MICROBIOLOGY METHOD 08/29/2024 10:04 PM [facility] Influenza A PCR Not Detected Not Detected LAB MICROBIOLOGY METHOD 08/29/2024 10:04 PM [facility] Influenza B PCR Not Detected Not Detected LAB MICROBIOLOGY METHOD 08/29/2024 10:04 PM [facility] Coronavirus 229E Not Detected Not Detected LAB MICROBIOLOGY METHOD 08/29/2024 10:04 PM [facility] Coronavirus HKU1 Not Detected Not Detected LAB MICROBIOLOGY METHOD 08/29/2024 10:04 PM [facility] Coronavirus OC43 Not Detected Not Detected LAB MICROBIOLOGY METHOD 08/29/2024 10:04 PM [facility] Coronavirus NL63 Not Detected Not Detected LAB MICROBIOLOGY METHOD 08/29/2024 10:04 PM [facility] Parainfluenza Virus 1 Not Detected Not Detected LAB MICROBIOLOGY METHOD 08/29/2024 10:04 PM [facility] Parainfluenza Virus 2 Not Detected Not Detected LAB MICROBIOLOGY METHOD 08/29/2024 10:04 PM [facility] Parainfluenza Virus 3 Not Detected Not Detected LAB MICROBIOLOGY METHOD 08/29/2024 10:04 PM [facility] Parainfluenza Virus 4 Not Detected Not Detected LAB MICROBIOLOGY METHOD 08/29/2024 10:04 PM [facility] RSV PCR Detected(A ) Not Detected LAB MICROBIOLOGY METHOD 08/29/2024 10:04 PM [facility] Human Metapneumovirus A and B Not Detected Not Detected LAB MICROBIOLOGY METHOD 08/29/2024 10:04 PM [facility] Rhinovirus/Entero virus Not Detected Not Detected LAB MICROBIOLOGY METHOD 08/29/2024 10:04 PM [facility] Bordetella pertussis Not Detected Not Detected LAB MICROBIOLOGY METHOD 08/29/2024 10:04 PM [facility] Bordetella parapertussis Not Detected Not Detected LAB MICROBIOLOGY METHOD 08/29/2024 10:04 PM [facility] Mycoplasma pneumo by PCR Not Detected Not Detected LAB MICROBIOLOGY METHOD 08/29/2024 10:04 PM [facility] Chlamydia pneumoniae Not Detected Not Detected LAB MICROBIOLOGY METHOD 08/29/2024 10:04 PM [facility] SARS COV-2 Not Detected Not Detected LAB MICROBIOLOGY METHOD 08/29/2024 10:04 PM [facility] Swab Both anterior nares / Unknown Non-blood Collection / Unknown 08/29/2024 8:57 PM EST 08/29/2024 9:05 PM EST Narrative [facility] - 08/29/2024 10:04 PM EST Testing was performed using the [employer] Sy[employer] Respiratory Pathogen PCR Assay. All results must [...] Rad MERCHANT LAB MICROBIOLOGY - GENERAL ORDERABLES [facility] ([facility] [address] [place] [address], * XR Chest 2 Views (08/29/2024 6:24 PM EST) Anatomical Region Laterality Modality Body Radiographic Danay ging 08/30/2024 8:15 AM EST Impressions 08/30/2024 8:16 AM EST Impression: Stable radiographic appearance of the chest. No active pulmonary process identified. Telerad SHONDA ([id number]) -------- FINAL REPORT -------- Dictated By: Shantel Sarabia Dictated Date: 08/30/2024 08:15 ET Assigned Physician: Shantel Sarabia Reviewed and Electronically Signed By: Shantel Sarabia Signed Date: 08/30/2024 08:16 ET Workstation ID: [id number] Transcribed By: Self Edit Transcribed Date: 08/30/2024 [...] chest. No active pulmonary processidentified. Telerad PA ([id number]) -------- FINAL REPORT -------- Dictated By: Shantel Sarabia Dictated Date: 08/30/2024 08:15 ET Assigned Physician: Shantel Sarabia Reviewed and Electronically Signed By: Shantel Sarabia Signed Date: 08/30/2024 08:16 ET Workstation ID: [id number] Transcribed By: Self Edit Transcribed Date: 08/30/2024 08:15 ET Simon Cartagena MD IMG XR PROCEDURES * (ABNORMAL) CBC auto differential (08/29/2024 6:16 PM EST) WBC 16.5(H) 4.8 - 10.8 K/mcL LAB HEMETOLOGY METHOD 08/29/2024 6:36 PM [facility] RBC 4.30 3.80 - 4.80 M/mcL LAB HEMETOLOGY METHOD 08/29/2024 6:36 PM [facility] Hemoglobin 12.1 11.5 - 16.0 g/dL LAB HEMETOLOGY METHOD 08/29/2024 6:36 PM [facility] Hematocrit 38.2 35.0 - 47.0 % LAB HEMETOLOGY METHOD 08/29/2024 6:36 PM [facility] MCV 89.3 79.0 - 98.0 FL LAB HEMETOLOGY METHOD 08/29/2024 6:36 PM [facility] MCH 28.3 27.0 - 32.0 pcg LAB HEMETOLOGY METHOD 08/29/2024 6:36 PM [facility] MCHC 31.7(L) 32.0 - 37.0 g/dL LAB HEMETOLOGY METHOD 08/29/2024 6:36 PM [facility] RDW 13.6 11.0 - 15.0 % LAB HEMETOLOGY METHOD 08/29/2024 6:36 PM [facility] Platelets 222 130 - 400 K/mcL LAB HEMETOLOGY METHOD 08/29/2024 6:36 PM [facility] MPV 11.1(H) 7.0 - 11.0 FL LAB HEMETOLOGY METHOD 08/29/2024 6:36 PM [facility] NRBC 0.0 <1.0 % LAB HEMETOLOGY METHOD 08/29/2024 6:36 PM [facility] NRBC Absolute 0.00 <0.10 K/mcL LAB HEMETOLOGY METHOD 08/29/2024 6:36 PM [facility] Neutrophils Relative 86.6 % LAB HEMETOLOGY METHOD 08/29/2024 6:36 PM [facility] Lymphocytes Relative 7.6 % LAB HEMETOLOGY METHOD 08/29/2024 6:36 PM [facility] Monocytes Relative 4.4 % LAB HEMETOLOGY METHOD 08/29/2024 6:36 PM [facility] Eosinophils Relative 0.7 % LAB HEMETOLOGY METHOD 08/29/2024 6:36 PM [facility] Basophils Relative 0.2 % LAB HEMETOLOGY METHOD 08/29/2024 6:36 PM [facility] Immature Granulocytes Relative 0.5 % LAB HEMETOLOGY METHOD 08/29/2024 6:36 PM [facility] Neutrophils Absolute 14.32(H) 1.50 - 7.00 K/mcL LAB HEMETOLOGY METHOD 08/29/2024 6:36 PM [facility] Lymphocytes Absolute 1.26 1.00 - 5.00 K/mcL LAB HEMETOLOGY METHOD 08/29/2024 6:36 PM EST [facility] Monocytes Absolute 0.72 0.20 - 1.00 K/mcL LAB HEMETOLOGY METHOD 08/29/2024 6:36 PM EST [facility] Eosinophils Absolute 0.11 0.00 - 0.50 K/[facility] LAB HEMETOLOGY METHOD 08/29/2024 6:36 PM EST [facility] Basophils Absolute 0.03 0.00 - 0.20 K/[facility] LAB HEMETOLOGY METHOD 08/29/2024 6:36 PM EST [facility]) [facility] Immature Granulocytes Absolute 0.09(H) 0.00 - 0.03 K/[facility] LAB HEMETOLOGY METHOD 08/29/2024 6:36 PM EST [facility] Blood Venous blood specimen / Unknown Venipuncture / Unknown 08/29/2024 6:16 PM EST 08/29/2024 6:27 PM EST Simon Cartagena MD LAB BLOOD ORDERAB LES [facility] [address] [place] [address], [place] [phone] * Lipase (08/29/2024 6:16 PM EST) Lipase 41 13 - 75 unit/L LAB CHEMISTRY METHOD 08/29/2024 6:53 PM EST [facility] Blood Venous blood specimen / Unknown Venipuncture / Unknown 08/29/2024 6:16 PM EST 08/29/2024 6:27 PM EST Simon Cartagena MD LAB BLOOD ORDERAB LES [facility] [address] [place] [address], [place] [phone] * (ABNORMAL) Comprehensive metabolic panel (08/29/2024 6:16 PM EST) Sodium 135 133 - 145 mmol/L LAB CHEMISTRY METHOD 08/29/2024 6:53 PM [facility] Potassium 3.1(L) 3.5 - 5.5 mmol/L LAB CHEMISTRY METHOD 08/29/2024 6:53 PM [facility] Chloride 104 96 - 110 mmol/L LAB CHEMISTRY METHOD 08/29/2024 6:53 PM [facility] CO2 19(L) 21 - 32 mmol/L LAB CHEMISTRY METHOD 08/29/2024 6:53 PM [facility] Anion Gap 12(H) 3 - 11 LAB CHEMISTRY METHOD 08/29/2024 6:53 PM [facility] Glucose 85 70 - 100 mg/dL LAB CHEMISTRY METHOD 08/29/2024 6:53 PM [facility] BUN 33(H) 5 - 25 mg/dL LAB CHEMISTRY METHOD 08/29/2024 6:53 PM [facility] Creatinine 3.59(H) 0.50 - 1.10 mg/dL LAB CHEMISTRY METHOD 08/29/2024 6:53 PM [facility] eGFR 16(L) >=60 mL/min/1. 73m2 LAB CHEMISTRY METHOD 08/29/2024 6:53 PM [facility] Comment:Calculation based on the??Chronic Kidney Disease Epidemiology Collaboration (CKD-EPI) equation refit??without adjustment for race. BUN/Creatinine Ratio 9.2 LAB CHEMISTRY METHOD 08/29/2024 6:53 PM [facility] Calcium 8.3(L) 8.5 - 10.5 mg/dL LAB CHEMISTRY METHOD 08/29/2024 6:53 PM [facility] AST (SGOT) 71(H) 10 - 42 unit/L LAB CHEMISTRY METHOD 08/29/2024 6:53 PM EST [facility] ALT (SGPT) 80(H) 10 - 60 unit/L LAB CHEMISTRY METHOD 08/29/2024 6:53 PM EST [facility] Alkaline Phosphatase 161(H) 42 - 121 unit/L LAB CHEMISTRY METHOD 08/29/2024 6:53 PM EST [facility] Total Protein 7.7 6.0 - 8.0 g/dL LAB CHEMISTRY METHOD 08/29/2024 6:53 PM EST [facility] Albumin 3.4 3.2 - 5.0 g/dL LAB CHEMISTRY METHOD 08/29/2024 6:53 PM [facility] Total Bilirubin 0.7 0.0 - 1.4 mg/dL LAB CHEMISTRY METHOD 08/29/2024 6:53 PM [facility] Blood Venous blood specimen / Unknown Venipuncture / Unknown 08/29/2024 6:16 PM EST 08/29/2024 6:27 PM EST Simon Caratgena MD LAB BLOOD ORDERAB LES [facility] [address] [place] [address], documented in this encounter Visit Diagnoses Diagnosis [...] 08/29/2024 10:04 PM EST RSV 08/29/2024 08/29/2024 09/22/2024 7:07 PM EST documented as of this encounter Care Teams Assembler Flexible Leads Relationship Specialty Start Date End Date Tatyana Murillo MD [address] [place] [address] PCP - General Internal Medicine 06/26/21 documented as of this encounter
--- OUTSIDE RECORDS SUMMARY | 2024-09-26 08:55 | XMS_ITS | Encounter Summary ---
Author Organization [facility] Address [id number] [place] [id number] Care Team Providers Care Manager Transition Name Role Phone Tatyana Murillo MD Primary Care Provider [phone] Reason for Visit * Reason Comments Cough Vomiting * Auth/Cert (Routine) Specialty Diagnoses / Procedures Referred By Contac t Referred To Contact Diagnoses Hypokalemia Procedures [id number] Didier Overton MD [address] [place] [id number] sp Emergency [address] [place] [phone] Referral ID Status Reason Start Date Expiration Date Visits Re quested Visits Authorized [id number] 1 1 Encounter Details Date Type Department Care Team (Late st Contact Info) Description 08/31/2024 7:27 PM EST - 09/02/2024 2:13 PM EST Emergency [facility] [address] [place] [phone] Didier Overton MD [address] [place] [phone] Leif Dillard MD [address] [place] [phone] Chauncey Medina MD [address] [place] [phone] Acute bronchitis due to respiratory syncytial virus [...] in this encounter Discharge Summaries * Leif Dlilard MD - 09/02/2024 2:13 PM EST Images [...] well on room air. On ambulation maintains [id number] well in high 90s and no significant [...] up from the pharmacy Abnormal chest x-ray [id number] showed 2 lucent structure in the mid [...] Your Medications These medications were sent to [facility]/pharmacy #[id number] - [place], [place] - [facility] [address] [place] [address] acetaminophen 325 mg tablet albuterol HFA 90 [...] Signed Date: 09/01/2024 15:13 ET Workstation ID: [id number] Transcribed By: Self Edit Transcribed Date: 09/01/2024 15:10 ET documented in this encounter Discharge Instructions * Discharge Instructions* Leif Dillard MD - 09/02/2024 11:25 AM EST Changes in your medications are as mentioned below- - take medications as prescribed Special Instructions- - follow up outpatient with PCP -Follow-up outpatient with composition weatherboard installer; you will need repeat blood work on [...] following to make arrangements to follow up. [facility] Elo Corinna Elo [facility] documented in this encounter Medications at [...] documented in this encounter Progress Notes * Stephani Reyna RN - 09/02/2024 1:48 PM EST [...] infectious concerns): [x] Yes / [] No Fence Maker: [x] Yes / [] No If YES, Cardiac Rhythm: [x] NSR, [] SB, [] ST, [] A-FIB, [] A-Flutter, [] Pacemaker, [] 1st Degree HB, [] 2nd Degree HB, [] 3rd Degree HB Reason for Fence Maker: VS: Visit Vitals BP 128/61 (BP Location: Left arm, Patient Position: Sitting) Pulse (!) 115 Comment: sinus tach, bhupendra aware Temp 36.9 ??C (98.5 ??F) (Oral) [...] by and Phone Extension: [place] blue pod [phone] * Xenia Arora RN - 08/31/2024 2:27 [...] kidney disease) stage 3, GFR 30-59 ml/min ([facility]); COMMENT: S/p renal biopsy, pathology report pending. [...] Procedure Abnormality Status --------- ------ CBC auto differential[[id number]] Abnormal Final result Please view results for [...] change her diet to diabetic diet monitor [id number]'s see 5. Tobacco abuse nicotine replacement has been ordered 6. Bipolar disorder patient stopped her Wellbutrin and antianxiety medications when asked why she said I just did. DVT prophylaxis: [facility] proxy: No formal designation but she lists her partner Calvin Calles as her contactand his number is [phone] CODE STATUS: Full code Case and plan discussed with Dr Medina. Associated attestation - Chauncey Medina MD - 09/10/2024 6:46 PM EST This is a split/shared visit with Moedsta Bedoya NP. I personally performed the medical [...] CBC auto differential (09/02/2024 5:53 AM EST) [facility] Signature WBC 17.2(H) 4.8 - 10.8 K/[facility] LAB HEMETOLOGY METHOD 09/02/2024 7:09 AM [facility] RBC 3.30(L) 3.80 - 4.80 M/mcL LAB HEMETOLOGY METHOD 09/02/2024 7:09 AM [facility] Hemoglobin 9.3(L) 11.5 - 16.0 g/dL LAB HEMETOLOGY METHOD 09/02/2024 7:09 AM [facility] Hematocrit 29.7(L) 35.0 - 47.0 % LAB HEMETOLOGY METHOD 09/02/2024 7:09 AM [facility] MCV 91.4 79.0 - 98.0 FL LAB HEMETOLOGY METHOD 09/02/2024 7:09 AM [facility] MCH 28.6 27.0 - 32.0 pcg LAB HEMETOLOGY METHOD 09/02/2024 7:09 AM [facility] MCHC 31.3(L) 32.0 - 37.0 g/dL LAB HEMETOLOGY METHOD 09/02/2024 7:09 AM [facility] RDW 14.0 11.0 - 15.0 % LAB HEMETOLOGY METHOD 09/02/2024 7:09 AM [facility] Platelets 216 130 - 400 K/mcL LAB HEMETOLOGY METHOD 09/02/2024 7:09 AM [facility] MPV 11.1(H) 7.0 - 11.0 FL LAB HEMETOLOGY METHOD 09/02/2024 7:09 AM [facility] NRBC 0.0 <1.0 % LAB HEMETOLOGY METHOD 09/02/2024 7:09 AM [facility] NRBC Absolute 0.00 <0.10 K/mcL LAB HEMETOLOGY METHOD 09/02/2024 7:09 AM [facility] Neutrophils Relative 78.5 % LAB HEMETOLOGY METHOD 09/02/2024 7:09 AM [facility] Lymphocytes Relative 13.6 % LAB HEMETOLOGY METHOD 09/02/2024 7:09 AM [facility] Monocytes Relative 5.0 % LAB HEMETOLOGY METHOD 09/02/2024 7:09 AM [facility] Eosinophils Relative 1.3 % LAB HEMETOLOGY METHOD 09/02/2024 7:09 AM [facility] Basophils Relative 0.3 % LAB HEMETOLOGY METHOD 09/02/2024 7:09 AM [facility] Immature Granulocytes Relative 1.3 % LAB HEMETOLOGY METHOD 09/02/2024 7:09 AM [facility] Neutrophils Absolute 13.51(H) 1.50 - 7.00 K/mcL LAB HEMETOLOGY METHOD 09/02/2024 7:09 AM [facility] Lymphocytes Absolute 2.34 1.00 - 5.00 K/mcL LAB HEMETOLOGY METHOD 09/02/2024 7:09 AM [facility] Monocytes Absolute 0.86 0.20 - 1.00 K/mcL LAB HEMETOLOGY METHOD 09/02/2024 7:09 AM [facility] Eosinophils Absolute 0.22 0.00 - 0.50 K/mcL LAB HEMETOLOGY METHOD 09/02/2024 7:09 AM [facility] Basophils Absolute 0.05 0.00 - 0.20 K/mcL LAB HEMETOLOGY METHOD 09/02/2024 7:09 AM [facility] Immature Granulocytes Absolute 0.23(H) 0.00 - 0.03 K/mcL LAB HEMETOLOGY METHOD 09/02/2024 7:09 AM [facility] Blood Venous blood specimen / Unknown Venipuncture / Unknown 09/02/2024 5:53 AM EST 09/02/2024 6:30 AM EST Chauncey Medina MD LAB BLOOD ORDERABLES Performing Organization Address City/[facility]/ZIP Co de Phone Number [facility] [address] [place] [address], * (ABNORMAL) Magnesium (09/02/2024 5:53 AM EST) Magnesium 1.8(L) 1.9 - 2.6 mg/dL LAB CHEMISTRY METHOD 09/02/2024 7:04 AM [facility] Blood Venous blood specimen / Unknown Venipuncture / Unknown 09/02/2024 5:53 AM EST 09/02/2024 6:30 AM EST Chauncey Medina MD LAB BLOOD ORDERABLES Performing Organization Address [facility]/ZIP Co de Phone Number [facility] [address] [place] [address], * (ABNORMAL) Basic metabolic panel (09/02/2024 5:53 AM EST) Sodium 136 133 - 145 mmol/L LAB CHEMISTRY METHOD 09/02/2024 7:04 AM [facility] Potassium 3.4(L) 3.5 - 5.5 mmol/L LAB CHEMISTRY METHOD 09/02/2024 7:04 AM [facility] Chloride 107 96 - 110 mmol/L LAB CHEMISTRY METHOD 09/02/2024 7:04 AM [facility] CO2 20(L) 21 - 32 mmol/L LAB CHEMISTRY METHOD 09/02/2024 7:04 AM [facility] Anion Gap 9 3 - 11 LAB CHEMISTRY METHOD 09/02/2024 7:04 AM [facility] Glucose 88 70 - 100 mg/dL LAB CHEMISTRY METHOD 09/02/2024 7:04 AM [facility] BUN 35(H) 5 - 25 mg/dL LAB CHEMISTRY METHOD 09/02/2024 7:04 AM [facility] Creatinine 3.54(H) 0.50 - 1.10 mg/dL LAB CHEMISTRY METHOD 09/02/2024 7:04 AM EST [facility] eGFR 16(L) >=60 mL/min/1. 73m2 LAB CHEMISTRY METHOD 09/02/2024 7:04 AM EST [facility] Comment:Calculation based on the??Chronic Kidney Disease Epidemiology Collaboration (CKD-EPI) equation refit??without adjustment for race. BUN/Creatinine Ratio 9.9 LAB CHEMISTRY METHOD 09/02/2024 7:04 AM [facility] Calcium 8.0(L) 8.5 - 10.5 mg/dL LAB CHEMISTRY METHOD 09/02/2024 7:04 AM [facility] Blood Venous blood specimen / Unknown Venipuncture / Unknown 09/02/2024 5:53 AM EST 09/02/2024 6:30 AM EST Chauncey Medina MD LAB BLOOD ORDERABLES [facility] [address] [place] [address], * XR Chest 2 Views (09/01/2024 3:08 [...] Signed Date: 09/01/2024 15:13 ET Workstation ID: [id number] Transcribed By: Self Edit Transcribed Date: 09/01/2024 [...] Signed Date: 09/01/2024 15:13 ET Workstation ID: [id number] Transcribed By: Self Edit Transcribed Date: 09/01/2024 15:10 ET Modesta Bedoya MALARIOLOGIST IMG XR PROCEDURES * (ABNORMAL) CBC auto differential (09/01/2024 5:06 AM EST) WBC 15.9(H) 4.8 - 10.8 /[facility] LAB HEMETOLOGY METHOD 09/01/2024 6:11 AM EST [facility] RBC 3.20(L) 3.80 - 4.80 M/mcL LAB HEMETOLOGY METHOD 09/01/2024 6:11 AM [facility] Hemoglobin 9.0(L) 11.5 - 16.0 g/dL LAB HEMETOLOGY METHOD 09/01/2024 6:11 AM [facility] Hematocrit 28.7(L) 35.0 - 47.0 % LAB HEMETOLOGY METHOD 09/01/2024 6:11 AM [facility] MCV 89.7 79.0 - 98.0 FL LAB HEMETOLOGY METHOD 09/01/2024 6:11 AM [facility] MCH 28.1 27.0 - 32.0 pcg LAB HEMETOLOGY METHOD 09/01/2024 6:11 AM [facility] MCHC 31.4(L) 32.0 - 37.0 g/dL LAB HEMETOLOGY METHOD 09/01/2024 6:11 AM [facility] RDW 13.6 11.0 - 15.0 % LAB HEMETOLOGY METHOD 09/01/2024 6:11 AM [facility] Platelets 170 130 - 400 K/mcL LAB HEMETOLOGY METHOD 09/01/2024 6:11 AM [facility] MPV 10.9 7.0 - 11.0 FL LAB HEMETOLOGY METHOD 09/01/2024 6:11 AM [facility] NRBC 0.0 <1.0 % LAB HEMETOLOGY METHOD 09/01/2024 6:11 AM [facility] NRBC Absolute 0.00 <0.10 K/mcL LAB HEMETOLOGY METHOD 09/01/2024 6:11 AM [facility] Neutrophils Relative 82.7 % LAB HEMETOLOGY METHOD 09/01/2024 6:11 AM [facility] Lymphocytes Relative 10.5 % LAB HEMETOLOGY METHOD 09/01/2024 6:11 AM EST [facility] Monocytes Relative 5.1 % LAB HEMETOLOGY METHOD 09/01/2024 6:11 AM [facility] Eosinophils Relative 0.9 % LAB HEMETOLOGY METHOD 09/01/2024 6:11 AM [facility] Basophils Relative 0.1 % LAB HEMETOLOGY METHOD 09/01/2024 6:11 AM [facility] Immature Granulocytes Relative 0.7 % LAB HEMETOLOGY METHOD 09/01/2024 6:11 AM [facility] Neutrophils Absolute 13.17(H) 1.50 - 7.00 K/mcL LAB HEMETOLOGY METHOD 09/01/2024 6:11 AM [facility] Lymphocytes Absolute 1.68 1.00 - 5.00 K/mcL LAB HEMETOLOGY METHOD 09/01/2024 6:11 AM [facility] Monocytes Absolute 0.81 0.20 - 1.00 K/mcL LAB HEMETOLOGY METHOD 09/01/2024 6:11 AM [facility] Eosinophils Absolute 0.14 0.00 - 0.50 K/mcL LAB HEMETOLOGY METHOD 09/01/2024 6:11 AM [facility] Basophils Absolute 0.02 0.00 - 0.20 K/mcL LAB HEMETOLOGY METHOD 09/01/2024 6:11 AM [facility] Immature Granulocytes Absolute 0.11(H) 0.00 - 0.03 K/mcL LAB HEMETOLOGY METHOD 09/01/2024 6:11 AM [facility] Blood Venous blood specimen / Unknown Venipuncture / Unknown 09/01/2024 5:06 AM EST 09/01/2024 5:40 AM EST Didier Overton MD LAB BLOOD ORDERABLE S [facility] [address] [place] [address], * (ABNORMAL) Phosphorus (09/01/2024 5:06 AM EST) [facility] Phosphorus 1.9(L) 2.5 - 4.5 mg/dL LAB CHEMISTRY METHOD 09/01/2024 6:09 AM EST [facility] Blood Venous blood specimen / Unknown Venipuncture / Unknown 09/01/2024 5:06 AM EST 09/01/2024 5:42 AM EST Didier Overton MD LAB BLOOD ORDERABLE S Performing Organization Address [facility]/ZIP Co de Phone Number [facility] [address] [place] [address], [place] [phone] * Magnesium (09/01/2024 5:06 AM EST) [facility] Magnesium 1.9 1.9 - 2.6 mg/dL LAB CHEMISTRY METHOD 09/01/2024 6:09 AM EST [facility] Blood Venous blood specimen / Unknown Venipuncture / Unknown 09/01/2024 5:06 AM EST 09/01/2024 5:42 AM EST Didier Overton MD LAB BLOOD ORDERABLE S Performing Organization Address City/[facility]/ZIP Co de Phone Number [facility] [address] [place] [address], * (ABNORMAL) Basic metabolic panel (09/01/2024 5:06 AM EST) [facility] Sodium 134 133 - 145 mmol/L LAB CHEMISTRY METHOD 09/01/2024 6:09 AM EST [facility] Potassium 3.1(L) 3.5 - 5.5 mmol/L LAB CHEMISTRY METHOD 09/01/2024 6:09 AM EST [facility] Chloride 104 96 - 110 mmol/L LAB CHEMISTRY METHOD 09/01/2024 6:09 AM [facility] CO2 23 21 - 32 mmol/L LAB CHEMISTRY METHOD 09/01/2024 6:09 AM [facility] Anion Gap 7 3 - 11 LAB CHEMISTRY METHOD 09/01/2024 6:09 AM [facility] Glucose 107(H) 70 - 100 mg/dL LAB CHEMISTRY METHOD 09/01/2024 6:09 AM [facility] BUN 38(H) 5 - 25 mg/dL LAB CHEMISTRY METHOD 09/01/2024 6:09 AM [facility] Creatinine 3.79(H) 0.50 - 1.10 mg/dL LAB CHEMISTRY METHOD 09/01/2024 6:09 AM [facility] eGFR 15(L) >=60 mL/min/1. 73m2 LAB CHEMISTRY METHOD 09/01/2024 6:09 AM [facility] Comment:Calculation based on the??Chronic Kidney Disease Epidemiology Collaboration (CKD-EPI) equation refit??without adjustment for race. BUN/Creatinine Ratio 10.0 LAB CHEMISTRY METHOD 09/01/2024 6:09 AM [facility] Calcium 7.4(L) 8.5 - 10.5 mg/dL LAB CHEMISTRY METHOD 09/01/2024 6:09 AM [facility] Blood Venous blood specimen / Unknown Venipuncture / Unknown 09/01/2024 5:06 AM EST 09/01/2024 5:42 AM EST Didier Overton MD LAB BLOOD ORDERABLE S [facility] [address] [place] [address], * ECG 12 lead (08/31/2024 5:09 PM EST) Ventricular Rate ECG 99 BPM GEMUSE Atrial Rate 99 BPM GEMUSE P-R Interval 128 ms GEMUSE QRS Duration 92 ms GEMUSE Q-T Interval 354 ms GEMUSE QTc 454 ms GEMUSE P Wave [place] 59 degrees GEMUSE R [place] -12 degrees GEMUSE T [place] -13 degrees GEMUSE ECG Interpretation Normal sinus [...] Overton MD ECG ORDERABLES Performing Organization Address City/[facility]/ZIP Co de Phone Number GEMUSE * (ABNORMAL) Magnesium (08/31/2024 3:44 PM EST) Pathologist [facility] Magnesium 1.8(L) 1.9 - 2.6 mg/dL LAB CHEMISTRY METHOD 08/31/2024 8:21 PM EST [facility] Blood Venous blood specimen / Unknown Venipuncture / Unknown 08/31/2024 3:44 PM EST 08/31/2024 3:49 PM EST Anai MERCHANT LAB BLOOD ORDERA BLES Performing Organization Address City/[facility]/ZIP Co de Phone Number [facility] [address] [place] [address], * (ABNORMAL) CBC auto differential (08/31/2024 3:44 PM EST) WBC 18.1(H) 4.8 - 10.8 K/[facility] LAB HEMETOLOGY METHOD 08/31/2024 4:00 PM EST [facility] RBC 3.90 3.80 - 4.80 M/mcL LAB HEMETOLOGY METHOD 08/31/2024 4:00 PM EST [facility] Hemoglobin 11.0(L) 11.5 - 16.0 g/dL LAB HEMETOLOGY METHOD 08/31/2024 4:00 PM [facility] Hematocrit 33.9(L) 35.0 - 47.0 % LAB HEMETOLOGY METHOD 08/31/2024 4:00 PM [facility] MCV 88.1 79.0 - 98.0 FL LAB HEMETOLOGY METHOD 08/31/2024 4:00 PM [facility] MCH 28.6 27.0 - 32.0 pcg LAB HEMETOLOGY METHOD 08/31/2024 4:00 PM [facility] MCHC 32.4 32.0 - 37.0 g/dL LAB HEMETOLOGY METHOD 08/31/2024 4:00 PM [facility] RDW 13.8 11.0 - 15.0 % LAB HEMETOLOGY METHOD 08/31/2024 4:00 PM [facility] Platelets 199 130 - 400 K/mcL LAB HEMETOLOGY METHOD 08/31/2024 4:00 PM [facility] MPV 10.7 7.0 - 11.0 FL LAB HEMETOLOGY METHOD 08/31/2024 4:00 PM [facility] NRBC 0.0 <1.0 % LAB HEMETOLOGY METHOD 08/31/2024 4:00 PM [facility] NRBC Absolute 0.00 <0.10 K/mcL LAB HEMETOLOGY METHOD 08/31/2024 4:00 PM [facility] Neutrophils Relative 84.7 % LAB HEMETOLOGY METHOD 08/31/2024 4:00 PM [facility] Lymphocytes Relative 8.7 % LAB HEMETOLOGY METHOD 08/31/2024 4:00 PM [facility] Monocytes Relative 4.2 % LAB HEMETOLOGY METHOD 08/31/2024 4:00 PM [facility] Eosinophils Relative 0.3 % LAB HEMETOLOGY METHOD 08/31/2024 4:00 PM [facility] Basophils Relative 0.6 % LAB HEMETOLOGY METHOD 08/31/2024 4:00 PM [facility] Immature Granulocytes Relative 1.5 % LAB HEMETOLOGY METHOD 08/31/2024 4:00 PM [facility] Neutrophils Absolute 15.35(H) 1.50 - 7.00 K/mcL LAB HEMETOLOGY METHOD 08/31/2024 4:00 PM [facility] Lymphocytes Absolute 1.58 1.00 - 5.00 K/mcL LAB HEMETOLOGY METHOD 08/31/2024 4:00 PM [facility] Monocytes Absolute 0.76 0.20 - 1.00 K/mcL LAB HEMETOLOGY METHOD 08/31/2024 4:00 PM [facility] Eosinophils Absolute 0.05 0.00 - 0.50 K/mcL LAB HEMETOLOGY METHOD 08/31/2024 4:00 PM EST [facility] Basophils Absolute 0.10 0.00 - 0.20 K/mcL LAB HEMETOLOGY METHOD 08/31/2024 4:00 PM [facility] Immature Granulocytes Absolute 0.27(H) 0.00 - 0.03 K/mcL LAB HEMETOLOGY METHOD 08/31/2024 4:00 PM [facility] Blood Venous blood specimen / Unknown Venipuncture / Unknown 08/31/2024 3:44 PM EST 08/31/2024 3:49 PM EST Tejas Hyde MD LAB BLOOD ORDERABLES [facility] [address] [place] [address], * Lipase (08/31/2024 3:44 PM EST) Pathologist [facility] Lipase 26 13 - 75 unit/L LAB CHEMISTRY METHOD 08/31/2024 4:26 PM [facility] Blood Venous blood specimen / Unknown Venipuncture / Unknown 08/31/2024 3:44 PM EST 08/31/2024 3:49 PM EST Tejas Hyde MD LAB BLOOD ORDERABLES [facility] [address] [place] [address], [place] [phone] * (ABNORMAL) Comprehensive metabolic panel (08/31/2024 3:44 PM EST) [facility] Sodium 133 133 - 145 mmol/L LAB CHEMISTRY METHOD 08/31/2024 4:31 PM [facility] Potassium 2.7(LL) 3.5 - 5.5 mmol/L LAB CHEMISTRY METHOD 08/31/2024 4:31 PM [facility] Chloride 101 96 - 110 mmol/L LAB CHEMISTRY METHOD 08/31/2024 4:31 PM [facility] CO2 23 21 - 32 mmol/L LAB CHEMISTRY METHOD 08/31/2024 4:31 PM [facility] Anion Gap 9 3 - 11 LAB CHEMISTRY METHOD 08/31/2024 4:31 PM [facility] Glucose 110(H) 70 - 100 mg/dL LAB CHEMISTRY METHOD 08/31/2024 4:31 PM [facility] BUN 37(H) 5 - 25 mg/dL LAB CHEMISTRY METHOD 08/31/2024 4:31 PM [facility] Creatinine 3.87(H) 0.50 - 1.10 mg/dL LAB CHEMISTRY METHOD 08/31/2024 4:31 PM [facility] eGFR 15(L) >=60 mL/min/1. 73m2 LAB CHEMISTRY METHOD 08/31/2024 4:31 PM [facility] Comment:Calculation based on the??Chronic Kidney Disease Epidemiology Collaboration (CKD-EPI) equation refit??without adjustment for race. BUN/Creatinine Ratio 9.6 LAB CHEMISTRY METHOD 08/31/2024 4:31 PM [facility] Calcium 8.6 8.5 - 10.5 mg/dL LAB CHEMISTRY METHOD 08/31/2024 4:31 PM [facility] AST (SGOT) 40 10 - 42 unit/L LAB CHEMISTRY METHOD 08/31/2024 4:31 PM [facility] ALT (SGPT) 68(H) 10 - 60 unit/L LAB CHEMISTRY METHOD 08/31/2024 4:31 PM [facility] Alkaline Phosphatase 175(H) 42 - 121 unit/L LAB CHEMISTRY METHOD 08/31/2024 4:31 PM [facility] Total Protein 7.3 6.0 - 8.0 g/dL LAB CHEMISTRY METHOD 08/31/2024 4:31 PM [facility] Albumin 3.0(L) 3.2 - 5.0 g/dL LAB CHEMISTRY METHOD 08/31/2024 4:31 PM [facility] Total Bilirubin 0.8 0.0 - 1.4 mg/dL LAB CHEMISTRY METHOD 08/31/2024 4:31 PM [facility] Blood Venous blood specimen / Unknown Venipuncture / Unknown 08/31/2024 3:44 PM EST 08/31/2024 3:49 PM EST Tejas Hyde MD LAB BLOOD ORDERABLES [facility] [address] [place] [address], * ECG-Annotated (08/31/2024) Provider Onbase ECG ORDERABLES [...] 4 mg 4 mg, intravenous, Once, On Hope 08/31/24 at 1957, For 1 dose Given [...] at 2229, 2nd Line Option: -ONLY give MS if patient is unable to take orally [...] Provider: Barbara Brunson RN)[phone] (Stopped - Provider: Barabra Brunson RN)[id number] (New Bag - Provider: Barbara [...] at 2229, 2nd Line Option: -ONLY give MS if patient is unable to take orally [...] IV access (CANCELED) Until discontinued, Starting on Hope 08/31/24 at 2229, Until Specified And Saline [...] at 2229, 2nd Line Option: -ONLY give MS if patient is unable to take orally [...] Last Indicated Resolved Time RSV 08/29/2024 08/29/2024 09/22/2024 7:07 PM EST documented as of this encounter Care Teams Manager Transition Relationship Specialty Start Date End Date Tatyana Murillo MD [address] [place] [address] PCP - General Internal Medicine 06/26/21 documented as of this encounter
== END 2024-09-26 08:39 | disposition home or self-care (01) ==
LOC: HO.HMGCX 08:38
PROVIDERS: PCP Internal Medicine; Visit Provider Family Medicine
DX: R14.0 Abdominal distension (gaseous) (principal)
CPT/HCPCS: 76700

== ENCOUNTER → 2024-09-26 08:59 | Outpatient (BNV) | payer MEDICAID, SELFPAY | PROVIDERS: PCP Internal Medicine; Visit Provider Radiology Diagnostic Radiology | DX: K76.0 Fatty (change of) liver, not elsewhere classified (principal); R93.421 Abnormal radiologic findings on diagnostic imaging of right kidney; R93.422 Abnormal radiologic findings on diagnostic imaging of left kidney | CPT/HCPCS: 76700 ==

== ENCOUNTER 2024-10-19 10:20 | Outpatient (REF) | payer MEDICAID, SELFPAY ==
[2024-10-19 11:54] LABS: MANUAL DIFF FLAG NO
[2024-10-19 12:00] LABS: Basophils Absolute Auto 0.1 X10*3/uL (0.0-0.2); Basophils Percent Auto 0.4 % (0-2); Eosinophils Absolute Auto 0.1 X10*3/uL (0.0-0.4); Eosinophils Percent Auto 0.5 % (0-4); Hematocrit 31.3 % (37.0-47.0); Hemoglobin 10.3 g/dl (12.0-16.0); Imm Gran Abs Auto 0.04 X10*3/uL (0.00-0.03); Imm Gran Pct Auto 0.3 % (0.0-0.4); Lymphocytes Absolute Auto 2.1 X10*3/uL (1.2-4.9); Lymphocytes Percent Auto 15.5 % (20-40); Mean Corpuscular HGB Conc 32.9 g/dl (31.0-35.0); Mean Corpuscular Hemoglobin 28.8 pg (27.0-33.0); Mean Corpuscular Volume 87.4 fL (80.0-98.0); Mean Platelet Volume 10.9 fL (9.4-12.3); Monocytes Absolute Auto 0.4 X10*3/uL (0.1-1.2); Neutrophils Absolute Auto 10.6 x10*3/uL (2.0-8.3); Neutrophils Percent Auto 80.3 % (45-73); Platelet Count 247 X10*3/uL (160-400); Red Blood Count 3.58 X10*6/uL (4.20-5.50); Red Cell Distribution Width 14.1 % (11.0-16.0); White Blood Count 13.2 X10*3/uL (4.8-10.8)
--- OUTSIDE RECORDS SUMMARY | 2024-10-19 12:00 | XMS_ITS | Clinical Summary ---
Author Organization [employer] Address [address] [facility] [address] [place] [address] Care Team Providers Care Cardiac Cath Lab Manager Name Role Phone Anabel Patel MD Primary Care Provide r Allergies Active Allergy Reactions Criticality Noted Date Comments Penicillins Anaphylaxis,Swelling High 01/20/2023 Shrimp Flavor Agent (Non-Screening) Rash Low 10/19/2024 Medications * This document contains information received from the source organization and may not represent a complete record from that organization. gabapentin (Neurontin) 300 MG capsuleIndicati ons:Chronic midline low back pain without sciatica Take 1 capsule (300 mg) by mouth every 12 (twelve) hours. 60 capsule 1 10/19/19 24 Active hydrOXYzine HCl (Atarax) 25 MG tabletIndicatio [...] 1 06/06/20 24 Active Farxiga 10 MGIndications:S tage 3 chronic kidney disease, unspecified whether stage 3a or 3b CKD (CMS/HCC) TAKE 1 TABLET BY MOUTH EVERY DAY IN THE MORNING 90 tablet 06/12/20 24 Active ondansetron (Zofran) 4 MG tablet Take 1 tablet (4 mg) by mouth every 8 (eight) hours if needed for nausea or vomiting. 20 tablet 09/13/19 25 Active GAS RELIEF 125 MG capsule Take 125 mg by mouth every 6 (six) hours if needed for flatulence. 09/13/19 25 Active Ventolin HFA 108 (90 Base) MCG/ACT inhalerIndicati ons:Bronchitis Inhale 2 puffs every 4 (four) hours if needed for wheezing or shortness of breath. 18 g 1 10/19/19 25 Active Umeclidinium-Vi lanterol 62.5-25 MCG/ACT aerosol powderIndicatio ns:Bronchitis Inhale 1 puff Once per day. 1 each 2 10/19/19 25 026 Active Simethicone (Gas-Ex) 125 MG tablet tablet Take 1 tablet (125 mg) by mouth every 6 (six) hours if needed (gassiness). 60 tablet 1 09/13/19 25 025 Discontinued(Me d list cleanup (will not trigger notification to Pharmacy)) Ventolin HFA 108 (90 Base) MCG/ACT inhaler Inhale every 4 (four) hours if needed for wheezing or shortness of breath. 09/02/19 25 025 Discontinued(Re order (will not trigger notification to Pharmacy)) Umeclidinium-Vi lanterol 62.5-25 MCG/ACT aerosol powder Inhale 1 puff Once per day. 09/02/19 25 025 Discontinued(Re order (will not trigger notification to Pharmacy)) Active Problems Problem Noted Date Diagnosed Date Bronchitis 10/19/2024 SOB (shortness of breath) on exertion 10/19/2024 Palpitations 10/19/2024 Fatigue 10/19/2024 CKD (chronic kidney disease) stage 4, GFR [...] Encounters Date Type Department Care Team Description 10/19/2024 9:30 AM EST Office Visit [facility] [address] [place] [phone] Anabel Patel MD Bronchitis (Primary Dx); SOB (shortness of breath) on exertion; Palpitations; Other fatigue; Bipolar 2 disorder (CMS/[facility]) 10/19/2024 Travel 10/15/2024 Travel 10/05/[address] [address] Anabel Patel MD No Show 09/28/[address] [address] Trupti Smith, RN Results 09/15/2024 Telephone [facility] [address] [place] [address] Trupti Smith, RN Results 09/13/2024 11:00 AM EST Office Visit [facility] [address] [place] [address] Kristel Marin DO Decreased appetite (Primary Dx); Abdominal bloating 09/01/2024 Telephone [facility] [address] [place] [address] Anabel Patel MD ER Follow-up 08/31/2024 Telephone [facility] [address] [place] [address] Anabel Patel MD ER Follow-up from Last 3 Months Immunizations Name Administration Dates Next Due INFLUENZA INJECTABLE QUADRIV ALANT CCIIV4 MDCK Multi-dose vial 06/02/2018 Influenza injectable quadrivalent preservative f ree 09/21/2023 Influenza, Unspecified 05/19/2017,09/09/2011 Tdap 02/18/2012 Social History Tobacco Use Types Packs/Day Years Used Date Smoking Tobacco: Former Cigarettes Passive Smoke Exposure: Past Smokeless Tobacco: Never Tobacco Cessation:Counseling Given: Not Answered Alcohol Use Standard Drinks/Week Comments Never 0 (1 standard drink = 0.6 oz pur e alcohol) Depression Answer Date Recorded Patient Health Questionnaire-9 Score 15 10/19/2024 Patient Health Questionnaire-9 Score 15 10/19/2024 Last PHQ-9: Questionnaire Data Not on file 0 10/19/2024 Housing Stability Answer Date Recorded What is your housing situation today? I have merna leal 10/19/[address] you li ve. Do you have problems with any of the following? None of the above 10/19/2024 Food Insecurity Answer Date Recorded Within the past 12 months, y ou worried that your food would run out before you got money to buy more: Never True 10/19/2024 Within the past 12 months,th e food you bought just didn't last and you didn't have enough money to get more: Never True Transportation Answer Date Recorded In the past 12 months, has l ack of transportation kept you from medical appts, meetings, work or from getting things needed for daily living? No 10/19/2024 Utilities Answer Date Recorded In the past 12 months, has t he electric, gas, oil or water company threatened to shut off services in your home? No 10/19/2024 Depression Answer Date Recorded Patient Health Questionnaire-2 Score 5 10/19/2024 Internet Access Answer Date Recorded Internet Access Q1 No 10/19/2024 Internet Access Q2 I do not want or need it 09/24 Comments Unknown Sex and Gender Information Value Date Recorded Sex Assigned at Female 07/27/2023 1:41 PM EST Legal Sex Female 12:24 PM EDT Gender Identity Female 07/27/2023 1:41 PM EST Sexual Orientation Don't know 07/27/2023 1: 41 PM EST Last Filed Vital Signs Vital Sign Reading Time Taken Comments Blood Pressure 117/80 10/19/2024 9:11 AM EST Pulse 72 10/19/2024 9:11 AM EST Temperature 36.6 ??C (97.9 ??F) 10/19/2024 9:11 AM ES T Respiratory Rate 18 10/19/2024 9:11 AM EST Oxygen Saturation 97% 10/19/2024 9:11 AM EST Inhaled Oxygen Concentration - - Weight 95.1 kg (209 lb 9.6 oz) 10/19/2024 9:11 A M EST Height 162.6 cm (5' 4 ) 10/19/2024 9:11 AM EST Body Mass Index 35.98 10/19/2024 9:11 AM EST Plan of Treatment Upcoming Encounters Date Type Department Care Team (Late st Contact Info) Description 12/14/2024 11:30 AM EDT Telemedicine [facility] [address] [place] [address] Anabel Patel MD [address] [place] [address] Health Maintenance Due Date Last Done Comments [...] Depression Screening 09/21/2024 09/21/2023, 09/21/19 SDOH Screening 10/19/2025 10/19/2024 Tobacco Screening 10/19/2025 10/19/2024 Cervical Cancer Screening 05/07/2026 HPV/Cotest 05/07/2026 05/07/2021 [...] on patient's age to complete this topic Pneumococcal Vaccine: Pediatrics (0 to 5 Years) and At-Risk Patients (6 to 49) Years) Aged Out No longer eligible based on patient's age to complete this topic RSV under 20 months Aged Out No longe r eligible based on patient's age to complete this topic Rotavirus Vaccines Aged Out No longer eligible based on patient's age to complete this topic Procedures Procedure Name Priority Date/Time Associated Diagnosis Comments US ABDOMEN COMPLETE Routine 09/26/2024 1 0:07 AM EST Abdominal bloating HIV 1/2 ANTIGEN/ANTIBODY, FOURTH GENERATION W/RFL Routine [...] whether stage 3a or 3b CKD (CMS/HCC) Full PROPHYLAXIS - ADULT Routine 12/31/2023 2:00 PM EDT INTRAORAL - COMPLETE SERIES OF RADIOGRAPHIC IMAGES Routine 09/17/2023 8:00 AM EST COMPREHENSIVE ORAL EVALUATION - NEW OR ESTABLISHED PATIENT Routine 09/17/2023 8:00 AM EST HM PAP/HPV Routine 05/07/2021 from Last 3 Months or Most Recently Relevant to Health Maintenance Results * US Abdomen Complete (09/26/2024 10:07 AM EST) Anatomical Region Laterality Modality Abdomen Ultrasound 09/26/2024 10:0 7 AM EST Narrative 09/26/2024 10:08 AM EST ? [facility] ?[address] ? [place] [address] ? Ultrasound Report ? Signed ? Patient: Thomas Valentin ?MR#: [id number] ?? [id number] ? : 1990 ?Acct:[id number] ? Age/Sex: 34 / F ?ADM Date: 09/26/24 ? Loc: HO.HMGCX ? Attending Dr: Kristel Marin DO ? Ordering Physician: Kristel Marin DO ?? Date of Service: 09/26/24 ?? Procedure(s): US abdomen complete ?? Accession Number(s): [id number] ? cc: Anabel Patel MD; Kristel Marin DO ? CLINICAL HISTORY: abdominal bloating ? US abdomen complete ? Comparison: None ? Findings: ?? The visualized pancreas is normal. ?? The aorta and inferior vena cava are normal caliber. ? Increased hepatic echogenicity. Liver size was not measured. ?? There is no intrahepatic bile duct dilatation. ?? The common duct is 12.6 mm in diameter. ?? Cholecystectomy. ?? The main portal vein is antegrade. ? The right kidney is 6 cm in length. ?? The left kidney is 11.4 cm in length. ?? Bilateral increased renal cortical echogenicity. Bilateral increased ?? echogenicity of the renal medullary pyramids bilaterally. No ?? hydronephrosis. ?? The spleen is normal. Spleen measures 10.9 cm in length. ?? No ascites. ? IMPRESSION: ?? 1. Bilateral increased renal cortical echogenicity and echogenicity of the ?? renal medullary pyramids. Query medical renal disease and medullary ?? nephrocalcinosis. ?? 2. Hepatic steatosis. ? This document has been electronically signed by: Donna Novoa MD on ?? 09/26/2024 10:07:17 ? Dictated By: ?Donna Novoa MD ? Signed By: ?<Electronically signed by Donna Novoa MD in OV> ? 09/26/24 1008 ? DD/ 1007 ? TD/TT: 09/26/24 1007 ? Sales Support Specialist: ? Procedure Note Donotuseinterpreter, Image - 09/26/2024 [facility] [address] [place] [address] [place] [address] Ultrasound Report Signed Patient: Suze Valentin#: [id number] : 1990Acct:[id number] Age/Sex: 34 / FADM Date: 09/26/24 Loc: HO.HMGCX Attending Dr: Kristel Marin DO Ordering Physician: Kristel Marin DO Date of Service: 09/26/24 Procedure(s): US abdomen complete Accession Number(s): [id number] cc: Anabel Patel MD; Kristel Marin DO CLINICAL HISTORY: abdominal bloating US abdomen complete Comparison: None Findings: The visualized pancreas is normal. The aorta and inferior vena cava are normal caliber. Increased hepatic echogenicity. Liver size was not measured. There is no intrahepatic bile duct dilatation. The common duct is 12.6 mm in diameter. Cholecystectomy. The main portal vein is antegrade. The right kidney is 6 cm in length. The left kidney is 11.4 cm in length. Bilateral increased renal cortical echogenicity. Bilateral increased echogenicity of the renal medullary pyramids bilaterally. No hydronephrosis. The spleen is normal. Spleen measures 10.9 cm in length. No ascites. IMPRESSION: 1. Bilateral increased renal cortical echogenicity and echogenicity of the renal medullary pyramids. 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 2. Hepatic steatosis. This document has been electronically signed by: Donna Novoa MD on 09/26/2024 10:07:17 Dictated By: Donna Novoa MD Signed By: <Electronically signed by Donna Novoa MD in OV> 09/26/24 1008 DD/ 1007 TD/TT: 09/26/24 1007 Sales Support Specialist: us Kristel Marin DO IMG US PROCEDURES Edited Res ult - Final * (ABNORMAL) CBC auto differential (09/13/2024 11:25 AM EST) White Blood Count 20.3(H) 4.8 - 10.8 X10*3/uL [facility] Red Blood Count 3.92(L) 4.20 - 5.50 X10*6/uL [facility] Hemoglobin 11.2(L) 12.0 - 16.0 g/dl [facility] Hematocrit 33.5(L) 37.0 - 47.0 % [facility] Mean Corpuscular Volume 85.5 80.0 - 98.0 fL [facility] Mean Corpuscular Hemoglobin 28.6 27.0 - 33.0 pg [facility] Mean Corpuscular HGB Conc 33.4 31.0 - 35.0 g/dl [facility] Red Cell Distribution Width 14.2 11.0 - 16.0 % [facility] Platelet Count 291 160 - 400 X10*3/uL [facility] Mean Platelet Volume 10.6 9.4 - 12.3 fL [facility] Neutrophils Percent Auto 83.8(H) 45 - 73 % [facility] Imm Gran Pct Auto 0.8(H) 0.0 - 0.4 % [facility] Lymphocytes Percent Auto 10.8(L) 20 - 40 % [facility] Monocytes Percent Auto 4.0 2 - 11 % [facility] Eosinophils Percent Auto 0.4 0 - 4 % [facility] Basophils Percent Auto 0.2 0 - 2 % [facility] NRBC Pct Auto 0.0 0.0 - 0.2 /100WBC [facility] Neutrophils Absolute Auto 17.0(H) 2.0 - 8.3 x10*3/uL [facility] Imm Gran Abs Auto 0.16(H) 0.00 - 0.03 X10*3/uL [facility] Lymphocytes Absolute Auto 2.2 1.2 - 4.9 X10*3/uL [facility] Monocytes Absolute Auto 0.8 0.1 - 1.2 X10*3/uL [facility] Eosinophils Absolute Auto 0.1 0.0 - 0.4 X10*3/uL [facility] Basophils Absolute Auto 0.1 0.0 - 0.2 X10*3/uL [facility] NRBC Abs Auto 0.000 0.0 - 0.012 X10*3/uL [facility] 09/13/2024 11:2 5 AM EST 09/13/2024 1:19 PM EST Anabel Cardona MD LAB BLOOD ORDERABLES Final Result Performing Organization Address [facility] Co de Phone Number [facility] [address] [place] [phone] * Hepatitis C Antibody with Reflex to HCV, RNA, Quantitative, Real-Time PCR (09/13/2024 11:25 AM EST) Hepatitis C Antibody Nonreactive Nonreactive [facility] Comment:Antibodies to HCV no t detected; does not exclude early acuteHCV infection. 09/13/2024 11:2 5 AM EST 09/13/2024 1:19 PM EST Anabel Cardona MD LAB BLOOD ORDERABLES Final Result Performing Organization Address [facility] de Phone Number [facility] [address] [place] [phone] * HIV-1/2 Antigen and Antibodies, Fourth Generation, with Reflexes (09/13/2024 11:25 AM EST) HIV AB/AG Nonreactive Nonreactive [facility] Comment:HIV-1 p24 Ag and/or HIV-1/HIV-2 Ab not detected.A test result that is nonreactive does not exclude thepossibility of exposure to or infection with HIV-1 and/orHIV-2. Nonreactive results in this assay for individualswith prior exposure to HIV-1 and/or HIV-2 may be due toantigen and antibody levels that are below the limit ofdetection of this assay.The [employer] HIV Ag/Ab Combo assay result andsupplemental assay results should be interpreted inconjunction with the patient's clinical presentation,history and other laboratory results. If the results areinconsistent with clinical evidence, additional testing issuggested to confirm the result. 09/13/2024 11:2 5 AM EST 09/13/2024 1:19 PM EST us Anabel Cardona MD LAB BLOOD ORDERABLES Final Result Performing Organization Address City/[facility]/ZIP Co de Phone Number [facility] [address] [place] [phone] * (ABNORMAL) Lipase (09/13/2024 11:25 AM EST) Lipase 86(H) 8 - 78 U/L [facility] Blood Venous blood specimen / Unknown 09/13/2024 11:25 AM EST 09/13/2024 1:19 PM EST us Kristel Marin DO LAB BLOOD ORDERABLES Final R esult Performing Organization Address [facility] Co de Phone Number [facility] [address] [place] [phone] * Hemoglobin A1c (09/13/2024 11:25 AM EST) Hemoglobin A1c 5.5 <6.0 % [facility] Comment:Hemoglobin A1C Refer ence Range Adults: 4.8 - 6.0 % Non diabetic: < 6.0 % Goal: < 7.0 %Additional Action Suggested: > 8.0 %Note: Hemoglobin A1c results are invalid for patients with abnormal amounts of HbF. Blood transfusions may impact the HbA1c concentration in the patient sample. Estimated Average Glucose 111 mg/dL [facility] Comment:eAG = Estimated ave rage glucose which is %A1C expressed asaverage glucose, using the formula of the S1B-TjdvpnkKvcsemo Glucose study (ADAG), Diabetes Care, Vol.31,#8,Mar. 2007 09/13/2024 11:2 5 AM EST 09/13/2024 1:19 PM EST us Anabel Cardona MD LAB BLOOD ORDERABLES Final Result Performing Organization Address [facility] Co de Phone Number [facility] [address] [place] [phone] * (ABNORMAL) Amylase (09/13/2024 11:25 AM EST) Amylase 122(H) 28 - 100 U/L [facility] Blood Venous blood specimen / Unknown 09/13/2024 11:25 AM EST 09/13/2024 1:19 PM EST us Kristel Marin DO LAB BLOOD ORDERABLES Final R esult Performing Organization Address [facility] Phone Number [facility] [address] [place] [phone] * (ABNORMAL) Hepatic Function Panel (09/13/2024 11:25 AM EST) Only the most recent of2 resultswithin the time period is included. Bilirubin, Total 0.8 0.0 - 1.0 mg/dL [facility] Bilirubin, Direct 0.3 0.0 - 0.5 mg/dL [facility] Aspartate Amino Transferase 40(H) 5 - 31 U/L [facility] Alanine Aminotransferase 113(H) 0 - 31 U/L [facility] Total Protein 8.2(H) 6.5 - 8.0 g/dL [facility] Albumin Level 4.0 3.5 - 5.0 g/dL [facility] Alkaline Phosphatase 125(H) 39 - 117 U/L [facility] 09/13/2024 11:2 5 AM EST 09/13/2024 1:19 PM EST us Anabel Cardona MD LAB BLOOD ORDERABLES Final Result Performing Organization Address [facility]/ZIP Co de Phone Number [facility] [address] [place] [phone] * (ABNORMAL) Lipid Panel, Standard (09/13/2024 11:25 AM EST) Triglycerides 151(H) <150 mg/dL [facility] Comment:Desirable Triglyceri de: less than 150 mg/dLBorderline High Triglyceride 150-199 mg/dLHigh Triglyceride: 200-499 mg/dLVery High Triglyceride: greater than or equal to 5OO mg/dL Cholesterol 182 <200 mg/dL [facility] Comment:Desirable Cholestero l: less than 200 mg/dLBorderline High Cholesterol: 200-239 mg/dLHigh Cholesterol: greater than 239 mg/dL LDL Cholesterol Calculated 114(H) <100 mg/dL [facility] Comment:Desirable LDL: less than 100 mg/dLNear Optimal/Above Optimal LDL: 110- 129 mg/dLBorderline High LDL: 130-159 mg/dLHigh LDL: 160-189 mg/dLVery High LDL: greater than or equal to 190 mg/dL HDL Cholesterol 38(L) >40 mg/dL [facility] Comment:Desirable HDL: great er than 40 mg/dL Note: This HDL assay may give artificially low results in patients with liver disease. Blood Venous blood specimen / Unknown 09/13/2024 11:25 AM EST 09/13/2024 1:19 PM EST us Anabel Cardona MD LAB BLOOD ORDERABLES Final Result [facility] [address] [place] [phone] [phone] * (ABNORMAL) Basic Metabolic Panel (09/13/2024 11:25 AM EST) Only the most recent of2 resultswithin the time period is included. Sodium 136 135 - 145 mmol/L [facility] Potassium 3.4 3.3 - 5.1 mmol/L [facility] Chloride 107 96 - 108 mmol/L [facility] Carbon Dioxide 18(L) 22 - 29 mmol/L [facility] Anion Gap 14 12 - 20 [facility] Urea Nitrogen (BUN) 64(H) 9 - 16 mg/dL [facility] Creatinine, Serum 3.27(H) 0.5 - 1.4 mg/dL [facility] Estimated Glomerular Filt Rate 16 [facility] Comment:Chronic Kidney Disea se: Estimated GFR < 60 mL/min/[id number] Kidney Disease: Estimated GFR < 15 mL/min/1.73m2 Glucose 97 60 - 115 mg/dL [facility] Calcium 9.1 8.4 - 10.2 mg/dL [facility] 09/13/2024 11:2 5 AM EST 09/13/2024 1:19 PM EST Anabel Cardona MD LAB BLOOD ORDERABLES Final Result [facility] [address] [place] [phone] * PAP/HPV (05/07/2021) Pap Smear 1. NILM 1. NILM HPV Not Detected Undetected, Indeterminat e, Quantitative , Not Detected Historical Provider HEALTH MAINTENANCE Final Result from Last 3 Months or Most Recently Relevant to Health Maintenance Insurance [facility] MED[facility] ST[place] ADULT Care Teams Cardiac Cath Lab Manager Relationship Specialty Start Date End Date Anabel Patel MD [address] [place] [phone] PCP - General Internal Medicine 09/21/23
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
--- OUTSIDE RECORDS SUMMARY | 2024-10-19 12:00 | XMS_ITS | Data Portability ---
Author Organization [place] - [facility], [facility], [facility] Address [address] [place] [address] Care Team Providers Care Asset Protection Greeter Name Role Phone HEIDI BANEGAS Medical Assistant NATY HARVEY Primary Care Provider Assessment Encounter [...] hormone), intact, serum or plasma 2022 023 [email or web address] [facility] AT [address], [address], 17:11:29 vitamin D, 25-hydroxy , total, serum 2022 023 [email or web address] [facility] [address], [address], 17:11:29 urinalysis , complete 2022 023 [email or web address] [facility], [address] [place] [address], [address], 17:11:28 renal function panel, serum 2022 023 [facility], [address] [place] [address], [address], 17:11:29 protein + creatinine panel, urine 2022 023 [email or web address] [facility], [address] [place] [address], [address], 17:11:29 cystatin C + glomerular filtration rate by cystatin-b ased formula panel, cystatin-b ased formula panel, serum or plasma 2022 023 [email or web address] [facility], [address] [place] [address], [address], 17:11:29 uric acid, serum or plasma 2022 023 [email or web address] [facility], [address] [place] [address], [place], [address], 17:11:29 PTH (parathyro id hormone), intact, serum or plasma 2022 023 [employer], [address] [place] [address], [place], [address], 3 10:25:09 vitamin D, 25-hydroxy , total, serum 2022 023 [employer] [facility], [address] [place] [address], [address], 3 10:25:09 vitamin D, 25-hydroxy + 1,25-dihyd joyce, serum 2022 023 [email or web address] [facility], [address] [place] [address], [place], [address], 10:25:10 HbA1c (hemoglobi n A1c), blood 2022 023 [email or web address] [facility], [address] [place] [address], [place], [address], 10:25:10 urinalysis , complete 2022 023 [email or web address] [facility], [address] [place] [address], [place], [address], 10:35:45 renal function panel, serum 2022 023 [email or web address] [facility], [address] [place] [address], [place], [address], 10:35:45 renal function panel, serum 2022 023 AIME [facility], [address] [place] [address], [place], [address], 11:08:35 uric acid, serum or plasma 2022 023 [email or web address] [facility], [address] [place] [address], [place], [address], 10:35:45 ESR (erythrocy te sedimentat ion rate), blood 2022 023 AIME [facility], [address] [place] [address], [place], [address], 11:08:40 RPR (rapid plasma reagin), serum 2022 023 AIME [facility], [address] [place] [address], [place], [address], 3 11:08:38 protein:cr eatinine ratio, urine 2022 023 [facility], [address] [place] [address], [place], [address], 3 05:38:44 MARLA (antinucle ar antibodies ) screen, serum 2022 023 [facility], [address] [place] [address], [place], [address], 11:08:39 lipid panel, serum 2022 023 [facility], [address] [place] [address], [place], [address], 3 11:08:36 anca panel, serum 2022 023 [facility], [address] [place] [address], [place], [address], 3 10:25:09 immunofixa tion + protein electropho resis + free light chains, serum 2022 023 [facility], [address] [place] [address], [place], [address], 3 10:25:09 hepatitis panel (A+B+C), acute, serum 2022 023 [facility], [address] [place] [address], [place], [address], 3 10:25:09 HIV 1 + 2, meaningful use set 2022 023 [employer] [facility], [address] [place] [address], [place], [address], 3 10:25:09 C reactive protein, QN, serum or plasma 2022 023 [email or web address] [facility], [address] [place] [address], [place], [address], 10:25:10 TSH + free T4, serum 2022 023 [email or web address] [facility], [id number] [place] [address], [place], [address], 10:25:10 magnesium, serum or plasma 2022 023 [email or web address] [facility], [id number] [place] [address], [place], [address], 10:25:10 Referral None recorded. Procedures None recorded. Surgeries None recorded. Imaging US, retroperit oneum, complete - check kidney and bladder. 2022 023 [facility] Scheduling Dept (Imaging), [address] [place] [address], [place], [address], 11:32:37 Medication Orders allopurino l 100 mg tablet 2022 023 [id number], [address], [address], [place], [address], 17:30:39 Patient TargetsNo targets recorded. Patient Instructions Encounter Date Encounter Id Patient Instructions Last Modified By Organization Details Last Modified Time 11/12/2022 [id number] Cuando desea baj ar de peso: Instrucciones [...] care instructions] Not available 11/12/2022 17:30:29 01/13/2023 [id number] Cuando desea baj ar [employer] peso: Instrucciones [...] .8 above high normal Not Available [facility] ([facility]) [address] [place], [address], 10/30/2022 14:09:16 10/31/1910/30/2022 CBC WITH DIFFE RENTI AL/PL ATELE T RBC 4.25 x10e6 /uL 3.77-5 .28 Not Available [facility] ([facility]) [address] [place], [address], 10/30/2022 14:09:16 10/31/1910/30/2022 CBC WITH DIFFE RENTI AL/PL ATELE T hemoglobin 12.1 g/dL 11.1-1 5.9 Not Available [facility] ([facility]) [address] [place], [address], 10/30/2022 14:09:16 10/31/19 23 10/30/2022 CBC WITH DIFFE RENTI AL/PL ATELE T hematocrit 36.9 % 34.0-4 6.6 Not Available [facility] ([facility]) [address] [facility], [place], [address], 10/30/2022 14:09:16 10/31/19 23 10/30/2022 CBC WITH DIFFE RENTI AL/PL ATELE T MCV 87 fL 79-97 Not Available [facility] ([facility]) [address] [facility], [place], [address], 10/30/2022 14:09:16 10/31/19 23 10/30/2022 CBC WITH DIFFE RENTI AL/PL ATELE T MCH 28.5 pg 26.6-3 3.0 Not Available [facility] ([facility]) [address] [facility], [place], [address], 10/30/2022 14:09:16 10/31/19 23 10/30/2022 CBC WITH DIFFE RENTI AL/PL ATELE T MCHC 32.8 g/dL 31.5-3 5.7 Not Available [facility] ([facility]) [address] [facility], [place], [address], 10/30/2022 14:09:16 10/31/1910/30/2022 CBC WITH DIFFE RENTI AL/PL ATELE T RDW 13.5 % 11.7-1 5.4 Not Available [facility] ([facility]) [address] [place], [address], 10/30/2022 14:09:16 10/31/1910/30/2022 CBC WITH DIFFE RENTI AL/PL ATELE T platelets 235 x10e3 /uL 150-45 0 Not Available [facility] ([facility]) [address] [place], [address], 10/30/2022 14:09:16 10/31/19 23 10/30/2022 CBC WITH DIFFE RENTI AL/PL ATELE T neutrophils 73 % not estab. Not Available [facility] ([facility]) [address] [facility], [place], [address], 10/30/2022 14:09:16 10/31/19 23 10/30/2022 CBC WITH DIFFE RENTI AL/PL ATELE T lymphs 21 % not estab. Not Available [facility] ([facility]) [address] [facility], [place], [address], 10/30/2022 14:09:16 10/31/19 23 10/30/2022 CBC WITH DIFFE RENTI AL/PL ATELE T monocytes 4 % not estab. Not Available [facility] ([facility]) [address] [facility], [place], [address], 10/30/2022 14:09:16 10/31/19 23 10/30/2022 CBC WITH DIFFE RENTI AL/PL ATELE T eos 2 % not estab. Not Available [facility] ([facility]) [address] [facility], [place], [address], 10/30/2022 14:09:16 10/31/19 23 10/30/2022 CBC WITH DIFFE RENTI AL/PL ATELE T basos 0 % not estab. Not Available [facility] ([facility]) [address] [facility], [place], [address], 10/30/2022 14:09:16 10/31/19 23 10/30/2022 CBC WITH DIFFE RENTI AL/PL ATELE T immature cells ABALONE SHELLER Not Available [facility] ([facility]) [address] [facility], [place], [address], 10/30/2022 14:09:16 10/31/19 23 10/30/2022 CBC WITH DIFFE RENTI AL/PL ATELE T neutrophils (absolute) 9.5 x10e3 /uL 1.4-7. 0 above high normal Not Available [facility] ([facility]) [address] [facility], [place], [address], 10/30/2022 14:09:16 10/31/19 23 10/30/2022 CBC WITH DIFFE RENTI AL/PL ATELE T lymphs (absolute) 2.7 x10e3 /uL 0.7-3. 1 Not Available [facility] ([facility]) [address] [facility], [place], [address], 10/30/2022 14:09:16 10/31/19 23 10/30/2022 CBC WITH DIFFE RENTI AL/PL ATELE T monocytes(ab solute) 0.6 x10e3 /uL 0.1-0. 9 Not Available [facility] ([facility]) [address] [facility], [place], [address], 10/30/2022 14:09:16 10/31/19 23 10/30/2022 CBC WITH DIFFE RENTI AL/PL ATELE T eos (absolute) 0.2 x10e3 /uL 0.0-0. 4 Not Available [facility] ([facility]) [address] [facility], [place], [address], 10/30/2022 14:09:16 10/31/19 23 10/30/2022 CBC WITH DIFFE RENTI AL/PL ATELE T baso (absolute) 0.0 x10e3 /uL 0.0-0. 2 Not Available [facility] ([facility]) [address] [place], [address], 10/30/2022 14:09:16 10/31/1910/30/2022 CBC WITH DIFFE RENTI AL/PL ATELE T immature granulocytes ABALONE SHELLER Not Available [facility]) [address] [facility], [place], [address], 10/30/2022 14:09:16 10/31/19 23 10/30/2022 CBC WITH DIFFE RENTI AL/PL ATELE T immature grans (abs) ABALONE SHELLER Not Available [facility] [address] [facility], [place], [address], 10/30/2022 14:09:16 10/31/19 23 10/30/2022 CBC WITH DIFFE RENTI AL/PL ATELE T NRBC ABALONE SHELLER Not Available [facility] ([facility]) [address] [facility], [place], [address], 10/30/2022 14:09:16 10/31/19 23 10/30/2022 CBC WITH DIFFE RENTI AL/PL ATELE T hematology comments: ABALONE SHELLER Not Available [facility] ([facility]) [address] [facility], [place], [address], 10/30/2022 14:09:16 10/31/19 23 10/30/2022 URINA LYSIS , ROUTI NE specific gravity 1.020 1.005- 1.030 Not Available [facility] ([facility]) [address] [facility], [place], [address], 10/30/2022 14:09:17 10/31/19 23 10/30/2022 URINA LYSIS , ROUTI NE pH 6.0 5.0-7. 5 Not Available [facility] ([facility]) [address] [facility], [place], [address], 10/30/2022 14:09:17 10/31/1910/30/2022 URINA LYSIS , ROUTI NE urine-color Yellow yellow Not Available [facility] ([facility]) [address] [facility], [place], [address], 10/30/2022 14:09:17 10/31/1910/30/2022 URINA LYSIS , ROUTI NE appearance Clear clear Not Available [facility] ([facility]) [address] [facility], [place], [address], 10/30/2022 14:09:17 10/31/19 23 10/30/2022 URINA LYSIS , ROUTI NE WBC esterase Trace negati ve abnormal Not Available [facility] ([facility]) [address] [facility], [place], [address], 10/30/2022 14:09:17 10/31/19 23 10/30/2022 URINA LYSIS , ROUTI NE protein 2+ negati ve/tra ce abnormal Not Available [facility] ([facility]) [address] [place], [address], 10/30/2022 14:09:17 10/31/19 23 10/30/2022 URINA LYSIS , ROUTI NE glucose Negati ve negati ve Not Available [facility] ([facility]) [address] [place], [address], 10/30/2022 14:09:17 10/31/19 23 10/30/2022 URINA LYSIS , ROUTI NE ketones Negati ve negati ve Not Available [facility] ([facility]) [address] [place], [address], 10/30/2022 14:09:17 10/31/19 23 10/30/2022 URINA LYSIS , ROUTI NE occult blood Trace negati ve abnormal Not Available [facility] ([facility]) [address] [place], [address], 10/30/2022 14:09:17 10/31/19 23 10/30/2022 URINA LYSIS , ROUTI NE bilirubin Negati ve negati ve Not Available [facility] ([facility]) [address] [place], [address], 10/30/2022 14:09:17 10/31/19 23 10/30/2022 URINA LYSIS , ROUTI NE urobilinogen ,semi-qn 0.2 mg/dL 0.2-1. 0 Not Available [facility] ([facility]) [address] [facility], [place], [address], 10/30/2022 14:09:17 10/31/19 23 10/30/2022 URINA LYSIS , ROUTI NE nitrite, urine Negati ve negati ve Not Available [facility] ([facility]) [address] [facility], [place], [address], 10/30/2022 14:09:17 10/31/19 23 10/30/2022 URINA LYSIS , ROUTI NE microscopic examination See below: Not Available [facility] ([facility]) [address] [facility], [place], [address], 10/30/2022 14:09:17 10/31/19 23 10/30/2022 URINA LYSIS , ROUTI NE WBC 11-30 /hpf 0 - 5 abnormal Not Available [facility] ([facility]) [address] [facility], [place], [address], 10/30/2022 14:09:17 10/31/19 23 10/30/2022 URINA LYSIS , ROUTI NE RBC 0-2 /hpf 0 - 2 Not Available [facility] ([facility]) [address] [facility], [place], [address], 10/30/2022 14:09:17 10/31/19 23 10/30/2022 URINA LYSIS , ROUTI NE epithelial cells (non renal) >10 /hpf 0 - 10 abnormal Not Available [facility] ([facility]) [address] [facility], [place], [address], 10/30/2022 14:09:17 10/31/19 23 10/30/2022 URINA LYSIS , ROUTI NE epithelial cells (renal) ABALONE SHELLER Not Available [facility] ([facility]) [address] [facility], [place], [address], 10/30/2022 14:09:17 10/31/19 23 10/30/2022 URINA LYSIS , ROUTI NE casts ABALONE SHELLER Not Available [facility] ([facility]) [address] [facility], [place], [address], 10/30/2022 14:09:17 10/31/19 23 10/30/2022 URINA LYSIS , ROUTI NE cast type ABALONE SHELLER Not Available [facility] ([facility]) [address] [facility], [place], [address], 10/30/2022 14:09:17 10/31/19 23 10/30/2022 URINA LYSIS , ROUTI NE crystals ABALONE SHELLER Not Available [facility] ([facility]) [address] [facility], [place], [address], 10/30/2022 14:09:17 10/31/19 23 10/30/2022 URINA LYSIS , ROUTI NE crystal type ABALONE SHELLER Not Available [facility] ([facility]) [address] [facility], [place], [address], 10/30/2022 14:09:17 10/31/19 23 10/30/2022 URINA LYSIS , ROUTI NE mucus threads Presen t not estab. Not Available [facility] ([facility]) [address] [facility], [place], [address], 10/30/2022 14:09:17 10/31/19 23 10/30/2022 URINA LYSIS , ROUTI NE bacteria Few none seen/f ew Not Available [facility] ([facility]) [address] [facility], [place], [address], 10/30/2022 14:09:17 10/31/19 23 10/30/2022 URINA LYSIS , ROUTI NE yeast ABALONE SHELLER Not Available [facility] ([facility]) [address] [place], [address], 10/30/2022 14:09:17 10/31/19 23 10/30/2022 URINA LYSIS , ROUTI NE trichomonas ABALONE SHELLER Not Available [facility] ([facility]) [address] [facility] [place], [address], 10/30/2022 14:09:17 10/31/19 23 10/30/2022 SAMUEL KING NE comment ABALONE SHELLER Not Available [facility] ([facility]) [address] [facility] [place], [address], 10/30/2022 14:09:17 10/31/19 23 10/30/2022 RENAL PANEL (10) glucose 80 mg/dL 70-99 Not Available [facility] ([facility]) [address] [facility] [place], [address], 10/30/2022 14:09:17 10/31/19 23 10/30/2022 RENAL PANEL (10) BUN 21 mg/dL 6-20 above high normal Not Available [facility] ([facility]) [address] [facility] [place], [address], 10/30/2022 14:09:17 10/31/19 23 10/30/2022 RENAL PANEL (10) creatinine 2.22 mg/dL 0.57-1 .00 above high normal Not Available [facility] ([facility]) [address] [facility], [place], [address], 10/30/2022 14:09:17 10/31/19 23 10/30/2022 RENAL PANEL (10) eGFR 29 mL/mi n/1.7 3 >59 below low normal Not Available [facility] ([facility]) [address] [facility] [place], [address], 10/30/2022 14:09:17 10/31/19 23 10/30/2022 RENAL PANEL (10) BUN/creatini ne ratio 9 9-23 Not Available [facility] ([facility]) [address] [facility] [place], [address], 10/30/2022 14:09:17 10/31/19 23 10/30/2022 RENAL PANEL (10) sodium 138 mmol/ L 134-14 4 Not Available [facility] ([facility]) [address] [place], [address], 10/30/2022 14:09:17 10/31/19 23 10/30/2022 RENAL PANEL (10) potassium 4.3 mmol/ L 3.5-5. 2 Not Available [facility] ([facility]) [address] [place], [address], 10/30/2022 14:09:17 10/31/19 23 10/30/2022 RENAL PANEL (10) chloride 102 mmol/ L 96-106 Not Available [facility] ([facility]) [address] [place], [address], 10/30/2022 14:09:17 10/31/19 23 10/30/2022 RENAL PANEL (10) carbon dioxide, total 23 mmol/ L 20-29 Not Available [facility] ([facility]) [address] [place], [address], 10/30/2022 14:09:17 10/31/19 23 10/30/2022 RENAL PANEL (10) calcium 9.1 mg/dL 8.7-10 .2 Not Available [facility] ([facility]) [address] [place], [address], 10/30/2022 14:09:17 10/31/19 23 10/30/2022 RENAL PANEL (10) phosphorus 3.3 mg/dL 3.0-4. 3 Not Available [facility] ([facility]) [address] [place], [address], 10/30/2022 14:09:17 10/31/19 23 10/30/2022 RENAL PANEL (10) albumin 3.9 g/dL 3.8-4. 8 Not Available [facility] ([facility]) [address] [facility] [place], [address], 10/30/2022 14:09:17 10/31/19 23 10/30/2022 URIC ACID uric acid 9.3 mg/dL 2.6-6. 2 above high normal Thera kasia root t for gout patie nts: <6.0 Not Available [facility] ([facility]) [address] [facility], [place], [address], 10/30/2022 14:09:18 10/31/19 23 10/31/2022 URINA LYSIS , ROUTI NE specific gravity 1.012 1.005- 1.030 Not Available [facility] ([facility]) [address] [facility], [place], [address], 10/31/2022 10:35:36 10/31/19 23 10/31/2022 URINA LYSIS , ROUTI NE pH 6.0 5.0-7. 5 Not Available [facility] ([facility]) [address] [facility], [place], [address], 10/31/2022 10:35:36 10/31/19 23 10/31/2022 URINA LYSIS , ROUTI NE urine-color Yellow yellow Not Available [facility] ([facility]) [address] [place], [address], 10/31/2022 10:35:36 10/31/19 23 10/31/2022 URINA LYSIS , ROUTI NE appearance Clear clear Not Available [facility] ([facility]) [address] [place], [address], 10/31/2022 10:35:36 10/31/19 23 10/31/2022 URINA LYSIS , ROUTI NE WBC esterase Trace negati ve abnormal Not Available [facility] ([facility]) [address] [facility], [place], [address], 10/31/2022 10:35:36 10/31/19 23 10/31/2022 URINA LYSIS , ROUTI NE protein 2+ negati ve/tra ce abnormal Not Available [facility] ([facility]) [address] [facility], [place], [address], 10/31/2022 10:35:36 10/31/1910/31/2022 URINA LYSIS , ROUTI NE glucose Negati ve negati ve Not Available [facility] ([facility]) [address] [facility], [place], [address], 10/31/2022 10:35:36 10/31/19 23 10/31/2022 URINA LYSIS , ROUTI NE ketones Negati ve negati ve Not Available [facility] ([facility]) [address] [facility], [place], [address], 10/31/2022 10:35:36 10/31/19 23 10/31/2022 URINA LYSIS , ROUTI NE occult blood Trace negati ve abnormal Not Available [facility] ([facility]) [address] [facility], [place], [address], 10/31/2022 10:35:36 10/31/19 23 10/31/2022 URINA LYSIS , ROUTI NE bilirubin Negati ve negati ve Not Available [facility] ([facility]) [address] [facility], [place], [address], 10/31/2022 10:35:36 10/31/19 23 10/31/2022 URINA LYSIS , ROUTI NE urobilinogen ,semi-qn 0.2 mg/dL 0.2-1. 0 Not Available [facility] ([facility]) [address] [place], [address], 10/31/2022 10:35:36 10/31/19 23 10/31/2022 URINA LYSIS , ROUTI NE nitrite, urine Negati ve negati ve Not Available [facility] ([facility]) [address] [place], [address], 10/31/2022 10:35:36 10/31/19 23 10/31/2022 URINA LYSIS , ROUTI NE microscopic examination See below: Micro scopi c was indic ated and was perfo rmed. Not Available [facility] ([facility]) [address] [facility], [place], [address], 10/31/2022 10:35:36 10/31/19 23 10/31/2022 URINA LYSIS , ROUTI NE WBC 0-5 /hpf 0 - 5 Not Available [facility] ([facility]) [address] [facility], [place], [address], 10/31/2022 10:35:36 10/31/19 23 10/31/2022 URINA LYSIS , ROUTI NE RBC None seen /hpf 0 - 2 Not Available [facility] ([facility]) [address] [facility], [place], [address], 10/31/2022 10:35:36 10/31/19 23 10/31/2022 URINA LYSIS , ROUTI NE epithelial cells (non renal) 0-10 /hpf 0 - 10 Not Available [facility] ([facility]) [address] [facility], [place], [address], 10/31/2022 10:35:36 10/31/19 23 10/31/2022 URINA LYSIS , ROUTI NE epithelial cells (renal) ABALONE SHELLER Not Available [facility] ([facility]) [address] [facility], [place], [address], 10/31/2022 10:35:36 10/31/19 23 10/31/2022 URINA LYSIS , ROUTI NE casts None seen /lpf none seen Not Available [facility] ([facility]) [address] [facility], [place], [address], 10/31/2022 10:35:36 10/31/19 23 10/31/2022 URINA LYSIS , ROUTI NE cast type ABALONE SHELLER Not Available [facility] ([facility]) [address] [facility], [place], [address], 10/31/2022 10:35:36 10/31/19 23 10/31/2022 URINA LYSIS , ROUTI NE crystals ABALONE SHELLER Not Available [facility] ([facility]) [address] [facility], [place], [address], 10/31/2022 10:35:36 10/31/19 23 10/31/2022 URINA LYSIS , ROUTI NE crystal type ABALONE SHELLER Not Available [facility] ([facility]) [address] [facility], [place], [address], 10/31/2022 10:35:36 10/31/19 23 10/31/2022 URINA LYSIS , ROUTI NE mucus threads ABALONE SHELLER Not Available [facility] ([facility]) [address] [facility], [place], [address], 10/31/2022 10:35:36 10/31/19 23 10/31/2022 URINA LYSIS , ROUTI NE bacteria None seen none seen/f ew Not Available [facility] ([facility]) [address] [facility], [place], [address], 10/31/2022 10:35:36 10/31/19 23 10/31/2022 URINA LYSIS , ROUTI NE yeast ABALONE SHELLER Not Available [facility] ([facility]) [address] [facility], [place], [address], 10/31/2022 10:35:36 10/31/19 23 10/31/2022 URINA LYSIS , ROUTI NE trichomonas ABALONE SHELLER Not Available [facility] ([facility]) [address] [facility], [place], [address], 10/31/2022 10:35:36 10/31/19 23 10/31/2022 URINA LYSIS , ROUTI NE comment ABALONE SHELLER Not Available [facility] [address] [facility], [place], [address], 10/31/2022 10:35:36 11/03/19 23 11/03/2022 CREAT U+PRO T U creatinine, urine 54.9 mg/dL not estab. Total Volum e: 0800 mL Not Available [facility] ([facility]) [address] [facility], [place], [address], 11/03/2022 17:07:11 11/03/19 23 11/03/2022 CREAT U+PRO T U creatinine, ur 24HR 439 mg/24 _HR 800-18 00 below low normal Not Available [facility] ([facility]) [address] [facility], [place], [address], 11/03/2022 17:07:11 11/03/1911/03/2022 CREAT U+PRO T U prot,24HR calculated 735 mg/24 _HR 30-150 above high normal Not Available [facility] ([facility]) [address] [facility], [place], [address], 11/03/2022 17:07:11 11/03/19 23 11/03/2022 CREAT U+PRO T U protein,tota l,urine 91.9 mg/dL not estab. Not Available [facility] ([facility]) [address] [facility], [place], [address], 11/03/2022 17:07:11 11/03/19 23 11/03/2022 CREAT U+PRO T U protein/crea t ratio 1674 mg/g_ creat 0-200 above high normal Not Available [facility] ([facility]) [address] [facility], [place], [address], 11/03/2022 17:07:11 11/21/19 23 11/20/2022 NURY, PE AND FLC, SERUM please note: Commen t Prote in elect ropho resis scan will follo w via compu ter, mail, or couri er francisca ordonez. Not Available [facility] ([facility]) [address] [facility], [place], [address], 11/25/2022 11:08:34 11/21/19 23 11/21/2022 NURY, PE AND FLC, SERUM immunoglobul in g, qn, serum 988 mg/dL 586-16 02 Not Available [facility] ([facility] [address] [facility] [place], [address], 11/25/2022 11:08:34 11/21/19 23 11/21/2022 NURY, PE AND FLC, SERUM immunoglobul in A, qn, serum 367 mg/dL 87-352 above high normal Not Available [facility] ([facility] [address] [facility] [place], [address], 11/25/2022 11:08:34 11/21/19 23 11/21/2022 NURY, PE AND FLC, SERUM immunoglobul in M, qn, serum 92 mg/dL 26-217 Not Available [facility] [address] [facility] [place], [address], 11/25/2022 11:08:34 11/21/19 23 11/21/2022 NURY, PE AND FLC, SERUM protein, total 6.7 g/dL 6.0-8. 5 Not Available [facility] ([facility] [address] [facility] [place], [address], 11/25/2022 11:08:34 11/21/19 23 11/21/2022 NURY, PE AND FLC, SERUM free kappa lt chains,S 86.8 mg/L 3.3-19 .4 above high normal Not Available [facility] ([facility] [address] [facility] [place], [address], 11/25/2022 11:08:34 11/21/19 23 11/21/2022 NURY, PE AND FLC, SERUM free lambda lt chains,S 52.7 mg/L 5.7-26 .3 above high normal Not Available [facility] ([facility] [address] [place], [address], 11/25/2022 11:08:34 11/21/19 23 11/21/2022 NURY, PE AND FLC, SERUM kappa/lambda ratio,S 1.65 0.26-1 .65 Not Available [facility] ([facility]) [address] [place], [address], 11/25/2022 11:08:34 11/21/19 23 11/25/2022 NURY, PE AND FLC, SERUM albumin 3.3 g/dL 2.9-4. 4 Not Available [facility] ([facility] [address] [place], [address], 11/25/2022 11:08:34 11/21/19 23 11/25/2022 NURY, PE AND FLC, SERUM gvxmr-0-jqya ulin 0.3 g/dL 0.0-0. 4 Not Available [facility] ([facility] [address] [place], [address], 11/25/2022 11:08:34 11/21/19 23 11/25/2022 NURY, PE AND FLC, SERUM irite-7-dipw ulin 0.9 g/dL 0.4-1. 0 Not Available [facility] ([facility] [address] [place], [address], 11/25/2022 11:08:34 11/21/19 23 11/25/2022 NURY, PE AND FLC, SERUM beta globulin 1.2 g/dL 0.7-1. 3 Not Available [facility] ([facility] [address] [place], [address], 11/25/2022 11:08:34 11/21/19 23 11/25/2022 NURY, PE AND FLC, SERUM gamma globulin 0.9 g/dL 0.4-1. 8 Not Available [facility] [address] [facility] [place], [address], 11/25/2022 11:08:34 11/21/19 23 11/25/2022 NURY, PE AND FLC, SERUM M-spike Not Observ ed g/dL not observ ed Not Available [facility] ([facility] [address] [place], [address], 11/25/2022 11:08:34 11/21/19 23 11/25/2022 NURY, PE AND FLC, SERUM globulin, total 3.4 g/dL 2.2-3. 9 Not Available [facility] ([facility] [address] [place], [address], 11/25/2022 11:08:34 11/21/19 23 11/25/2022 NURY, PE AND FLC, SERUM A/G ratio 1.0 0.7-1. 7 Not Available [facility] ([facility] [address] [place], [address], 11/25/2022 11:08:34 11/21/19 23 11/25/2022 NURY, PE AND FLC, SERUM immunofixati on result, serum Commen t The immun ofixa tion ryder rn appea rs unrem arkab le. Evide nce of monoc lonal prote in is not appar ent. Not Available [facility] ([facility] [address] [place], [address], 11/25/2022 11:08:34 11/21/19 23 11/25/2022 NURY, PE AND FLC, SERUM pdf . Not Available [facility] ([facility] [address] [place], [address], 11/25/2022 11:08:34 11/21/19 23 11/21/2022 TSH+F REE T4 TSH 1.170 uIU/m L 0.450- 4.500 Not Available [facility] ([facility] [address] [place], [address], 11/25/2022 11:08:34 11/21/19 23 11/21/2022 TSH+F REE T4 T4,free(dire ct) 0.99 NG/dL 0.82-1 .77 Not Available [facility] ([facility] [address] [facility] [place], [address], 11/25/2022 11:08:34 11/21/19 23 11/21/2022 RENAL PANEL (10) glucose 82 mg/dL 70-99 Not Available [facility] [address] [facility] [place], [address], 11/25/2022 11:08:35 11/21/19 23 11/21/2022 RENAL PANEL (10) BUN 19 mg/dL 6-20 Not Available [facility] ([facility] [address] [place], [address], 11/25/2022 11:08:35 11/21/19 23 11/21/2022 RENAL PANEL (10) creatinine 1.94 mg/dL 0.57-1 .00 above high normal Not Available [facility] ([facility] [address] [place], [address], 11/25/2022 11:08:35 11/21/19 23 11/21/2022 RENAL PANEL (10) eGFR 34 mL/mi n/1.7 3 >59 below low normal Not Available [facility] ([facility] [address] [place], [address], 11/25/2022 11:08:35 11/21/19 23 11/21/2022 RENAL PANEL (10) BUN/creatini ne ratio 10 9-23 Not Available [facility] [address] [place], [address], 11/25/2022 11:08:35 11/21/19 23 11/21/2022 RENAL PANEL (10) sodium 139 mmol/ L 134-14 4 Not Available [facility] ([facility]) [address] [place], [address], 11/25/2022 11:08:35 11/21/19 23 11/21/2022 RENAL PANEL (10) potassium 3.7 mmol/ L 3.5-5. 2 Not Available [facility] ([facility] [address] [place], [address], 11/25/2022 11:08:35 11/21/19 23 11/21/2022 RENAL PANEL (10) chloride 104 mmol/ L 96-106 Not Available [facility] ([facility] [address] [place], [address], 11/25/2022 11:08:35 11/21/19 23 11/21/2022 RENAL PANEL (10) carbon dioxide, total 24 mmol/ L 20-29 Not Available [facility] ([facility] [address] [place], [address], 11/25/2022 11:08:35 11/21/19 23 11/21/2022 RENAL PANEL (10) calcium 8.7 mg/dL 8.7-10 .2 Not Available [facility] ([facility] [address] [place], [address], 11/25/2022 11:08:35 11/21/19 23 11/21/2022 RENAL PANEL (10) phosphorus 2.8 mg/dL 3.0-4. 3 below low normal Not Available [facility] ([facility] [address] [place], [address], 11/25/2022 11:08:35 11/21/19 23 11/21/2022 RENAL PANEL (10) albumin 3.8 g/dL 3.8-4. 8 Not Available [facility] ([facility] [address] [place], [address], 11/25/2022 11:08:35 11/21/19 23 11/21/2022 LIPID PANEL cholesterol, total 202 mg/dL 100-19 9 above high normal Not Available [facility] ([facility] [address] [facility], [address], 11/25/2022 11:08:35 11/21/19 23 11/21/2022 LIPID PANEL triglyceride s 135 mg/dL 0-149 Not Available [facility] [address] [facility], [place], [address], 11/25/2022 11:08:35 11/21/19 23 11/21/2022 LIPID PANEL HDL cholesterol 39 mg/dL >39 below low normal Not Available [facility]) [address] [facility], [place], [address], 11/25/2022 11:08:35 11/21/19 23 11/21/2022 LIPID PANEL VLDL cholesterol artis 24 mg/dL 5-40 Not Available [facility]) [address] [facility], [place], [address], 11/25/2022 11:08:35 11/21/19 23 11/21/2022 LIPID PANEL LDL chol calc ([facility]) 139 mg/dL 0-99 above high normal Not Available [facility] ([facility]) [address] [facility], [place], [address], 11/25/2022 11:08:35 11/21/19 23 11/21/2022 LIPID PANEL comment: ABALONE SHELLER Not Available [facility] ([facility]) [address] [facility], [place], [address], 11/25/2022 11:08:35 11/21/19 23 11/21/2022 ACUTE HEPAT ITIS hep A Ab, IgM Negati ve negati ve Not Available [facility] ([facility]) [address] [facility], [place], [address], 11/25/2022 11:08:36 11/21/19 23 11/21/2022 ACUTE HEPAT ITIS HBsAg screen Negati ve negati ve Not Available [facility] ([facility] [address] [place], [address], 11/25/2022 11:08:36 11/21/19 23 11/21/2022 ACUTE HEPAT ITIS hep B core Ab, IgM Negati ve negati ve Not Available [facility] ([facility]) [address] [facility], [place], [address], 11/25/2022 11:08:36 11/21/19 23 11/21/2022 ACUTE HEPAT ITIS HCV Ab Non Reacti ve non reacti ve Not Available [facility] ([facility]) [address] [facility], [place], [address], 11/25/2022 11:08:36 11/21/19 23 11/21/2022 ACUTE HEPAT ITIS interpretati on: Commen t Not infec jose g with HCV unles s early or acute infec tion is suspe cted (whic h may be delay ed in an immun ocomp romis ed indiv idual ), or other evide nce exist s to indic ate HCV infec tion. Not Available [facility] ([facility]) [address] [facility], [place], [address], 11/25/2022 11:08:36 11/21/19 23 11/22/2022 ANCA PROFI LE anti-mpo antibodies <0.2 units 0.0-0. 9 Not Available [facility] ([facility] [address] [place], [address], 11/25/2022 11:08:36 11/21/19 23 11/22/2022 ANCA PROFI LE anti-pr3 antibodies <0.2 units 0.0-0. 9 Not Available [facility] ([facility] [address] [place], [address], 11/25/2022 11:08:36 11/21/19 23 11/23/2022 ANCA PROFI LE cytoplasmic (C-anca) <1:20 titer neg:<1 :20 Not Available [facility] ([facility] [address] [facility], [place], [address], 11/25/2022 11:08:36 11/21/19 23 11/23/2022 ANCA PROFI [...] ng of posit lu sera with both ND-3 and MPO-A NCA enzym e immun oassa ys. As many as 5% serum sampl es are posit lu only by EIA. Ref. AM J Clin Patho l 1999; 111:5 07-51 3. Not Available [facility] ([facility]) [address] [facility], [place], [address], 11/25/2022 11:08:36 11/21/19 23 11/23/2022 ANCA PROFI LE atypical panca <1:20 titer neg:<1 :20 The atypi artis pANCA patte rn has been obser brooks in a signi fican t perce ntage of patie nts with ulcer ative colit is, prima ry scler osing chola ngiti s and autoi mmune hepat itis. Not Available [facility] ([facility]) [address] [facility], [place], [address], 11/25/2022 11:08:36 11/21/19 23 11/21/2022 VITAM IN D, 1,25 + 25-HY DROXY calcitriol(1 ,25 di-oh vit D) 24.8 pg/mL 24.8-8 1.5 Not Available [facility] ([facility] [address] [facility], [place], [address], 11/25/2022 11:08:37 11/21/19 23 11/21/2022 VITAM IN [...] um and D. Renata prakash [place]: [facility] . 2. Disha bennett MF, Britney uribe [place], Srikanth off-F errar i [place], et al. Evalu ation , treat ment, and preve ntion of vitam in D defic iency : an Endoc rine Socie ty clini artis pract ice guide line. JCEM. 2010; 96(7) :1911 -30. Not Available [facility] ([facility]) [address] [facility], [place], [address], 11/25/2022 11:08:37 11/21/19 23 11/21/2022 HEMOG LOBIN A1C hemoglobin A1C 5.4 % 4.8-5. 6 Predi abete s: 5.7 - 6.4 Diabe alexis: >6.4 Glyce darci contr ol for adult s with diabe alexis: <7.0 Not Available [facility] ([facility]) [address] [facility], [place], [address], 11/25/2022 11:08:38 11/21/19 23 11/21/2022 RPR, RFX QN RPR/C ONFIR M TP RPR Non Reacti ve non reacti ve Not Available [facility] ([facility]) [address] [place], [address], 11/25/2022 11:08:38 11/21/19 23 11/21/2022 HIV AB/P2 4 AG WITH REFLE X HIV Ab/P24 Ag screen Non Reacti ve non reacti ve HIV Negat lu HIV-1 /HIV- 2 antib odies and HIV-1 p24 antig en were NOT detec jose g. There is no labor atory evide nce of HIV infec tion. Not Available [facility] ([facility]) [address] [facility], [place], [address], 11/25/2022 11:08:39 11/21/19 23 11/22/2022 ANTIN UCLEA R AB MULTI PLEX RFX 5 MARLA direct Negati ve negati ve Not Available [facility] ([facility]) [address] [facility], [place], [address], 11/25/2022 11:08:39 11/21/19 23 11/21/2022 SEDIM ENTAT ION RATE- WESTE RGREN sedimentatio n rate-westerg janell 78 mm/HR 0-32 above high normal Not Available [facility] ([facility] [address] [place], [address], 11/25/2022 11:08:40 11/21/19 23 11/21/2022 MAGNE SIUM magnesium 1.9 mg/dL 1.6-2. 3 Not Available [facility] ([facility] [address] [place], [address], 11/25/2022 11:08:40 11/21/19 23 11/21/2022 C-REGINO CTIVE PROTE IN, QUANT C-reactive protein, quant 10 mg/L 0-10 Not Available [facility] ([facility] [address] [place], [address], 11/25/2022 11:08:41 11/21/1911/21/2022 PTH, INTAC T PTH, intact 120 pg/mL 15-65 above high normal Not Available [facility] ([facility] [address] [facility], [place], [address], 11/25/2022 11:08:41 12/01/1912/02/2022 CREAT U+PRO T U creatinine, urine 61.8 mg/dL not estab. Total Volum e: 1850 mL Not Available [facility] ([facility] [address] [facility] [place], [address], 12/03/2022 00:06:14 12/01/1912/02/2022 CREAT U+PRO T U creatinine, ur 24HR 1143 mg/24 _HR 800-18 00 Not Available [facility] ([facility] [address] [place], [address], 12/03/2022 00:06:14 12/01/1912/02/2022 CREAT U+PRO T U prot,24HR calculated 860 mg/24 _HR 30-150 above high normal Not Available [facility] ([facility] [address] [place], [address], 12/03/2022 00:06:14 12/01/1912/02/2022 CREAT U+PRO T U protein,tota l,urine 46.5 mg/dL not estab. Not Available [facility] ([facility] [address] [place], [address], 12/03/2022 00:06:14 12/01/1912/02/2022 CREAT U+PRO T U protein/crea t ratio 752 mg/g_ creat 0-200 above high normal Not Available [facility] ([facility] [address] [place], [address], 12/03/2022 00:06:14 11/19/19 23 11/16/2022 US, retro perit oneum , compl ete No observ ation record ed. [email or web address], [place], [address], 12/15/2022 10:43:48 Result Notes None recorded. Problems Name Problem SNOMED Code Status Onset Date Resolution Date Notes Provider Name and Address Organization Details Recorded Time Medullary nephrocal cinosis 937143138 Completed 200801/29/2009 Jackelyn Jasso [facility], [facility] 3 10:27:13 Clinical finding Active 2022 Jackelyn Jasso [facility], [facility] 3 10:36:06 Chronic kidney disease stage 3 934457004 Active 2022 Zeenat Gabriel [facility], [facility] 3 09:39:19 Vitamin D deficienc y 95328464 Active 2022 Magaly Whipple [facility], [facility] 3 16:15:12 Chronic kidney disease stage 4 287176311 Active 2022 [place] [address] [place], [address], [facility], [facility] 3 10:05:53 Proteinur ia 71104751 Active 2022 [place] [address] [place], [address], [facility], [facility] 3 10:05:55 Nephrocal cinosis 41894220 Active 2022 [place] [address] [place], [address] , [facility], [facility] 3 10:05:57 Hyperuric emia 87147557 Active 2022 [place] [address] [place], [address], [facility], [facility] 3 10:05:59 Fatigue 48058870 Active 2022 [place] [address] [facility] [place], [address], [facility], [facility] 3 10:06:00 History of parathyro idectomy 885708481457 103 Active 2022 [place] [address] [place], [address], [facility], [facility] 3 10:06:03 Obesity 474857219 Active 2022 [place] [address] [facility] [place], [address], [facility], [facility] 3 10:06:05 Chronic low back pain 784926134 Active 2022 [place] [address] [facility] [place], [address], [facility], [facility] 08:43:53 Problem Notes None recorded. Procedures Surgical History Date Name Laterality Status Provider Name and Address Organization Details Recorded Time ligation of fallopian tube completed Jackelynsa Jasso [facility], [facility] 09/24/2022 10:32:23 Imaging Results Imaging Date Name Status LastModified by Organiz ation Details LastModified Time 11/16/2022 US, retroperitone um, complete completed [email or web address] [facility] [address], [address], 12/15/2022 10:43:48 Procedure Notes None recorded. Medical Equipment None Reported. Allergies Allergen ID Allergen Name Allergen Category Reaction Reaction Severity Criticality Documentation Date Start Date Code Code System Note Provider Name and Address Organization Details Recorded Time 91951 Product containin g penicilli n (product) medicatio n Not available Not available Not available 09/24/2022 49195 8001 SNOMED Jackelyn Romero [facility], [facility] 3 10:44:11 Medications Name Sig Start Date Stop [...] Updated DateTime 3 162.56 cm 35.7 kg/m2 28086.2 1 g 77 /min 133 mm[Hg] 99 mm[Hg] [place] [facility], [facility] 3 16:43:37 Date Recorded Systolic blood pressure Diastolic blood pressure Provider Name and Address Organization Details Last Updated DateTime 11/12/2022 128 mm[Hg] 82 mm[Hg] [place] [address] [place], [address], [facility], [facility] 11/12/2022 17:13:25 Date Recorded Body height Body mass index (BMI) Body weight Heart rate Systolic blood pressure Diastolic blood pressure Provider Name and Address Organization Details Last Updated DateTime 3 162.56 cm 37.2 kg/m2 92153.5 4 g 73 /min 138 mm[Hg] 104 mm[Hg] Blogvio [facility], [facility] 3 09:56:06 Social History Question Answer Notes LastModified by Organizat ion Details LastModified Time Tobacco Smoking Status Current Every Day Smoker Jackelyn enriquez [facility], [facility] 09/24/2022 10:32:52 Are You Currently Employed? No Information not available 10/05/2022 What Was The Date Of Your Most Recent Tobacco Screening? 01/13/2023 [email or web address] Information not available 01/13/2023 What Is Your [...] Response Vitamin D Deficiency Y Anxiety Y Sleep Apnea Y Thyroid Disorder Y Kidney Disease (CKD) Y Gynecological HistoryNo gynecological history recorded. Obstetrics History GPAL:G 0 P 0 0 0 0 Immunizations Vaccine Type Date Status Note Provider Nam e and Address Organization Details Recorded Time Influenza, MDCK, quadrivalent, preservative 8 completed Jackelyn Ormero [facility], [facility] 09/24/2022 10:27:13 influenza, unspecified formulation 2 completed Jackelyn Romero [facility], [facility] 09/24/2022 10:27:13 influenza, unspecified formulation 7 completed [facility] Romero null, [facility] 09/24/2022 10:27:13 Tdap 2 completed Jackelyn Romero [facility] 09/24/2022 10:27:13 Past Encounters Encounter ID Performer Location Encounter Start Date Encounter Closed Date Diagnosis/Indication Diagnosis SNOMED-CT Code Diagnosis ICD10 Code Diagnosis Note [id number] [facility] [address] [place] [address] 11/12/2022 15:52:23 11/13/2022 13:09:38 Chronic kidney disease stage 4 841246257 N18.4 CKD stage 4 possible progressio n [...] most current list of medication s. Proteinuria 03077229 R80 .9 UPC 1.6 g.Unclear no prior serologies to review.Paramjit hebert send all serologies . Nephrocalcinosis 2075425 2 N29 Hx of nephrocalc inosis.No prior imaging to review.paramjit hebert send US kidney Hyperuricemia 93729597 E 79.0 Uric acid ~9. Goal <6Will start allopurino l. Fatigue 62474829 R53.83 Will check TSH History of parathyroidectomy 6603080059 35982 Z90.89 ? Unclear. Will check PTH and vitamin dCalcium and phos stable. Obesity 479744380 E66.9 Advised weight lossCKD diet provided.C heck a1c. [id number] Henry Robin MD [facility] [address] [place] [address] 01/13/2023 09:18:53 01/13/2023 10:29:35 Chronic kidney disease stage 4 421061139 N18.4 CKD stage 4 possible progressio n from nephrocalc inosis.Bas denny scr 1.9 to 2.2 mg/dl.Most recent scr 1.9 mg/dl.Margie ey US reviewed, 12 cm kidney, stable [...] most current list of medication s. Proteinuria 51101591 R80 .9 24 hour Protein ~860.Serol ogies negative.L ikely from Chronic interstiti al damage. Nephrocalcinosis 2713902 2 N29 Hx of nephrocalc inosis.Us reviewed. stable. Hyperuricemia 12393670 E 79.0 Uric acid ~9. Goal <6C/W allopurino l Fatigue 97180279 R53.83 TSH at goal. History of parathyroidectomy 2929445133 99221 Z90.89 ? Unclear. Will check PTH and vitamin dCalcium and phos stable. Obesity 916079058 E66.9 Advised weight lossCKD diet provided.H b A1C 5.4At goal. Chronic low back pain 27 6173241 M54.50 Advised. Exercise diet, ptFollow up with PMD. Health Concerns Section Related Observation LastModified by Organization Detai ls LastModified Time None Recorded Concern Status LastModified by Organization Details LastModified Time None Recorded Advance Directives Directive None Recorded Payers Encounter Date Sequence Insurance Name Policy Number Policy Byrnes Covered Member ID Byrnes Member ID Guarantor Name 11/12/2022 1 [facility] (MEDICAID REPLACEMENT - HMO) Thomas Fontenot [id number] Thomas Fontenot 01/13/2023 1 [facility] (MEDICAID REPLACEMENT - HMO) Thomas Fontenot [id number] Thomas Fontenot Notes Date Note Type Note Provider Name and Address Organization Details Recorded Time 11/12/2022 text/html 32 y.o. 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 [place] [address] [address] [place], [place], [address], [facility] - [facility], [facility] 11/12/2022 17:30:40 01/13/2023 text/html 32 y.o. 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
--- OUTSIDE RECORDS SUMMARY | 2024-10-19 12:01 | XMS_ITS | Encounter Summary ---
Author Organization [employer] Address [address] [facility] 7t [place] [address] Care Team Providers Care Contracts Analyst Name Role Phone Anabel Patel MD Primary Care Provide r Encounter Details Date Type Department Care Team (Latest Contact Info) Description 10/15/2024 Travel Social History Tobacco Use Types Packs/Day Years [...] PM EST documented as of this encounter Plan of Treatment Upcoming Encounters Date Type Department Care Team (Late st Contact Info) Description 12/14/2024 11:30 AM EDT Telemedicine [facility] MEDICINE [address] [place] [address] Anabel Patel MD [address] [place] [address] documented as of this encounter Visit Diagnoses Not on filedocumented in this encounter Additional Health Concerns Assessment Noted Time PHQ-9 Depression Total Score: 19 024 10:24 AM EST documented as of this encounter Care Teams Contracts Analyst Relationship Specialty Start Date End Date Anabel Patel MD [address] [place] [address] PCP - General Internal Medicine 09/21/23 documented as of this encounter
--- OUTSIDE RECORDS SUMMARY | 2024-10-19 12:01 | XMS_ITS | Encounter Summary ---
Author Organization [facility] Address [address] [place] [address] Phone Care Team Providers Care Graduate Recruiter Name Role Phone Isabel Cota MD Primary Care Provider [phone] Encounter Details Date Type Department Care Team (Late st Contact Info) Description 09/29/2024 Documentation Only [facility] [address] [place] [address] [place] [address] [place] [phone] Social History Tobacco Use Types Packs/Day Years Used Date Smoking Tobacco: Every Day Cigarettes Smokeless Tobacco: Never Comments Unknown Sex and Gender Information Value Date Recorded Sex Assigned at Not on file Legal Sex Female 5:18 PM EST Gender Identity Not on file Sexual Orientation Not on file documented as of this encounter Plan of Treatment Upcoming Encounters Date Type Department Care Team (Late Contact Info) Description 11/01/2024 4:50 PM EDT Office Visit [facility] [address] [place] [address] Guille Mcginnis MD [address] [place] [address] [place] [address] documented as of this encounter Visit Diagnoses Not on filedocumented in this encounter Care Teams Graduate Recruiter Relationship Specialty Start Date End Date Isabel Cota MD [address] [place] [address] PCP - General Internal Medicine 05/29/21 documented as of this encounter
--- OUTSIDE RECORDS SUMMARY | 2024-10-19 12:01 | XMS_ITS | Encounter Summary ---
Author Organization [employer] Address [address] [facility] 7t [place] [address] Care Team Providers Care Application Support Developer Name Role Phone Anabel Patel MD Primary Care Provide r Reason for Referral * PFT (Routine) - Authorized Specialty Diagnoses / Procedures Referred By Contac t Referred To Contact Diagnoses Bronchitis SOB (shortness of breath) on exertion Procedures Pulmonary Function Test Anabel Patel MD [address] [place] [address] Phone: tel: fax: [address] Phone: tel: fax: Referral ID Status Reason Start Date Expiration Date V isits Requested Visits Authorized [id number] Authorized 10/19/2024 10/19/2025 1 1 * Consultation (Routine) - Pending Review Specialty Diagnoses / Procedures Referred By Contac t Referred To Contact Pulmonary Disease Diagnoses Bronchitis SOB (shortness of breath) on exertion Anabel Patel MD [address] [place] [address] Phone: tel: fax: Referral ID Status Reason Start Date Expiration Date Visits Requested Visits Authorized [id number] Pending Review Specialty Services Required 10/19/2024 10/19/2025 1 1 * Consultation (Routine) - Pending Review Specialty Diagnoses / Procedures Referred By Parul rizzo Referred To Contact Cardiology Diagnoses SOB (shortness of breath) on exertion Palpitations Anabel Patel MD [address] [place] [address] Phone: tel: fax: Referral ID Status Reason Start Date Expiration Date Visits Requested Visits Authorized [id number] Pending Review Specialty Services Required 10/19/2024 10/19/2025 1 1 * Consultation (Routine) - Authorized Specialty Diagnoses / Procedures Referred By Parul rizzo Referred To Contact Psychiatry Diagnoses Bipolar 2 disorder (CMS/HCC) Anabel Patel MD [address] [place] [address] Phone: tel: fax: Referral ID Status Reason Start Date Expiration Date Visits Requested Visits Authorized [id number] Authorized Specialty Services Required 10/19/2024 10/19/2025 1 1 Encounter Details Date Type Department Care Team (Late st Contact Info) Description 10/19/2024 9:30 AM EST Office Visit [facility] MEDICINE [address] [place] [phone] Anabel Patel MD [address] [place] [address] Bronchitis (Primary Dx); SOB (shortness of breath) on exertion; Palpitations; Other fatigue; Bipolar 2 disorder (CMS/HCC) Social History Tobacco Use Types Packs/Day Years [...] Mass Index 35.98 10/19/2024 9:11 AM EST documented in this encounter Plan of Treatment Upcoming Encounters Date Type Department Care Team (Late st Contact Info) Description 12/14/2024 11:30 AM EDT Telemedicine [facility] MEDICINE [address] [place] [address] Anabel Patel MD [address] [place] [address] Scheduled Orders Name Type Priority Associated Diagnoses Orde r Schedule Comprehensive Metabolic Panel Lab Routine Palpitations Other fatigue Expected: 10/19/2024 (Approximate), Expires: 10/19/2025 HIV-1/2 Antigen and Antibodies, Fourth Generation, with Reflexes Lab Routine Other fatigue Expected: 10/19/2024 (Approximate), Expires: 10/19/2025 Hepatitis C Antibody with Reflex to HCV, RNA, Quantitative, Real-Time PCR Lab Routine Other fatigue Expected: 10/19/2024, Expires: 10/19/2025 Vitamin D, 25-Hydroxy, Total, Immunoassay Lab Routine Other fatigue Expected: 10/19/2024 (Approximate), Expires: 10/19/2025 TSH with Reflex to Free T4 Lab Routine Palpitations Other fatigue Expected: 10/19/2024 (Approximate), Expires: 10/19/2025 CBC auto differential Lab Routine Other fatigue Expected: 10/19/2024 (Approximate), Expires: 10/19/2025 Iron And Total Iron Binding Capacity Lab Routine Other fatigue Expected: 10/19/2024, Expires: 10/19/2025 Ferritin Lab Routine Other fatigue Expected: 10/19/2024, Expires: 10/19/2025 Vitamin B12 (Cobalamin) and Folate Panel, Serum Lab Routine Other fatigue Expected: 10/19/2024, Expires: 10/19/2025 C-reactive Protein Lab Routine Other fatigue Expected: 10/19/2024 (Approximate), Expires: 10/19/2025 Cyclic Citrullinated Peptide (CCP) Antibody (IgG) Lab Routine Other fatigue Expected: 10/19/2024 (Approximate), Expires: 10/19/2025 Sed Rate by Modified W[place]gren Lab Routine Other fatigue Expected: 10/19/2024, Expires: 10/19/2025 MARLA Screen,IFA, with Reflex to Titer and Pattern Lab Routine Other fatigue Expected: 10/19/2024 (Approximate), Expires: 10/19/2025 Pulmonary Function Test PFT Routine Bronchitis SOB (shortness of breath) on exertion Expected: 10/19/2024, Expires: 04/18/2025 Scheduled Referrals Name Type Priority Associated Diagnoses Order Schedule Referral to Behavioral Health Outpatient Referral Routine Bipolar 2 disorder (CMS/HCC) Expected: 10/19/2024 (Approximate), Expires: 10/19/2025 Referral to Cardiology Outpatient Referral Routine SOB (shortness of breath) on exertion Palpitations Expected: 10/19/2024 (Approximate), Expires: 10/19/2025 Referral to Pulmonology Outpatient Referral Routine Bronchitis SOB (shortness of breath) on exertion Expected: 10/19/2024 (Approximate), Expires: 10/19/2025 documented as of this encounter Visit Diagnoses Diagnosis Bronchitis- Primary Bronchitis, not specified as acute or chronic SOB (shortness of breath) on exertion Shortness of breath Palpitations Other fatigue Bipolar 2 disorder (CMS/HCC) Other bipolar disorders documented in this encounter Additional Health Concerns Assessment Noted Time PHQ-9 Depression Total Score: 15 025 11:08 AM EST documented as of this encounter Care Teams Application Support Developer Relationship Specialty Start Date End Date Anabel Patel MD [address] [place] [address] PCP - General Internal Medicine 09/21/23 documented as of this encounter
--- OUTSIDE RECORDS SUMMARY | 2024-10-19 12:01 | XMS_ITS | Clinical Summary ---
Author Organization [facility] Address [address] [place] [address] Care Team Providers Care Flexographic Press Set Up Operator Name Role Phone Unavailable Primary Care Provider [...] file Plan of Treatment Not on file Procedures Procedure Name Priority Date/Time Associated Diagnosis Comments REFERRAL SCANNED DOCUMENT 09/13/2024 3:00 AM EST from Last 3 Months Results * REFERRAL SCANNED DOCUMENT (09/13/2024 3:00 AM EST) 09/13/2024 3:00 AM EST Cory Petty MD SCAN REFERRAL Final Result from Last 3 Months Insurance [place] MEDICAID DENTAL [facility] [place] [id number]
--- OUTSIDE RECORDS SUMMARY | 2024-10-19 12:01 | XMS_ITS | Encounter Summary ---
Author Organization [employer] Address [address] [facility] [address] 7t [place] [address] Care Team Providers Care Equities Trader Name Role Phone Anabel Patel MD Primary Care Provide r Reason for Visit * Reason Onset Date Comments rs SRP appt 06/06/2024 Encounter Details Date Type Department Care Team ([facility] st Contact Info) Description 06/06/2024 Telephone [facility] [address] [place] [address] Jeremiah Shepherd rs SRP appt Social History [...] to illness. She would like to rs. [facility] appts not available on PAR side. Pls reach out to patient for rs documented in this encounter Plan of Treatment Upcoming Encounters Date Type Department Care Team (Late st Contact Info) Description 12/14/2024 11:30 AM EDT Telemedicine [facility] MEDICINE [address] [place], [place] [phone] Anabel Patel MD [address] [place] [address] documented as of this encounter Visit Diagnoses Not on filedocumented in this encounter Additional Health Concerns Assessment Noted Time PHQ-9 Depression Total Score: 19 024 10:24 AM EST documented as of this encounter Care Teams Equities Trader Relationship Specialty Start Date End Date Anabel Patel MD [address] [place], [place] [phone] PCP - General Internal Medicine 09/21/23 documented as of this encounter
--- OUTSIDE RECORDS SUMMARY | 2024-10-19 12:01 | XMS_ITS | Encounter Summary ---
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 EFFECTIVE SINCE 06/25/2023 documented in this encounter Plan of Treatment Upcoming Encounters Date Type Department Care Team (Late st Contact Info) Description 12/14/2024 11:30 AM EDT Telemedicine [facility] [address] [place] [address] Anabel Patel MD [address] [place] [address] documented as of this encounter Visit Diagnoses Not on filedocumented in this encounter Care Teams Supervisor Contact And Service Clerks Relationship Specialty Start Date End Date Anabel Patel MD [address] [place] [address] PCP - General Internal Medicine 09/21/23 documented as of this encounter
--- OUTSIDE RECORDS SUMMARY | 2024-10-19 12:01 | XMS_ITS | Encounter Summary ---
Author Organization [employer] Address [address] [facility] 7t [place] [address] Care Team Providers Care Welder Boilermaker Name Role Phone Anabel aPtel MD Primary Care Provide r Encounter Details Date Type Department Care Team (Latest Contact Info) Description 10/19/2024 Travel Social History Tobacco Use Types Packs/Day Years Used Date Smoking Tobacco: Former Cigarettes Passive Smoke Exposure: Past Smokeless Tobacco: Never Alcohol Use Standard Drinks/Week Comments Never 0 [...] Info) Description 12/14/2024 11:30 AM EDT Telemedicine [facility] MEDICINE [address] [place] [address] Anabel Patel MD [address] [place] [address] documented as of this encounter Visit Diagnoses Not on filedocumented in this encounter Additional Health Concerns Assessment Noted Time PHQ-9 Depression Total Score: 15 025 11:08 AM EST documented as of this encounter Care Teams Welder Boilermaker Relationship Specialty Start Date End Date Anabel Patel MD [address] [place] [address] PCP - General Internal Medicine 09/21/23 documented as of this encounter
--- OUTSIDE RECORDS SUMMARY | 2024-10-19 12:01 | XMS_ITS | Encounter Summary ---
Author Organization [employer] Address [address] [facility] 7t [place] [address] Care Team Providers Care Fishery Division Chief Name Role Phone Anabel Patel MD Primary Care Provide r Reason for Visit * Reason Onset Date Comments No Show 10/05/2024 Encounter Details Date Type Department Care Team ([facility] st Contact Info) Description 10/05/2024 Telephone [facility] MEDICINE [address] [place], [place] [phone] Anabel Patel MD [address] [place], [place] [phone] No Show Social History Tobacco Use Types Packs/Day Years [...] Telephone Encounter - Trupti Smith RN - 10/05/2024 3:47 PM EST Noted. * Telephone Encounter - Trupti Smith RN - 10/05/2024 3:34 PM EST TC placed to patient [phone] to r/s HDF appointment. Patient reports she forgot about the appointment today. RN r/s for 10/19/24 at 9;30am, patient agreed to appointment. Patient to f/u PRN. * Telephone Encounter - Alejandrina Velarde - 10/05/2024 2:20 PM EST Pt no showed to appt on 10/05/24 documented in this encounter Plan of Treatment Upcoming Encounters Date Type Department Care Team (Late st Contact Info) Description 12/14/2024 11:30 AM EDT Telemedicine [facility] MEDICINE [address] [place], [place] [phone] Anabel Patel MD [address] [place] [address] documented as of this encounter Visit Diagnoses Not on filedocumented in this encounter Additional Health Concerns Assessment Noted Time PHQ-9 Depression Total Score: 19 024 10:24 AM EST documented as of this encounter Care Teams Fishery Division Chief Relationship Specialty Start Date End Date Anabel Patel MD [address] [place] [address] PCP - General Internal Medicine 09/21/23 documented as of this encounter
--- OUTSIDE RECORDS SUMMARY | 2024-10-19 12:01 | XMS_ITS | Encounter Summary ---
Author Organization [email or web address] Address [address] [facility] 7t [place] [address] Care Team Providers Care Tool Filer Hand Name Role Phone Anabel Patel MD Primary Care Provide r Reason for Visit * Reason Onset Date Comments Results 09/28/2024 Encounter Details Date Type Department Care Team ([facility] Contact Info) Description 09/28/2024 Telephone [facility] MEDICINE [address] [place], [place] [phone] Trupti Smith, SILAS [address] [place] [address] Results Social History Tobacco Use Types Packs/Day [...] Telephone Encounter - Trupti Smith RN - 09/28/2024 2:10 PM EST RN reviewed Abd US results with PCP. Abdominal US did not show any abnormalities in abdomen to explain bloating patient is experiencing. US did show fatty liver. Ordering provider would like results faxed to pension examiner office. TC placed to patient [phone] via [employer] ([place] [phone]) to inform of above message. Patient verbalized understanding and reports she believes she has an upcoming appointment with pension examiner in September. RN advised patient she should call nephrology office to confirm if she has an appointment in September and if she does not, she should schedule one. RN educated patient on fatty liver diagnosis and dietary recommendations. TC placed to nephrology office [phone] to inquire if patient has an appointment scheduled. RN was advised patient is scheduled for 10/30/24 at 4:50pm (patient was previously scheduled however appointment was cancelled). RN obtained fax number to [phone]. RN has printed US results and faxed. Confirmation page received. documented in this encounter Plan of Treatment Upcoming Encounters Date Type Department Care Team (Late st Contact Info) Description 12/14/2024 11:30 AM EDT Telemedicine [facility] MEDICINE [address] [place] [address] Anabel Patel MD [address] [place] [address] documented as of this encounter Visit Diagnoses Not on filedocumented in this encounter Additional Health Concerns Assessment Noted Time PHQ-9 Depression Total Score: 19 024 10:24 AM EST documented as of this encounter Care Teams Tool Filer Hand Relationship Specialty Start Date End Date Anabel Patel MD [address] [place] [address] PCP - General Internal Medicine 09/21/23 documented as of this encounter
--- OUTSIDE RECORDS SUMMARY | 2024-10-19 12:01 | XMS_ITS | Clinical Summary ---
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 [phone] Health Maintenance Due Date Last Done Comments Pneumococcal Vaccine: Pediat rics (0 to 5 Years) and At-Risk Patients (6 to 64 Years) (1 of 2 - PCV) 1994 Hepatitis B Vaccine (1 of 3 - 19+ 3-dose series) 2007 Influenza Vaccine (#1) 2024 , 06/02/2018, 05/19/2017, Additional history exists Insurance MEDICAID [place] Care Teams Used Building Materials Yard Worker Relationship Specialty Start Date End Date Isabel Cota MD [address] [place] [address] PCP - General Internal Medicine 05/29/21
[2024-10-19 12:38] LABS: Erythrocyte Sedimentation Rate 96 MM/HR (0-20)
[2024-10-19 12:56] LABS: Alanine Aminotransferase 10 U/L (0-31); Albumin Level 3.9 g/dL (3.5-5.0); Alkaline Phosphatase 80 U/L (39-117); Anion Gap 16 (12-20); Aspartate Amino Transferase 22 U/L (5-31); Bilirubin Total 0.3 mg/dL (0.0-1.0); Blood Urea Nitrogen 34 mg/dL (9-16); C Reactive Protein 2.57 mg/dL (< or = 0.50); Calcium 8.3 mg/dL (8.4-10.2); Carbon Dioxide 22 mmol/L (22-29); Chloride 106 mmol/L (96-108); Estimated Glomerular Filt Rate 19; Glucose Random 107 mg/dL (60-115); Iron 29 mcg/dL (30-160); Percent Iron Saturation 13 % (15-50); Potassium 2.9 mmol/L (3.3-5.1); Sodium 141 mmol/L (135-145); Total Iron Binding Capacity 218 mcg/dL (228-428); Total Protein 7.9 g/dL (6.5-8.0); Unsaturated Iron Binding 189 ug/dL
[2024-10-19 13:03] LABS: HIV AB/AG Nonreactive (Nonreactive); HIV Num 1 0.05 S/CO (0.00-0.99); ~HepC Num1 0.14 S/CO (0.00-0.79); ~Hepatitis C Antibody Nonreactive (Nonreactive)
[2024-10-19 13:06] LABS: Ferritin 184 ng/mL (10-122); TSH reflex Free T4 2.34 uIU/mL (0.32-4.0); Vitamin D 25-OH Total 17.8 ng/mL (>30)
[2024-10-19 13:15] LABS: Folate 4.8 ng/mL (> or = 4.0); Vitamin B12 358 pg/mL (200-900)
[2024-10-20 19:29] LABS: Cyclic Citrullinated Peptide <16 UNITS
[2024-10-24 14:28] LABS: Anti Nuclear Antibody Screen NEGATIVE (NEGATIVE)
== END 2024-10-19 10:21 | disposition home or self-care (01) ==
LOC: HO.HHCL 10:20
PROVIDERS: Visit Provider Internal Medicine
DX: R53.83 Other fatigue (principal); R00.2 Palpitations
CPT/HCPCS: 36415; 80053; 82306; 82607; 82728; 82746; 83540; 84443; 85025; 85652; 86038; 86140; 86200; 86803; 87389

== ENCOUNTER 2024-11-24 11:00 | Outpatient (REF) | payer MEDICAID, SELFPAY ==
--- NOTE | 2024-11-24 | PFT_ITS ---
Flows: FEV1: 107 % of predicted at 3.31 L FVC: 107 % of predicted at 4.01 L FEV1/FVC: 83 % Bronchodilator response: Present in small to medium airways only Volumes: Total lung capacity: 99 % of predicted at 5.16 L Residual volume: 86 % of predicted at 1.07 L Slow vital capacity: 103 % of predicted at 4.09 L Expiratory reserve volume: 72 % of predicted at 0.91 L Diffusion capacity: Normal Impression: No obstructive or restrictive ventilatory defect. Bronchodilator response is present in small to medium airways only. MTDD
[2024-11-24 11:44] VITALS: PULSE 72; O2SAT 100
--- OUTSIDE RECORDS SUMMARY | 2024-11-24 12:46 | XMS_ITS | Clinical Summary ---
Author Organization [facility] Address [address] [place] [address] Phone Care Team Providers Care Supervisor Steffen House Name Role Phone Tatyana Murillo MD Primary Care Provider [phone] Allergies Active Allergy Reactions Criticality Noted Date [...] EST - 09/02/2024 2:13 PM EST Emergency [facility] Intermediate Care Unit [address] [place] [address] Didier Overton MD Kela, Kashyap Devendrabhai, MD Flores, Carlos M, MD Acute bronchitis due to respiratory syncytial virus (RSV) (Primary Dx) Discharge Disposition: Home or Self Care 08/29/2024 8:40 PM EST - 08/29/2024 11:37 PM EST Emergency [facility] Emergency [address] [place] [address] Simon Cartagena MD Millay, Scot [...] disorder (CMS/HCC) 10/25/2017 DX: Bipolar 2 disorder ([facility]) Hypothyroidism 10/25/2017 DX:Hypothyroidis m Vitamin D insufficiency 10/25/2017 DX:Vitam in D insufficiency Tobacco abuse 10/25/2017 DX:Tobacco abuse Migraine headache 10/25/2017 DX:Migraine he adache Obesity (BMI 30-39.9) 10/25/2017 DX:Obesity (BMI 30-39.9) CKD (chronic kidney disease) stage 3, GFR 30-59 ml/min ([facility]) 10/26/2017 DX:CKD (chronic kidney dise ase) stage 3, GFR 30-59 ml/min ([facility]); COMMENT: S/p renal biopsy, pathology report [...] K/mcL LAB HEMETOLOGY METHOD 09/02/2024 7:09 AM [facility] RBC 3.30(L) 3.80 - 4.80 M/mcL LAB HEMETOLOGY METHOD 09/02/2024 7:09 AM [facility] Hemoglobin 9.3(L) 11.5 - 16.0 g/dL LAB HEMETOLOGY METHOD 09/02/2024 7:09 AM [facility] Hematocrit 29.7(L) 35.0 - 47.0 % LAB HEMETOLOGY METHOD 09/02/2024 7:09 AM [facility] MCV 91.4 79.0 - 98.0 FL LAB HEMETOLOGY METHOD 09/02/2024 7:09 AM [facility] MCH 28.6 27.0 - 32.0 pcg LAB HEMETOLOGY METHOD 09/02/2024 7:09 AM [facility] MCHC 31.3(L) 32.0 - 37.0 g/dL LAB HEMETOLOGY METHOD 09/02/2024 7:09 AM [facility] RDW 14.0 11.0 - 15.0 % LAB HEMETOLOGY METHOD 09/02/2024 7:09 AM [facility] Platelets 216 130 - 400 K/mcL LAB HEMETOLOGY METHOD 09/02/2024 7:09 AM [facility] MPV 11.1(H) 7.0 - 11.0 FL LAB HEMETOLOGY METHOD 09/02/2024 7:09 AM [facility] NRBC 0.0 <1.0 % LAB HEMETOLOGY METHOD 09/02/2024 7:09 AM [facility] NRBC Absolute 0.00 <0.10 K/mcL LAB HEMETOLOGY METHOD 09/02/2024 7:09 AM [facility] Neutrophils Relative 78.5 % LAB HEMETOLOGY METHOD 09/02/2024 7:09 AM [facility] Lymphocytes Relative 13.6 % LAB HEMETOLOGY METHOD 09/02/2024 7:09 AM [facility] Monocytes Relative 5.0 % LAB HEMETOLOGY METHOD 09/02/2024 7:09 AM [facility] Eosinophils Relative 1.3 % LAB HEMETOLOGY METHOD 09/02/2024 7:09 AM [facility] Basophils Relative 0.3 % LAB HEMETOLOGY METHOD 09/02/2024 7:09 AM [facility] Immature Granulocytes Relative 1.3 % LAB HEMETOLOGY METHOD 09/02/2024 7:09 AM [facility] Neutrophils Absolute 13.51(H) 1.50 - 7.00 K/mcL LAB HEMETOLOGY METHOD 09/02/2024 7:09 AM [facility] Lymphocytes Absolute 2.34 1.00 - 5.00 K/mcL LAB HEMETOLOGY METHOD 09/02/2024 7:09 AM [facility] Monocytes Absolute 0.86 0.20 - 1.00 K/mcL LAB HEMETOLOGY METHOD 09/02/2024 7:09 AM EST [facility] Eosinophils Absolute 0.22 0.00 - 0.50 K/[facility] LAB HEMETOLOGY METHOD 09/02/2024 7:09 AM EST [facility] LAB Basophils Absolute 0.05 0.00 - 0.20 K/[facility] LAB HEMETOLOGY METHOD 09/02/2024 7:09 AM EST [facility] Immature Granulocytes Absolute 0.23(H) 0.00 - 0.03 K/[facility] LAB HEMETOLOGY METHOD 09/02/2024 7:09 AM EST [facility] LAB Blood Venous blood specimen / Unknown Venipuncture / Unknown 09/02/2024 5:53 AM EST 09/02/2024 6:30 AM EST us Chauncey Medina MD LAB BLOOD ORDERABLES Final Re sult [facility] [address] [place] [address], [place] [phone] * (ABNORMAL) Magnesium (09/02/2024 5:53 AM EST) [...] ORDERABLES Final Re sult Performing Organization Address City/[facility]/ZIP Co de Phone Number [facility] [address] [place] [address], [place] [phone] * (ABNORMAL) Basic metabolic panel (09/02/2024 5:53 AM EST) Only the most recent of2 resultswithin the time period is included. Sodium 136 133 - 145 mmol/L LAB CHEMISTRY METHOD 09/02/2024 7:04 AM [facility] Potassium 3.4(L) 3.5 - 5.5 mmol/L LAB CHEMISTRY METHOD 09/02/2024 7:04 AM [facility] Chloride 107 96 - 110 mmol/L LAB CHEMISTRY METHOD 09/02/2024 7:04 AM [facility] CO2 20(L) 21 - 32 mmol/L LAB CHEMISTRY METHOD 09/02/2024 7:04 AM [facility] Anion Gap 9 3 - 11 LAB CHEMISTRY METHOD 09/02/2024 7:04 AM [facility] Glucose 88 70 - 100 mg/dL LAB CHEMISTRY METHOD 09/02/2024 7:04 AM [facility] BUN 35(H) 5 - 25 mg/dL LAB CHEMISTRY METHOD 09/02/2024 7:04 AM [facility] Creatinine 3.54(H) 0.50 - 1.10 mg/dL LAB CHEMISTRY METHOD 09/02/2024 7:04 AM [facility] eGFR 16(L) >=60 mL/min/1. 73m2 LAB CHEMISTRY METHOD 09/02/2024 7:04 AM [facility] Comment:Calculation based on the??Chronic Kidney Disease Epidemiology Collaboration (CKD-EPI) equation refit??without adjustment for race. BUN/Creatinine Ratio 9.9 LAB CHEMISTRY METHOD 09/02/2024 7:04 AM [facility] Calcium 8.0(L) 8.5 - 10.5 mg/dL LAB CHEMISTRY METHOD 09/02/2024 7:04 AM [facility] Blood Venous blood specimen / Unknown Venipuncture / Unknown 09/02/2024 5:53 AM EST 09/02/2024 6:30 AM EST us Chauncey Medina MD LAB BLOOD ORDERABLES Final Re sult [facility] [address] [place] [address], [place] [phone] * XR Chest 2 Views (09/01/2024 3:08 [...] Signed Date: 09/01/2024 15:13 ET Workstation ID: [id number] Transcribed By: Self Edit Transcribed Date: 09/01/2024 [...] Signed Date: 09/01/2024 15:13 ET Workstation ID: [id number] Transcribed By: Self Edit Transcribed Date: 09/01/2024 15:10 ET Modesta Bedoya [employer] WORK[employer] IMG XR PROCEDURES Final Result * (ABNORMAL) Phosphorus (09/01/2024 5:06 AM EST) [facility] Phosphorus 1.9(L) 2.5 - 4.5 mg/dL LAB CHEMISTRY METHOD 09/01/2024 6:09 AM EST [facility] Blood Venous blood specimen / Unknown Venipuncture / Unknown 09/01/2024 5:06 AM EST 09/01/2024 5:42 AM EST Didier Overton MD LAB BLOOD ORDERABLES Final Result [facility] [address] [place] [address], * ECG 12 lead (08/31/2024 5:09 PM EST) [facility] Ventricular Rate ECG 99 BPM GEMUSE Atrial Rate 99 BPM GEMUSE P-R Interval 128 ms GEMUSE QRS Duration 92 ms GEMUSE Q-T Interval 354 ms GEMUSE QTc 454 ms GEMUSE P Wave Pipestem 59 degrees GEMUSE R Pipestem -12 degrees GEMUSE T Pipestem -13 degrees GEMUSE ECG Interpretation Normal sinus [...] ORDERABLES Final Resul t Performing Organization Address City/[facility]/ZIP Co de Phone Number GEMUSE * Lipase (08/31/2024 3:44 PM EST) Only the most recent of2 resultswithin the time period is included. [facility] Lipase 26 13 - 75 unit/L LAB CHEMISTRY METHOD 08/31/2024 4:26 PM EST [facility] Blood Venous blood specimen / Unknown Venipuncture / Unknown 08/31/2024 3:44 PM EST 08/31/2024 3:49 PM EST Tejas Hyde MD LAB BLOOD ORDERABLES Final Resu lt Performing Organization Address [facility] Co de Phone Number [facility] [address] [place] [address], [place] [phone] * (ABNORMAL) Comprehensive metabolic panel (08/31/2024 3:44 PM EST) Only the most recent of2 resultswithin the time period is included. Pathologist [facility] Sodium 133 133 - 145 mmol/L LAB [...] mmol/L LAB CHEMISTRY METHOD 08/31/2024 4:31 PM [facility] Anion Gap 9 3 - 11 LAB CHEMISTRY METHOD 08/31/2024 4:31 PM [facility] Glucose 110(H) 70 - 100 mg/dL LAB CHEMISTRY METHOD 08/31/2024 4:31 PM [facility] BUN 37(H) 5 - 25 mg/dL LAB CHEMISTRY METHOD 08/31/2024 4:31 PM [facility] Creatinine 3.87(H) 0.50 - 1.10 mg/dL LAB CHEMISTRY METHOD 08/31/2024 4:31 PM [facility] eGFR 15(L) >=60 mL/min/1. 73m2 LAB CHEMISTRY METHOD 08/31/2024 4:31 PM [facility] Comment:Calculation based on the??Chronic Kidney Disease Epidemiology Collaboration (CKD-EPI) equation refit??without adjustment for race. BUN/Creatinine Ratio 9.6 LAB CHEMISTRY METHOD 08/31/2024 4:31 PM [facility] Calcium 8.6 8.5 - 10.5 mg/dL LAB CHEMISTRY METHOD 08/31/2024 4:31 PM [facility] AST (SGOT) 40 10 - 42 unit/L LAB CHEMISTRY METHOD 08/31/2024 4:31 PM [facility] ALT (SGPT) 68(H) 10 - 60 unit/L LAB CHEMISTRY METHOD 08/31/2024 4:31 PM [facility] Alkaline Phosphatase 175(H) 42 - 121 unit/L LAB CHEMISTRY METHOD 08/31/2024 4:31 PM [facility] Total Protein 7.3 6.0 - 8.0 g/dL LAB CHEMISTRY METHOD 08/31/2024 4:31 PM [facility] Albumin 3.0(L) 3.2 - 5.0 [...] MD LAB BLOOD ORDERABLES Final Resu lt [facility] [address] [place] [address], [place] [phone] * ECG-Annotated (08/31/2024) us Provider Onbase ECG [...] PM EST Testing was performed using the [employer] Respiratory Pathogen PCR Assay. All results must [...] - GENERA L ORDERABLES Final Result [facility] [address] [place] [address], from Last 3 Months Insurance MEDICAID - [place] Advance Directives * Full Code - Default [...] currently active code status orders. Care Teams Supervisor Steffen House Relationship Specialty Start Date End Date Tatyana Murillo MD [address] [place] [id number] PCP - General Internal Medicine 06/26/21
--- OUTSIDE RECORDS SUMMARY | 2024-11-24 12:46 | XMS_ITS | Encounter Summary ---
Author Organization [facility] Address [address] [place] [address] Phone Care Team Providers Care Service Greeter Name Role Phone Isabel Cota MD Primary Care Provider [phone] Encounter Details Date Type Department Care Team (Late Contact Info) Description 09/29/2024 Documentation Only [facility] [address] [place] [address] [place] [address] [place] [address] Social History Tobacco Use Types Packs/Day [...] Department Care Team (Late Contact Info) Description 01/17/2025 9:10 AM EDT Office Visit [facility] [address] [place] [address] Guille Mcginnis MD [address] [place] [address] [place] [address] documented as of this encounter Visit Diagnoses Not on filedocumented in this encounter Care Teams Service Greeter Relationship Specialty Start Date End Date Isabel Cota MD [address] [place] [address] PCP - General Internal Medicine 05/29/21 documented as of this encounter
--- OUTSIDE RECORDS SUMMARY | 2024-11-24 12:46 | XMS_ITS | Encounter Summary ---
Author Organization [facility] Address [address] [place] [address] Phone Care Team Providers Care Surveyor'S Assistant Name Role Phone Isabel Cota MD Primary Care Provider [phone] Encounter Details Date Type Department Care Team (Late st Contact Info) Description 10/30/2024 Documentation Only [facility] [address] [place] [address] [place] [address] [place] [address] Social History Tobacco Use Types Packs/Day [...] Visit [facility] [address] [place] [address] Guille Mcginnis MD [address] [place] [address] [place] [address] documented as of this encounter Visit Diagnoses Not on filedocumented in this encounter Care Teams Surveyor'S Assistant Relationship Specialty Start Date End Date Isabel Cota MD [address] [place] [address] PCP - General Internal Medicine 05/29/21 documented as of this encounter
--- OUTSIDE RECORDS SUMMARY | 2024-11-24 12:46 | XMS_ITS | Clinical Summary ---
Author Organization [facility] [place], Address [address] [place] [address] [place] [address] Phone Care Team Providers Care Recording Studio Set Up Worker Name Role Phone Isabel Cota MD Primary Care Provider [phone] Allergies Active Allergy Reactions Criticality Noted Date [...] Encounters Date Type Department Care Team Description 10/30/2024 Documentation Only [facility] [address] [place] [address] Nilsa Molina [place] 10/19/2024 Documentation Only [facility] [address] [place] [address] Nilsa Molina MA 09/29/2024 Documentation Only [facility] [address] [place] [address] Nilsa Molina MA from Last 3 Months [...] Care Team (Late st Contact Info) Description 01/17/2025 9:10 AM EDT Office Visit [facility] [place], [address] [address] Guille Mcginnis MD [address] [facility] [place] [phone] Health Maintenance Due Date Last Done Comments Pneumococcal Vaccine: Pediat rics (0 to 5 Years) and At-Risk Patients (6 to 64 Years) (1 of 2 - PCV) 1994 Hepatitis B Vaccine (1 of 3 - 19+ 3-dose series) 2007 Influenza Vaccine (#1) 2024 , 06/02/2018, 05/19/2017, Additional history exists Insurance MEDICAID [place] Care Teams Recording Studio Set Up Worker Relationship Specialty Start Date End Date Isabel Cota MD [address] [place] [address] PCP - General Internal Medicine 05/29/21
--- OUTSIDE RECORDS SUMMARY | 2024-11-24 12:46 | XMS_ITS | Encounter Summary ---
Author Organization [facility] Address [address] [place] [address] Phone Care Team Providers Care Joint Supervisor Name Role Phone Isabel Cota MD Primary Care Provider [phone] Encounter Details Date Type Department Care Team (Late Contact Info) Description 10/19/2024 Documentation Only [facility] [address] [place] [address] [place] [address] [place] [address] Social History Tobacco Use Types Packs/Day [...] Visit [facility] [address] [place] [address] Guille Mcginnis MD [address] [place] [address] [place] [address] documented as of this encounter Visit Diagnoses Not on filedocumented in this encounter Care Teams Joint Supervisor Relationship Specialty Start Date End Date Isabel Cota MD [address] [place] [address] PCP - General Internal Medicine 05/29/21 documented as of this encounter
--- OUTSIDE RECORDS SUMMARY | 2024-11-24 12:46 | XMS_ITS | Clinical Summary ---
Author Organization [facility] Address [address] [place] [address] Care Team Providers Care Rn Maternal Child Name Role Phone Unavailable Primary Care Provider [...] Last 3 Months Insurance [place] MEDICA[place] DENT[place] [facility] [place] [id number]
== END 2024-11-24 11:01 | disposition home or self-care (01) ==
LOC: HO.RESP 11:00
PROVIDERS: PCP Internal Medicine; Visit Provider Internal Medicine
DX: J40 Bronchitis, not specified as acute or chronic (principal); R06.02 Shortness of breath
CPT/HCPCS: 94010; 94640; 94727; 94729

== ENCOUNTER → 2024-11-24 11:05 | Outpatient (BNV) | payer MEDICAID, SELFPAY | PROVIDERS: PCP Internal Medicine; Visit Provider Internal Medicine Pulmonary Disease | DX: J40 Bronchitis, not specified as acute or chronic (principal) | CPT/HCPCS: 94060; 94727; 94729 ==

== ENCOUNTER 2024-12-04 09:16 | Outpatient (AMB) | payer MEDICAID, SELFPAY ==
--- NOTE | 2024-12-04 08:19 | MHC.OFFVIS ---
Vital Signs 12/04/24 09:21 Height 5 ft 4 in Weight 209 lb 7.026 oz BMI 35.9 BP 124/74 Blood Pressure Location Lt brachial Position Sitting Pulse 81 Pulse Source Pulse Oximeter Pulse Oximetry (%) 100 Oxygen Delivery Method Room Air Intake Visit Reasons: Abnormal CXR/Shortness of Breath Service Worker Helper Required: Yes Service Worker Helper Name: Augusta Accompanied by: Self / Same As Patient Allergies Penicillins [PENICILLINS] Allergy (Intermediate, Unverified 12/04/24 09:26) RASH/HIVES Medication List - Last Reconciled 12/04/24 by Kaleigh De Jesus LPN albuterol sulfate 90 mcg/actuation (Ventolin HFA) 1 puff inhalation Q4-6H PRN HPI HPI Abnormal CXR/Shortness of Breath: Details: Thomas is a pleasant 34 year old female, current smoker with 20 pack year history, with underlying asthma, CKDIII, Bipolar, Anxiety and Depression. She was referred by PCP for pulmonary evaluation after abnormal CXR. She was treated on 08/29 for prolonged respiratory symptoms after testing positive to RSV on 08/29. She completed course of prednisone and azithromycin, and placed on Anoro and albuterol MDI. She reports symptoms have significantly improved, only used Anoro for less than one month. CXR from 08/30 unremarkable however per referral PCP noted repeat CXR revealed 2 lucent structures in right midlung with recommendations to repeat imaging. Patient unsure where this was performed. She does continue with dyspnea on exertion, wheezing, and productive cough with white mucous. Denies fevers, chills or chest congestion. She reports recent diagnosis of asthma, denies childhood asthma. Recent PFT revealed no obstructive or restrictive ventilatory defect. Bronchodilator response is present in small to medium airways only. DLCO normal. She denies recurrent respiratory infections. She denies known seasonal allergies, however reports increase allergic symptoms that recently started. She has a dog at home, no recent allergy testing. She denies occupational exposures. She denies any pertinent family history. [facility] Social History (Updated 12/04/24 @ 09:29 by Kaleigh De Jesus LPN) Patient Tobacco Use Status: Current everyday Tobacco user Cigarettes Per Day: 5 Years Smoked: 20 Review of Systems Const Denies chills, Denies excessive sweating, Denies fever(s), Denies headache(s) and Denies night sweats Eyes Denies dry eyes, Denies irritation and Reports itchy eyes ENT Reports Normal hearing present, Denies headache(s), Reports nasal congestion, Reports nasal discharge and Denies sore throat Card Denies chest pain, Denies chest pain at rest, Denies chest pain with activity, Denies claudication, Denies leg edema, Reports dyspnea on exertion, Denies orthopnea and Denies paroxysmal nocturnal dyspnea Resp Denies change in phlegm color, Denies chest congestion, Reports cough, Denies hemoptysis, Denies excessive phlegm production, Denies pain on inspiration, Denies pain with cough, Reports dyspnea on exertion, Denies stridor and Reports wheezing Musc Denies myalgias Neuro Reports Normal hearing present and Denies headache(s) Endo Denies excessive sweating Chris/Lymph Denies lymphadenopathy Aller/Immun Reports itchy eyes, Reports seasonal rhinorrhea and Reports wheezing Physical Exam Vital Signs: Last Vital Signs Pulse 81 12/04/24 09:21 BP 124/74 12/04/24 09:21 Pulse Ox 100 12/04/24 09:21 Oxygen Delivery Method Room Air 12/04/24 09:21 BMI result Body Mass Index 35.9 Const General: cooperative, healthy appearing, comfortable, no acute distress, well developed and alert Nutritional Appearance: obese Orientation/consciousness: patient oriented x3 Limitations: no limitations HEENT Head: Yes normal to inspection, Yes normocephalic and Yes atraumatic Ears: hearing grossly normal bilaterally and external ears normal Eyes General: appearance normal, both eyes and all related structures Eyelids: Yes eyelids normal Sclerae: sclerae normal EOM: EOMs intact bilaterally Neck Neck: Yes normal visual inspection and Yes no lymphadenopathy Lymphatic: no lymphadenopathy noted Chest Chest palpation & inspection: normal inspection of the chest Resp Effort & Inspection: normal respiratory effort, able to speak in complete sentences, no audible wheezes, no cough, no stridor, not tachypneic, no tripod positioning and no use of accessory muscles Auscultation: clear to auscultation bilaterally Cardio Jugular venous distension: no JVD Rate: regular rate Rhythm: regular rhythm Skin Other: warm, dry General skin exam: no rashes or lesions noted Neuro General: patient oriented x3 Cranial nerves: Yes Normal hearing present Cognition (Neuro): normal cognition Gait exam (Neuro): Normal gait present Extrem General: Yes normal to inspection, Yes capillary refill normal, Yes no clubbing, cyanosis or edema and Yes no pedal edema Psych Appearance: grossly normal and well kempt Speech and movement: Normal speech and movement present and Clear speech present Affect: normal affect Attitude: cooperative Thought process: Normal thought process present Thought content: Normal thought content present Insight: Good insight present (Psych) Judgement: Good judgement present (Psych) Assessment & Plan Assessment & Plan (1) Asthma: Code(s): J45.909 - Unspecified asthma, uncomplicated Category: Medical (2) Environmental allergies: Code(s): Z91.09 - Other allergy status, other than to drugs and biological substances Category: Medical (3) Cough: Code(s): R05.9 - Cough, unspecified Category: Medical Plan Roddymarcin reports new diagnosis of asthma, using albuterol MDI with good effect for cough, dyspnea and wheezing. Will start on Breo. Discussed importance of good oral hygiene to prevent thrush. Will send for RAST to assess for an allergic component. Smoking cessation reviewed, not ready to quit at this time. Will send for repeat CXR to assess resolution of prior noted lucencies. All questions were answered and patient is in agreement of plan. Will follow up in 6-8 weeks or sooner if needed. Orders: Orders Complete Blood Count Auto Diff Today Z91.09 - Other allergy status, other than to drugs and biological substances Resp Allergy Profile Region I Today Z91.09 - Other allergy status, other than to drugs and biological substances XR chest 2V Today R05.9 - Cough, unspecified Immunoglobulin E Today Z91.09 - Other allergy status, other than to drugs and biological substances Medications: New fluticasone furoate-vilanterol 100-25 mcg/dose (Breo Ellipta) 1 inh inhalation DAILY 60 ea 3RF Coding Level of Care Code New Pt Level 4 (78650) Diagnoses Asthma J45.909 Environmental allergies Z91.09 Cough R05.9
[2024-12-04 09:21] VITALS: BP 124/74; PULSE 81; O2SAT 100; BMI 35.9
--- OUTSIDE RECORDS SUMMARY | 2024-12-04 10:15 | XMS_ITS | Encounter Summary ---
Author Organization [facility] Address [address] [place] [address] Phone Care Team Providers Care Welder/Fitter Name Role Phone Isabel Cota MD Primary Care Provider [phone] Encounter Details Date Type Department Care Team (Late Contact Info) Description 09/29/2024 Documentation Only [facility] [address] [place] [address] [place] [address] [place] [phone] Social History Tobacco Use Types Packs/Day [...] Visit [facility] [address] [place] [address] Guille Mcginnis MD [address] [place] [address] [place] [address] documented as of this encounter Visit Diagnoses Not on filedocumented in this encounter Care Teams Welder/Fitter Relationship Specialty Start Date End Date Isabel Cota MD [address] [place] [address] PCP - General Internal Medicine 05/29/21 documented as of this encounter
--- OUTSIDE RECORDS SUMMARY | 2024-12-04 10:15 | XMS_ITS | Encounter Summary ---
Author Organization [facility] Address [address] [place] [address] Phone Care Team Providers Care Health Occupations Instructor Name Role Phone Isabel Cota MD Primary Care Provider [phone] Encounter Details Date Type Department Care Team (Late st Contact Info) Description 10/30/2024 Documentation Only [facility] [address] [place] [address] [place] [address] [place] [phone] Social History Tobacco Use Types Packs/Day [...] Visit [facility] [address] [place] [address] Guille Mcginnis MD [address] [place] [address] [place] [address] documented as of this encounter Visit Diagnoses Not on filedocumented in this encounter Care Teams Health Occupations Instructor Relationship Specialty Start Date End Date Isabel Cota MD [address] [place] [address] PCP - General Internal Medicine 05/29/21 documented as of this encounter
--- OUTSIDE RECORDS SUMMARY | 2024-12-04 10:15 | XMS_ITS | Encounter Summary ---
Author Organization [employer] [facility] Address [address] [place] [address] Care Team Providers Care Radiation Control Health Physicist Name Role Phone Anabel Patel MD Primary Care Provide r Reason for Visit * Reason Onset Date Comments New patient 06/25/2023 Encounter Details Date Type Department Care Team (Late st Contact Info) Description 06/25/2023 Telephone [facility] [address] [place] [address] [phone] Elvis Tsai MD [address] [place] [address] [phone] New patient Social History Tobacco Use Types [...] been transfer over to wait list for INCOME AUDITOR. EFFECTIVE SINCE 06/25/2023 documented in this encounter Plan of Treatment Upcoming Encounters Date Type Department Care Team (Late st Contact Info) Description 12/14/2024 11:30 AM EDT Telemedicine [facility] [address] [place] [address] Anabel Patel MD [address] [place] [address] documented as of this encounter Visit Diagnoses Not on filedocumented in this encounter Care Teams Radiation Control Health Physicist Relationship Specialty Start Date End Date Anabel Patel MD [address] [place] [address] PCP - General Internal Medicine 09/21/23 documented as of this encounter
--- OUTSIDE RECORDS SUMMARY | 2024-12-04 10:15 | XMS_ITS | Encounter Summary ---
Author Organization [employer] Address [address] [facility] [address] [place] [address] Care Team Providers Care Telecasting Technician Name Role Phone Anabel Patel MD Primary Care Provide r Reason for Visit * Reason Onset Date Comments rs SRP appt 06/06/2024 Encounter Details Date Type Department Care Team ([facility] st Contact Info) Description 06/06/2024 Telephone [facility] ADULT DENTAL [address] [place] [address] Jeremiah Shepherd rs SRP appt Social History [...] to illness. She would like to rs. [facility] appts not available on PAR side. Pls reach out to patient for rs documented in this encounter Plan of Treatment Upcoming Encounters Date Type Department Care Team (Late st Contact Info) Description 12/14/2024 11:30 AM EDT Telemedicine [facility] MEDICINE [address] [place], [place] [phone] Anabel Patel MD [address] [place] [address] documented as of this encounter Visit Diagnoses Not on filedocumented in this encounter Additional Health Concerns Assessment Noted Time PHQ-9 Depression Total Score: 19 024 10:24 AM EST documented as of this encounter Care Teams Telecasting Technician Relationship Specialty Start Date End Date Anabel Patel MD [address] [place], [place] [phone] PCP - General Internal Medicine 09/21/23 documented as of this encounter
--- OUTSIDE RECORDS SUMMARY | 2024-12-04 10:15 | XMS_ITS | Clinical Summary ---
Author Organization [email or web address] Address [address] [facility] [address] [place] [address] Care Team Providers Care Rn Psychiatric Name Role Phone Anabel Patel MD Primary Care Provide r Allergies Active Allergy Reactions Criticality Noted Date Comments Penicillins Anaphylaxis,Swelling High 01/20/2023 Shrimp Flavor Agent (Non-Screening) Rash Low 10/19/2024 Medications * This document contains information received from the source organization and may not represent a complete record from that organization. gabapentin (Neurontin) 300 MG capsuleIndicatio ns:Chronic midline low back pain without sciatica Take 1 capsule (300 mg) by mouth every 12 (twelve) hours. 60 capsule 1 4 Active hydrOXYzine HCl (Atarax) 25 MG tabletIndication s:Depression with anxiety Take 1 tablet (25 mg) by mouth every 8 (eight) hours if needed for itching for up to 20 days. 30 tablet 1 4 Active busPIRone (Buspar) 15 MG tabletIndication s:Depression with anxiety TAKE 1 TABLET BY MOUTH EVERY DAY 90 tablet 1 4 Active buPROPion XL (Wellbutrin XL) 150 MG 24 hr tablet 8 Active FLUoxetine (PROzac) 10 MG capsule Take 10 mg by mouth in the morning. 4 Active traZODone (Desyrel) 50 MG tablet TAKE 1/2-1 TABLET BY MOUTH AT BEDTIME TOME 1/2-1 TABLETA 30 MIN ANTES DE DORMIR 4 Active allopurinol (Zyloprim) 100 MG tabletIndication s:Stage 3 chronic kidney disease, unspecified whether stage 3a or 3b CKD (CMS/HCC) TAKE 1 TABLET BY MOUTH EVERY DAY IN THE MORNING 90 tablet 1 4 Active Farxiga 10 MGIndications:St age 1 chronic kidney disease, unspecified whether stage 3a or 3b CKD (CMS/HCC) TAKE 1 TABLET BY MOUTH EVERY DAY IN THE MORNING 90 tablet 4 Active ondansetron (Zofran) 4 MG tablet Take 1 tablet (4 mg) by mouth every 8 (eight) hours if needed for nausea or vomiting. 20 tablet 5 Active GAS RELIEF 125 MG capsule Take 125 mg by mouth every 6 (six) hours if needed for flatulence. 5 Active Ventolin HFA 108 (90 Base) MCG/ACT inhalerIndicatio ns:Bronchitis Inhale 2 puffs every 4 (four) hours if needed for wheezing or shortness of breath. 18 g 1 5 Active Umeclidinium-Kimberly anterol 62.5-25 MCG/ACT aerosol powderIndication s:Bronchitis Inhale 1 puff Once per day. 1 each 2 5 10/19/19 26 Active Active Problems Problem Noted Date Diagnosed Date Moderate major depression 11/20/2024 Assessment & Plan (11/22/2024 11:58 AM EDT): During IBH Consult Thomas presenting with depressed mood, Tearful, crying spells , hopelessness, irritable mood, loss of interests/pleasure , sense of isolation/loneliness , isolating, change in appetite or weight reduce appetite, changes in sleep difficulty falling asleep, worthlessness, inappropriate/excessive guilt , difficulty concentrating; for a period of 18+ mo, for most or all symptoms in the context of family issues. Pt carries a diagnosis for Bipolar dx II per her medical chart. Pt presented today with depressive sxs, hopelessness, frustration due to having personal/family stressors, low-mood and lack of motivation. Thomas is currently connected with a therapist and psychiatrist. However, pt reports not being med complaint due to severe side effects of the medication. Pt will continue treatment with current therapist. If needed, she will discuss medication management during her next physical appointment. Pt will connect with clinician for additional support. Discussed importance to having a plan when sxs increase, setting boundaries and distract herself from depressive thoughts by doing coping strategies. Bronchitis 10/19/2024 SOB (shortness of breath) on [...] Date Resolved Date Gout 09/21/2023 09/22/2023 Encounters * This document contains information received from the source organization and may not represent a complete record from that organization. Date Type Department Care Team Description 11/21/2024 Orders Only [facility] [address] [place] [address] Deandra Perez, LUMA Ganglion cyst of left foot (Primary Dx) 11/13/2024 Travel 11/03/2024 Population Health Risk Score [facility] (C3) Department [address] [place] [phone] Provider, Population Health Generic 10/19/2024 9:30 AM EST Office Visit [facility] [address] [place] [phone] Anabel Patel MD Bronchitis (Primary Dx); SOB (shortness of breath) on exertion; Palpitations; Other fatigue; Bipolar 2 disorder ([facility]/HCC) 10/19/2024 Orders Only [facility] [address] [place] [phone] Anabel Patel MD Hypokalemia (Primary Dx) 10/19/2024 Refill [facility] [address] [place] [phone] Anabel Patel MD Hypokalemia 10/19/2024 Travel 10/15/2024 Travel 10/05/2024 Telephone [facility] [address] [place] [phone] Anabel Patel MD No Show 09/28/2024 Telephone [facility] [address] [place] [phone] Trupti Smith, RN Results 09/15/2024 Telephone [facility] [address] [place] [phone] Trupti Smith, RN Results 09/13/2024 11:00 AM EST Office Visit [facility] [address] [place] [phone] Kristel aMrin DO Decreased appetite (Primary Dx); Abdominal bloating from Last 3 Months Immunizations Name Administration [...] Answer Date Recorded Patient Health Questionnaire-9 Score 16 11/20/2024 Patient Health Questionnaire-9 Score 16 11/20/2024 Last PHQ-9: Questionnaire Data Not on file 0 11/20/2024 Housing Stability Answer Date Recorded What is [...] Date Recorded Patient Health Questionnaire-2 Score 6 11/20/2024 Internet Access Answer Date Recorded Internet Access [...] Info) Description 12/14/2024 11:30 AM EDT Telemedicine [facility] [address] [place] [phone] Anabel Patel MD [address] [place] [phone] Health Maintenance Due Date Last Done Comments Alcohol/Substance Use Screening 2000 Family Planning (PISQ) 2003 Hepatitis A Vaccines (1 of 2 - Risk 2-dose series) 2007 Hepatitis B Vaccines (1 of 3 - 19+ 3-dose series) 2007 DTaP/Tdap/Td Vaccines (2 - Td or Tdap) 02/17/2022 02/18/2012 Dental Oral Exam 03/18/2024 09/17/2023 COVID-19 Vaccine ( season) 2024 Influenza Vaccine (#1) 2024 , 06/02/2018, 05/19/2017, Additional history exists Dental Prophylaxis 07/03/2024 12/31/2023 Dental X-Ray: Bitewings 09/18/2024 09/17/2023 Depression Monitoring 05/22/2025 11/20/2024, 025 SDOH Screening 10/19/2025 10/19/2024 Tobacco Screening 10/19/2025 10/19/2024 Depression Screening 11/20/2025 11/20/2024, 11/21/19 Cervical Cancer Screening 05/07/2026 HPV/Cotest 05/07/2026 05/07/2021 Pap Smear 05/07/2026 05/07/2021 Dental X-Ray: Full Mouth 09/18/2026 09/17/2023 Lipid Panel 09/13/2029 09/13/2024 Zoster Vaccines (1 of 2) 2038 RSV Patients and Patients Aged 60 years or older (1 - 1-dose 75+ series) 2063 HIV Screening Completed 10/19/2024, 08/24, 09/21/2023 Hepatitis C Screening Completed 10/19/2024 , 09/13/2024, 09/21/2023 HIB Vaccines Aged Out No longer [...] Procedure Name Priority Date/Time Associated Diagnosis Comments MARLA SCREEN, IFA, W/REFL TITER AND PATTERN Routine 10/19/2024 10:25 AM EST Other fatigue SED RATE BY MODIFIED WESTERGREN Routine 10/19/2024 10:25 AM EST Other fatigue CYCLIC CITRULLINATED PEPTIDE (CCP) AB (IGG) Routine 10/19/2024 10:25 AM EST Other fatigue VITAMIN B12/FOLATE, SERUM PANEL Routine 10/19/2024 10:25 AM EST Other fatigue CBC WITH AUTO DIFFERENTIAL Routine 10/19/2024 10:25 AM EST Other fatigue HEPATITIS C AB W/REFL TO HCV RNA, QN, PCR Routine 10/19/2024 10:25 AM EST Other fatigue HIV 1/2 ANTIGEN/ANTIBODY, FOURTH GENERATION W/RFL Routine 10/19/2024 10:25 AM EST Other fatigue C-REACTIVE PROTEIN Routine 10/19/2024 10 :05 AM EST Other fatigue FERRITIN Routine 10/19/2024 10:05 AM EST Other fatigue IRON AND TOTAL IRON BINDING CAPACITY Routine 10/19/2024 10:05 AM EST Other fatigue TSH W/REFLEX TO FT4 Routine 10/19/2024 1 0:05 AM EST Palpitations Other fatigue VITAMIN D,25-OH,TOTAL,IA Routine 10/19/2024 10:05 AM EST Other fatigue COMPREHENSIVE METABOLIC PANEL Routine 10/19/2024 10:05 AM EST Palpitations Other fatigue US ABDOMEN COMPLETE Routine 09/26/2024 1 0:07 [...] Recently Relevant to Health Maintenance Results * Vitamin B12 (Cobalamin) and Folate Panel, Serum (10/19/2024 10:25 AM EST) Vitamin B12 358 200 - 900 pg/mL [facility] Comment:NORMAL 200-900 PG/ML INDETERMINATE 160-199 PG/ML DEFICIENT < 160 PG/ML Folate 4.8 > or = 4.0 ng/mL [facility] Comment:Reference Values:> o r = 4.0 ng/mL< 4.0 ng/mL suggests folate deficiency Methotrexate, aminopterin and folinic acid(leucovorin) are chemotherapeutic agents whose molecularstructures are similar to folate; therefore, the Architectfolate assay cannot be used for patients using these drugs. Blood Venous blood specimen / Unknown 10/19/2024 10:25 AM EST 10/19/2024 11:48 AM EST Anabel Cardona MD LAB BLOOD ORDERABLES Final Result [facility] [address] [place] [phone] * (ABNORMAL) CBC auto differential (10/19/2024 10:25 AM EST) Only the most recent of2 resultswithin the time period is included. White Blood Count 13.2(H) 4.8 - 10.8 X10*3/uL [facility] Red Blood Count 3.58(L) 4.20 - 5.50 X10*6/uL [facility] Hemoglobin 10.3(L) 12.0 - 16.0 g/dl [facility] Hematocrit 31.3(L) 37.0 - 47.0 % [facility] Mean Corpuscular Volume 87.4 80.0 - 98.0 fL [facility] Mean Corpuscular Hemoglobin 28.8 27.0 - 33.0 pg [facility] Mean Corpuscular HGB Conc 32.9 31.0 - 35.0 g/dl [facility] Red Cell Distribution Width 14.1 11.0 - 16.0 % [facility] Platelet Count 247 160 - 400 X10*3/uL [facility] Mean Platelet Volume 10.9 9.4 - 12.3 fL [facility] Neutrophils Percent Auto 80.3(H) 45 - 73 % [facility] Imm Gran Pct Auto 0.3 0.0 - 0.4 % [facility] Lymphocytes Percent Auto 15.5(L) 20 - 40 % [facility] Monocytes Percent Auto 3.0 2 - 11 % [facility] Eosinophils Percent Auto 0.5 0 - 4 % [facility] Basophils Percent Auto 0.4 0 - 2 % [facility] NRBC Pct Auto 0.0 0.0 - 0.2 /100WBC [facility] Neutrophils Absolute Auto 10.6(H) 2.0 - 8.3 x10*3/uL [facility] Imm Gran Abs Auto 0.04(H) 0.00 - 0.03 X10*3/uL [facility] Lymphocytes Absolute Auto 2.1 1.2 - 4.9 X10*3/uL [facility] Monocytes Absolute Auto 0.4 0.1 - 1.2 X10*3/uL [facility] Eosinophils Absolute Auto 0.1 0.0 - 0.4 X10*3/uL [facility] Basophils Absolute Auto 0.1 0.0 - 0.2 X10*3/uL [facility] NRBC Abs Auto 0.000 0.0 - 0.012 X10*3/uL [facility] Blood Venous blood specimen / Unknown 10/19/2024 10:25 AM EST 10/19/2024 11:48 AM EST Anabel Cardona MD LAB BLOOD ORDERABLES Final Result Performing Organization Address [facility] Co de Phone Number [facility] [address] [place] [phone] * Hepatitis C Antibody with Reflex to HCV, RNA, Quantitative, Real-Time PCR (10/19/2024 10:25 AM EST) Only the most recent of2 resultswithin the time period is included. Hepatitis C Antibody Nonreactive Nonreactive [facility] Comment:Antibodies to HCV no t detected; does not exclude early acuteHCV infection. Blood Venous blood specimen / Unknown 10/19/2024 10:25 AM EST 10/19/2024 11:48 AM EST Anabel Cardona MD LAB BLOOD ORDERABLES Final Result Performing Organization Address [facility] de Phone Number [facility] [address] [place] [phone] * Cyclic Citrullinated Peptide (CCP) Antibody (IgG) (10/19/2024 10:25 AM EST) Cyclic Citrullinated Peptide <16 UNITS [facility] Comment:Reference RangeNegat lu: <20Weak Positive: 20-39Moderate Positive: 40-59Strong Positive: >59THIS TEST WAS PERFORMED AT:[facility] [address] [phone] NICK MD Blood Venous blood specimen / Unknown 10/19/2024 10:25 AM EST 10/19/2024 11:48 AM EST Anabel Cardona MD LAB BLOOD ORDERABLES Final Result Performing Organization Address [facility] Co de Phone Number [facility] [address] [place] [phone] * HIV-1/2 Antigen and Antibodies, Fourth Generation, with Reflexes (10/19/2024 10:25 AM EST) Only the most recent of2 resultswithin the time period is included. HIV AB/AG Nonreactive Nonreactive [facility] Comment:HIV-1 p24 Ag and/or HIV-1/HIV-2 Ab not detected.A test result that is nonreactive does not exclude thepossibility of exposure to or infection with HIV-1 and/orHIV-2. Nonreactive results in this assay for individualswith prior exposure to HIV-1 and/or HIV-2 may be due toantigen and antibody levels that are below the limit ofdetection of this assay.The [employer] HIV Ag/Ab Combo assay result andsupplemental assay results should be interpreted inconjunction with the patient's clinical presentation,history and other laboratory results. If the results areinconsistent with clinical evidence, additional testing issuggested to confirm the result. Blood Venous blood specimen / Unknown 10/19/2024 10:25 AM EST 10/19/2024 11:48 AM EST us Anabel Cardona MD LAB BLOOD ORDERABLES Final Result [facility] [address] [place] [phone] * (ABNORMAL) Sed Rate by Modified Westergren (10/19/2024 10:25 AM EST) Erythrocyte Sedimentation Rate 96(H) 0 - 20 MM/HR [facility] Comment:Patients with polycy themia and many hemoglobin abnormalitiesmay have depressed sed rates whereas patients with anemiamay have elevated sed rates. Blood Venous blood specimen / Unknown 10/19/2024 10:25 AM EST 10/19/2024 11:48 AM EST us Anabel Cardona MD LAB BLOOD ORDERABLES Final Result Performing Organization Address [facility]/ZIP Co de Phone Number [facility] [address] [place] [phone] * MARLA Screen,IFA, with Reflex to Titer and Pattern (10/19/2024 10:25 AM EST) Anti Nuclear Antibody Screen NEGATIVE NEGATIVE [facility] Comment:MARLA IFA is a first l ine screen for detecting thepresence of up to approximately 150 autoantibodies invarious autoimmune diseases. A negative MARLA IFA resultsuggests an MARLA-associated autoimmune disease is notpresent at this time, but is not definitive. If thereis high clinical suspicion for Sjogren's syndrome,testing for anti-SS-A/Ro antibody should be considered.Anti-Shadia-1 antibody should be considered for clinicallysuspected inflammatory myopathies.AC-0: NegativeInternational Consensus on MARLA Patterns(https://doi.org/10.1515/jdcd-8992-6239)For additional information, please refer tohttp://education.[employer]/faq/XJJ114(This link is being provided for informational/educational purposes only.)THIS TEST WAS PERFORMED AT:[employer] [place] [phone] NICK MD MARLA Titer [facility] MARLA Pattern [facility] MARLA TITER 2 (REF LAB) [facility] MARLA Pattern 2 [facility] MARLA TITER 3 [facility] MARLA PATTERN 3 [facility] Blood Venous blood specimen / Unknown 10/19/2024 10:25 AM EST 10/19/2024 11:48 AM EST us Anabel Cardona MD LAB BLOOD ORDERABLES Final Result Performing Organization Address [facility]/ZIP Co de Phone Number [facility] [address] [place] [phone] * (ABNORMAL) Vitamin D, 25-Hydroxy, Total, Immunoassay (10/19/2024 10:05 AM EST) Vitamin D 25-OH Total 17.8(L) >30 ng/mL [facility] Comment:Health Based Referen ce Values*< 20 ng/mL Fmoitpdeo35-37 ng/mL Insufficient> 30 ng/mL Sufficient*Misael LOPES. N Engl J Med. 2007;357:266-280Care must be taken in interpreting Vitamin D results fromdifferent laboratories and methodologies. Published datademonstrated that results from patients undergoinghemodialysis may show a negative bias when tested withvarious automated 25-OH vitamin D assays when compared toLC-MS/MS.When testing samples from patients whose predominant form ofVitamin D is Vitamin D2, such as patients receiving VitaminD2 supplementation, results that are subtherapeutic shouldbe confirmed with another method such as LC-MS/MS. Blood Venous blood specimen / Unknown 10/19/2024 10:05 AM EST 10/19/2024 11:48 AM EST us Anabel Cardona MD LAB BLOOD ORDERABLES Final Result Performing Organization Address City/[facility]/ZIP Co de Phone Number [facility] [address] [place] [phone] * TSH with Reflex to Free T4 (10/19/2024 10:05 AM EST) TSH reflex Free T4 2.34 0.32 - 4.0 uIU/mL [facility] Blood Venous blood specimen / Unknown 10/19/2024 10:05 AM EST 10/19/2024 11:48 AM EST us Anabel Cardona MD LAB BLOOD ORDERABLES Final Result Performing Organization Address City/[facility]/ZIP Co de Phone Number [facility] [address] [place] [phone] * (ABNORMAL) Iron And Total Iron Binding Capacity (10/19/2024 10:05 AM EST) Iron 29(L) 30 - 160 mcg/dL [facility] Total Iron Binding Capacity 218(L) 228 - 428 mcg/dL [facility] Percent Iron Saturation 13(L) 15 - 50 % [facility] Unsaturated Iron Binding 189 ug/dL [facility] Blood Venous blood specimen / Unknown 10/19/2024 10:05 AM EST 10/19/2024 11:48 AM EST us Anabel Cardona MD LAB BLOOD ORDERABLES Final Result Performing Organization Address City/[facility]/ZIP Co de Phone Number [facility] [address] [place] [phone] * (ABNORMAL) C-reactive Protein (10/19/2024 10:05 AM EST) C Reactive Protein 2.57(H) < or = 0.50 mg/dL [facility] Blood Venous blood specimen / Unknown 10/19/2024 10:05 AM EST 10/19/2024 11:48 AM EST us Anabel Cardona MD LAB BLOOD ORDERABLES Final Result Performing Organization Address [facility] Co de Phone Number [facility] [address] [place] [phone] * (ABNORMAL) Ferritin (10/19/2024 10:05 AM EST) Ferritin 184(H) 10 - 122 ng/mL [facility] Blood Venous blood specimen / Unknown 10/19/2024 10:05 AM EST 10/19/2024 11:48 AM EST us Anabel Cardona MD LAB BLOOD ORDERABLES Final Result Performing Organization Address [facility] Co de Phone Number [facility] [address] [place] [phone] * (ABNORMAL) Comprehensive Metabolic Panel (10/19/2024 10:05 AM EST) Sodium 141 135 - 145 mmol/L [facility] Potassium 2.9(LL) 3.3 - 5.1 mmol/L [facility] Comment:Critical value for P OTS Results called to and read backby: BERNARD Cruz Person calling: LILIAN Date: 10/19/24Time:1255 Chloride 106 96 - 108 mmol/L [facility] Carbon Dioxide 22 22 - 29 mmol/L [facility] Anion Gap 16 12 - 20 [facility] Urea Nitrogen (BUN) 34(H) 9 - 16 mg/dL [facility] Creatinine, Serum 2.85(H) 0.5 - 1.4 mg/dL [facility] Estimated Glomerular Filt Rate 19 [facility] Comment:Chronic Kidney Disea se: Estimated GFR < 60 mL/min/1.26v6Vksyzf Kidney Disease: Estimated GFR < 15 mL/min/1.73m2 Glucose 107 60 - 115 mg/dL [facility] Calcium 8.3(L) 8.4 - 10.2 mg/dL [facility] Bilirubin, Total 0.3 0.0 - 1.0 mg/dL [facility] Aspartate Amino Transferase 22 5 - 31 U/L [facility] Alanine Aminotransferase 10 0 - 31 U/L [facility] Total Protein 7.9 6.5 - 8.0 g/dL [facility] Albumin Level 3.9 3.5 - 5.0 g/dL [facility] Alkaline Phosphatase 80 39 - 117 U/L [facility] Blood Venous blood specimen / Unknown 10/19/2024 10:05 AM EST 10/19/2024 11:48 AM EST us Anabel Cardona MD LAB BLOOD ORDERABLES Final Result [facility] [address] [place] [phone] * US Abdomen Complete (09/26/2024 10:07 AM EST) Anatomical Region Laterality Modality Abdomen Ultrasound 09/26/2024 10:0 7 AM EST Narrative 09/26/2024 10:08 AM EST ? [facility] ?[address] ? [place] [address] ? Ultrasound Report ? Signed ? Patient: Thomas Valentin ?MR#: [id number] ?? [id number] ? : 1990 ?Acct:[id number] ? Age/Sex: 34 / F ?ADM Date: 09/26/24 ? Loc: HO.HMGCX ? Attending Dr: Kristel Marin DO ? Ordering Physician: Kristel Marin DO ?? Date of Service: 09/26/24 ?? Procedure(s): US abdomen complete ?? Accession Number(s): [id number] ? cc: Anabel Patel MD; Kristel Marin [...] DD/ 1007 ? TD/TT: 09/26/24 1007 ? Senior C Software Engineer: ? Procedure Note Donotuseinterpreter, Image - 09/26/2024 [facility] [facility] [place] [address] Ultrasound Report Signed Patient: Suze Valentin#: [id number] : 1990Acct:[id number] Age/Sex: 34 / FADM Date: 09/26/24 Loc: HO.HMGCX Attending Dr: Kristel Marin DO Ordering Physician: Kristel Marin DO Date of Service: 09/26/24 Procedure(s): US abdomen complete Accession Number(s): [id number] cc: Anabel Patel MD; Kristel Marin DO [...] 09/26/24 1008 DD/ 1007 TD/TT: 09/26/24 1007 Senior C Software Engineer: us Kristel Marin DO IMG US PROCEDURES Edited Res ult - Final * (ABNORMAL) Lipase (09/13/2024 11:25 AM EST) Lipase 86(H) 8 - 78 U/L [facility] Blood Venous blood specimen / Unknown 09/13/2024 11:25 AM EST 09/13/2024 1:19 PM EST Kristel Marin DO LAB BLOOD ORDERABLES Final R esult Performing Organization Address [facility] Co de Phone Number [facility] [address] [place] [phone] * Hemoglobin A1c (09/13/2024 11:25 AM EST) Hemoglobin A1c 5.5 <6.0 % [facility] Comment:Hemoglobin A1C Refer ence Range Adults: 4.8 - 6.0 % Non diabetic: < 6.0 % Goal: < 7.0 %Additional Action Suggested: > 8.0 %Note: Hemoglobin A1c results are invalid for patients with abnormal amounts of HbF. Blood transfusions may impact the HbA1c concentration in the patient sample. Estimated Average Glucose 111 mg/dL [facility] Comment:eAG = Estimated ave rage glucose which is %A1C expressed asaverage glucose, using the formula of the L0H-MhwbuqzCbzjeom Glucose study (ADAG), Diabetes Care, Vol.31,#8,Mar. 2007 09/13/2024 11:2 5 AM EST 09/13/2024 1:19 PM EST us Anabel Cardona MD LAB BLOOD ORDERABLES Final Result Performing Organization Address City/[facility] Co de Phone Number [facility] [address] [place] [phone] * (ABNORMAL) Amylase (09/13/2024 11:25 AM EST) Amylase 122(H) 28 - 100 U/L [facility] Blood Venous blood specimen / Unknown 09/13/2024 11:25 AM EST 09/13/2024 1:19 PM EST us Kristel Marin DO LAB BLOOD ORDERABLES Final R esult Performing Organization Address City/[facility]/ZIP Co de Phone Number [facility] [address] [place] [phone] [phone] * (ABNORMAL) Hepatic Function Panel (09/13/2024 11:25 AM EST) Only the most recent of2 resultswithin the time period is included. Bilirubin, Total 0.8 0.0 - 1.0 mg/dL [facility] Bilirubin, Direct 0.3 0.0 - 0.5 mg/dL [facility] Aspartate Amino Transferase 40(H) 5 - 31 U/L [facility] [facility] Alanine Aminotransferase 113(H) 0 - 31 U/L [facility] Total Protein 8.2(H) 6.5 - 8.0 g/dL [facility] Albumin Level 4.0 3.5 - 5.0 g/dL [facility] Alkaline Phosphatase 125(H) 39 - 117 U/L [facility] 09/13/2024 11:2 5 AM EST 09/13/2024 1:19 PM EST us Anabel Cardona MD LAB BLOOD ORDERABLES Final Result Performing Organization Address [facility] Co de Phone Number [facility] [address] [place] [phone] * (ABNORMAL) Lipid Panel, Standard (09/13/2024 11:25 AM EST) Triglycerides 151(H) <150 mg/dL [facility] Comment:Desirable Triglyceri de: less than 150 mg/dLBorderline High Triglyceride 150-199 mg/dLHigh Triglyceride: 200-499 mg/dLVery High Triglyceride: greater than or equal to 5OO mg/dL Cholesterol 182 <200 mg/dL [facility] Comment:Desirable Cholestero l: less than 200 mg/dLBorderline High Cholesterol: 200-239 mg/dLHigh Cholesterol: greater than 239 mg/dL LDL Cholesterol Calculated 114(H) <100 mg/dL [facility] Comment:Desirable LDL: less than 100 mg/dLNear Optimal/Above Optimal LDL: 110- 129 mg/dLBorderline High LDL: 130-159 mg/dLHigh LDL: 160-189 mg/dLVery High LDL: greater than or equal to 190 mg/dL HDL Cholesterol 38(L) >40 mg/dL [facility] Comment:Desirable HDL: great er than 40 mg/dL Note: This HDL assay may give artificially low results in patients with liver disease. Blood Venous blood specimen / Unknown 09/13/2024 11:25 AM EST 09/13/2024 1:19 PM EST us Anabel Cardona MD LAB BLOOD ORDERABLES Final Result [facility] [address] [place] [phone] * (ABNORMAL) Basic Metabolic Panel (09/13/2024 11:25 AM EST) Only the most recent of2 resultswithin the time period is included. Sodium 136 135 - 145 mmol/L [facility] Potassium 3.4 3.3 - 5.1 mmol/L [facility] Chloride 107 96 - 108 mmol/L [facility] Carbon Dioxide 18(L) 22 - 29 mmol/L [facility] Anion Gap 14 12 - 20 [facility] Urea Nitrogen (BUN) 64(H) 9 - 16 mg/dL [facility] Creatinine, Serum 3.27(H) 0.5 - 1.4 mg/dL [facility] Estimated Glomerular Filt Rate 16 [facility] Comment:Chronic Kidney Disea se: Estimated GFR < 60 mL/min/[id number] Kidney Disease: Estimated GFR < 15 mL/min/1.73m2 Glucose 97 60 - 115 mg/dL [facility] Calcium 9.1 8.4 - 10.2 mg/dL [facility] 09/13/2024 11:2 5 AM EST 09/13/2024 1:19 PM EST us Anabel Cardona MD LAB BLOOD ORDERABLES Final Result [facility] [address] [place] [phone] * HM PAP/HPV (05/07/2021) Pap Smear 1. NILM 1. NILM HPV Not Detected Undetected, Indeterminat e, Quantitative , Not Detected us Historical Provider HEALTH MAINTENANCE Final Result from Last 3 Months or Most Recently Relevant to Health Maintenance Insurance [facility] C3 DENTAL-[facility] MEDICAID STAND ADULT Care Teams Rn Psychiatric Relationship Specialty Start Date End Date Anabel Patel MD [address] [place] [phone] PCP - General Internal Medicine 09/21/23
--- OUTSIDE RECORDS SUMMARY | 2024-12-04 10:15 | XMS_ITS | Encounter Summary ---
Author Organization [facility] Address [address] [place] [address] Care Team Providers Care Autographer Name Role Phone Isabel Coughlin MD Primary Care Provider Tatyana Wyatt MD Primary Care Provider Isabel Dang MD Primary Care Provider Tatyana Wyatt MD Primary Care Provider Edy chao [facility], Pcp Primary Care Provider Unavailabl e Reason for Visit * Reason Comments E-prescribe Rx Request Encounter Details Date Type Department Care Team Description 11/03/2019 Refill Adult Medicine [address] [address] Mary Carias NP E-prescribe Rx Request Social History Tobacco Use Types Packs/Day Years Used Date Smoking Tobacco: Every Day Smokeless Tobacco: Never Alcohol Use Standard Drinks/Week Comments No 0 (1 standard drink = 0.6 oz pur e alcohol) Sex Assigned at Date Recorded Not on file documented as of this encounter Miscellaneous Notes * Telephone Encounter - Virgie Ratliff - 11/03/2019 6:44 AM EDT Patient would like script to be: E-PRESCRIBED/FAXED TO PHARMACY WHEN WAS THE PATIENT'S LAST APPOINTMENT IN ADULT MEDICINE? 10/09/2019 WHEN WAS THE LAST TIME THE PATIENT SAW THEIR PCP? 08/30/2019 Does patient have an upcoming appointment? No[facility] to refill request. Appt due (THE MEDICATION REQUESTED IS ON THE MED LIST ABOVE) All of the medications requested were on the CURRENT MEDS list Did you check the Pharmacy information above?: YES Patient wants: 30 -day supply Is this a mail order prescription request ? YES If the refill is from a FAXED refill request what is the RX # listed on the fax? N/A Patients current insurance carrier is: Payor: [employer] FFS / Plan: [employer]IANCE / Product Type: MEDICAID RISK documented in this encounter Plan of Treatment Not on file documented as of this encounter Visit Diagnoses Not on filedocumented in this encounter Care Teams Autographer Relationship Specialty Start Date End Date Isabel Coughlin MD PCP - General Internal Medicine 09/03/17 06/25/21 Tatyana Murillo MD PCP - General Internal Medicine 06/26/21 07/13/21 Isabel Coughlin MD PCP - General Internal Medicine 07/14/21 09/17/21 Tatyana Murillo MD PCP - General Internal Medicine 09/18/21 07/05/22 Darlin Padilla PCP - General Internal Medicine 07/06/22 documented as of this encounter
--- OUTSIDE RECORDS SUMMARY | 2024-12-04 10:15 | XMS_ITS | Encounter Summary ---
Author Organization [facility] Address [address] [place] [address] Care Team Providers Care Systems Software Engineer Name Role Phone Isabel Coughlin MD Primary Care Provider Unavail Tatyana Garcia MD Primary Care Provider Isabel Dang MD Primary Care Provider Tatyana Wyatt MD Primary Care Provider Edy chao [facility], Pcp Primary Care Provider Unavailabl e Reason for Referral * EXTERNAL (Urgent) - Authorized/Booked Specialty Diagnoses / Procedures Referred By Parul rizzo Referred To Contact Nephrology Procedures REFERRAL TO NEPHROLOGY Isaiah Gross PA-C [address] [place] [address], [address] [place] [address] Guille Mcginnis MD [address] [place] [phone] Referral ID Status Reason Start Date Expiration Date V isits Requested Visits Authorized [id number] Authorized/B ooked 05/26/2021 08/27/2021 1 1 Reason for Visit * Reason Onset Date Comments REFERRAL 05/26/2021 Encounter Details Date Type Department Care Team Description 05/26/2021 Telephone Adult Medicine [address] [address] Isaiah Gross PA-C REFERRAL Social History Tobacco Use Types Packs/Day Years Used Date Smoking Tobacco: Every Day Cigarettes 0.5 15 Smokeless Tobacco: Never Comments:depends on stress l evel Alcohol Use Standard Drinks/Week Comments No 0 (1 standard drink = 0.6 oz pur e alcohol) Sex Assigned at Date Recorded Not on file COVID-19 Exposure Response Date Recorded In the last month, have you been in contact with someone who was confirmed or suspected to have Coronavirus / COVID-19? No / Unsure 05/23/2021 9:11 AM EDT documented as of this encounter Miscellaneous Notes * Telephone Encounter - Mara Garg M.A. - 05/26/2021 4:06 PM EDT Referral faxed. * Telephone Encounter - Isaiah Gross PA-C - 05/26/2021 2:45 PM EDT Urgent referral placed. * Telephone Encounter - Mara Garg M.A. - 05/26/2021 2:31 PM EDT Patient needs new referral for Dr. Guille Lucas's office. 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 Pt sts she called that office and was advised to callpcp to place a referral as patient has never been there before. Pt unaware of location or provider.Pt is uzbek speaking and requesting CB to place referral. documented in this encounter Plan of Treatment Not on file documented as of this encounter Visit Diagnoses Not on filedocumented in this encounter Care Teams Systems Software Engineer Relationship Specialty Start Date End Date Isabel Coughlin MD PCP - General Internal Medicine 09/03/17 06/25/21 Tatyana Murillo MD PCP - General Internal Medicine 06/26/21 07/13/21 Isabel Coughlin MD PCP - General Internal Medicine 07/14/21 09/17/21 Tatyana Murillo MD PCP - General Internal Medicine 09/18/21 07/05/22 [facility], Pcp PCP - General Internal Medicine 07/06/22 documented as of this encounter
--- OUTSIDE RECORDS SUMMARY | 2024-12-04 10:15 | XMS_ITS | Encounter Summary ---
Author Organization [facility] Address [address] [facility] [place] [address] Care Team Providers Care Engine House Helper Name Role Phone Isabel Coughlin MD Primary Care Provider Unavail able Tatyana Murillo MD Primary Care Provider Isabel Dang MD Primary Care Provider Unavail Tatyana Garcia MD Primary Care Provider Edy Padilla, Pcp Primary Care Provider Unavailabl e Reason for Visit * Reason Comments E-prescribe Rx Request Encounter Details Date Type Department Care Team Description 09/01/2019 Refill Walk [facility] [address] [place] [address] Maribeth Ferrari PA-C E-prescribe Rx Request Social History Tobacco Use Types Packs/Day Years Used Date Smoking Tobacco: Every Day Smokeless Tobacco: Never Alcohol Use Standard Drinks/Week Comments No 0 (1 standard drink = 0.6 oz pur e alcohol) Sex Assigned at Date Recorded Not on file documented as of this encounter Plan of Treatment Not on file documented as of this encounter Visit Diagnoses Not on filedocumented in this encounter Care Teams Engine House Helper Relationship Specialty Start Date End Date Isabel Coughlin MD PCP - General Internal Medicine 09/03/17 06/25/21 Tatyana Murillo MD PCP - General Internal Medicine 06/26/21 07/13/21 Isabel Coughlin MD PCP - General Internal Medicine 07/14/21 09/17/21 Tatyana Murillo MD PCP - General Internal Medicine 09/18/21 07/05/22 [facility], Pcp PCP - General Internal Medicine 07/06/22 documented as of this encounter
--- OUTSIDE RECORDS SUMMARY | 2024-12-04 10:15 | XMS_ITS | Encounter Summary ---
Author Organization [facility] Address [address] [place] [address] Care Team Providers Care Geothermal Installer Name Role Phone Juan A Coughlin MD Primary Care Provider Unavail Tatyana Garcia MD Primary Care Provider Juan A Dang MD Primary Care Provider Tatyana Wyatt MD Primary Care Provider Edy chao [facility], Pcp Primary Care Provider Unavailabl e Reason for Visit * Reason Onset Date Comments Chronic Kidney Disease 05/27/2021 Encounter Details Date Type Department Care Team Description 05/27/2021 Telephone Adult Medicine [address] [address] Juan A Coughlin MD Chronic Kidney Disease Social History Tobacco Use Types Packs/Day Years [...] encounter Miscellaneous Notes * Telephone Encounter - Isaiah Gross PA-C - 05/27/2021 4:41 PM EDT I sent urgent referral yesterday. * Telephone Encounter - Kimber Ignacio R.N. - 05/27/2021 4:10 PM EDT Pt was seen her for f[facility]u of [facility] , had UTI and was given antibiotics , She has no symptoms now, denies any dysuria, Pt called to f/u with dr puri for chronic kidney disease but she was told she needed a referralbecause she has not been seen there in a year * Telephone Encounter - Virgie Ratliff - 05/27/2021 4:01 PM EDT Symptoms patient is presenting: PATIENT IS HAVING KIDNEY PAIN LOOKING TO A REFERRAL UROLOGY. For ALL patients calling to schedule any appointment (routine, sick visit, follow up, consult, etc.) in the outpatient setting please ask the following questions: ?? Do you have fever of higher than 101, sore throat with difficulty swallowing or severe shortnessof breath? NO If YES to any of these above symptoms, send a message to triage and do not book. Red dot. If no, an audio or video visit should be booked. ?? Have you had close contact with someone with Coronavirus in the last 14 days? NO ?? Have you traveled abroad? NO ?? Have you traveled recently to another state outside of [place], [place], [place], [place], [place], [place], [place]? NO o If yes, did you quarantine for 14 days or have a negative covid test? NO If yes to any of the above, patient is not to be scheduled in office until after 14 day quarantine or negative covid test. If pain or injury related was it due to an accident at work or from a motor vehicle accident? NO If yes, gather 3rd alliance party insurance information Date of accident/Injury: How long has patient had these symptoms?: 2 WEEKS PCP: JUAN A COUGHLIN Payor: [employer] FFS / Plan: [employer]IANCE / Product Type: MEDICAID RISK documented in this encounter Plan of Treatment Not on file documented as of this encounter Visit Diagnoses Not on filedocumented in this encounter Care Teams Geothermal Installer Relationship Specialty Start Date End Date Juan A Coughlin MD PCP - General Internal Medicine 09/03/17 06/25/21 Tatyana Murillo MD PCP - General Internal Medicine 06/26/21 07/13/21 Juan A Coughlin MD PCP - General Internal Medicine 07/14/21 09/17/21 Tatyana Murillo MD PCP - General Internal Medicine 09/18/21 07/05/22 [facility], Pcp PCP - General Internal Medicine 07/06/22 documented as of this encounter
--- OUTSIDE RECORDS SUMMARY | 2024-12-04 10:15 | XMS_ITS | Clinical Summary ---
Author Organization [facility] Address [address] [place] [address] Care Team Providers Care Garnett Fixer Name Role Phone Unavailable Primary Care Provider [...] Last 3 Months Insurance [place] MEDICAID DENTAL [facility] [place] [place] [id number]
--- OUTSIDE RECORDS SUMMARY | 2024-12-04 10:15 | XMS_ITS | Clinical Summary ---
Author Organization [facility], Address [address] [place] [address] [place] [address] Phone Care Team Providers Care Warehouse Traffic Supervisor Name Role Phone Isabel Cota MD Primary Care Provider [phone] Allergies Active Allergy Reactions Criticality Noted Date [...] Documentation Only [facility] [address] [place] [address] Nilsa Molina MA 10/19/2024 Documentation Only [facility] [address] [place] [address] Nilsa Molina MA 09/29/2024 Documentation Only [facility] [address] [place] [address] Nilsa Molina MA from Last 3 Months Immunizations Immunization Administration Dates Next Due Influenza, MDCK, Quadrivalent, [...] Visit [facility], [address] [place] [address] Guille Mcginnis MD [address] [place] [phone] Health Maintenance Due Date Last Done Comments Hepatitis B Vaccine (1 of 3 - 19+ 3-dose series) 2007 Pneumococcal Vaccine: Peds ( 0 to 5 Years) and At-Risk Patients (6 to 49 Years) (1 of 2 - PCV) 2007 Influenza Vaccine (Season Ended) 2025 09/21/2023, 06/02/2018, 05/19/2017, Additional history exists Insurance Medicaid [place] Care Teams Warehouse Traffic Supervisor Relationship Specialty Start Date End Date Isabel Cota MD [address] [place] [address] PCP - General Internal Medicine 05/29/21
--- OUTSIDE RECORDS SUMMARY | 2024-12-04 10:15 | XMS_ITS | Data Portability ---
Author Organization [place] - [facility], [facility] [place], [facility] Address [address] [place] [address] Care Team Providers Care Program Control Analyst Name Role Phone HEIDI BANEGAS Cd Technician NATY HARVEY Primary Care Provider Assessment Encounter [...] hormone), intact, serum or plasma 2022 023 [email or web address] [facility] [address], [address], 17:11:29 vitamin D, 25-hydroxy , total, serum 2022 023 [email or web address] [facility] [address], [address], 17:11:29 urinalysis , complete 2022 023 [facility], [address] [place] [address], [address], 17:11:28 renal function panel, serum 2022 023 [email or web address] [facility], [address] [place] [address], [address], 17:11:29 protein + creatinine panel, urine 2022 023 [email or web address] [facility], [address] [place] [address], [address], 17:11:29 cystatin C + glomerular filtration rate by cystatin-b ased formula panel, cystatin-b ased formula panel, serum or plasma 2022 023 [email or web address] [facility], [address] [place] [address], [address], 17:11:29 uric acid, serum or plasma 2022 023 [email or web address] [facility], [address] [place] [address], [place], [address], 17:11:29 PTH (parathyro id hormone), intact, serum or plasma 2022 023 [employer] [facility], [address] [place] [address], [place], [address], 3 10:25:09 vitamin D, 25-hydroxy , total, serum 2022 023 [employer] [facility], [address] [place] [address], [address], 3 10:25:09 vitamin D, 25-hydroxy + 1,25-dihyd joyce, serum 2022 023 [email or web address] [facility], [address] [place] [address], [place], [address], 10:25:10 HbA1c (hemoglobi n A1c), blood 2022 023 [email or web address] [facility], [address] [place] [address], [place], [address], 10:25:10 urinalysis , complete 2022 023 [email or web address] [facility], [address] [place] [address], [place], [address], 10:35:45 renal function panel, serum 2022 023 [email or web address] [facility], [address] [place] [address], [place], [address], 10:35:45 renal function panel, serum 2022 023 AIME [facility], [address] [place] [address], [place], [address], 11:08:35 uric acid, serum or plasma 2022 023 [email or web address] [facility], [address] [place] [address], [place], [address], 10:35:45 ESR (erythrocy te sedimentat ion rate), blood 2022 023 AIME [facility], [address] [place] [address], [place], [address], 11:08:40 RPR (rapid plasma reagin), serum 2022 023 AIME [facility], [address] [place] [address], [place], [address], 3 11:08:38 protein:cr eatinine ratio, urine 2022 023 [facility], [address] [place] [address], [place], [address], 3 05:38:44 MARLA (antinucle ar antibodies ) screen, serum 2022 023 [facility] [facility], [address] [place] [address], [place], [address], 11:08:39 lipid panel, serum 2022 023 [facility] [facility], [address] [place] [address], [place], [address], 3 11:08:36 anca panel, serum 2022 023 [facility], [address] [place] [address], [place], [address], 3 10:25:09 immunofixa tion + protein electropho resis + free light chains, serum 2022 023 [facility], [address] [place] [address], [place], [address], 3 10:25:09 hepatitis panel (A+B+C), acute, serum 2022 023 [facility], [address] [place] [address], [place], [address], 3 10:25:09 HIV 1 + 2, meaningful use set 2022 023 [employer] [facility], [address] [place] [address], [place], [address], 3 10:25:09 C reactive protein, QN, serum or plasma 2022 023 [email or web address] [facility], [address] [place] [address], [place], [address], 10:25:10 TSH + free T4, serum 2022 023 [email or web address] [facility], [id number] [place] [address], [place], [address], 10:25:10 magnesium, serum or plasma 2022 023 [email or web address] [facility], [id number] [place] [address], [place], [address], 10:25:10 Referral None recorded. Procedures None recorded. Surgeries None recorded. Imaging US, retroperit oneum, complete - check kidney and bladder. 2022 023 [facility] Scheduling Dept (Imaging), [address] [place] [address], [place], [address], 11:32:37 Medication Orders allopurino l 100 mg tablet 2022 023 [facility] [employer] [id number], [address], [address], [place], [address], 17:30:39 Patient TargetsNo targets recorded. Patient Instructions Encounter Date Encounter Id Patient Instructions Last Modified By Organization Details Last Modified Time 11/12/2022 [id number] Cuando desea baj ar de peso: Instrucciones [...] care instructions] Not available 11/12/2022 17:30:29 01/13/2023 [id number] Cuando desea [employer]: Instrucciones [...] .8 above high normal Not Available [facility] ([facility]) [address] [place], [address], 10/30/2022 14:09:16 10/31/1910/30/2022 CBC WITH DIFFE RENTI AL/PL ATELE T RBC 4.25 x10e6 /uL 3.77-5 .28 Not Available [facility] ([facility]) [address] [place], [address], 10/30/2022 14:09:16 10/31/1910/30/2022 CBC WITH DIFFE RENTI AL/PL ATELE T hemoglobin 12.1 g/dL 11.1-1 5.9 Not Available [facility] ([facility]) [address] [place], [address], 10/30/2022 14:09:16 10/31/19 23 10/30/2022 CBC WITH DIFFE RENTI AL/PL ATELE T hematocrit 36.9 % 34.0-4 6.6 Not Available [facility] ([facility]) [address] [facility], [place], [address], 10/30/2022 14:09:16 10/31/19 23 10/30/2022 CBC WITH DIFFE RENTI AL/PL ATELE T MCV 87 fL 79-97 Not Available [facility] ([facility]) [address] [facility], [place], [address], 10/30/2022 14:09:16 10/31/19 23 10/30/2022 CBC WITH DIFFE RENTI AL/PL ATELE T MCH 28.5 pg 26.6-3 3.0 Not Available [facility] ([facility]) [address] [facility], [place], [address], 10/30/2022 14:09:16 10/31/19 23 10/30/2022 CBC WITH DIFFE RENTI AL/PL ATELE T MCHC 32.8 g/dL 31.5-3 5.7 Not Available [facility] ([facility]) [address] [facility], [place], [address], 10/30/2022 14:09:16 10/31/1910/30/2022 CBC WITH DIFFE RENTI AL/PL ATELE T RDW 13.5 % 11.7-1 5.4 Not Available [facility] ([facility]) [address] [place], [address], 10/30/2022 14:09:16 10/31/1910/30/2022 CBC WITH DIFFE RENTI AL/PL ATELE T platelets 235 x10e3 /uL 150-45 0 Not Available [facility] ([facility]) [address] [place], [address], 10/30/2022 14:09:16 10/31/19 23 10/30/2022 CBC WITH DIFFE RENTI AL/PL ATELE T neutrophils 73 % not estab. Not Available [facility] ([facility]) [address] [facility], [place], [address], 10/30/2022 14:09:16 10/31/19 23 10/30/2022 CBC WITH DIFFE RENTI AL/PL ATELE T lymphs 21 % not estab. Not Available [facility] ([facility]) [address] [facility], [place], [address], 10/30/2022 14:09:16 10/31/19 23 10/30/2022 CBC WITH DIFFE RENTI AL/PL ATELE T monocytes 4 % not estab. Not Available [facility] ([facility]) [address] [facility], [place], [address], 10/30/2022 14:09:16 10/31/19 23 10/30/2022 CBC WITH DIFFE RENTI AL/PL ATELE T eos 2 % not estab. Not Available [facility] ([facility]) [address] [facility], [place], [address], 10/30/2022 14:09:16 10/31/19 23 10/30/2022 CBC WITH DIFFE RENTI AL/PL ATELE T basos 0 % not estab. Not Available [facility] ([facility]) [address] [facility], [place], [address], 10/30/2022 14:09:16 10/31/19 23 10/30/2022 CBC WITH DIFFE RENTI AL/PL ATELE T immature cells DELIVERY COORDINATOR Not Available [facility] ([facility]) [address] [facility], [place], [address], 10/30/2022 14:09:16 10/31/19 23 10/30/2022 CBC WITH DIFFE RENTI AL/PL ATELE T neutrophils (absolute) 9.5 x10e3 /uL 1.4-7. 0 above high normal Not Available [facility] ([facility]) [address] [facility], [place], [address], 10/30/2022 14:09:16 10/31/19 23 10/30/2022 CBC WITH DIFFE RENTI AL/PL ATELE T lymphs (absolute) 2.7 x10e3 /uL 0.7-3. 1 Not Available [facility] ([facility]) [address] [facility], [place], [address], 10/30/2022 14:09:16 10/31/19 23 10/30/2022 CBC WITH DIFFE RENTI AL/PL ATELE T monocytes(ab solute) 0.6 x10e3 /uL 0.1-0. 9 Not Available [facility] ([facility]) [address] [facility], [place], [address], 10/30/2022 14:09:16 10/31/19 23 10/30/2022 CBC WITH DIFFE RENTI AL/PL ATELE T eos (absolute) 0.2 x10e3 /uL 0.0-0. 4 Not Available [facility] ([facility]) [address] [facility], [place], [address], 10/30/2022 14:09:16 10/31/19 23 10/30/2022 CBC WITH DIFFE RENTI AL/PL ATELE T baso (absolute) 0.0 x10e3 /uL 0.0-0. 2 Not Available [facility] ([facility]) [address] [place], [address], 10/30/2022 14:09:16 10/31/1910/30/2022 CBC WITH DIFFE RENTI AL/PL ATELE T immature granulocytes DELIVERY COORDINATOR Not Available [facility] ([facility]) [address] [facility], [place], [address], 10/30/2022 14:09:16 10/31/19 23 10/30/2022 CBC WITH DIFFE RENTI AL/PL ATELE T immature grans (abs) DELIVERY COORDINATOR Not Available [facility] ([facility]) [address] [facility], [place], [address], 10/30/2022 14:09:16 10/31/19 23 10/30/2022 CBC WITH DIFFE RENTI AL/PL ATELE T NRBC DELIVERY COORDINATOR Not Available [facility] ([facility]) [address] [facility], [place], [address], 10/30/2022 14:09:16 10/31/19 23 10/30/2022 CBC WITH DIFFE RENTI AL/PL ATELE T hematology comments: DELIVERY COORDINATOR Not Available [facility] ([facility]) [address] [facility], [place], [address], 10/30/2022 14:09:16 10/31/19 23 10/30/2022 URINA LYSIS , ROUTI NE specific gravity 1.020 1.005- 1.030 Not Available [facility] ([facility]) [address] [facility], [place], [address], 10/30/2022 14:09:17 10/31/19 23 10/30/2022 URINA LYSIS , ROUTI NE pH 6.0 5.0-7. 5 Not Available [facility] ([facility]) [address] [facility], [place], [address], 10/30/2022 14:09:17 10/31/1910/30/2022 URINA LYSIS , ROUTI NE urine-color Yellow yellow Not Available [facility] ([facility]) [address] [facility], [place], [address], 10/30/2022 14:09:17 10/31/1910/30/2022 URINA LYSIS , ROUTI NE appearance Clear clear Not Available [facility] ([facility]) [address] [facility], [place], [address], 10/30/2022 14:09:17 10/31/19 23 10/30/2022 URINA LYSIS , ROUTI NE WBC esterase Trace negati ve abnormal Not Available [facility] ([facility]) [address] [facility], [place], [address], 10/30/2022 14:09:17 10/31/19 23 10/30/2022 URINA LYSIS , ROUTI NE protein 2+ negati ve/tra ce abnormal Not Available [facility] ([facility]) [address] [place], [address], 10/30/2022 14:09:17 10/31/19 23 10/30/2022 URINA LYSIS , ROUTI NE glucose Negati ve negati ve Not Available [facility] ([facility]) [address] [place], [address], 10/30/2022 14:09:17 10/31/19 23 10/30/2022 URINA LYSIS , ROUTI NE ketones Negati ve negati ve Not Available [facility] ([facility]) [address] [place], [address], 10/30/2022 14:09:17 10/31/19 23 10/30/2022 URINA LYSIS , ROUTI NE occult blood Trace negati ve abnormal Not Available [facility] ([facility]) [address] [place], [address], 10/30/2022 14:09:17 10/31/19 23 10/30/2022 URINA LYSIS , ROUTI NE bilirubin Negati ve negati ve Not Available [facility] ([facility]) [address] [place], [address], 10/30/2022 14:09:17 10/31/19 23 10/30/2022 URINA LYSIS , ROUTI NE urobilinogen ,semi-qn 0.2 mg/dL 0.2-1. 0 Not Available [facility] ([facility]) [address] [facility], [place], [address], 10/30/2022 14:09:17 10/31/19 23 10/30/2022 URINA LYSIS , ROUTI NE nitrite, urine Negati ve negati ve Not Available [facility] ([facility]) [address] [facility], [place], [address], 10/30/2022 14:09:17 10/31/19 23 10/30/2022 URINA LYSIS , ROUTI NE microscopic examination See below: Not Available [facility] ([facility]) [address] [facility], [place], [address], 10/30/2022 14:09:17 10/31/19 23 10/30/2022 URINA LYSIS , ROUTI NE WBC 11-30 /hpf 0 - 5 abnormal Not Available [facility] ([facility]) [address] [facility], [place], [address], 10/30/2022 14:09:17 10/31/19 23 10/30/2022 URINA LYSIS , ROUTI NE RBC 0-2 /hpf 0 - 2 Not Available [facility] ([facility]) [address] [facility], [place], [address], 10/30/2022 14:09:17 10/31/19 23 10/30/2022 URINA LYSIS , ROUTI NE epithelial cells (non renal) >10 /hpf 0 - 10 abnormal Not Available [facility] ([facility]) [address] [facility], [place], [address], 10/30/2022 14:09:17 10/31/19 23 10/30/2022 URINA LYSIS , ROUTI NE epithelial cells (renal) DELIVERY COORDINATOR Not Available [facility] ([facility]) [address] [facility], [place], [address], 10/30/2022 14:09:17 10/31/19 23 10/30/2022 URINA LYSIS , ROUTI NE casts DELIVERY COORDINATOR Not Available [facility] ([facility]) [address] [facility], [place], [address], 10/30/2022 14:09:17 10/31/19 23 10/30/2022 URINA LYSIS , ROUTI NE cast type DELIVERY COORDINATOR Not Available [facility] ([facility]) [address] [facility], [place], [address], 10/30/2022 14:09:17 10/31/19 23 10/30/2022 URINA LYSIS , ROUTI NE crystals DELIVERY COORDINATOR Not Available [facility] ([facility]) [address] [facility], [place], [address], 10/30/2022 14:09:17 10/31/19 23 10/30/2022 URINA LYSIS , ROUTI NE crystal type DELIVERY COORDINATOR Not Available [facility] ([facility]) [address] [facility], [place], [address], 10/30/2022 14:09:17 10/31/19 23 10/30/2022 URINA LYSIS , ROUTI NE mucus threads Presen t not estab. Not Available [facility] ([facility]) [address] [facility], [place], [address], 10/30/2022 14:09:17 10/31/19 23 10/30/2022 URINA LYSIS , ROUTI NE bacteria Few none seen/f ew Not Available [facility] ([facility]) [address] [facility], [place], [address], 10/30/2022 14:09:17 10/31/19 23 10/30/2022 URINA LYSIS , ROUTI NE yeast DELIVERY COORDINATOR Not Available [facility] ([facility]) [address] [place], [address], 10/30/2022 14:09:17 10/31/19 23 10/30/2022 URINA LYSIS , ROUTI NE trichomonas DELIVERY COORDINATOR Not Available [facility] ([facility]) [address] [place], [address], 10/30/2022 14:09:17 10/31/19 23 10/30/2022 SAMUEL KING NE comment DELIVERY COORDINATOR Not Available [facility] ([facility]) [address] [place] [place], [address], 10/30/2022 14:09:17 10/31/19 23 10/30/2022 RENAL PANEL (10) glucose 80 mg/dL 70-99 Not Available [facility] ([facility]) [address] [place], [address], 10/30/2022 14:09:17 10/31/19 23 10/30/2022 RENAL PANEL (10) BUN 21 mg/dL 6-20 above high normal Not Available [facility] ([facility]) [address] [place], [address], 10/30/2022 14:09:17 10/31/19 23 10/30/2022 RENAL PANEL (10) creatinine 2.22 mg/dL 0.57-1 .00 above high normal Not Available [facility] ([facility]) [address] [facility], [place], [address], 10/30/2022 14:09:17 10/31/19 23 10/30/2022 RENAL PANEL (10) eGFR 29 mL/mi n/1.7 3 >59 below low normal Not Available [facility] ([facility]) [address] [place], [address], 10/30/2022 14:09:17 10/31/19 23 10/30/2022 RENAL PANEL (10) BUN/creatini ne ratio 9 9-23 Not Available [facility] ([facility]) [address] [place], [address], 10/30/2022 14:09:17 10/31/19 23 10/30/2022 RENAL PANEL (10) sodium 138 mmol/ L 134-14 4 Not Available [facility] ([facility]) [address] [place], [address], 10/30/2022 14:09:17 10/31/19 23 10/30/2022 RENAL PANEL (10) potassium 4.3 mmol/ L 3.5-5. 2 Not Available [facility] ([facility]) [address] [place], [address], 10/30/2022 14:09:17 10/31/19 23 10/30/2022 RENAL PANEL (10) chloride 102 mmol/ L 96-106 Not Available [facility] ([facility]) [address] [place], [address], 10/30/2022 14:09:17 10/31/19 23 10/30/2022 RENAL PANEL (10) carbon dioxide, total 23 mmol/ L 20-29 Not Available [facility] ([facility]) [address] [place], [address], 10/30/2022 14:09:17 10/31/19 23 10/30/2022 RENAL PANEL (10) calcium 9.1 mg/dL 8.7-10 .2 Not Available [facility] ([facility]) [address] [place], [address], 10/30/2022 14:09:17 10/31/19 23 10/30/2022 RENAL PANEL (10) phosphorus 3.3 mg/dL 3.0-4. 3 Not Available [facility] ([facility]) [address] [place], [address], 10/30/2022 14:09:17 10/31/19 23 10/30/2022 RENAL PANEL (10) albumin 3.9 g/dL 3.8-4. 8 Not Available [facility] ([facility]) [address] [facility] [place], [address], 10/30/2022 14:09:17 10/31/19 23 10/30/2022 URIC ACID uric acid 9.3 mg/dL 2.6-6. 2 above high normal Thera kasia root t for gout patie nts: <6.0 Not Available [facility] ([facility]) [address] [facility], [place], [address], 10/30/2022 14:09:18 10/31/19 23 10/31/2022 URINA LYSIS , ROUTI NE specific gravity 1.012 1.005- 1.030 Not Available [facility] ([facility]) [address] [facility], [place], [address], 10/31/2022 10:35:36 10/31/19 23 10/31/2022 URINA LYSIS , ROUTI NE pH 6.0 5.0-7. 5 Not Available [facility] ([facility]) [address] [facility], [place], [address], 10/31/2022 10:35:36 10/31/19 23 10/31/2022 URINA LYSIS , ROUTI NE urine-color Yellow yellow Not Available [facility] ([facility]) [address] [place], [address], 10/31/2022 10:35:36 10/31/19 23 10/31/2022 URINA LYSIS , ROUTI NE appearance Clear clear Not Available [facility] ([facility]) [address] [place], [address], 10/31/2022 10:35:36 10/31/19 23 10/31/2022 URINA LYSIS , ROUTI NE WBC esterase Trace negati ve abnormal Not Available [facility] ([facility]) [address] [facility], [place], [address], 10/31/2022 10:35:36 10/31/19 23 10/31/2022 URINA LYSIS , ROUTI NE protein 2+ negati ve/tra ce abnormal Not Available [facility] ([facility]) [address] [facility], [place], [address], 10/31/2022 10:35:36 10/31/1910/31/2022 URINA LYSIS , ROUTI NE glucose Negati ve negati ve Not Available [facility] ([facility]) [address] [facility], [place], [address], 10/31/2022 10:35:36 10/31/19 23 10/31/2022 URINA LYSIS , ROUTI NE ketones Negati ve negati ve Not Available [facility] ([facility]) [address] [facility], [place], [address], 10/31/2022 10:35:36 10/31/19 23 10/31/2022 URINA LYSIS , ROUTI NE occult blood Trace negati ve abnormal Not Available [facility] ([facility]) [address] [facility], [place], [address], 10/31/2022 10:35:36 10/31/19 23 10/31/2022 URINA LYSIS , ROUTI NE bilirubin Negati ve negati ve Not Available [facility] ([facility]) [address] [facility], [place], [address], 10/31/2022 10:35:36 10/31/19 23 10/31/2022 URINA LYSIS , ROUTI NE urobilinogen ,semi-qn 0.2 mg/dL 0.2-1. 0 Not Available [facility] ([facility]) [address] [place], [address], 10/31/2022 10:35:36 10/31/19 23 10/31/2022 URINA LYSIS , ROUTI NE nitrite, urine Negati ve negati ve Not Available [facility] ([facility]) [address] [place], [address], 10/31/2022 10:35:36 10/31/19 23 10/31/2022 URINA LYSIS , ROUTI NE microscopic examination See below: Micro scopi c was indic ated and was perfo rmed. Not Available [facility] ([facility]) [address] [facility], [place], [address], 10/31/2022 10:35:36 10/31/19 23 10/31/2022 URINA LYSIS , ROUTI NE WBC 0-5 /hpf 0 - 5 Not Available [facility] ([facility]) [address] [facility], [place], [address], 10/31/2022 10:35:36 10/31/19 23 10/31/2022 URINA LYSIS , ROUTI NE RBC None seen /hpf 0 - 2 Not Available [facility] ([facility]) [address] [facility], [place], [address], 10/31/2022 10:35:36 10/31/19 23 10/31/2022 URINA LYSIS , ROUTI NE epithelial cells (non renal) 0-10 /hpf 0 - 10 Not Available [facility] ([facility]) [address] [facility], [place], [address], 10/31/2022 10:35:36 10/31/19 23 10/31/2022 URINA LYSIS , ROUTI NE epithelial cells (renal) DELIVERY COORDINATOR Not Available [facility] ([facility]) [address] [facility], [place], [address], 10/31/2022 10:35:36 10/31/19 23 10/31/2022 URINA LYSIS , ROUTI NE casts None seen /lpf none seen Not Available [facility] ([facility]) [address] [facility], [place], [address], 10/31/2022 10:35:36 10/31/19 23 10/31/2022 URINA LYSIS , ROUTI NE cast type DELIVERY COORDINATOR Not Available [facility] ([facility]) [address] [facility], [place], [address], 10/31/2022 10:35:36 10/31/19 23 10/31/2022 URINA LYSIS , ROUTI NE crystals DELIVERY COORDINATOR Not Available [facility] ([facility]) [address] [facility], [place], [address], 10/31/2022 10:35:36 10/31/19 23 10/31/2022 URINA LYSIS , ROUTI NE crystal type DELIVERY COORDINATOR Not Available [facility] ([facility]) [address] [facility], [place], [address], 10/31/2022 10:35:36 10/31/19 23 10/31/2022 URINA LYSIS , ROUTI NE mucus threads DELIVERY COORDINATOR Not Available [facility] ([facility]) [address] [facility], [place], [address], 10/31/2022 10:35:36 10/31/19 23 10/31/2022 URINA LYSIS , ROUTI NE bacteria None seen none seen/f ew Not Available [facility] ([facility]) [address] [facility], [place], [address], 10/31/2022 10:35:36 10/31/19 23 10/31/2022 URINA LYSIS , ROUTI NE yeast DELIVERY COORDINATOR Not Available [facility] ([facility]) [address] [facility], [place], [address], 10/31/2022 10:35:36 10/31/19 23 10/31/2022 URINA LYSIS , ROUTI NE trichomonas DELIVERY COORDINATOR Not Available [facility] ([facility]) [address] [facility], [place], [address], 10/31/2022 10:35:36 10/31/19 23 10/31/2022 URINA LYSIS , ROUTI NE comment DELIVERY COORDINATOR Not Available [facility] ([facility]) [address] [facility], [place], [address], 10/31/2022 10:35:36 11/03/19 23 11/03/2022 CREAT U+PRO T U creatinine, urine 54.9 mg/dL not estab. Total Volum e: 0800 mL Not Available [facility] ([facility]) [address] [facility], [place], [address], 11/03/2022 17:07:11 11/03/19 23 11/03/2022 CREAT U+PRO T U creatinine, ur 24HR 439 mg/24 _HR 800-18 00 below low normal Not Available [facility] ([facility]) [address] [facility], [place], [address], 11/03/2022 17:07:11 11/03/1911/03/2022 CREAT U+PRO T U prot,24HR calculated 735 mg/24 _HR 30-150 above high normal Not Available [facility] ([facility]) [address] [facility], [place], [address], 11/03/2022 17:07:11 11/03/19 23 11/03/2022 CREAT U+PRO T U protein,tota l,urine 91.9 mg/dL not estab. Not Available [facility] ([facility]) [address] [facility], [place], [address], 11/03/2022 17:07:11 11/03/19 23 11/03/2022 CREAT U+PRO T U protein/crea t ratio 1674 mg/g_ creat 0-200 above high normal Not Available [facility] ([facility]) [address] [facility], [place], [address], 11/03/2022 17:07:11 11/21/19 23 11/20/2022 NURY, PE AND FLC, SERUM please note: Commen t Prote in elect ropho resis scan will follo w via compu ter, mail, or couri er francisca ordonez. Not Available [facility] ([facility]) [address] [facility], [place], [address], 11/25/2022 11:08:34 11/21/19 23 11/21/2022 NURY, PE AND FLC, SERUM immunoglobul in g, qn, serum 988 mg/dL 586-16 02 Not Available [facility] ([facility]) [address] [place] [place], [address], 11/25/2022 11:08:34 11/21/19 23 11/21/2022 NURY, PE AND FLC, SERUM immunoglobul in A, qn, serum 367 mg/dL 87-352 above high normal Not Available [facility] ([facility]) [address] [place] [place], [address], 11/25/2022 11:08:34 11/21/19 23 11/21/2022 NURY, PE AND FLC, SERUM immunoglobul in M, qn, serum 92 mg/dL 26-217 Not Available [facility] ([facility]) [address] [place] [place], [address], 11/25/2022 11:08:34 11/21/19 23 11/21/2022 NURY, PE AND FLC, SERUM protein, total 6.7 g/dL 6.0-8. 5 Not Available [facility] ([facility]) [address] [place], [address], 11/25/2022 11:08:34 11/21/19 23 11/21/2022 NURY, PE AND FLC, SERUM free kappa lt chains,S 86.8 mg/L 3.3-19 .4 above high normal Not Available [facility] ([facility]) [address] [place], [address], 11/25/2022 11:08:34 11/21/19 23 11/21/2022 NURY, PE AND FLC, SERUM free lambda lt chains,S 52.7 mg/L 5.7-26 .3 above high normal Not Available [facility] ([facility]) [address] [place], [address], 11/25/2022 11:08:34 11/21/19 23 11/21/2022 NURY, PE AND FLC, SERUM kappa/lambda ratio,S 1.65 0.26-1 .65 Not Available [facility] ([facility]) [address] [place], [address], 11/25/2022 11:08:34 11/21/19 23 11/25/2022 NURY, PE AND FLC, SERUM albumin 3.3 g/dL 2.9-4. 4 Not Available [facility] ([facility]) [address] [place], [address], 11/25/2022 11:08:34 11/21/19 23 11/25/2022 NURY, PE AND FLC, SERUM lmfdg-0-edsy ulin 0.3 g/dL 0.0-0. 4 Not Available [facility] ([facility]) [address] [place], [address], 11/25/2022 11:08:34 11/21/19 23 11/25/2022 NURY, PE AND FLC, SERUM melwu-6-jfdv ulin 0.9 g/dL 0.4-1. 0 Not Available [facility] ([facility]) [address] [place], [address], 11/25/2022 11:08:34 11/21/19 23 11/25/2022 NURY, PE AND FLC, SERUM beta globulin 1.2 g/dL 0.7-1. 3 Not Available [facility] ([facility]) [address] [place], [address], 11/25/2022 11:08:34 11/21/19 23 11/25/2022 NURY, PE AND FLC, SERUM gamma globulin 0.9 g/dL 0.4-1. 8 Not Available [facility] ([facility] [address] [place], [address], 11/25/2022 11:08:34 11/21/19 23 11/25/2022 NURY, PE AND FLC, SERUM M-spike Not Observ ed g/dL not observ ed Not Available [facility] ([facility]) [address] [place], [address], 11/25/2022 11:08:34 11/21/19 23 11/25/2022 NURY, PE AND FLC, SERUM globulin, total 3.4 g/dL 2.2-3. 9 Not Available [facility] ([facility]) [address] [place], [address], 11/25/2022 11:08:34 11/21/19 23 11/25/2022 NURY, PE AND FLC, SERUM A/G ratio 1.0 0.7-1. 7 Not Available [facility] ([facility]) [address] [place], [address], 11/25/2022 11:08:34 11/21/19 23 11/25/2022 NURY, PE AND FLC, SERUM immunofixati on result, serum Commen t The immun ofixa tion ryder rn appea rs unrem arkab le. Evide nce of monoc lonal prote in is not appar ent. Not Available [facility] ([facility]) [address] [place], [address], 11/25/2022 11:08:34 11/21/19 23 11/25/2022 NURY, PE AND FLC, SERUM pdf . Not Available [facility] ([facility]) [address] [place], [address], 11/25/2022 11:08:34 11/21/19 23 11/21/2022 TSH+F REE T4 TSH 1.170 uIU/m L 0.450- 4.500 Not Available [facility] ([facility]) [address] [place], [address], 11/25/2022 11:08:34 11/21/19 23 11/21/2022 TSH+F REE T4 T4,free(dire ct) 0.99 NG/dL 0.82-1 .77 Not Available [facility] ([facility]) [address] [place], [address], 11/25/2022 11:08:34 11/21/19 23 11/21/2022 RENAL PANEL (10) glucose 82 mg/dL 70-99 Not Available [facility] ([facility]) [address] [place], [address], 11/25/2022 11:08:35 11/21/19 23 11/21/2022 RENAL PANEL (10) BUN 19 mg/dL 6-20 Not Available [facility] ([facility]) [address] [place], [address], 11/25/2022 11:08:35 11/21/19 23 11/21/2022 RENAL PANEL (10) creatinine 1.94 mg/dL 0.57-1 .00 above high normal Not Available [facility] ([facility]) [address] [place], [address], 11/25/2022 11:08:35 11/21/19 23 11/21/2022 RENAL PANEL (10) eGFR 34 mL/mi n/1.7 3 >59 below low normal Not Available [facility] ([facility]) [address] [place], [address], 11/25/2022 11:08:35 11/21/19 23 11/21/2022 RENAL PANEL (10) BUN/creatini ne ratio 10 9-23 Not Available [facility] ([facility]) [address] [place], [address], 11/25/2022 11:08:35 11/21/19 23 11/21/2022 RENAL PANEL (10) sodium 139 mmol/ L 134-14 4 Not Available [facility] ([facility]) [address] [place], [address], 11/25/2022 11:08:35 11/21/19 23 11/21/2022 RENAL PANEL (10) potassium 3.7 mmol/ L 3.5-5. 2 Not Available [facility] ([facility]) [address] [place], [address], 11/25/2022 11:08:35 11/21/19 23 11/21/2022 RENAL PANEL (10) chloride 104 mmol/ L 96-106 Not Available [facility] ([facility]) [address] [place], [address], 11/25/2022 11:08:35 11/21/19 23 11/21/2022 RENAL PANEL (10) carbon dioxide, total 24 mmol/ L 20-29 Not Available [facility] ([facility]) [address] [place], [address], 11/25/2022 11:08:35 11/21/19 23 11/21/2022 RENAL PANEL (10) calcium 8.7 mg/dL 8.7-10 .2 Not Available [facility] ([facility]) [address] [place], [address], 11/25/2022 11:08:35 11/21/19 23 11/21/2022 RENAL PANEL (10) phosphorus 2.8 mg/dL 3.0-4. 3 below low normal Not Available [facility] ([facility]) [address] [place], [address], 11/25/2022 11:08:35 11/21/19 23 11/21/2022 RENAL PANEL (10) albumin 3.8 g/dL 3.8-4. 8 Not Available [facility] ([facility]) [address] [place], [address], 11/25/2022 11:08:35 11/21/19 23 11/21/2022 LIPID PANEL cholesterol, total 202 mg/dL 100-19 9 above high normal Not Available [facility] ([facility]) [address] [place], [address], 11/25/2022 11:08:35 11/21/19 23 11/21/2022 LIPID PANEL triglyceride s 135 mg/dL 0-149 Not Available [facility] ([facility]) [address] [facility], [place], [address], 11/25/2022 11:08:35 11/21/19 23 11/21/2022 LIPID PANEL HDL cholesterol 39 mg/dL >39 below low normal Not Available [facility] ([facility]) [address] [facility], [place], [address], 11/25/2022 11:08:35 11/21/19 23 11/21/2022 LIPID PANEL VLDL cholesterol artis 24 mg/dL 5-40 Not Available [facility] ([facility]) [address] [facility], [place], [address], 11/25/2022 11:08:35 11/21/19 23 11/21/2022 LIPID PANEL LDL chol calc ([facility]) 139 mg/dL 0-99 above high normal Not Available [facility] ([facility]) [address] [facility], [place], [address], 11/25/2022 11:08:35 11/21/19 23 11/21/2022 LIPID PANEL comment: DELIVERY COORDINATOR Not Available [facility] ([facility]) [address] [facility], [place], [address], 11/25/2022 11:08:35 11/21/19 23 11/21/2022 ACUTE HEPAT ITIS hep A Ab, IgM Negati ve negati ve Not Available [facility] ([facility]) [address] [facility], [place], [address], 11/25/2022 11:08:36 11/21/19 23 11/21/2022 ACUTE HEPAT ITIS HBsAg screen Negati ve negati ve Not Available [facility] ([facility]) [address] [place], [address], 11/25/2022 11:08:36 11/21/19 23 11/21/2022 ACUTE HEPAT ITIS hep B core Ab, IgM Negati ve negati ve Not Available [facility] ([facility]) [address] [facility], [place], [address], 11/25/2022 11:08:36 11/21/19 23 11/21/2022 ACUTE HEPAT ITIS HCV Ab Non Reacti ve non reacti ve Not Available [facility] ([facility]) [address] [facility], [place], [address], 11/25/2022 11:08:36 11/21/19 23 11/21/2022 ACUTE HEPAT ITIS interpretati on: Commen t Not infec jose g with HCV unles s early or acute infec tion is suspe cted (whic h may be delay ed in an immun ocomp romis ed indiv idual ), or other evide nce exist s to indic ate HCV infec tion. Not Available [facility] ([facility]) [address] [facility], [place], [address], 11/25/2022 11:08:36 11/21/19 23 11/22/2022 ANCA PROFI LE anti-mpo antibodies <0.2 units 0.0-0. 9 Not Available [facility] ([facility]) [address] [place], [address], 11/25/2022 11:08:36 11/21/19 23 11/22/2022 ANCA PROFI LE anti-pr3 antibodies <0.2 units 0.0-0. 9 Not Available [facility] ([facility]) [address] [place], [address], 11/25/2022 11:08:36 11/21/19 23 11/23/2022 ANCA PROFI LE cytoplasmic (C-anca) <1:20 titer neg:<1 :20 Not Available [facility] ([facility]) [address] [facility], [place], [address], 11/25/2022 11:08:36 11/21/19 23 11/23/2022 ANCA PROFI [...] ng of posit lu sera with both MD-3 and MPO-A NCA enzym e immun oassa ys. As many as 5% serum sampl es are posit lu only by EIA. Ref. AM J Clin Patho l 1999; 111:5 07-51 3. Not Available [facility] ([facility]) [address] [facility], [place], [address], 11/25/2022 11:08:36 11/21/19 23 11/23/2022 ANCA PROFI LE atypical panca <1:20 titer neg:<1 :20 The atypi artis pANCA patte rn has been obser brooks in a signi fican t perce ntage of patie nts with ulcer ative colit is, prima ry scler osing chola ngiti s and autoi mmune hepat itis. Not Available [facility] ([facility]) [address] [facility], [place], [address], 11/25/2022 11:08:36 11/21/19 23 11/21/2022 VITAM IN D, 1,25 + 25-HY DROXY calcitriol(1 ,25 di-oh vit D) 24.8 pg/mL 24.8-8 1.5 Not Available [facility] ([facility]) [address] [facility], [place], [address], 11/25/2022 11:08:37 11/21/19 23 11/21/2022 VITAM IN [...] um and D. Renata prakash DC: [facility] Press . 2. Disha bennett MF, Britney uribe [place], Srikanth off-F errar i [place], et al. Evalu ation , treat ment, and preve ntion of vitam in D defic iency : an Endoc rine Socie ty clini artis pract ice guide line. JCEM. 2010; 96(7) :1911 -30. Not Available [facility] ([facility]) [address] [facility], [place], [address], 11/25/2022 11:08:37 11/21/19 23 11/21/2022 HEMOG LOBIN A1C hemoglobin A1C 5.4 % 4.8-5. 6 Predi abete s: 5.7 - 6.4 Diabe alexis: >6.4 Glyce darci contr ol for adult s with diabe alexis: <7.0 Not Available [facility] ([facility]) [address] [facility], [place], [address], 11/25/2022 11:08:38 11/21/19 23 11/21/2022 RPR, RFX QN RPR/C ONFIR M TP RPR Non Reacti ve non reacti ve Not Available [facility] ([facility]) [address] [place], [address], 11/25/2022 11:08:38 11/21/19 23 11/21/2022 HIV AB/P2 4 AG WITH REFLE X HIV Ab/P24 Ag screen Non Reacti ve non reacti ve HIV Negat lu HIV-1 /HIV- 2 antib odies and HIV-1 p24 antig en were NOT detec jose g. There is no labor atory evide nce of HIV infec tion. Not Available [facility] ([facility]) [address] [facility], [place], [address], 11/25/2022 11:08:39 11/21/19 23 11/22/2022 ANTIN UCLEA R AB MULTI PLEX RFX 5 MARLA direct Negati ve negati ve Not Available [facility] ([facility]) [address] [facility], [place], [address], 11/25/2022 11:08:39 11/21/19 23 11/21/2022 SEDIM ENTAT ION RATE- WESTE RGREN sedimentatio n rate-westerg janell 78 mm/HR 0-32 above high normal Not Available [facility] ([facility]) [address] [place], [address], 11/25/2022 11:08:40 11/21/19 23 11/21/2022 MAGNE SIUM magnesium 1.9 mg/dL 1.6-2. 3 Not Available [facility] ([facility]) [address] [place], [address], 11/25/2022 11:08:40 11/21/19 23 11/21/2022 C-REGINO CTIVE PROTE IN, QUANT C-reactive protein, quant 10 mg/L 0-10 Not Available [facility] ([facility]) [address] [place], [address], 11/25/2022 11:08:41 11/21/1911/21/2022 PTH, INTAC T PTH, intact 120 pg/mL 15-65 above high normal Not Available [facility] ([facility]) [address] [facility], [place], [address], 11/25/2022 11:08:41 12/01/1912/02/2022 CREAT U+PRO T U creatinine, urine 61.8 mg/dL not estab. Total Volum e: 1850 mL Not Available [facility] ([facility]) [address] [place] [place], [address], 12/03/2022 00:06:14 12/01/1912/02/2022 CREAT U+PRO T U creatinine, ur 24HR 1143 mg/24 _HR 800-18 00 Not Available [facility] ([facility]) [address] [place], [address], 12/03/2022 00:06:14 12/01/1912/02/2022 CREAT U+PRO T U prot,24HR calculated 860 mg/24 _HR 30-150 above high normal Not Available [facility] ([facility]) [address] [place], [address], 12/03/2022 00:06:14 12/01/1912/02/2022 CREAT U+PRO T U protein,tota l,urine 46.5 mg/dL not estab. Not Available [facility] ([facility]) [address] [place], [address], 12/03/2022 00:06:14 12/01/1912/02/2022 CREAT U+PRO T U protein/crea t ratio 752 mg/g_ creat 0-200 above high normal Not Available [facility] ([facility]) [address] [place], [address], 12/03/2022 00:06:14 11/19/19 23 11/16/2022 US, retro perit oneum , compl ete No observ ation record ed. [email or web address] [address] [address], [place], [address], 12/15/2022 10:43:48 Result Notes None recorded. Problems Name Problem SNOMED Code Status Onset Date Resolution Date Notes Provider Name and Address Organization Details Recorded Time Medullary nephrocal cinosis 198755793 Completed 200801/29/[address] [facility], [facility] 3 10:27:13 Clinical finding Active 2022 Jackelyn Jasso [facility], [facility] 3 10:36:06 Chronic kidney disease stage 3 767476496 Active 2022 Zeenat Gabriel [facility], [facility] 3 09:39:19 Vitamin D deficienc y 12197548 Active 2022 [address] Wh[address] [facility], [facility] 3 16:15:12 Chronic kidney disease stage 4 975840684 Active 2022 [place] [address] [employer] [place], [address], [facility], [facility] 3 10:05:53 Proteinur ia 95113857 Active 2022 [place] [address] [employer] [place], [address], [facility], [facility] 3 10:05:55 Nephrocal cinosis 03604026 Active 2022 [place] [address] [employer] [place], [address] , [facility], [facility] 3 10:05:57 Hyperuric emia 64762004 Active 2022 [place] [address] [employer] [place], [address], [facility], [facility] 3 10:05:59 Fatigue 41617903 Active 2022 [place] [address] [facility] [place], [address], [facility], [facility] 3 10:06:00 History of parathyro idectomy 960649862687 103 Active 2022 [place] [address] [place], [address], [facility], [facility] 3 10:06:03 Obesity 157661632 Active 2022 [place] [address] [facility] [place], [address], [facility], [facility] 3 10:06:05 Chronic low back pain 315649663 Active 2022 [place] [address] [facility] [place], [address], [facility], [facility] 08:43:53 Problem Notes None recorded. Procedures Surgical History Date Name Laterality Status Provider Name and Address Organization Details Recorded Time ligation of fallopian tube completed Jackelynsa Jasso [facility], [facility] 09/24/2022 10:32:23 Imaging Results Imaging Date Name Status LastModified by Organiz ation Details LastModified Time 11/16/2022 US, retroperitone um, complete completed [email or web address] [facility] [address], [address], 12/15/2022 10:43:48 Procedure Notes None recorded. Medical Equipment None Reported. Allergies Allergen ID Allergen Name Allergen Category Reaction Reaction Severity Criticality Documentation Date Start Date Code Code System Note Provider Name and Address Organization Details Recorded Time 00206 Product containin g penicilli n (product) medicatio n Not available Not available Not available 09/24/2022 99527 8001 SNOMED Jackelyn Romero [facility], [facility] 3 10:44:11 Medications Name Sig Start Date [...] Updated DateTime 3 162.56 cm 35.7 kg/m2 58072.2 1 g 77 /min 133 mm[Hg] 99 mm[Hg] [employer] [place] [facility] [place] [facility], [facility] 3 16:43:37 Date Recorded Systolic blood pressure Diastolic blood pressure Provider Name and Address Organization Details Last Updated DateTime 11/12/2022 128 mm[Hg] 82 mm[Hg] [place] [address] [employer] [place], [address], [facility], [facility] 11/12/2022 17:13:25 Date Recorded Body height Body mass index (BMI) Body weight Heart rate Systolic blood pressure Diastolic blood pressure Provider Name and Address Organization Details Last Updated DateTime 3 162.56 cm 37.2 kg/m2 12517.5 4 g 73 /min 138 mm[Hg] 104 mm[Hg] [employer] [facility], [facility] 3 09:56:06 Social History Question Answer Notes LastModified by Organizat ion Details LastModified Time Tobacco Smoking Status Current Every Day Smoker Jackelyn enriquez [facility], [facility] 09/24/2022 10:32:52 Are You Currently Employed? No Information not available 10/05/2022 What Was The Date Of Your Most Recent Tobacco Screening? 01/13/2023 [email or web address] Information not available 01/13/2023 What Is Your [...] available 2022 15:12:58 Medical History Condition Response Anxiety Y Kidney Disease (CKD) Y Vitamin D Deficiency Y Sleep Apnea Y Thyroid Disorder Y Gynecological HistoryNo gynecological history recorded. Obstetrics History GPAL:G 0 P 0 0 0 0 Immunizations Vaccine Type Date Status Note Provider Nam e and Address Organization Details Recorded Time Influenza, MDCK, quadrivalent, preservative 8 completed Jackelyn Romero [facility], [facility] 09/24/2022 10:27:13 influenza, unspecified formulation 2 completed Jackelyn Romero [facility], [facility] 09/24/2022 10:27:13 influenza, unspecified formulation 7 completed Jackelyn Romero null, [facility] 09/24/2022 10:27:13 Tdap 2 completed Jackelyn Romero [facility] 09/24/2022 10:27:13 Past Encounters Encounter ID Performer Location Encounter Start Date Encounter Closed Date Diagnosis/Indication Diagnosis SNOMED-CT Code Diagnosis ICD10 Code Diagnosis Note [id number] [facility] [address] [place] [address] 11/12/2022 15:52:23 11/13/2022 13:09:38 Chronic kidney disease stage 4 987406733 N18.4 CKD stage 4 possible progressio n [...] most current list of medication s. Proteinuria 80311081 R80 .9 UPC 1.6 g.Unclear no prior serologies to review.Paramjit hebert send all serologies . Nephrocalcinosis 7407142 2 N29 Hx of nephrocalc inosis.No prior imaging to review.paramjit hebert send US kidney Hyperuricemia 00156577 E 79.0 Uric acid ~9. Goal <6Will start allopurino l. Fatigue 93914933 R53.83 Will check TSH History of parathyroidectomy 5026298698 27426 Z90.89 ? Unclear. Will check PTH and vitamin dCalcium and phos stable. Obesity 447146395 E66.9 Advised weight lossCKD diet provided.C heck a1c. [id number] Henry Robni MD [facility] [address] [place] [address] 01/13/2023 09:18:53 01/13/2023 10:29:35 Chronic kidney disease stage 4 257841324 N18.4 CKD stage 4 possible progressio n [...] most current list of medication s. Proteinuria 86977264 R80 .9 24 hour Protein ~860.Serol ogies negative.L ikely from Chronic interstiti al damage. Nephrocalcinosis 8548754 2 N29 Hx of nephrocalc inosis.Us reviewed. stable. Hyperuricemia 33285077 E 79.0 Uric acid ~9. Goal <6C/W allopurino l Fatigue 13035636 R53.83 TSH at goal. History of parathyroidectomy [id number] Z90.89 ? Unclear. Will check PTH and vitamin dCalcium and phos stable. Obesity [id number] E66.9 Advised weight lossCKD diet provided.H b A1C 5.4At goal. Chronic low back pain 27 [id number] M54.50 Advised. Exercise diet, ptFollow up with PMD. Health Concerns Section Related Observation LastModified by Organization Detai ls LastModified Time None Recorded Concern Status LastModified by Organization Details LastModified Time None Recorded Advance Directives Directive None Recorded Payers Encounter Date Sequence Insurance Name Policy Number Policy Byrnes Covered Member ID Byrnes Member ID Guarantor Name 11/12/2022 1 [facility] (MEDICAID REPLACEMENT - HMO) Thomas Fontenot [id number] Thomas Fontenot 01/13/2023 1 [facility] (MEDICAID REPLACEMENT - HMO) Thomas Fontenot [id number] Thomas Fontenot Notes Date Note Type Note Provider Name and Address Organization Details Recorded Time 11/12/2022 text/html 32 y.o. 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 in the setting of ?medullary nephrocalcinosis Patient used to follow with nephrology in [place] last office visit was on 07/24/21, labs reviewed from note was 1.9 mg/dl in 2020.She has hx of Obstructive sleep apnea syndrome 08/30/2019, Vitamin D deficiency 10/25/2017Hypocalcemia 05/08/2014, Parathyroid adenoma 05/08/2014, Medullary nephrocalcinosis 01/29/2009.She moved from [place], ~10 months ago, has not seen any [...] tremors. [place] [id number] [employer] [place], [address], [facility] - [facility], [facility] 11/12/2022 17:30:40 01/13/2023 text/html 32 y.o. 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
--- OUTSIDE RECORDS SUMMARY | 2024-12-04 10:15 | XMS_ITS | Encounter Summary ---
Author Organization [facility] Address [address] [place] [address] Care Team Providers Care Bag Worker Name Role Phone Isabel Coughlin MD Primary Care Provider Tatyana Wyatt MD Primary Care Provider Edy Padilla, Pcp Primary Care Provider Darryl morales Encounter Details Date Type Department Care Team Description 07/24/2021 Preventive Maintenance Engineer Report Medical Records [address] [place] [address] Guille Mcginnis MD Social History Tobacco Use Types Packs/Day Years [...] on filedocumented in this encounter Care Teams Bag Worker Relationship Specialty Start Date End Date Isabel Coughlin MD PCP - General Internal Medicine 07/14/21 09/17/21 Tatyana Murillo MD PCP - General Internal Medicine 09/18/21 07/05/22 Darlin Padilla PCP - General Internal Medicine 07/06/22 documented as of this encounter
--- OUTSIDE RECORDS SUMMARY | 2024-12-04 10:15 | XMS_ITS | Encounter Summary ---
Author Organization [facility] Address [address] [facility] [place] [address] Care Team Providers Care Machine Tool Technician Instructor Name Role Phone Isabel Coughlin MD Primary Care Provider Unavail able Tatyana Murillo MD Primary Care Provider Isabel Dang MD Primary Care Provider Unavail Tatyana Garcia MD Primary Care Provider Edy chao [facility], Pcp Primary Care Provider Unavailabl e Encounter Details Date Type Department Care Team Description 01/04/2019 Arts Education Teacher Report Medical Records [address] [place] [address] Chele Askew MD Social History Tobacco Use Types Packs/Day [...] on filedocumented in this encounter Care Teams Machine Tool Technician Instructor Relationship Specialty Start Date End Date [...]
--- OUTSIDE RECORDS SUMMARY | 2024-12-04 10:15 | XMS_ITS | Encounter Summary ---
Author Organization [facility] Address [address] [place] [address] Phone Care Team Providers Care Ventilated Rib Fitter Name Role Phone Isabel Cota MD Primary Care Provider [phone] Encounter Details Date Type Department Care Team (Late Contact Info) Description 10/19/2024 Documentation Only [facility] [address] [place] [address] [place] [address] [place] [phone] Social History Tobacco Use Types Packs/Day [...] Visit [facility] [address] [place] [address] Guille Mcginnis MD [address] [place] [address] [place] [address] documented as of this encounter Visit Diagnoses Not on filedocumented in this encounter Care Teams Ventilated Rib Fitter Relationship Specialty Start Date End Date Isabel Cota MD [address] [place] [address] PCP - General Internal Medicine 05/29/21 documented as of this encounter
--- OUTSIDE RECORDS SUMMARY | 2024-12-04 10:15 | XMS_ITS | Clinical Summary ---
Author Organization [facility] Address [address] [place] [address] Phone Care Team Providers Care Senior Payroll Specialist Name Role Phone Tatyana Murillo MD Primary Care Provider Allergies Active Allergy Reactions Criticality Noted Date [...] syncytial vi ting (RSV) 09/02/2024 Hypokalemia 08/31/2024 Surgical History Surgery Date Site/Laterality Comments THYROIDECTOMY PROCEDURE: HISTORICAL TOTAL THYROIDECTOMY OTHER SURGICAL HISTORY PROCEDURE: KIDNEY STONE PANEL TUBAL LIGATION 2011 PROCEDURE: HISTORICAL TUBAL LIGATION Medical History Medical History Date Comments Anxiety and depression 10/25/2017 DX:Anxiet y and depression Bipolar 2 disorder (CMS/HCC V24, CMS/HCC V28) 10/25/2017 DX:Bipolar 2 disorder (HCC) Hypothyroidism 10/25/2017 DX:Hypothyroidis m Vitamin D insufficiency 10/25/2017 DX:Vitam in D insufficiency Tobacco abuse 10/25/2017 DX:Tobacco abuse Migraine headache 10/25/2017 DX:Migraine he adache Obesity (BMI 30-39.9) 10/25/2017 DX:Obesity (BMI 30-39.9) CKD (chronic kidney disease) stage 3, GFR 30-59 ml/min (CMS/HCC V24, CMS/HCC V28) 10/26/2017 DX:CKD (chronic kidney disea se) stage 3, GFR 30-59 ml/min ([facility]); COMMENT: S/p renal biopsy, pathology report [...] of Health Screening 07/26/2022 COVID-19 Vaccine ( - season) 2024 Depression Screening 09/21/2024 09/21/2023 Influenza Vaccine (Season Ended) 2025 09/21/2023, 06/02/2018, 05/19/2017, Additional history exists HIV Screening Completed 09/21/2023 Hepatitis C Screening [...] age to complete this topic Meningococcal B Vaccine Aged Out No l onger eligible based on patient's age to complete this topic RSV Immunization Patients Under 20 months Aged Out No longer eligible based on patient's age to complete this topic Varicella Vaccines Aged Out No longer eligible based on patient's age to complete this topic Insurance [address] [place] [address] MEDICAID - [place] Advance Directives * Full Code - Default [...] currently active code status orders. Care Teams Senior Payroll Specialist Relationship Specialty Start Date End Date Tatyana Murillo MD [address] [place] [address] PCP - General Internal Medicine 06/26/21
--- OUTSIDE RECORDS SUMMARY | 2024-12-04 10:15 | XMS_ITS | Encounter Summary ---
Author Organization [facility] Address [address] [place] [address] Care Team Providers Care Ore Sampler Name Role Phone Isabel Coughlin MD Primary Care Provider Unavail Tatyana Garcia MD Primary Care Provider Isabel Dang MD Primary Care Provider Tatyana Wyatt MD Primary Care Provider Edy chao [facility], Pcp Primary Care Provider Unavailabl e Reason for Visit * Reason Onset Date Comments er follow up 10/05/2019 Encounter Details Date Type Department Care Team Description 10/05/2019 Telephone Adult Medicine [address] [address] Isabel Coughlin MD er follow up Social History Tobacco Use Types Packs/Day Years Used Date Smoking Tobacco: Every Day Smokeless Tobacco: Never Alcohol Use Standard Drinks/Week Comments No 0 (1 standard drink = 0.6 oz pur e alcohol) Sex Assigned at Date Recorded Not on file documented as of this encounter Miscellaneous Notes * Telephone Encounter - Arielle Milianirez - 10/05/2019 10:49 AM EST ER follow-up appointment booked YES 10/09/19 If ER or UC follow up, can be booked with [facility] or . If hospital admission follow up MUST be booked with a physician Appointment time: 2:15PM Provider visit is scheduled with: [facility] center patient was treated at: [facility] Date of visit: 10/05/19 Was this only an ER/UC visit or was the patient admitted to the hospital? ER visit onlyER visit only If patient was admitted what was the date of discharge? N/A Reason/diagnosis for visit or stay: abdominal pain Was visit or stay related to an injury? NO If yes, what was the date of injury (DOI)? N/A If yes, was the injury due to N/A Tests performed: Lab: YES X-ray: YES EKG: YES Other tests. If yes, what?; N/A documented in this encounter Plan of Treatment Not on file documented as of this encounter Visit Diagnoses Not on filedocumented in this encounter Care Teams Ore Sampler Relationship Specialty Start Date End Date Isabel Coughlin MD PCP - General Internal Medicine 09/03/17 06/25/21 Tatyana Murillo MD PCP - General Internal Medicine 06/26/21 07/13/21 Isabel Coughlin MD PCP - General Internal Medicine 07/14/21 09/17/21 Tatyana Murillo MD PCP - General Internal Medicine 09/18/21 [facility]05[facility] 07/06/22 documented as of this encounter
== END 2024-12-04 09:58 | disposition home or self-care (01) ==
LOC: HO.HPS 09:17
PROVIDERS: PCP Internal Medicine; Referring Provider Internal Medicine; Visit Provider Nurse Practitioner Family
DX: J45.909 Unspecified asthma, uncomplicated (principal); Z91.09 Other allergy status, other than to drugs and biological substances; R05.9 Cough, unspecified
CPT/HCPCS: 99204

== ENCOUNTER → 2024-12-04 09:16 | Outpatient (BNVA) | payer MEDICAID, SELFPAY | PROVIDERS: PCP Internal Medicine; Referring Provider Internal Medicine; Visit Provider Nurse Practitioner Family | DX: J45.909 Unspecified asthma, uncomplicated (principal); Z91.09 Other allergy status, other than to drugs and biological substances | CPT/HCPCS: 99212 ==

== ENCOUNTER 2025-02-01 10:51 | Outpatient (REF) | payer MEDICAID, SELFPAY ==
--- OUTSIDE RECORDS SUMMARY | 2025-02-01 12:48 | XMS_ITS | Encounter Summary ---
Author Organization [facility] Address [address] [place] [address] Care Team Providers Care Nanoelectronics Engineer Name Role Phone Isabel Coughlin MD Primary Care Provider Tatyana Wyatt MD Primary Care Provider Edy Padilla, Pcp Primary Care Provider Darryl morales Encounter Details Date Type Department Care Team Description 07/24/2021 Rn Referral Report Medical Records [address] [place] [address] Guille Mcginnis MD Social History Tobacco Use [...] on filedocumented in this encounter Care Teams Nanoelectronics Engineer Relationship Specialty Start Date End Date Isabel Coughlin MD PCP - General Internal Medicine 07/14/21 09/17/21 Tatyana Murillo MD PCP - General Internal Medicine 09/18/21 07/05/22 Darlin Padilla PCP - General Internal Medicine 07/06/22 documented as of this encounter
[2025-02-01 13:27] LABS: MANUAL DIFF FLAG NO
[2025-02-01 13:28] LABS: Basophils Absolute Auto 0.1 X10*3/uL (0.0-0.2); Basophils Percent Auto 0.3 % (0-2); Eosinophils Absolute Auto 0.1 X10*3/uL (0.0-0.4); Eosinophils Percent Auto 0.8 % (0-4); Hematocrit 34.7 % (37.0-47.0); Hemoglobin 11.4 g/dl (12.0-16.0); Imm Gran Abs Auto 0.04 X10*3/uL (0.00-0.03); Imm Gran Pct Auto 0.3 % (0.0-0.4); Lymphocytes Absolute Auto 2.9 X10*3/uL (1.2-4.9); Lymphocytes Percent Auto 17.8 % (20-40); Mean Corpuscular HGB Conc 32.9 g/dl (31.0-35.0); Mean Corpuscular Hemoglobin 28.1 pg (27.0-33.0); Mean Corpuscular Volume 85.7 fL (80.0-98.0); Mean Platelet Volume 11.2 fL (9.4-12.3); Monocytes Absolute Auto 0.6 X10*3/uL (0.1-1.2); Monocytes Percent Auto 3.9 % (2-11); Neutrophils Absolute Auto 12.3 x10*3/uL (2.0-8.3); Neutrophils Percent Auto 76.9 % (45-73); Platelet Count 290 X10*3/uL (160-400); Red Blood Count 4.05 X10*6/uL (4.20-5.50); Red Cell Distribution Width 13.9 % (11.0-16.0)
[2025-02-01 13:39] LABS: Anion Gap 13 (12-20); Blood Urea Nitrogen 60 mg/dL (9-16); Calcium 8.7 mg/dL (8.4-10.2); Carbon Dioxide 24 mmol/L (22-29); Chloride 104 mmol/L (96-108); Estimated Glomerular Filt Rate 21; Glucose Random 68 mg/dL (60-115); Potassium 3.2 mmol/L (3.3-5.1); Sodium 138 mmol/L (135-145)
[2025-02-03 08:33] LABS: Class Alternaria alternata 0; Class Aspergillus fumigatus 0; Class Bermuda Grass 0; Class Birch 0; Class Cat Dander 0; Class Cladosporium herbarum 0; Class Cockroach 1; Class Common Ragweed 0; Class Cottonwood 0; Class Derm. pterony 2; Class Dermatophagoides farinae 2; Class Dog Dander 2; Class Elm 0; Class Maple Box Elder 0; Class Mountain Cedar 0; Class Mouse Urine Protein 0; Class Mugwort 0; Class Oak 0; Class Penicillium crysogenum 0; Class Rough Pigweed 0; Class Sheep Sorrel 0; Class Sycamore 0; Class Timothy Grass 0; Class Walnut Tree 0; Class White Ash 0; Class White Mulberry 0; D002 - IgE D farinae 0.84 kU/L; E001 - IgE Cat Dander <0.10 kU/L; E005 - IgE Dog Dander 1.02 kU/L; E072-IgE Mouse Urine <0.10 kU/L; G002 IgE Bermuda Grass <0.10 kU/L; G006 - IgE Timothy Grass <0.10 kU/L; I006-IgE Cockroach, German 0.47 kU/L; Immunoglobulin E 167 kU/L (<OR=114); M001 IgE Penicillium chrysogen <0.10 kU/L; M002 - IgE Cladosporium herbar <0.10 kU/L; M003 - IgE Aspergillus fumigat <0.10 kU/L; M006 - IgE Alternaria alternat <0.10 kU/L; T001 IgE Maple/Box Elder <0.10 kU/L; T003 IgE Common Silver Birch <0.10 kU/L; T006 - IgE Cedar, Mountain <0.10 kU/L; T007 - IgE Oak, White <0.10 kU/L; T008 IgE Elm, American <0.10 kU/L; T010 - IgE Walnut <0.10 kU/L; T011 - IgE Maple Leaf Sycamore <0.10 kU/L; T014 - IgE Cottonwood <0.10 kU/L; T015 - IgE Ash, White <0.10 kU/L; T070 - IgE White Mulberry <0.10 kU/L; W001 - IgE Ragweed, Short <0.10 kU/L; W006 - IgE Mugwort <0.10 kU/L; W014 IgE Pigweed, Common <0.10 kU/L; W018 IgE Sheep Sorrel <0.10 kU/L
== END 2025-02-01 10:52 | disposition home or self-care (01) ==
LOC: HO.HHCL 10:51
PROVIDERS: Nurse Practitioner Family; Visit Provider Internal Medicine
DX: E87.6 Hypokalemia (principal); Z91.09 Other allergy status, other than to drugs and biological substances
CPT/HCPCS: 36415; 80048; 82785; 85025; 86003

== ENCOUNTER → 2025-03-09 13:02 | Outpatient (REF) | payer MEDICAID, SELFPAY ==
--- OUTSIDE RECORDS SUMMARY | 2025-03-09 13:03 | XMS_ITS | Encounter Summary ---
Author Organization [facility] Address [address] [place] [address] Care Team Providers Care Can Capper Name Role Phone Isabel Coughlin MD Primary Care Provider Tatyana Wyatt MD Primary Care Provider Edy Padilla, Pcp Primary Care Provider Darryl morales Encounter Details Date Type Department Care Team Description 07/24/2021 Finisher Card Tender Report Medical Records [address] [place] [address] Guille Mcginnis MD Social History Tobacco Use [...] on filedocumented in this encounter Care Teams Can Capper Relationship Specialty Start Date End Date Isabel Coughlin MD PCP - General Internal Medicine 07/14/21 09/17/21 Tatyana Murillo MD PCP - General Internal Medicine 09/18/21 07/05/22 Darlin Padilla PCP - General Internal Medicine 07/06/22 documented as of this encounter
--- OUTSIDE RECORDS SUMMARY | 2025-03-09 13:03 | XMS_ITS | Clinical Summary ---
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 Care Teams Doormaker Relationship Specialty Start Date End Date Tatyana Murillo MD [address] [place] [address] PCP - General Internal Medicine 06/26/21
--- OUTSIDE RECORDS SUMMARY | 2025-03-09 13:04 | XMS_ITS | Encounter Summary ---
Author Organization [facility] Address [address] [place] [address] Phone Care Team Providers Care Tool And Equipment Rental Clerk Name Role Phone Isabel Cota MD Primary Care Provider [phone] Encounter Details Date Type Department Care Team (Late st Contact Info) Description 09/29/2024 Documentation Only [facility] [address] [place] [address] [place] [address] [place] [phone] Social History Tobacco Use Types Packs/Day [...] Department Care Team (Late Contact Info) Description 03/28/2025 5:30 PM EDT Office Visit [facility] [address] [place] [address] Guille Mcginnis MD [address] [facility] [place] [address] documented as of this encounter Visit Diagnoses Not on filedocumented in this encounter Care Teams Tool And Equipment Rental Clerk Relationship Specialty Start Date End Date Isabel Cota MD [address] [place] [address] PCP - General Internal Medicine 05/29/21 documented as of this encounter
--- OUTSIDE RECORDS SUMMARY | 2025-03-09 13:04 | XMS_ITS | Clinical Summary ---
Author Organization [facility] Address [address] [place] [address] Care Team Providers Care Electromechanical Engineer Name Role Phone Unavailable Primary Care Provider [...] Plan of Treatment Not on file [place] [facility] [id number]
--- OUTSIDE RECORDS SUMMARY | 2025-03-09 13:04 | XMS_ITS | Data Portability ---
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, [address] [place] [address], [address], 3 17:11:28 renal function panel, serum 2022 023 [email or web address] [facility], [address] [place] [address], [address], 3 17:11:29 protein + creatinine panel, urine 2022 023 [email or web address] [facility], [address] [place] [address], [address], 17:11:29 cystatin C + glomerular filtration rate by cystatin-b ased formula panel, cystatin-b ased formula panel, serum or plasma 2022 023 [email or web address] [facility], [address] [place] [address], [address], 3 17:11:29 uric acid, serum or plasma 2022 023 [email or web address] [facility], [address] [place] [address], [place], [address], 3 17:11:29 PTH (parathyro id hormone), intact, serum or plasma 2022 023 [employer] [facility], [address] [place] [address], [place], [address], 3 10:25:09 vitamin D, 25-hydroxy , total, serum 2022 023 [facility] [facility], [address] [place] [address], [address], 3 10:25:09 vitamin D, 25-hydroxy + 1,25-dihyd joyce, serum 2022 023 [email or web address] [facility], [address] [place] [address], [address], 10:25:10 HbA1c (hemoglobi n A1c), blood 2022 023 [facility], [address] [place] [address], [address], 10:25:10 urinalysis , complete 2022 023 [facility], [address] [place] [address], [address], 10:35:45 renal function panel, serum 2022 023 [facility], [address] [place] [address], [address], 10:35:45 renal function panel, serum 2022 023 AIME [facility], [address] [place] [address], [address], 11:08:35 uric acid, serum or plasma 2022 023 [facility], [address] [place] [address], [address], 10:35:45 ESR (erythrocy te sedimentat ion rate), blood 2022 023 AIME [facility], [address] [place] [address], [address], 11:08:40 RPR (rapid plasma reagin), serum 2022 023 AIME [facility], [address] [place] [address], [address], 3 11:08:38 protein:cr eatinine ratio, urine 2022 023 [place] [facility], [address] [place] [address], [place], [address], 3 05:38:44 MARLA (antinucle ar antibodies ) screen, serum 2022 023 [place] [facility], [address] [place] [address], [place], [address], 3 11:08:39 lipid panel, serum 2022 023 [place] [facility], [address] [place] [address], [place], [address], 3 11:08:36 anca panel, serum 2022 023 [facility], [address] [place] [address], [place], [address], 3 10:25:09 immunofixa tion + protein electropho resis + free light chains, serum 2022 023 [facility], [address] [place] [address], [place], [address], 3 10:25:09 hepatitis panel (A+B+C), acute, serum 2022 023 [facility], [address] [place] [address], [place], [address], 3 10:25:09 HIV 1 + 2, meaningful use set 2022 023 [employer] [facility], [address] [place] [address], [place], [address], 3 10:25:09 C reactive protein, QN, serum or plasma 2022 023 [facility], [address] [place] [address], [place], [address], 10:25:10 TSH + free T4, serum 2022 023 [facility], [address] [place] [address], [address], 10:25:10 magnesium, serum or plasma 2022 023 [facility], [address] [place] [address], [place], [address], 10:25:10 Referral None recorded. Procedures None recorded. Surgeries None recorded. Imaging US, retroperit oneum, complete - check kidney and bladder. 2022 023 [place] [facility] Scheduling Dept (Imaging), [place], [address], 11:32:37 Medication Orders allopurino l 100 mg tablet 2022 023 [facility] [id number] [facility], [address], [address], [place], [address], 17:30:39 Patient TargetsNo targets recorded. Patient Instructions Encounter Date Encounter Id Patient Instructions Last Modified By Organization Details Last Modified Time 11/12/2022 [id number] Cuando desea baj ar de peso: Instrucciones de cuidado - [When You Want to Lose Weight: Care Instructions] Not available 11/12/2022 17:30:29 medicamentos que debe evitar cuando tiene katelyn enfermedad renal: instrucciones de cuidado - [medicines to avoid with kidney disease: care instructions] Not available 11/12/2022 17:30:28 dieta para la enfermedad renal cr jigar (antes de la di lisis): instrucciones de cuidado - [diet for chronic kidney disease (before dialysis): care instructions] Not available 11/12/2022 17:30:29 01/13/2023 [id number] Cuando desea baj ar de peso: Instrucciones de cuidado - [When You Want to Lose Weight: Care Instructions] Not available 01/13/2023 10:23:34 medicamentos que debe evitar cuando tiene katelyn enfermedad renal: instrucciones de cuidado - [medicines to avoid with kidney disease: care instructions] Not available 01/13/2023 10:23:34 dieta para la enfermedad renal cr jigar (antes de la di lisis): instrucciones de cuidado - [diet for chronic kidney disease (before dialysis): care instructions] Not available 01/13/2023 10:23:34 Reason for Referral None Reported. Results Created Date Observation Date Name Description Value Unit Range Abnormal Flag Note LastModifiedBy Organization Detail LastModifiedTime 10/31/1910/30/2022 CBC WITH DIFFE RENTI AL/PL ATELE T WBC 12.9 x10e3 /uL 3.4-10 .8 above high normal Not Available [facility] ([facility] [place] [facility] [address] [place], [address], 10/30/2022 14:09:16 10/31/19 23 10/30/2022 CBC WITH DIFFE RENTI AL/PL ATELE T RBC 4.25 x10e6 /uL 3.77-5 .28 Not Available [facility] ([facility] [place] [facility] [address] [place], [address], 10/30/2022 14:09:16 10/31/19 23 10/30/2022 CBC WITH DIFFE RENTI AL/PL ATELE T hemoglobin 12.1 g/dL 11.1-1 5.9 Not Available [facility] ([facility] [place] [facility] [address] [place], [address], 10/30/2022 14:09:16 10/31/19 23 10/30/2022 CBC WITH DIFFE RENTI AL/PL ATELE T hematocrit 36.9 % 34.0-4 6.6 Not Available [facility] ([facility] [place] [facility] [address] [facility], [place], [address], 10/30/2022 14:09:16 10/31/19 23 10/30/2022 CBC WITH DIFFE RENTI AL/PL ATELE T MCV 87 fL 79-97 Not Available [facility] ([facility] [place] [facility] [address] [facility], [place], [address], 10/30/2022 14:09:16 10/31/1910/30/2022 CBC WITH DIFFE RENTI AL/PL ATELE T MCH 28.5 pg 26.6-3 3.0 Not Available [facility] ([facility] [place] [place] [facility] [address] [facility], [place], [address], 10/30/2022 14:09:16 10/31/1910/30/2022 CBC WITH DIFFE RENTI AL/PL ATELE T MCHC 32.8 g/dL 31.5-3 5.7 Not Available [facility] ([facility] [place] [place] [facility] [address] [facility], [place], [address], 10/30/2022 14:09:16 10/31/19 23 10/30/2022 CBC WITH DIFFE RENTI AL/PL ATELE T RDW 13.5 % 11.7-1 5.4 Not Available [facility] ([facility] [place] [place] [facility] [address] [facility], [place], [address], 10/30/2022 14:09:16 10/31/1910/30/2022 CBC WITH DIFFE RENTI AL/PL ATELE T platelets 235 x10e3 /uL 150-45 0 Not Available [facility] ([facility] [place] [place] [facility] [address] [facility], [place], [address], 10/30/2022 14:09:16 10/31/19 23 10/30/2022 CBC WITH DIFFE RENTI AL/PL ATELE T neutrophils 73 % not estab. Not Available [facility] ([facility] [place] [place] [facility] [address] [facility], [place], [address], 10/30/2022 14:09:16 10/31/19 23 10/30/2022 CBC WITH DIFFE RENTI AL/PL ATELE T lymphs 21 % not estab. Not Available [facility] ([facility] [place] [place] [facility] [address] [facility], [place], [address], 10/30/2022 14:09:16 10/31/19 23 10/30/2022 CBC WITH DIFFE RENTI AL/PL ATELE T monocytes 4 % not estab. Not Available [facility] ([facility] [place] [place] [facility] [address] [facility], [place], [address], 10/30/2022 14:09:16 10/31/19 23 10/30/2022 CBC WITH DIFFE RENTI AL/PL ATELE T eos 2 % not estab. Not Available [facility] ([facility] [place] [place] [facility] [address] [facility], [place], [address], 10/30/2022 14:09:16 10/31/19 23 10/30/2022 CBC WITH DIFFE RENTI AL/PL ATELE T basos 0 % not estab. Not Available [facility] ([facility] [place] [place] [facility] [address] [facility], [place], [address], 10/30/2022 14:09:16 10/31/19 23 10/30/2022 CBC WITH DIFFE RENTI AL/PL ATELE T immature cells INDUSTRIAL METHODS CONSULTANT Not Available [facility] ([facility] [place] [place] [facility] [address] [facility], [place], [address], 10/30/2022 14:09:16 10/31/19 23 10/30/2022 CBC WITH DIFFE RENTI AL/PL ATELE T neutrophils (absolute) 9.5 x10e3 /uL 1.4-7. 0 above high normal Not Available [facility] ([facility] [place] [place] [facility] [address] [facility], [place], [address], 10/30/2022 14:09:16 10/31/19 23 10/30/2022 CBC WITH DIFFE RENTI AL/PL ATELE T lymphs (absolute) 2.7 x10e3 /uL 0.7-3. 1 Not Available [facility] ([facility] [place] [place] [facility] [address] [facility], [place], [address], 10/30/2022 14:09:16 10/31/19 23 10/30/2022 CBC WITH DIFFE RENTI AL/PL ATELE T monocytes(ab solute) 0.6 x10e3 /uL 0.1-0. 9 Not Available [facility] ([facility] [place] [place] [facility] [address] [facility], [place], [address], 10/30/2022 14:09:16 10/31/19 23 10/30/2022 CBC WITH DIFFE RENTI AL/PL ATELE T eos (absolute) 0.2 x10e3 /uL 0.0-0. 4 Not Available [facility] ([facility] [place] [place] [facility] [address] [facility], [place], [address], 10/30/2022 14:09:16 10/31/19 23 10/30/2022 CBC WITH DIFFE RENTI AL/PL ATELE T baso (absolute) 0.0 x10e3 /uL 0.0-0. 2 Not Available [facility] ([facility] [place] [place] [facility] [address] [facility], [place], [address], 10/30/2022 14:09:16 10/31/19 23 10/30/2022 CBC WITH DIFFE RENTI AL/PL ATELE T immature granulocytes INDUSTRIAL METHODS CONSULTANT Not Available [facility] ([facility] [place] [place] [facility] [address] [facility], [place], [address], 10/30/2022 14:09:16 10/31/19 23 10/30/2022 CBC WITH DIFFE RENTI AL/PL ATELE T immature grans (abs) INDUSTRIAL METHODS CONSULTANT Not Available [facility] ([facility] [place] [place] [facility] [address], [place], [address], 10/30/2022 14:09:16 10/31/19 23 10/30/2022 CBC WITH DIFFE RENTI AL/PL ATELE T NRBC INDUSTRIAL METHODS CONSULTANT Not Available [facility] ([facility] [place] [place] [facility]) [address], [place], [address], 10/30/2022 14:09:16 10/31/19 23 10/30/2022 CBC WITH DIFFE RENTI AL/PL ATELE T hematology comments: INDUSTRIAL METHODS CONSULTANT Not Available [facility] ([facility] [place] [place] [facility]) [address], [place], [address], 10/30/2022 14:09:16 10/31/19 23 10/30/2022 URINA LYSIS , ROUTI NE specific gravity 1.020 1.005- 1.030 Not Available [facility] ([facility] [place] [place] [facility]) [address], [place], [address], 10/30/2022 14:09:17 10/31/1910/30/2022 URINA LYSIS , ROUTI NE pH 6.0 5.0-7. 5 Not Available [facility] ([facility] [place] [place] [facility]) [address], [place], [address], 10/30/2022 14:09:17 10/31/1910/30/2022 URINA LYSIS , ROUTI NE urine-color Yellow yellow Not Available [facility] ([facility] [place] [place] [facility] [address] [facility], [place], [address], 10/30/2022 14:09:17 10/31/1910/30/2022 URINA LYSIS , ROUTI NE appearance Clear clear Not Available [facility] ([facility] [place] [place] [facility]) [address], [place], [address], 10/30/2022 14:09:17 10/31/1912 1110/30/2022 URINA LYSIS , ROUTI NE WBC esterase Trace negati ve abnormal Not Available [facility] ([facility] [place] [place] [facility] [address] [place], [address], 10/30/2022 14:09:17 10/31/19 23 10/30/2022 URINA LYSIS , ROUTI NE protein 2+ negati ve/tra ce abnormal Not Available [facility] ([facility] [place] [place] [facility] [address] [place], [address], 10/30/2022 14:09:17 10/31/19 23 10/30/2022 URINA LYSIS , ROUTI NE glucose Negati ve negati ve Not Available [facility] ([facility] [place] [place] [facility] [address] [place], [address], 10/30/2022 14:09:17 10/31/19 23 10/30/2022 URINA LYSIS , ROUTI NE ketones Negati ve negati ve Not Available [facility] ([facility] [place] [place] [facility] [address] [place], [address], 10/30/2022 14:09:17 10/31/19 23 10/30/2022 URINA LYSIS , ROUTI NE occult blood Trace negati ve abnormal Not Available [facility] ([facility] [place] [place] [facility] [address] [place], [address], 10/30/2022 14:09:17 10/31/19 23 10/30/2022 URINA LYSIS , ROUTI NE bilirubin Negati ve negati ve Not Available [facility] ([facility] [place] [place] [facility] [address] [place], [address], 10/30/2022 14:09:17 10/31/19 23 10/30/2022 URINA LYSIS , ROUTI NE urobilinogen ,semi-qn 0.2 mg/dL 0.2-1. 0 Not Available [facility] ([facility] [place] [place] [facility] [address] [place], [address], 10/30/2022 14:09:17 10/31/19 23 10/30/2022 URINA LYSIS , ROUTI NE nitrite, urine Negati ve negati ve Not Available [facility] ([facility] [place] [place] [facility] [address] [facility], [place], [address], 10/30/2022 14:09:17 10/31/19 23 10/30/2022 URINA LYSIS , ROUTI NE microscopic examination See below: Not Available [facility] ([facility] [place] [place] [facility] [address] [facility], [place], [address], 10/30/2022 14:09:17 10/31/19 23 10/30/2022 URINA LYSIS , ROUTI NE WBC 11-30 /hpf 0 - 5 abnormal Not Available [facility] ([facility] [place] [place] [facility] [address] [place], [address], 10/30/2022 14:09:17 10/31/19 23 10/30/2022 URINA LYSIS , ROUTI NE RBC 0-2 /hpf 0 - 2 Not Available [facility] ([facility] [place] [place] [facility] [address] [facility], [place], [address], 10/30/2022 14:09:17 10/31/19 23 10/30/2022 URINA LYSIS , ROUTI NE epithelial cells (non renal) >10 /hpf 0 - 10 abnormal Not Available [facility] ([facility] [place] [place] [facility] [address] [facility], [place], [address], 10/30/2022 14:09:17 10/31/19 23 10/30/2022 URINA LYSIS , ROUTI NE epithelial cells (renal) INDUSTRIAL METHODS CONSULTANT Not Available [facility] ([facility] [place] [place] [facility] [address] [place], [address], 10/30/2022 14:09:17 10/31/19 23 10/30/2022 URINA LYSIS , ROUTI NE casts INDUSTRIAL METHODS CONSULTANT Not Available [facility] ([facility] [place] [place] [facility] [address] [facility], [place], [address], 10/30/2022 14:09:17 10/31/19 23 10/30/2022 URINA LYSIS , ROUTI NE cast type INDUSTRIAL METHODS CONSULTANT Not Available [facility] ([facility] [place] [place] [facility] [address] [facility], [place], [address], 10/30/2022 14:09:17 10/31/19 23 10/30/2022 URINA LYSIS , ROUTI NE crystals INDUSTRIAL METHODS CONSULTANT Not Available [facility] ([facility] [place] [place] [facility] [address] [facility], [place], [address], 10/30/2022 14:09:17 10/31/19 23 10/30/2022 URINA LYSIS , ROUTI NE crystal type INDUSTRIAL METHODS CONSULTANT Not Available [facility] ([facility] [place] [place] [facility] [address] [facility], [place], [address], 10/30/2022 14:09:17 10/31/19 23 10/30/2022 URINA LYSIS , ROUTI NE mucus threads Presen t not estab. Not Available [facility] ([facility] [place] [place] [facility] [address] [facility], [place], [address], 10/30/2022 14:09:17 10/31/19 23 10/30/2022 URINA LYSIS , ROUTI NE bacteria Few none seen/f ew Not Available [facility] ([facility] [place] [place] [facility] [address] [facility], [place], [address], 10/30/2022 14:09:17 10/31/19 23 10/30/2022 URINA LYSIS , ROUTI NE yeast INDUSTRIAL METHODS CONSULTANT Not Available [facility] ([facility] [place] [place] [facility] [address] [facility], [place], [address], 10/30/2022 14:09:17 10/31/19 23 10/30/2022 URINA LYSIS , ROUTI NE trichomonas INDUSTRIAL METHODS CONSULTANT Not Available [facility] ([facility] [place] [place] [facility] [address] [facility], [place], [address], 10/30/2022 14:09:17 10/31/19 23 10/30/2022 URINA LYSIS , ROUTI NE comment INDUSTRIAL METHODS CONSULTANT Not Available [facility] ([facility] [place] [place] [facility] [address] [facility] [place], [address], 10/30/2022 14:09:17 10/31/19 23 10/30/2022 RENAL PANEL (10) glucose 80 mg/dL 70-99 Not Available [facility] ([facility] [place] [place] [facility] [address] [facility] [place], [address], 10/30/2022 14:09:17 10/31/19 23 10/30/2022 RENAL PANEL (10) BUN 21 mg/dL 6-20 above high normal Not Available [facility] ([facility] [place] [place] [facility] [address] [facility] [place], [address], 10/30/2022 14:09:17 10/31/19 23 10/30/2022 RENAL PANEL (10) creatinine 2.22 mg/dL 0.57-1 .00 above high normal Not Available [facility] ([facility] [place] [place] [facility] [address] [facility] [place], [address], 10/30/2022 14:09:17 10/31/19 23 10/30/2022 RENAL PANEL (10) eGFR 29 mL/mi n/1.7 3 >59 below low normal Not Available [facility] ([facility] [place] [place] [facility] [address] [facility] [place], [address], 10/30/2022 14:09:17 10/31/19 23 10/30/2022 RENAL PANEL (10) BUN/creatini ne ratio 9 9-23 Not Available [facility] ([facility] [place] [place] [facility] [address] [facility] [place], [address], 10/30/2022 14:09:17 10/31/19 23 10/30/2022 RENAL PANEL (10) sodium 138 mmol/ L 134-14 4 Not Available [facility] ([facility] [place] [place] [facility] [address] [place], [address], 10/30/2022 14:09:17 10/31/19 23 10/30/2022 RENAL PANEL (10) potassium 4.3 mmol/ L 3.5-5. 2 Not Available [facility] ([facility] [place] [place] [facility] [address] [place], [address], 10/30/2022 14:09:17 10/31/19 23 10/30/2022 RENAL PANEL (10) chloride 102 mmol/ L 96-106 Not Available [facility] ([facility] [place] [place] [facility] [address] [place], [address], 10/30/2022 14:09:17 10/31/19 23 10/30/2022 RENAL PANEL (10) carbon dioxide, total 23 mmol/ L 20-29 Not Available [facility] ([facility] [place] [place] [facility] [address] [place], [address], 10/30/2022 14:09:17 10/31/19 23 10/30/2022 RENAL PANEL (10) calcium 9.1 mg/dL 8.7-10 .2 Not Available [facility] ([facility] [place] [place] [facility] [address], [place], [address], 10/30/2022 14:09:17 10/31/19 23 10/30/2022 RENAL PANEL (10) phosphorus 3.3 mg/dL 3.0-4. 3 Not Available [facility] ([facility] [place] [place] [facility] [address] [facility] [place], [address], 10/30/2022 14:09:17 10/31/19 23 10/30/2022 RENAL PANEL (10) albumin 3.9 g/dL 3.8-4. 8 Not Available [facility] ([facility] [place] [place] [facility] [address] [facility] [place], [address], 10/30/2022 14:09:17 10/31/19 23 10/30/2022 URIC ACID uric acid 9.3 mg/dL 2.6-6. 2 above high normal Thera kasia root t for gout patie nts: <6.0 Not Available [facility] ([facility] [place] [place] [facility] [address] [facility], [place], [address], 10/30/2022 14:09:18 10/31/19 23 10/31/2022 URINA LYSIS , ROUTI NE specific gravity 1.012 1.005- 1.030 Not Available [facility] ([facility] [place] [place] [facility] [address] [place], [address], 10/31/2022 10:35:36 10/31/19 23 10/31/2022 URINA LYSIS , ROUTI NE pH 6.0 5.0-7. 5 Not Available [facility] ([facility] [place] [place] [facility] [address] [place], [address], 10/31/2022 10:35:36 10/31/19 23 10/31/2022 URINA LYSIS , ROUTI NE urine-color Yellow yellow Not Available [facility] ([facility] [place] [place] [facility] [address] [place], [address], 10/31/2022 10:35:36 10/31/19 23 10/31/2022 URINA LYSIS , ROUTI NE appearance Clear clear Not Available [facility] ([facility] [place] [place] [facility] [address] [place], [address], 10/31/2022 10:35:36 10/31/19 23 10/31/2022 URINA LYSIS , ROUTI NE WBC esterase Trace negati ve abnormal Not Available [facility] ([facility] [place] [place] [facility] [address] [place], [address], 10/31/2022 10:35:36 10/31/19 23 10/31/2022 URINA LYSIS , ROUTI NE protein 2+ negati ve/tra ce abnormal Not Available [facility] ([facility] [place] [place] [facility] [address] [place], [address], 10/31/2022 10:35:36 10/31/19 23 10/31/2022 URINA LYSIS , ROUTI NE glucose Negati ve negati ve Not Available [facility] ([facility] [place] [place] [facility] [address] [facility], [place], [address], 10/31/2022 10:35:36 10/31/19 23 10/31/2022 URINA LYSIS , ROUTI NE ketones Negati ve negati ve Not Available [facility] ([facility] [place] [place] [facility] [address] [facility], [place], [address], 10/31/2022 10:35:36 10/31/19 23 10/31/2022 URINA LYSIS , ROUTI NE occult blood Trace negati ve abnormal Not Available [facility] ([facility] [place] [place] [facility] [address] [facility], [place], [address], 10/31/2022 10:35:36 10/31/19 23 10/31/2022 URINA LYSIS , ROUTI NE bilirubin Negati ve negati ve Not Available [facility] ([facility] [place] [place] [facility] [address] [facility], [place], [address], 10/31/2022 10:35:36 10/31/19 23 10/31/2022 URINA LYSIS , ROUTI NE urobilinogen ,semi-qn 0.2 mg/dL 0.2-1. 0 Not Available [facility] ([facility] [place] [place] [facility] [address] [facility], [place], [address], 10/31/2022 10:35:36 10/31/19 23 10/31/2022 URINA LYSIS , ROUTI NE nitrite, urine Negati ve negati ve Not Available [facility] [place] [place] [place] [facility] [address] [facility], [place], [address], 10/31/2022 10:35:36 10/31/19 23 10/31/2022 URINA LYSIS , ROUTI NE microscopic examination See below: Micro scopi c was indic ated and was perfo rmed. Not Available [facility] [place] [place] [facility] [address] [facility], [place], [address], 10/31/2022 10:35:36 10/31/19 23 10/31/2022 URINA LYSIS , ROUTI NE WBC 0-5 /hpf 0 - 5 Not Available [facility] ([facility] [place] [place] [facility] [address] [facility], [place], [address], 10/31/2022 10:35:36 10/31/19 23 10/31/2022 URINA LYSIS , ROUTI NE RBC None seen /hpf 0 - 2 Not Available [facility] ([facility] [place] [place] [facility] [address] [facility], [place], [address], 10/31/2022 10:35:36 10/31/19 23 10/31/2022 URINA LYSIS , ROUTI NE epithelial cells (non renal) 0-10 /hpf 0 - 10 Not Available [facility] ([facility] [place] [place] [facility] [address] [facility], [place], [address], 10/31/2022 10:35:36 10/31/19 23 10/31/2022 URINA LYSIS , ROUTI NE epithelial cells (renal) INDUSTRIAL METHODS CONSULTANT Not Available [facility] ([facility] [place] [place] [facility] [address] [facility], [place], [address], 10/31/2022 10:35:36 10/31/19 23 10/31/2022 URINA LYSIS , ROUTI NE casts None seen /lpf none seen Not Available [facility] ([facility] [place] [place] [facility] [address] [facility], [place], [address], 10/31/2022 10:35:36 10/31/19 23 10/31/2022 URINA LYSIS , ROUTI NE cast type INDUSTRIAL METHODS CONSULTANT Not Available [facility] ([facility] [place] [place] [facility] [address] [facility], [place], [address], 10/31/2022 10:35:36 10/31/19 23 10/31/2022 URINA LYSIS , ROUTI NE crystals INDUSTRIAL METHODS CONSULTANT Not Available [facility] ([facility] [place] [place] [facility] [address] [facility], [place], [address], 10/31/2022 10:35:36 10/31/19 23 10/31/2022 URINA LYSIS , ROUTI NE crystal type INDUSTRIAL METHODS CONSULTANT Not Available [facility] ([facility] [place] [place] [facility] [address] [facility], [place], [address], 10/31/2022 10:35:36 10/31/19 23 10/31/2022 URINA LYSIS , ROUTI NE mucus threads INDUSTRIAL METHODS CONSULTANT Not Available [facility] ([facility] [place] [place] [facility] [address] [facility], [place], [address], 10/31/2022 10:35:36 10/31/19 23 10/31/2022 URINA LYSIS , ROUTI NE bacteria None seen none seen/f ew Not Available [facility] ([facility] [place] [place] [facility] [address] [facility], [place], [address], 10/31/2022 10:35:36 10/31/19 23 10/31/2022 URINA LYSIS , ROUTI NE yeast INDUSTRIAL METHODS CONSULTANT Not Available [facility] ([facility] [place] [place] [facility] [address] [facility], [place], [address], 10/31/2022 10:35:36 10/31/19 23 10/31/2022 URINA LYSIS , ROUTI NE trichomonas INDUSTRIAL METHODS CONSULTANT Not Available [facility] ([facility] [place] [place] [facility] [address] [facility], [place], [address], 10/31/2022 10:35:36 10/31/19 23 10/31/2022 URINA LYSIS , ROUTI NE comment INDUSTRIAL METHODS CONSULTANT Not Available [facility] ([facility] [place] [place] [facility] [address] [facility], [place], [address], 10/31/2022 10:35:36 11/03/19 23 11/03/2022 CREAT U+PRO T U creatinine, urine 54.9 mg/dL not estab. Total Volum e: 0800 mL Not Available [facility] ([facility] [place] [place] [facility] [address] [place], [address], 11/03/2022 17:07:11 11/03/19 23 11/03/2022 CREAT U+PRO T U creatinine, ur 24HR 439 mg/24 _HR 800-18 00 below low normal Not Available [facility] ([facility] [place] [place] [facility] [address] [facility], [place], [address], 11/03/2022 17:07:11 11/03/1911/03/2022 CREAT U+PRO T U prot,24HR calculated 735 mg/24 _HR 30-150 above high normal Not Available [facility] ([facility] [place] [place] [facility] [address] [facility], [place], [address], 11/03/2022 17:07:11 11/03/19 23 11/03/2022 CREAT U+PRO T U protein,tota l,urine 91.9 mg/dL not estab. Not Available [facility] ([facility] [place] [place] [facility] [address] [facility], [place], [address], 11/03/2022 17:07:11 11/03/19 23 11/03/2022 CREAT U+PRO T U protein/crea t ratio 1674 mg/g_ creat 0-200 above high normal Not Available [facility] ([facility] [place] [place] [facility] [address] [place], [address], 11/03/2022 17:07:11 11/21/19 23 11/20/2022 NURY, PE AND FLC, SERUM please note: Commen t Prote in elect ropho resis scan will follo w via compu ter, mail, or couri nelda ordonez. Not Available [facility] ([facility] [place] [place] [facility] [address] [place], [address], 11/25/2022 11:08:34 11/21/19 23 11/21/2022 NURY, PE AND FLC, SERUM immunoglobul in g, qn, serum 988 mg/dL 586-16 02 Not Available [facility] ([facility] [place] [place] [facility] [address] [facility] [place], [address], 11/25/2022 11:08:34 11/21/19 23 11/21/2022 NURY, PE AND FLC, SERUM immunoglobul in A, qn, serum 367 mg/dL 87-352 above high normal Not Available [facility] ([facility] [place] [place] [facility] [address] [facility] [place], [address], 11/25/2022 11:08:34 11/21/19 23 11/21/2022 NURY, PE AND FLC, SERUM immunoglobul in M, qn, serum 92 mg/dL 26-217 Not Available [facility] ([facility] [place] [place] [facility] [address] [place], [address], 11/25/2022 11:08:34 11/21/19 23 11/21/2022 NURY, PE AND FLC, SERUM protein, total 6.7 g/dL 6.0-8. 5 Not Available [facility] ([facility] [place] [place] [facility] [address] [place], [address], 11/25/2022 11:08:34 11/21/19 23 11/21/2022 NURY, PE AND FLC, SERUM free kappa lt chains,S 86.8 mg/L 3.3-19 .4 above high normal Not Available [facility] ([facility] [place] [place] [facility] [address] [place], [address], 11/25/2022 11:08:34 11/21/19 23 11/21/2022 NURY, PE AND FLC, SERUM free lambda lt chains,S 52.7 mg/L 5.7-26 .3 above high normal Not Available [facility] ([facility] [place] [place] [facility] [address] [place], [address], 11/25/2022 11:08:34 11/21/19 23 11/21/2022 NURY, PE AND FLC, SERUM kappa/lambda ratio,S 1.65 0.26-1 .65 Not Available [facility] ([facility] [place] [place] [facility] [address] [place], [address], 11/25/2022 11:08:34 11/21/19 23 11/25/2022 NURY, PE AND FLC, SERUM albumin 3.3 g/dL 2.9-4. 4 Not Available [facility] ([facility] [place] [place] [facility] [address] [place], [address], 11/25/2022 11:08:34 11/21/19 23 11/25/2022 NURY, PE AND FLC, SERUM jmzpk-1-ilta ulin 0.3 g/dL 0.0-0. 4 Not Available [facility] ([facility] [place] [place] [facility] [address] [place], [address], 11/25/2022 11:08:34 11/21/19 23 11/25/2022 NURY, PE AND FLC, SERUM olytn-5-xhed ulin 0.9 g/dL 0.4-1. 0 Not Available [facility] ([facility] [place] [place] [facility] [address] [facility], [address], 11/25/2022 11:08:34 11/21/19 23 11/25/2022 NURY, PE AND FLC, SERUM beta globulin 1.2 g/dL 0.7-1. 3 Not Available [facility] ([facility] [place] [place] [facility] [address] [place], [address], 11/25/2022 11:08:34 11/21/19 23 11/25/2022 NURY, PE AND FLC, SERUM gamma globulin 0.9 g/dL 0.4-1. 8 Not Available [facility] ([facility] [place] [place] [facility] [address] [facility] [place], [address], 11/25/2022 11:08:34 11/21/19 23 11/25/2022 NURY, PE AND FLC, SERUM M-spike Not Observ ed g/dL not observ ed Not Available [facility] ([facility] [place] [place] [facility] [address] [place], [address], 11/25/2022 11:08:34 11/21/19 23 11/25/2022 NURY, PE AND FLC, SERUM globulin, total 3.4 g/dL 2.2-3. 9 Not Available [facility] ([facility] [place] [place] [facility] [address] [place], [address], 11/25/2022 11:08:34 11/21/1911/25/2022 NURY, PE AND FLC, SERUM A/G ratio 1.0 0.7-1. 7 Not Available [facility] ([facility] [place] [place] [facility] [address] [place], [address], 11/25/2022 11:08:34 11/21/19 23 11/25/2022 NURY, PE AND FLC, SERUM immunofixati on result, serum Commen t The immun ofixa tieugenia soler rn appea rs unrem arkab le. Evide nce of monoc lonal prote in is not appar ent. Not Available [facility] ([facility] [place] [place] [facility] [address] [place], [address], 11/25/2022 11:08:34 11/21/1911/25/2022 NURY, PE AND FLC, SERUM pdf . Not Available [facility] ([facility] [place] [place] [facility] [address] [place], [address], 11/25/2022 11:08:34 11/21/19 23 11/21/2022 TSH+F REE T4 TSH 1.170 uIU/m L 0.450- 4.500 Not Available [facility] ([facility]) [address] [place], [address], 11/25/2022 11:08:34 03/31/20 23 11/21/2022 TSH+F REE T4 T4,free(dire ct) 0.99 NG/dL 0.82-1 .77 Not Available [facility] ([facility] [place] [place] [facility] [address] [facility] [place], [address], 11/25/2022 11:08:34 11/21/19 23 11/21/2022 RENAL PANEL (10) glucose 82 mg/dL 70-99 Not Available [facility] ([facility] [place] [place] [facility] [address] [facility] [place], [address], 11/25/2022 11:08:35 11/21/19 23 11/21/2022 RENAL PANEL (10) BUN 19 mg/dL 6-20 Not Available [facility] ([facility] [place] [place] [facility] [address] [facility] [place], [address], 11/25/2022 11:08:35 11/21/19 23 11/21/2022 RENAL PANEL (10) creatinine 1.94 mg/dL 0.57-1 .00 above high normal Not Available [facility] ([facility] [place] [place] [facility] [address] [facility] [place], [address], 11/25/2022 11:08:35 11/21/19 23 11/21/2022 RENAL PANEL (10) eGFR 34 mL/mi n/1.7 3 >59 below low normal Not Available [facility] ([facility] [place] [place] [facility] [address] [facility] [place], [address], 11/25/2022 11:08:35 11/21/19 23 11/21/2022 RENAL PANEL (10) BUN/creatini ne ratio 10 9-23 Not Available [facility] ([facility] [place] [place] [facility]) [address] [place], [address], 11/25/2022 11:08:35 11/21/19 23 11/21/2022 RENAL PANEL (10) sodium 139 mmol/ L 134-14 4 Not Available [facility] ([facility] [place] [place] [facility] [address] [facility] [place], [address], 11/25/2022 11:08:35 11/21/19 23 11/21/2022 RENAL PANEL (10) potassium 3.7 mmol/ L 3.5-5. 2 Not Available [facility] ([facility] [place] [place] [facility] [address] [place], [address], 11/25/2022 11:08:35 11/21/19 23 11/21/2022 RENAL PANEL (10) chloride 104 mmol/ L 96-106 Not Available [facility] ([facility] [place] [place] [facility] [address] [facility] [place], [address], 11/25/2022 11:08:35 11/21/19 23 11/21/2022 RENAL PANEL (10) carbon dioxide, total 24 mmol/ L 20-29 Not Available [facility] ([facility] [place] [place] [facility] [address] [facility] [place], [address], 11/25/2022 11:08:35 11/21/19 23 11/21/2022 RENAL PANEL (10) calcium 8.7 mg/dL 8.7-10 .2 Not Available [facility] ([facility] [place] [place] [facility] [address] [facility] [place], [address], 11/25/2022 11:08:35 11/21/19 23 11/21/2022 RENAL PANEL (10) phosphorus 2.8 mg/dL 3.0-4. 3 below low normal Not Available [facility] ([facility] [place] [place] [facility] [address] [facility] [place], [address], 11/25/2022 11:08:35 11/21/19 23 11/21/2022 RENAL PANEL (10) albumin 3.8 g/dL 3.8-4. 8 Not Available [facility] ([facility] [place] [place] [facility] [address] [facility] [place], [address], 11/25/2022 11:08:35 11/21/19 23 11/21/2022 LIPID PANEL cholesterol, total 202 mg/dL 100-19 9 above high normal Not Available [facility] ([facility] [place] [place] [facility] [address] [facility], [place], [address], 11/25/2022 11:08:35 11/21/19 23 11/21/2022 LIPID PANEL triglyceride s 135 mg/dL 0-149 Not Available [facility] ([facility] [place] [place] [facility] [address] [facility], [place], [address], 11/25/2022 11:08:35 11/21/19 23 11/21/2022 LIPID PANEL HDL cholesterol 39 mg/dL >39 below low normal Not Available [facility] ([facility] [place] [place] [facility] [address] [facility], [place], [address], 11/25/2022 11:08:35 11/21/19 23 11/21/2022 LIPID PANEL VLDL cholesterol artis 24 mg/dL 5-40 Not Available [facility] ([facility] [place] [place] [facility] [address] [facility], [place], [address], 11/25/2022 11:08:35 11/21/19 23 11/21/2022 LIPID PANEL LDL chol calc ([facility]) 139 mg/dL 0-99 above high normal Not Available [facility] ([facility] [place] [place] [facility] [address] 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 [place] [place] [facility] [address] [facility], [place], [address], 11/25/2022 11:08:35 11/21/19 23 11/21/2022 ACUTE HEPAT ITIS hep A Ab, IgM Negati ve negati ve Not Available [facility] ([facility] [place] [place] [facility] [address] [place], [address], 11/25/2022 11:08:36 11/21/19 23 11/21/2022 ACUTE HEPAT ITIS HBsAg screen Negati ve negati ve Not Available [facility] ([facility] [place] [place] [facility] [address] [place], [address], 11/25/2022 11:08:36 11/21/19 23 11/21/2022 ACUTE HEPAT ITIS hep B core Ab, IgM Negati ve negati ve Not Available [facility] ([facility] [place] [place] [facility] [address] [facility], [place], [address], 11/25/2022 11:08:36 11/21/19 23 11/21/2022 ACUTE HEPAT ITIS HCV Ab Non Reacti ve non reacti ve Not Available [facility] ([facility] [place] [place] [facility] [address] [facility], [place], [address], 11/25/2022 11:08:36 11/21/19 23 11/21/2022 ACUTE HEPAT ITIS interpretati on: Commen t Not infec jose g with HCV unles s early or acute infec tion is suspe cted (whic h may be delay ed in an immun ocomp romis ed indiv idual ), or other evide nce exist s to indic ate HCV infec tion. Not Available [facility] ([facility] [place] [place] [facility] [address] [facility], [place], [address], 11/25/2022 11:08:36 11/21/19 23 11/22/2022 ANCA PROFI LE anti-mpo antibodies <0.2 units 0.0-0. 9 Not Available [facility] ([facility] [place] [place] [facility] [address] [place], [address], 11/25/2022 11:08:36 11/21/19 23 11/22/2022 ANCA PROFI LE anti-pr3 antibodies <0.2 units 0.0-0. 9 Not Available [facility] ([facility] [place] [place] [facility] [address] [facility], [place], [address], 11/25/2022 11:08:36 11/21/19 23 11/23/2022 ANCA PROFI LE cytoplasmic (C-anca) <1:20 titer neg:<1 :20 Not Available [facility] ([facility] [place] [place] [facility] [address] [facility], [place], [address], 11/25/2022 11:08:36 11/21/19 23 11/23/2022 ANCA PROFI [...] ng of posit lu sera with both SC-3 and MPO-A NCA enzym e immun oassa ys. As many as 5% serum sampl es are posit lu only by EIA. Ref. AM J Clin Patho l 1999; 111:5 07-51 3. Not Available [facility] ([facility] [place] [place] [facility] [address] [facility], [place], [address], 11/25/2022 11:08:36 11/21/1911/23/2022 ANCA PROFI LE atypical panca <1:20 titer neg:<1 :20 The atypi artis pANCA patte rn has been obser brooks in a signi fican t perce ntage of patie nts with ulcer ative colit is, prima ry scler osing chola ngiti s and autoi mmune hepat itis. Not Available [facility] ([facility] [place] [place] [facility] [address] [facility], [place], [address], 11/25/2022 11:08:36 11/21/1911/21/2022 VITAM IN D, 1,25 + 25-HY DROXY calcitriol(1 ,25 di-oh vit D) 24.8 pg/mL 24.8-8 1.5 Not Available [facility] ([facility] [place] [place] [facility] [address] [facility], [place], [address], 11/25/2022 11:08:37 11/21/19 23 11/21/2022 VITAM IN [...] 1. IOM (Inst itute of Medic ine). 2010. Magy ry refer ence robert es for calci um and D. Renata prakash [place]: The [facility] . 2. Disha bennett MF, Britney uribe [place], Srikanth off-F errar i ROCK, et al. Evalu ation , treat ment, and preve ntion of vitam in D defic iency : an Endoc rine Socie ty clini artis pract ice guide line. JCEM. 2010; 96(7) :1911 -30. Not Available [facility] ([facility] [place] [place] [facility] [address] [facility], [place], [address], 11/25/2022 11:08:37 11/21/19 23 11/21/2022 HEMOG LOBIN A1C hemoglobin A1C 5.4 % 4.8-5. 6 Predi abete s: 5.7 - 6.4 Diabe alexis: >6.4 Glyce darci contr ol for adult s with diabe alexis: <7.0 Not Available [facility] ([facility] [place] [place] [facility] [address] [facility], [place], [address], 11/25/2022 11:08:38 11/21/19 23 11/21/2022 RPR, RFX QN RPR/C ONFIR M TP RPR Non Reacti ve non reacti ve Not Available [facility] ([facility] [place] [place] [facility] [address] [facility], [place], [address], 11/25/2022 11:08:38 11/21/19 23 11/21/2022 HIV AB/P2 4 AG WITH REFLE X HIV Ab/P24 Ag screen Non Reacti ve non reacti ve HIV Negat lu HIV-1 /HIV- 2 antib odies and HIV-1 p24 antig en were NOT detec jose g. There is no labor atory evide nce of HIV infec tion. Not Available [facility] ([facility] [place] [place] [facility] [address] [facility], [place], [address], 11/25/2022 11:08:39 11/21/19 23 11/22/2022 ANTIN UCLEA R AB MULTI PLEX RFX 5 MARLA direct Negati ve negati ve Not Available [facility] ([facility] [place] [place] [facility] [address] [facility], [place], [address], 11/25/2022 11:08:39 11/21/19 23 11/21/2022 SEDIM ENTAT ION RATE- WESTE RGREN sedimentatio n rate-westerg janell 78 mm/HR 0-32 above high normal Not Available [facility] ([facility] [place] [place] [facility] [address] [facility], [place], [address], 11/25/2022 11:08:40 11/21/19 23 11/21/2022 MAGNE SIUM magnesium 1.9 mg/dL 1.6-2. 3 Not Available [facility] ([facility] [place] [place] [facility] [address] [place], [address], 11/25/2022 11:08:40 11/21/19 23 11/21/2022 C-REGINO CTIVE PROTE IN, QUANT C-reactive protein, quant 10 mg/L 0-10 Not Available [facility] ([facility] [place] [place] [facility] [address] [place], [address], 11/25/2022 11:08:41 11/21/19 23 11/21/2022 PTH, INTAC T PTH, intact 120 pg/mL 15-65 above high normal Not Available [facility] ([facility] [place] [place] [facility] [address] [place], [address], 11/25/2022 11:08:41 12/01/1912/02/2022 CREAT U+PRO T U creatinine, urine 61.8 mg/dL not estab. Total Volum e: 1850 mL Not Available [facility] ([facility] [place] [place] [facility] [address] [place], [address], 12/03/2022 00:06:14 12/01/1912/02/2022 CREAT U+PRO T U creatinine, ur 24HR 1143 mg/24 _HR 800-18 00 Not Available [facility] ([facility] [place] [place] [facility] [address] [place], [address], 12/03/2022 00:06:14 12/01/1912/02/2022 CREAT U+PRO T U prot,24HR calculated 860 mg/24 _HR 30-150 above high normal Not Available [facility] ([facility] [place] [place] [facility] [address] [place], [address], 12/03/2022 00:06:14 12/01/1912/02/2022 CREAT U+PRO T U protein,tota l,urine 46.5 mg/dL not estab. Not Available [facility] ([facility] [place] [place] [facility] [address] [place], [address], 12/03/2022 00:06:14 12/01/1912/02/2022 CREAT U+PRO T U protein/crea t ratio 752 mg/g_ creat 0-200 above high normal Not Available [facility] ([facility] [place] [place] [facility] [address] [place], [address], 12/03/2022 00:06:14 11/19/19 23 11/16/2022 US, retro perit oneum , compl ete No observ ation record ed. [email or web address] [facility] [place] [address] [facility] [place], [address], 12/15/2022 10:43:48 Result Notes None recorded. Problems Name Problem SNOMED Code Status Onset Date Resolution Date Notes Provider Name and Address Organization Details Recorded Time Medullary nephrocal cinosis 269256562 Completed 200801/29/2009 Jackelyn Jasso [facility], [facility] 3 10:27:13 Clinical finding Active 2022 Jackelyn Jasso [facility], [facility] 3 10:36:06 Chronic kidney disease stage 3 719183217 Active 2022 Zeenat Gabriel [facility], [facility] 3 09:39:19 Vitamin D deficienc y 25881082 Active 2022 Magaly Whipple [facility], [facility] 3 16:15:12 Chronic kidney disease stage 4 759198988 Active 2022 [place] [address] [place], [address], [facility], [facility] 3 10:05:53 Proteinur ia 65978876 Active 2022 [place] [address] [place], [address], [facility], [facility] 3 10:05:55 Nephrocal cinosis 09278703 Active 2022 [place] [address] [place], [address], [facility], [facility] 3 10:05:57 Hyperuric emia 06266428 Active 2022 [place] [address] [place], [address], [facility], [facility] 3 10:05:59 Fatigue 50611623 Active 2022 [place] [address] [facility] [place], [address], [facility], [facility] 3 10:06:00 History of parathyro idectomy 783848763716 103 Active 2022 [place] [address] [place], [address], [facility], [facility] 3 10:06:03 Obesity 050508734 Active 2022 [place] [address] [facility] [place], [address], [facility], [facility] 3 10:06:05 Chronic low back pain 622542947 Active 2022 [place] [address] [facility] [place], [address], [facility], [facility] 3 08:43:53 Problem Notes None recorded. Procedures Surgical History Date Name Laterality Status Provider Name and Address Organization Details Recorded Time ligation of fallopian tube completed [facility] Rom[facility] 09/24/2022 10:32:23 Imaging Results None recorded. Procedure Notes None recorded. Medical Equipment None Reported. Allergies Allergen ID Allergen Name Allergen Category Reaction Reaction Severity Criticality Documentation Date Start Date Code Code System Note Provider Name and Address Organization Details Recorded Time 64969 Product containin g penicilli n (product) medicatio n Not available Not available Not available 09/24/2022 72909 8001 SNOMED [facility]ero [facility] 3 10:44:11 Medications Name Sig Start Date [...] Not Available Not Available Vitals Date Recorded Systolic And Diastolic Provider Name and Address Organization Details Last Updated DateTime 11/12/2022 128/82 mm[Hg] [place] [address] [place], [address], [facility], [facility] 11/12/2022 17:13:25 Date Recorded Body height Body mass index (BMI) Body weight Heart rate Systolic And Diastolic Provider Name and Address Organization Details Last Updated DateTime 11/12/2022 162.56 cm 35.7 kg/m2 64608.21 g 77 /min 133/99 mm[Hg] [facility], [facility] 11/12/2022 16:43:37 Date Recorded Body height Body mass index (BMI) Body weight Heart rate Systolic And Diastolic Provider Name and Address Organization Details Last Updated DateTime 01/13/2023 162.56 cm 37.2 kg/m2 54864.54 g 73 /min 138/104 mm[Hg] [facility] 01/13/2023 09:56:06 Social History Question Answer Notes LastModified by Kanmu Details LastModified Time Tobacco Smoking Status Current Every Day Smoker Jackelyn enriquez [facility] [place], [facility] 09/24/2022 10:32:52 What Was The Date Of Your Most Recent Tobacco Screening? 01/13/2023 [email or web address] Information not available 01/13/2023 What Is Your Relationship Status? Single Information not available 10/05/2022 How Much Tobacco Do You Smoke? 1 PPW Information not available 10/05/2022 How Many Years Have You Smoked Tobacco? 18 Information not available 10/05/2022 Sex: Unknown Functional Status Question Answer Note LastModified by Kanmu Details LastModified Time Do you use any illicit or recreational drugs? Yes Cannabis dependence Information not available 10/05/2022 Do you or have you ever used any other forms of tobacco or nicotine? No Information not available 10/05/2022 Are you currently employed? No Information not available 10/05/2022 Mental Status None recorded. Family History Relationship [...] quadrivalent, preservative 8 completed Jackelyn Romero null, [facility], [facility] 09/24/2022 10:27:13 influenza, unspecified formulation 2 completed Jackelyn Romero null, [facility], [facility] 09/24/2022 10:27:13 influenza, unspecified formulation 7 completed Jackelyn Romero null, [facility], [facility] 09/24/2022 10:27:13 Tdap 2 completed Jackelyn Romero [facility], [facility], [facility] 09/24/2022 10:27:13 Past Encounters Encounter ID Performer Location Encounter Start Date Encounter Closed Date Diagnosis/Indication Diagnosis SNOMED-CT Code Diagnosis ICD10 Code Diagnosis Note [id number] Henry Robin MD [facility] [address] [place] [address] 11/12/2022 15:52:23 11/13/2022 13:09:38 Chronic kidney disease stage 4 318898781 N18.4 CKD stage 4 possible progressio n [...] most current list of medication s. Proteinuria 28148215 R80 .9 UPC 1.6 g.Unclear no prior serologies to review.Paramjit l send all serologies . Nephrocalcinosis 5222416 2 N29 Hx of nephrocalc inosis.No prior imaging to review.paramjit l send US kidney Hyperuricemia 19930640 E 79.0 Uric acid ~9. Goal <6Will start allopurino l. Fatigue 45797688 R53.83 Will check TSH History of parathyroidectomy 9817745263 17201 Z90.89 ? Unclear. Will check PTH and vitamin dCalcium and phos stable. Obesity 389797759 E66.9 Advised weight lossCKD diet provided.C heck a1c. [id number] Henry Robin MD [facility] [address] [place] [address] 01/13/2023 09:18:53 01/13/2023 10:29:35 Chronic kidney disease stage 4 264646685 N18.4 CKD stage 4 possible progressio n from nephrocalc inosis.Bas denny scr 1.9 to 2.2 mg/dl.Most recent scr 1.9 mg/dl.Kidn ey US reviewed, 12 cm kidney, stable [...] restrictio ns were specifical ly discussed as needed.Con tinue frequent home BP monitoring and maintenanc e of a log, which should be brought to subsequent appointmen ts along with most current list of medication s. Proteinuria 89460297 R80 .9 24 hour Protein ~860.Serol ogies negative.L vick from Chronic interstiti al damage. Nephrocalcinosis 1934569 2 N29 Hx of nephrocalc inosis.Us reviewed. stable. Hyperuricemia 76462520 E 79.0 Uric acid ~9. Goal <6C/W allopurino l Fatigue 85674007 R53.83 TSH at goal. History of parathyroidectomy 9626989493 86972 Z90.89 ? Unclear. Will check PTH and vitamin dCalcium and phos stable. Obesity 442301511 E66.9 Advised weight lossCKD diet provided.H b A1C 5.4At goal. Chronic low back pain 27 9242693 M54.50 Advised. Exercise diet, ptFollow up with PMD. Health Concerns Section Related Observation LastModified by Organization Detai ls LastModified Time None Recorded Concern Status LastModified by Organization Details LastModified Time None Recorded Advance Directives Directive None Recorded Payers Insurance Date Sequence Insurance Name Policy Number Policy Byrnes Covered Member ID Byrnes Member ID Guarantor Name 05/28/2023 1 [facility] (MEDICAID REPLACEMENT - HMO) Thomas Fontenot [id number] Thomas Fontenot Notes Date Note Type Note Provider Name and Address Organization Details Recorded Time 11/12/2022 text/html 32 y.o. 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 [place] [address] [place], [address], [facility], [facility] 11/12/2022 17:30:40 01/13/2023 text/html 32 y.o. 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
--- OUTSIDE RECORDS SUMMARY | 2025-03-09 13:04 | XMS_ITS | Encounter Summary ---
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 EFFECTIVE SINCE 06/25/2023 documented in this encounter Plan of Treatment Upcoming Encounters Date Type Department Care Team (Late st Contact Info) Description 04/27/2025 11:00 AM EDT Office Visit [facility] [address] [place] [address] Anabel Patel MD [address] [place] [address] 06/07/2025 1:00 PM EDT Office Visit [facility] [address] [place] [address] Denise Sherman documented as of this encounter Visit Diagnoses Not on filedocumented in this encounter Care Teams Rheumatology Nurse Relationship Specialty Start Date End Date Anabel Patel MD [address] [place] [address] PCP - General Internal Medicine 09/21/23 documented as of this encounter
--- NOTE | 2025-03-09 13:05 | CA_ITS ---
Transthoracic Echocardiogram Patient (Last, First, Middle): Thomas Valentin, Gender: Female Date of : 1990 Age: 34 Procedure Date: 03/09/2025 Procedure Type: Transthoracic Echocardiogram Location: OP Height: 162.56 cm Weight: 94.01 kg BSA: 1.99 m2 Heart Rate: bpm BP: 128 / 82 mmHg Natural Resource Manager: TO Referring MD: Anabel Cardona MD Symptoms: SOB R06.02 Study Quality: Fair/Contrast ECG Rhythm: Sinus Conclusions: - The left ventricular systolic function is normal. The calculated ejection fraction is 56% by biplane method. - No obvious valvular pathology seen on this study. Findings Procedure Information Contrast agent, definity, is being given per protocol without apparent complications. Left Ventricle Normal left ventricular cavity size. There is normal left ventricular wall thickness. The left ventricular systolic function is normal. The calculated ejection fraction is 56% by biplane method. There is no evidence of regional wall motion abnormalities. Diastolic function is normal for age. Right Ventricle Normal right ventricular cavity size and systolic function. Atria Both atria are normal in size. Aortic Valve There is a normal trileaflet aortic valve. There is no aortic valve stenosis. There is no aortic valve regurgitation. Mitral Valve The mitral valve appears normal. There is no mitral valve regurgitation. There is no mitral valve stenosis. Pulmonic Valve The pulmonic valve is likely normal. Tricuspid Valve Normal tricuspid valve structure. There is trace tricuspid valve regurgitation. There is no evidence of pulmonary hypertension. Great Vessels The asc aorta is normal in size. Venous The inferior vena cava is normal in size and collapses greater than 50% with inspiration. Pericardium/Pleural There is no evidence of pericardial effusion. Prior Study Comparison No prior study available for comparison. Recommendations, Care & Conclusions No obvious valvular pathology seen on this study. Measurements 2D Linear Measurements IVSd: 0.82 0.6-0.9/0.6-1.0 cm LVIDd: 5.20 3.9-5.3/4.2-5.9 cm LVIDd Index: 2.61 2.4-3.2/2.2-3.1 cm/m2 LVIDs: 3.71 2.0-3.6 cm LVPWd: 0.78 0.7-1.1 cm LA Diam: 3.80 2.7-3.8/3.0-4.0 cm LAIDs Index: 1.91 1.5-2.3 cm/m2 LV Mass: 180.78 67-162/88-224 g LV Mass Index: 90.84 43-95/49-115 g/m2 LVOT Diam: 2.30 3.0+(-)1.3 cm 2D Systolic Function EF 4C: 56.30 >55% EF 2C: 57.20 >55% EF BiP: 55.60 >55% Mitral Valve MV Pk E: 0.68 MV PK A: 0.30 MV Decel Time: 284.00 E/A: 2.30 E'Lateral: 12.60 E'Medial: 8.59 E/E' Med: 7.90 E/E' Lat: 5.40 PHT: 83.00 MVA PHT: 2.65 Decel [place]: 2.39 Aortic Valve AoV Pk Yemi: 1.23 AoV Mn Yemi: 0.88 AoV VTI: 0.26 AoV Pk Grad: 6.00 Aov Mn Grad: 3.00 BRIAN Cont.VTI: 3.03 LVOT LVOT Pk Yemi: 0.89 LVOT Mn Yemi: 0.60 LVOT VTI: 0.19 LVOT Pk Grad: 3.00 LVOT Mn Grad: 2.00 LVOT Diam: 2.30 LVOT Area: 4.15 Diastolic Function MV Pk E: 0.68 MV Pk A: 0.30 E/A: 2.30 E'Medial: 8.59 E/E' Med: 7.90 E' Laterial: 12.60 E/E' Lat: 5.40 Right Ventricle TAPSE (mm): 19.50 TVS' Yemi: 10.20 Tricuspid Valve RA Press: 3.00 Great Vessels Aorta Sinus of Valsalva: 3.30 2.0-3.5 cm Ao Asc: 3.10 2.1-3.4 cm Updated in Other Vendor System with Status of Final Marcellus Ibarra MD electronically signed on 03/10/2025 11:57:16 AM with status of Final
== END ==
LOC: HO.CARD 13:02
PROVIDERS: PCP Internal Medicine; Visit Provider Internal Medicine
DX: R06.02 Shortness of breath (principal)
CPT/HCPCS: 93306; Q9957

== ENCOUNTER → 2025-03-09 13:05 | Outpatient (BNV) | payer MEDICAID, SELFPAY | PROVIDERS: PCP Internal Medicine; Visit Provider Internal Medicine | DX: R06.02 Shortness of breath (principal) | CPT/HCPCS: 93306 ==

== ENCOUNTER 2025-05-04 13:49 | Outpatient (REF) | payer MEDICAID, SELFPAY ==
[2025-05-04 16:29] LABS: Anion Gap 15 (12-20); Blood Urea Nitrogen 38 mg/dL (9-16); Calcium 8.5 mg/dL (8.4-10.2); Carbon Dioxide 25 mmol/L (22-29); Chloride 102 mmol/L (96-108); Estimated Glomerular Filt Rate 20; Potassium 3.3 mmol/L (3.3-5.1); Sodium 139 mmol/L (135-145)
--- OUTSIDE RECORDS SUMMARY | 2025-05-04 16:44 | XMS_ITS | Clinical Summary ---
Author Organization [employer] Address [address] [facility] [address] [place] [address] Care Team Providers Care Hematology Nurse Name Role Phone Anabel Patel MD Primary Care Provide r Matthias Michelle RN Unavailable [phone] Jennifer Deng Unavailable Allergies Active Allergy Reactions Criticality Noted Date [...] hours. 60 capsule 1 10/19/19 24 Active busPIRone (Buspar) 15 [...] MIN ANTES DE DORMIR 12/14/19 24 Active Farxiga 10 MGIndications:S tage 3 [...] 1 each 2 10/19/19 25 026 Active allopurinol (Zyloprim) 100 MG tabletIndicatio ns:Stage 3 chronic kidney disease, unspecified whether stage 3a or 3b CKD (CMS/HCC) TAKE 1 TABLET BY MOUTH EVERY DAY IN THE MORNING 90 tablet 12/13/19 25 Active potassium chloride CR (Klor-Con M20) 20 MEQ ER tabletIndicatio ns:Hypokalemia Take 1 tablet (20 mEq) by mouth 2 times daily. Do not crush or chew. 14 tablet 02/03/20 25 026 Active ferrous gluconate (Fergon) 324 (38 Fe) MG tabletIndicatio ns:Iron deficiency anemia, unspecified iron deficiency anemia type TAKE 1 TABLET (324 MG) BY MOUTH EVERY OTHER DAY. 45 tablet 2 04/27/20 25 Active Ascorbic Acid (vitamin C) 500 MG tabletIndicatio ns:Iron deficiency anemia, unspecified iron deficiency anemia type TAKE 1 TABLET (500 MG) BY MOUTH EVERY OTHER DAY. WITH IRON SUPPLEMENT 45 tablet 2 04/27/20 25 Active D3-1000 25 MCG (1000 UT) tabletIndicatio ns:Stage 3b chronic kidney disease (CMS/HCC) TAKE 1 TABLET (25 MCG) BY MOUTH ONCE PER DAY. 90 tablet 1 04/27/20 25 Active ferrous gluconate (Fergon) 324 (38 Fe) MG tabletIndicatio ns:Iron deficiency anemia, unspecified iron deficiency anemia type Take 1 tablet (324 mg) by mouth every other day. 15 tablet 11 04/27/20 25 026 Active ascorbic acid (Vitamin C) 500 MG tabletIndicatio ns:Iron deficiency anemia, unspecified iron deficiency anemia type Every other day with iron supplement 30 tablet 11 04/27/20 25 Active cholecalciferol (Vitamin D-3) 25 MCG (1000 UT) tabletIndicatio ns:Vitamin D deficiency Take 1 tablet (25 mcg) by mouth Once per day. 60 tablet 1 04/27/20 25 Active famotidine (Pepcid) 20 MG tabletIndicatio ns:Epigastric pain Take 1 tablet (20 mg) by mouth Once per day. 30 tablet 2 04/27/20 25 026 Active aluminum-magnes ium hydroxide-simet hicone (Maalox) 200-200-20 MG/5ML suspensionIndic ations:Epigastr ic pain Take 30 mL by mouth before breakfast, before lunch, before evening meal, and at bedtime. 1680 mL 04/27/20 25 Active hydrOXYzine HCl (Atarax) 25 MG tabletIndicatio ns:Primary insomnia TAKE 1 TABLET BY MOUTH IF NEEDED IN THE MORNING, AT NOON, AND AT BEDTIME FOR ITCHING OR ANXIETY (FOR ANXIETY OR INSOMNIA UP TO 50MG). 90 tablet 1 05/01/20 25 Active ferrous gluconate (Fergon) 324 (38 Fe) MG tabletIndicatio ns:Iron deficiency anemia, unspecified iron deficiency anemia type Take 1 tablet (324 mg) by mouth every other day. 15 tablet 2 01/26/20 25 025 Discontinued ascorbic acid (Vitamin C) 500 MG tabletIndicatio ns:Iron deficiency anemia, unspecified iron deficiency anemia type Take 1 tablet (500 mg) by mouth every other day. With iron supplement 15 tablet 2 01/26/20 25 025 Discontinued cholecalciferol (Vitamin D-3) 25 MCG (1000 UT) tabletIndicatio ns:Stage 3b chronic kidney disease (CMS/HCC) Take 1 tablet (25 mcg) by mouth Once per day. 60 tablet 1 01/26/20 25 025 Discontinued hydrOXYzine HCl (Atarax) 25 MG tabletIndicatio ns:Primary insomnia TAKE 1 TABLET BY MOUTH IF NEEDED IN THE MORNING, AT NOON, AND AT BEDTIME FOR ITCHING OR ANXIETY (FOR ANXIETY OR INSOMNIA UP TO 50MG). 90 tablet 1 02/23/20 25 025 Discontinued Active Problems Problem Noted Date Diagnosed Date Right foot pain 04/27/2025 Assessment & Plan (04/27/2025 4:09 PM EDT): I will refer patient to podiatry Bilateral carpal tunnel syndrome 04/27/2025 Fibromyalgia 04/27/2025 Assessment & Plan (04/27/2025 4:09 PM EDT): Patient was educated about multidisciplinary approach for her condition, it was advise cardiovascular exercise, maintain hydration, treat anxiety/depression and take medications as directed Patient information provided today Vitamin D deficiency 04/27/2025 Epigastric pain 04/27/2025 Assessment & Plan (04/27/2025 4:09 PM EDT): I advise patient to avoid NSAIDs, spicy and acid food, I advise to eat at the same time every day, I advise to elevate the head of the bed and take medications as prescribe H. pylori test ordered today I prescribed for patient famotidine 20 mg twice daily and MiraLAX as needed Iron deficiency anemia 01/25/2025 Assessment & Plan (01/25/2025 2:48 PM EDT): Ferrous gluconate will be prescribed every other day together with vitamin C Slow transit constipation 01/25/2025 Assessment & Plan (01/25/2025 2:47 PM EDT): I prescribed for patient Colace, she is known to have some constipation and I prescribed for iron which will possibly do this worse Hypokalemia 01/25/2025 Assessment & Plan (04/27/2025 4:09 PM EDT): BMP will be ordered today, patient will be contacted with results Assessment & Plan (01/25/2025 2:48 PM EDT): BMP will be rechecked to specifically reassess her potassium Primary insomnia 01/25/2025 Assessment & Plan (01/25/2025 2:48 PM EDT): Sleep hygiene recommendations were done I started her on hydroxyzine as needed for insomnia Severe episode of recurrent major depressive disorder, without psychotic features 11/20/2024 Assessment & Plan (11/22/2024 11:58 AM [...] SOB (shortness of breath) on exertion 10/19/2024 Assessment & Plan (01/25/2025 2:47 PM EDT): I refer patient to cardiology Palpitations 10/19/2024 Assessment & Plan (01/25/2025 2:47 PM EDT): TSH is normal, I decided to refer her to cardiology Fatigue 10/19/2024 CKD (chronic kidney disease) stage 4, GFR 15-29 ml/min 10/19/2023 Cannabis abuse 09/22/2023 Stage 3 chronic kidney disease 09/21/2023 Assessment & Plan (01/25/2025 2:48 PM EDT): Advised to continue to follow closely with nephrology Assessment & Plan (09/22/2023 11:14 AM EST): [...] Encounters Date Type Department Care Team Description 05/04/[address] [address] Anabel Patel MD Lab Orders 05/01/[address] [address] Anabel Patel MD Primary insomnia 04/30/2025 Patient Outreach [address] [phone] Anabel Patel MD Care Coordination (C3 -[facility] Jennifer Deng chart review/) 04/30/2025 Patient Outreach [address] [address] Anabel Patel MD Care Coordination (C3- chart review) 04/30/2025 Patient Outreach [facility] [address] [place] [phone] Anabel Patel MD 04/27/2025 11:00 AM EDT Office Visit [facility] [address] [place] [phone] Anabel Patel MD Bilateral carpal tunnel syndrome (Primary Dx); Right foot pain; Fibromyalgia; Hypokalemia; Vitamin D deficiency; Iron deficiency anemia, unspecified iron deficiency anemia type; Epigastric pain 04/27/2025 Travel 04/27/2025 Refill [facility] [address] [place] [phone] Anabel Patel MD Stage 3b chronic kidney disease (CMS/HCC) 04/26/2025 Refill [facility] [address] [place] [phone] Anabel Patel MD Iron deficiency anemia, unspecified iron deficiency anemia type 04/26/2025 Telephone [facility] [address] [place] [phone] Anabel Patel MD chart prep 04/20/2025 Travel 04/18/2025 Patient Outreach [address] [address] Anabel Patel MD Pre-visit Planning (SDOH screening completed on 10/19/2024) 03/20/2025 Refill [facility] [address] [place] [phone] Anabel Patel MD Primary insomnia 02/21/2025 Refill [facility] [address] [place] [phone] Anabel Patel MD Primary insomnia 02/02/2025 Results Follow-Up [address] [address] Anabel Patel MD Basic Metabolic Panel 02/02/2025 Orders Only [facility] [address] [place] [phone] Anabel Patel MD Hypokalemia 02/01/2025 Orders Only GENERIC EXTERNAL DATA DEPARTMENT Provider, Generic External Data from Last 3 Months Immunizations Immunization Administration Dates Next Due INFLUENZA INJECTABLE QUADRIV [...] Date Recorded Patient Health Questionnaire-9 Score 16 04/27/2025 Patient Health Questionnaire-9 Score 16 04/27/2025 Last PHQ-9: Questionnaire Data Not on file 0 04/27/2025 Housing Stability Answer Date Recorded What is your housing situation today? I have merna leal 10/19/[address] you li ve. Do you have problems with any of the following? None of the above 10/19/2024 Food Insecurity Answer Date Recorded Within the past 12 months, y ou worried that your food would run out before you got money to buy more: Sometimes True 2024 Within the past 12 months,th e food you bought just didn't last and you didn't have enough money to get more: Often true 04/27/2025 Transportation Answer Date Recorded In the past 12 months, has l ack of transportation kept you from medical appts, meetings, work or from getting things needed for daily living? Yes, it has kept me from non-medical meetings, work, or getting things that I need 04/27/2025 Utilities Answer Date Recorded In the past 12 months, has t he electric, gas, oil or water company threatened to shut off services in your home? I am not sure 04/27/2025 Depression Answer Date Recorded Patient Health Questionnaire-2 Score 6 04/27/2025 Internet Access Answer Date Recorded Internet Access Q1 Yes 04/27/2025 Internet Access Q2 I do not want or need it 12/2024 Comments Unknown Sex and Gender Information Value Date Recorded Sex Assigned at Female 07/27/2023 1:41 PM EST Legal Sex Female 12:24 PM EDT Gender Identity Female 07/27/2023 1:41 PM EST Sexual Orientation Don't know 07/27/2023 1: 41 PM EST Last Filed Vital Signs Vital Sign Reading Time Taken Comments Blood Pressure 118/80 04/27/2025 11:30 AM EDT Pulse 90 04/27/2025 11:30 AM EDT Temperature 36.1 C (96.9 F) 04/27/2025 11:30 AM EDT Respiratory Rate 20 04/27/2025 11:3 0 AM EDT Oxygen Saturation 97% 10/19/2024 9:11 AM EST Inhaled Oxygen Concentration - - Weight 94.7 kg (208 lb 12.8 oz) 025 11:30 AM EDT Height 162.6 cm (5' 4 ) 04/27/2025 11:3 0 AM EDT Body Mass Index 35.84 04/27/2025 11:30 AM EDT Plan of Treatment Health Maintenance Due Date Last Done Comments Family Planning (PISQ) 2003 HPV Vaccines (1 - 3-dose series) 2003 Hepatitis A Vaccines (1 of 2 - Risk 2-dose series) 2007 Hepatitis B Vaccines (1 of 3 - 19+ 3-dose series) 2007 DTaP/Tdap/Td Vaccines (2 - Td or Tdap) 02/17/2022 02/18/2012 COVID-19 Vaccine ( season) 2025 Influenza Vaccine (#1) 2025 , 06/02/2018, 05/19/2017, Additional history exists Dental Oral Exam 06/09/2025 12/07/2024, 09/17/2023 Dental Prophylaxis 06/09/2025 12/07/2024, 12/31/2023 Depression Monitoring 10/25/2025 04/27/2025, 025 Dental X-Ray: Bitewings 12/08/2025 12/07/2024, 09/17 Alcohol/Substance Use Screening 01/25/2026 01/25/2025 Disability Screening 01/25/2026 01/25/2025 SDOH Screening 04/27/2026 04/27/2025 Tobacco Screening 04/27/2026 04/27/2025 Cervical Cancer Screening 05/07/2026 HPV/Cotest 05/07/2026 05/07/2021 [...] Years) and At-Risk Patients (6 to 49) Years Aged Out No longer eligible based on patient's age to complete this topic RSV under 20 months Aged Out No longe r eligible based on patient's age to complete this topic Rotavirus Vaccines Aged Out No longer eligible based on patient's age to complete this topic Procedures Procedure Name Priority Date/Time Associated Diagnosis Comments BASIC METABOLIC PANEL Routine 05/04/2025 1:55 PM EDT Hypokalemia RAST ALLERGEN (NON ORDERABLE) Routine 02/01/2025 10:54 AM EDT RESPIRATORY ALLERGY PROFILE REGION I Routine 02/01/2025 10:54 AM EDT IMMUNOGLOBULIN E Routine 02/01/2025 10:5 4 AM EDT CBC WITH AUTO DIFFERENTIAL Routine 02/01/2025 10:54 AM EDT BASIC METABOLIC PANEL Routine 02/01/2025 10:54 AM EDT Hypokalemia PROPHYLAXIS - ADULT Routine 12/07/2024 2 :00 PM EDT BITEWINGS - 4 RADIOGRAPHIC IMAGES Routine 12/07/2024 2:00 PM EDT PERIODIC ORAL EVALUATION - ESTABLISHED PATIENT Routine 12/07/2024 2:00 PM EDT HEPATITIS C AB W/REFL TO HCV RNA, QN, PCR Routine 10/19/2024 10:25 AM EST Other fatigue HIV 1/2 ANTIGEN/ANTIBODY, FOURTH GENERATION W/RFL Routine 10/19/2024 10:25 AM EST Other fatigue LIPID PANEL, STANDARD Routine 09/13/2024 11:25 AM EST Stage 3 chronic kidney disease, unspecified whether stage 3a or 3b CKD (CMS/HCC) INTRAORAL - COMPLETE SERIES OF RADIOGRAPHIC IMAGES Routine 09/17/2023 8:00 AM EST HM PAP/HPV Routine 05/07/2021 from Last 3 Months or Most Recently Relevant to Health Maintenance Results * (ABNORMAL) Basic Metabolic Panel (05/04/2025 1:55 PM EDT) Only the most recent of2 resultswithin the time period is included. Sodium 139 135 - 145 mmol/L [facility] Potassium 3.3 3.3 - 5.1 mmol/L [facility] Chloride 102 96 - 108 mmol/L [facility] Carbon Dioxide 25 22 - 29 mmol/L [facility] Anion Gap 15 12 - 20 [facility] Urea Nitrogen (BUN) 38(H) 9 - 16 mg/dL [facility] Creatinine, Serum 2.73(H) 0.5 - 1.4 mg/dL [facility] Estimated Glomerular Filt Rate 20 [facility] Comment:Chronic Kidney Disea se: Estimated GFR < 60 mL/min/1.70q0Exkhej Kidney Disease: Estimated GFR < 15 mL/min/1.73m2 Glucose 94 60 - 115 mg/dL [facility] Calcium 8.5 8.4 - 10.2 mg/dL [facility] Blood Venous blood specimen / Unknown 05/04/2025 1:55 PM EDT 05/04/2025 4:01 PM EDT us Anabel Cardona MD LAB BLOOD ORDERABLES Final Result Performing Organization Address City/[facility]/ZIP Co de Phone Number [facility] [address] [place] [phone] * Rast Allergen (02/01/2025 10:54 AM EDT) Rast Allergen SEE NOTE [facility] Comment:SEE SCANNED RESULTS IN EMR 02/01/2025 10:5 4 AM EDT 02/06/2025 2:32 PM EDT Narrative [facility] - 02/06/2025 2:46 PM EDT DOG DANDER REFLEX us Generic External Data Provider HISTORICAL/NON OR DERABLE LABS Final Result Performing Organization Address [facility]/ZIP Co de Phone Number [facility] [address] [place] [phone] * (ABNORMAL) Respiratory Allergy Profile Region I (02/01/2025 10:54 AM EDT) Mouse Urine Proteins (E72) IgE <0.10 kU/L [facility] Class 0 [facility] Cockroach (I6) IgE 0.47(A) kU/L [facility] Class 1 [facility] Dermatophagoides farinae (D2) IgE 0.84(A) kU/L [facility] Class 2 [facility] Cat Dander (E1) IgE <0.10 kU/L [facility] Class 0 [facility] Comment:THIS TEST WAS PERFOR MED AT:[employer] [place] [phone] NICK MD Dog Dander (E5) IgE 1.02(A) kU/L [facility] Class 2 [facility] Comment:THIS TEST WAS PERFOR MED AT:[employer] [address] [phone] NICK MD Marcos Grass (G6) IgE <0.10 kU/L [facility] Class 0 [facility] Cladosporium herbarum (M2) IgE <0.10 kU/L [facility] Class 0 [facility] Aspergillus Fumigatis (M3) IgE <0.10 kU/L [facility] Class 0 [facility] Alternaria alternata (M6) IgE <0.10 kU/L [facility] Class 0 [facility] Comment:THIS TEST WAS PERFOR MED AT:[employer] [address] [phone] NICK MD [place] (t6) IgE <0.10 kU/L [facility] Class 0 [facility] Camino (T7) IgE <0.10 kU/L [facility] Class 0 [facility] Elm[place] Tree (T10) IgE <0.10 kU/L [facility] Class 0 [facility] [place] (T11) IgE <0.10 kU/L [facility] Class 0 [facility] [place] (T14) IgE <0.10 kU/L [facility] Class 0 [facility] White Amrtin (t15) IgE <0.10 kU/L [facility] Class 0 [facility] [place] (T70) IgE <0.10 kU/L [facility] Class 0 [facility] Common Ragweed (Short) (W1) IgE <0.10 kU/L [facility] Class 0 [facility] Mugwort (w6) IgE <0.10 kU/L [facility] Class 0 [facility] Dermatophagoides pteronyssinus (D1) IgE 1.00(A) kU/L [facility] Class 2 [facility] Berm[place] Grass (g2) IgE <0.10 kU/L [facility] Class 0 [facility] Penicillium Notatum (M1) IgE <0.10 kU/L [facility] Class 0 [facility] Birch (T3) IgE <0.10 kU/L [facility] Class 0 [facility] Elm (t8) IgE <0.10 kU/L [facility] Class 0 [facility] Maple (Andrews) (T1) IgE <0.10 kU/L [facility] Class 0 [facility] Rough Pigweed (W14) IgE <0.10 kU/L [facility] Class 0 [facility] Sheep [place] (W18) IgE <0.10 kU/L [facility] Class 0 [facility] Allergen Comment See Below [facility] Comment: Specific Level of AllergenIGE Class kU/L Specific IGE Antibody ----- --------- 0 <0.10 Absent/Undetectable 0/1 0.10-0.34 Very Low Level 1 0.35-0.69 Low Level 2 0.70-3.49 Moderate Level 3 3.50-17.4 High Level 4 17.5-49.9 Very High Level 5 50-100 Very High Level 6 >100 Very High LevelThe clinical relevance of allergen results of0.10-0.34 kU/L are undetermined and intended forspecialist use.Allergens denoted with a include results usingone or more analyte specific reagents. In thosecases, the test was developed and its analyticalperformance characteristics have been determined by[employer]. It has not been cleared or approvedby the U.S. Food and Drug Administration. This assayhas been validated pursuant to the CLIA regulationsand is used for clinical purposes.THIS TEST WAS PERFORMED AT:[employer] [place] [phone] NICK MD 02/01/2025 10:5 4 AM EDT 02/01/2025 1:21 PM EDT us Generic External Data Provider LAB BLOOD ORDERAB LES Final Result [facility] [address] [place] [phone] [phone] * (ABNORMAL) CBC auto differential (02/01/2025 10:54 AM EDT) White Blood Count 16.0(H) 4.8 - 10.8 X10*3/uL [facility] Red Blood Count 4.05(L) 4.20 - 5.50 X10*6/uL [facility] Hemoglobin 11.4(L) 12.0 - 16.0 g/dl [facility] Hematocrit 34.7(L) 37.0 - 47.0 % [facility] Mean Corpuscular Volume 85.7 80.0 - 98.0 fL [facility] Mean Corpuscular Hemoglobin 28.1 27.0 - 33.0 pg [facility] Mean Corpuscular HGB Conc 32.9 31.0 - 35.0 g/dl [facility] Red Cell Distribution Width 13.9 11.0 - 16.0 % [facility] Platelet Count 290 160 - 400 X10*3/uL [facility] Mean Platelet Volume 11.2 9.4 - 12.3 fL [facility] Neutrophils Percent Auto 76.9(H) 45 - 73 % [facility] Imm Gran Pct Auto 0.3 0.0 - 0.4 % [facility] Lymphocytes Percent Auto 17.8(L) 20 - 40 % [facility] Monocytes Percent Auto 3.9 2 - 11 % [facility] Eosinophils Percent Auto 0.8 0 - 4 % [facility] Basophils Percent Auto 0.3 0 - 2 % [facility] NRBC Pct Auto 0.0 0.0 - 0.2 /100WBC [facility] Neutrophils Absolute Auto 12.3(H) 2.0 - 8.3 x10*3/uL [facility] Imm Gran Abs Auto 0.04(H) 0.00 - 0.03 X10*3/uL [facility] Lymphocytes Absolute Auto 2.9 1.2 - 4.9 X10*3/uL [facility] Monocytes Absolute Auto 0.6 0.1 - 1.2 X10*3/uL [facility] Eosinophils Absolute Auto 0.1 0.0 - 0.4 X10*3/uL [facility] Basophils Absolute Auto 0.1 0.0 - 0.2 X10*3/uL [facility] NRBC Abs Auto 0.000 0.0 - 0.012 X10*3/uL [facility] 02/01/2025 10:5 4 AM EDT 02/01/2025 1:21 PM EDT Generic External Data Provider LAB BLOOD ORDERAB LES Final Result Performing Organization Address [facility]/ZIP Co de Phone Number [facility] [address] [place] [phone] * (ABNORMAL) Immunoglobulin E (02/01/2025 10:54 AM EDT) Pathologist [facility] Immunoglobulin E 167(A) <KG=[id number] kU/L [facility] 02/01/2025 10:5 4 AM EDT 02/01/2025 1:21 PM EDT Generic External Data Provider LAB BLOOD ORDERAB LES Final Result Performing Organization Address [facility] Co de Phone Number [facility] [address] [place] [phone] * Hepatitis C Antibody with Reflex to HCV, RNA, Quantitative, Real-Time PCR (10/19/2024 10:25 AM EST) Pathologist [facility] Hepatitis C Antibody Nonreactive Nonreactive [facility] Comment:Antibodies to HCV no t detected; does not exclude early acuteHCV infection. Blood Venous blood specimen / Unknown 10/19/2024 10:25 AM EST 10/19/2024 11:48 AM EST us Anabel Cardona MD LAB BLOOD ORDERABLES Final Result Performing Organization Address [facility] Co de Phone Number [facility] [address] [place] [phone] * HIV-1/2 Antigen and Antibodies, Fourth Generation, with Reflexes (10/19/2024 10:25 AM EST) HIV AB/AG Nonreactive Nonreactive [facility] Comment:HIV-1 p24 Ag and/or HIV-1/HIV-2 Ab not detected.A test result that is nonreactive does not exclude thepossibility of exposure to or infection with HIV-1 and/orHIV-2. Nonreactive results in this assay for individualswith prior exposure to HIV-1 and/or HIV-2 may be due toantigen and antibody levels that are below the limit ofdetection of this assay.The [employer] HIV Ag/Ab Combo assay result andsupplemental assay results should be interpreted inconjunction with the patient's clinical presentation,history and other laboratory results. If the results areinconsistent with clinical evidence, additional testing issuggested to confirm the result. Blood Venous blood specimen / Unknown 10/19/2024 10:25 AM EST 10/19/2024 11:48 AM EST us Anabel Cardona MD LAB BLOOD ORDERABLES Final Result Performing Organization Address [facility]/ZIP Co de Phone Number [facility] [address] [place] [address] [phone] * (ABNORMAL) Lipid Panel, Standard (09/13/2024 11:25 AM EST) Triglycerides 151(H) <150 mg/dL [facility] Comment:Desirable Triglyceri de: less than 150 mg/dLBorderline High Triglyceride 150-199 mg/dLHigh Triglyceride: 200-499 mg/dLVery High Triglyceride: greater than or equal to 5OO mg/dL Cholesterol 182 <200 mg/dL [facility] Comment:Desirable Cholestero l: less than 200 mg/dLBorderline High Cholesterol: 200-239 mg/dLHigh Cholesterol: greater than 239 mg/dL LDL Cholesterol Calculated 114(H) <100 mg/dL [facility] Comment:Desirable LDL: less than 100 mg/dLNear Optimal/Above Optimal LDL: 110- 129 mg/dLBorderline High LDL: 130-159 mg/dLHigh LDL: 160-189 mg/dLVery High LDL: greater than or equal to 190 mg/dL HDL Cholesterol 38(L) >40 mg/dL [facility] Comment:Desirable HDL: great er than 40 mg/dL Note: This HDL assay may give artificially low results in patients with liver disease. Blood Venous blood specimen / Unknown 09/13/2024 11:25 AM EST 09/13/2024 1:19 PM EST Anabel Cardona MD LAB BLOOD ORDERABLES Final Result Performing Organization Address City/State/[facility] Co de Phone Number [facility] [address] [place] [address] [phone] * PAP/HPV (05/07/2021) Pap Smear 1. NILM 1. NILM HPV Not Detected Undetected, Indeterminat e, Quantitative , Not Detected Historical Provider HEALTH MAINTENANCE Final Result from Last 3 Months or Most Recently Relevant to Health Maintenance [facility] AD[place] Care Teams Hematology Nurse Relationship Specialty Start Date End Date Anabel Patel MD [address] [place] [phone] PCP - General Internal Medicine 09/21/23 Matthias Michelle, RN [address] [place] [phone] Registered Nurse Family Medicine 04/30/25 Jennifer Deng 04/30/25
--- OUTSIDE RECORDS SUMMARY | 2025-05-04 16:44 | XMS_ITS | Encounter Summary ---
Author Organization [employer] Address [address] [facility] 7t [place] [address] Care Team Providers Care Bow Maker Production Name Role Phone Anabel Patel MD Primary Care Provide r Matthias Michelle RN Unavailable [phone] Jennifer Deng Unavailable Reason for Visit * Reason Comments Med Refill Encounter Details Date Type Department Care Team (Late st Contact Info) Description 05/01/[address] [facility] MED[facility]INE [address] [place], [place] [phone] Anabel Patel MD [address] [place], [place] [phone] Primary insomnia Social History Tobacco Use Types Packs/Day Years [...] as of this encounter Visit Diagnoses Diagnosis Primary insomnia Persistent disorder of initiating or maintaining sleep documented in this encounter Additional Health Concerns Assessment Noted Time PHQ-9 Depression Total Score: 16 025 11:33 AM EDT documented as of this encounter Care Teams Bow Maker Production Relationship Specialty Start Date End Date Anabel Patel MD [address] [place] [address] PCP - General Internal Medicine 09/21/23 Matthias Michelle, SILAS [address] [place] [address] Registered Nurse Family Medicine 04/30/25 Jennifer Deng 04/30/25 documented as of this encounter
--- OUTSIDE RECORDS SUMMARY | 2025-05-04 16:44 | XMS_ITS | Encounter Summary ---
Author Organization [employer] Address 75 [facility] 7t [place] [address] Care Team Providers Care Metal Roofing Mechanic Name Role Phone Anabel Patel MD Primary Care Provide r Matthias Michelle RN Unavailable [phone] Jennifer Deng Unavailable Reason for Visit * Reason Onset Date Comments New patient 06/25/2023 Encounter Details Date Type Department Care Team (Late st Contact Info) Description 06/25/2023 Telephone [facility] 230 [place], [place] [phone] Elvis Tsai MD [address] [place], [place] [phone] New patient Social History Tobacco Use Types [...] been transfer over to wait list for COAL PASSER. EFFECTIVE SINCE 06/25/2023 documented in this encounter Plan of Treatment Not on file documented as of this encounter Visit Diagnoses Not on filedocumented in this encounter Care Teams Metal Roofing Mechanic Relationship Specialty Start Date End Date Anabel Patel MD [address] [place] [address] PCP - General Internal Medicine 09/21/23 Matthias Michelle RN [address] [place] [phone] Registered Nurse Family Medicine 04/30/25 Jennifer Deng 04/30/25 documented as of this encounter
--- OUTSIDE RECORDS SUMMARY | 2025-05-04 16:44 | XMS_ITS | Encounter Summary ---
Author Organization [employer] Address [address] [facility] 7t [place] [address] Care Team Providers Care Product Info Specialist Name Role Phone Anabel Patel MD Primary Care Provide r Matthias Michelle RN Unavailable [phone] Jennifer Deng Unavailable Reason for Visit * Reason Comments Care Coordination [facility] review Encounter Details Date Type Department Care Team (Latest Contact Info) Description 04/30/2025 Patient Outreach [facility] MEDICINE [address] [place], [place] [phone] Anabel Patel MD [address] [place] [address] Care Coordination (C3 JESUS Deng chart review/) Social History Tobacco Use Types Packs/Day Years [...] t he electric, gas, oil or water [employer] threatened to shut off services in your [...] PM EST documented as of this encounter Progress Notes * Jennifer Deng - 04/30/2025 8:46 AM EDT ED- Pt went to [facility] ED on 04/28/25. Please outreach patient for enrollment. CHW Jennifer Deng reviewed chart review completed by MILANA Michelle RN documented in this encounter Plan of Treatment Not on file documented as of this encounter Visit Diagnoses Not on filedocumented in this encounter Additional Health Concerns Assessment Noted Time PHQ-9 Depression Total Score: 16 025 11:33 AM EDT documented as of this encounter Care Teams Product Info Specialist Relationship Specialty Start Date End Date Anabel Patel MD [address] [place] [phone] PCP - General Internal Medicine 09/21/23 Matthias Michelle, RN [address] [place] [address] [place] [address] Registered Nurse Family Medicine 04/30/25 Jennifer Deng 04/30/25 documented as of this encounter
--- OUTSIDE RECORDS SUMMARY | 2025-05-04 16:44 | XMS_ITS | Encounter Summary ---
Author Organization [facility], Address [address] [place] [address] Phone Care Team Providers Care Decorating Kiln Operator Name Role Phone Isabel Cota MD Primary Care Provider [phone] Encounter Details Date Type Department Care Team ([facility] st Contact Info) Description 09/29/2024 Documentation Only [facility], [address] [place] [address] [place], [place] [address] [place] [address] Social History Tobacco Use Types Packs/Day [...] on filedocumented in this encounter Care Teams Decorating Kiln Operator Relationship Specialty Start Date End Date Isabel Cota MD [address] [place] [address] PCP - General Internal Medicine 05/29/21 documented as of this encounter
--- OUTSIDE RECORDS SUMMARY | 2025-05-04 16:44 | XMS_ITS | Encounter Summary ---
Author Organization [employer] Address 75 [facility] 7t [place] [address] Care Team Providers Care Processing Talc And Borate Supervisor Name Role Phone Anabel Patel MD Primary Care Provide r Matthias Michelle RN Unavailable [phone] Jennifer Deng Unavailable Encounter Details Date Type Department Care Team (Late st Contact Info) Description 04/30/2025 Patient Outreach [facility] MEDICINE [address] [place] [address] Anabel Patel MD [address] [place] [address] Social History Tobacco Use Types Packs/Day Years [...] documented as of this encounter Care Teams Processing Talc And Borate Supervisor Relationship Specialty Start Date End Date Anabel Patel MD [address] [place] [address] PCP - General Internal Medicine 09/21/23 Matthias Michelle, SILAS [address] [place] [address] Registered Nurse Family Medicine 04/30/25 Jennifer Deng 04/30/25 documented as of this encounter
--- OUTSIDE RECORDS SUMMARY | 2025-05-04 16:44 | XMS_ITS | Encounter Summary ---
Author Organization [employer] Address 75 [facility] 7t [place] [address] Care Team Providers Care Textile Technical Officer Name Role Phone Anabel Patel MD Primary Care Provide r Matthias Michelle RN Unavailable [phone] Jennifer Deng Unavailable Reason for Visit * Reason Comments Care Coordination C3- chart review Encounter Details Date Type Department Care Team (Latest Contact Info) Description 04/30/2025 Patient Outreach [facility] MEDICINE 230 [place], [place] [phone] Anabel Patel MD [address] [place], [place] [phone] Care Coordination (C3CM- chart review) Social History Tobacco Use Types Packs/Day Years [...] the past 12 months, has t he Sp[employer], gas, oil or water [employer] threatened to shut off services in your [...] as of this encounter Progress Notes * Matthias Michelle RN - 04/30/2025 8:40 AM EDT MILANA Michelle RN, performed chart review, in anticipation of initial assessment with patient, aspatient has stratified for C3 Adult Complex Care through the ADT feed. History significant for stage 4 chronic kidney disease, chronic midline low back pain without sciatica, bipolar 2 disorder, depression with anxiety, cannabis abuse, iron deficiency anemia, slow transit constipation, primary insomnia, bilateral carpal tunnel syndrome, fibromyalgia. Specialists include podiatry, [facility] hematology and oncology, [facility] cardiology, orthopaedic surgery, [facility] pulmonology, [facility], [facility], [facility] ED visits within the last 12 months include [facility] 04[facility]/25, [facility] 08/[facility]/24, [facility] 08/29/24. Last appointment in PCP office on 04/27/25. No future appointment scheduled with PCP, on recall for 07/27/25. documented in this encounter Plan of Treatment Not on file documented as of this encounter Visit Diagnoses Not on filedocumented in this encounter Additional Health Concerns Assessment Noted Time PHQ-9 Depression Total Score: 16 025 11:33 AM EDT documented as of this encounter Care Teams Textile Technical Officer Relationship Specialty Start Date End Date Anabel Patel MD [address] [place] [address] PCP - General Internal Medicine 09/21/23 Matthias Michelle, SILAS [address] [place] [address] Registered Nurse Family Medicine 04/30/25 Jennifer Deng 04/30/25 documented as of this encounter
--- OUTSIDE RECORDS SUMMARY | 2025-05-04 16:44 | XMS_ITS | Clinical Summary ---
Author Organization [facility] Address [address] [place] [address] Care Team Providers Care Software Sales Manager Name Role Phone Unavailable Primary Care Provider [...] Plan of Treatment Not on file Insurance [place] DENT[place] [facility] [place] [id number]
--- OUTSIDE RECORDS SUMMARY | 2025-05-04 16:44 | XMS_ITS | Encounter Summary ---
Author Organization [employer] Address [address] [facility] 7t [place] [address] Care Team Providers Care Diagnostic Tech Name Role Phone Anabel Patel MD Primary Care Provide r Matthias Michelle RN Unavailable [phone] Jennifer Deng Unavailable Reason for Visit * Reason Onset Date Comments Lab Orders 05/04/2025 Encounter Details Date Type Department Care Team (Late st Contact Info) Description 05/04/2025 Telephone [facility] MEDICINE [address] [place], [place] [phone] Anabel Patel MD [address] [place], [place] [phone] Lab Orders Social History Tobacco Use Types Packs/Day Years [...] encounter Miscellaneous Notes * Telephone Encounter - Tamera Subramanian RN - 05/04/2025 1:18 PM EDT Most recent negative tb test February 2024. TC returned to pt. And advised order has been placed, pt. Plans to come today prior to 3:30pm and is aware results take 3-5 days * Telephone Encounter - Angelito Fan - 05/04/2025 11:53 AM EDT Tc from pt reports needing a TB testing done for work . Work requesting for pt to get done NATY or they may suspend her until she gets done . documented in this encounter Plan of Treatment Scheduled Orders Name Type Priority Associated Diagnoses Orde r Schedule T-SPOT .TB Lab Routine Screening examination for pulmonary tuberculosis Expected: 05/04/2025 (Approximate), Expires: 05/04/2026 documented as of this encounter Visit Diagnoses Diagnosis Screening examination for pulmonary tuberculosis documented in this encounter Additional Health Concerns Assessment Noted Time PHQ-9 Depression Total Score: 16 025 11:33 AM EDT documented as of this encounter Care Teams Diagnostic Tech Relationship Specialty Start Date End Date Anabel Patel MD [address] [place] [address] PCP - General Internal Medicine 09/21/23 Matthias Michelle, SILAS [address] [place] [address] Registered Nurse Family Medicine 04/30/25 Jennifer Deng 04/30/25 documented as of this encounter
--- OUTSIDE RECORDS SUMMARY | 2025-05-04 16:44 | XMS_ITS ---
Author Organization [employer] Address [address] [facility] 7t [place] [address] Care Team Providers Care Ends Breakage Clerk Name Role Phone Anabel Patel MD Primary Care Provide r Matthias Michelle RN Unavailable [phone] Jennifer Deng Unavailable CHW Complex Status:Identified (Enrolling) Start date:04/30/2025 Enrollment reason:ADT Feed Overview ED- Pt went to [facility] ED on 04/28/25. Case Team Name Relationship Phone Jennifer Deng(Responsible Staff) Continued Care and Services Coordination
--- OUTSIDE RECORDS SUMMARY | 2025-05-04 16:44 | XMS_ITS | Encounter Summary ---
Author Organization [employer] Address [address] [facility] [address] 7t [place] [address] Care Team Providers Care Diesel Bus Mechanic Name Role Phone Anabel Patel MD Primary Care Provide r Matthias Michelle RN Unavailable [phone] Jennifer Deng Unavailable Reason for Visit * Reason Onset Date Comments rs SRP appt 06/06/2024 Encounter Details Date Type Department Care Team ([facility] st Contact Info) Description 06/06/2024 Telephone [facility] [address] [place] [address] [place] Shepherd rs SRP appt Social History [...] called in unable to make it to [facility] appt today due to illness. She would like to rs. [facility] appts not available on PAR side. Pls reach out to patient for rajan HADDAD documented in this encounter Plan of Treatment Not on file documented as of this encounter Visit Diagnoses Not on filedocumented in this encounter Additional Health Concerns Assessment Noted Time PHQ-9 Depression Total Score: 19 024 10:24 AM EST documented as of this encounter Care Teams Diesel Bus Mechanic Relationship Specialty Start Date End Date Anabel Patel MD [address] [place] [address] PCP - General Internal Medicine 09/21/23 Matthias Michelle, SIALS [address] [place] [address] Registered Nurse Family Medicine 04/30/25 Jennifer Deng 04/30/25 documented as of this encounter
--- OUTSIDE RECORDS SUMMARY | 2025-05-04 16:44 | XMS_ITS | Clinical Summary ---
Author Organization [facility], Address [address] [place] [address] [place] [address] Phone Care Team Providers Care Director Of Clinical Applications Name Role Phone Isabel Cota MD Primary Care Provider [phone] Allergies Active Allergy Reactions Criticality Noted Date [...] Parathyroid adenoma 05/08/2014 Medullary nephrocalcinosis 01/29/2009 Immunizations Immunization Administration Dates Next Due Influenza, [...] Mass Index - - Plan of Treatment Health Maintenance Due Date Last Done Comments Hepatitis B Vaccine (1 of 3 - 19+ 3-dose series) 2007 Pneumococcal Vaccine: Peds ( 0 to 5 Years) and At-Risk Patients (6 to 49 Years) (1 of 2 - PCV) 2007 Influenza Vaccine (#1) 2025 4, 06/02/2018, 05/19/2017, Additional history exists Insurance * Guarantor: Thomas Lynne Account Type Relation to Patient Date of Phone Billing Address Personal/Family Self 1990 [address] [facility] [address] [place] [id number] Medicaid [place] Care Teams Director Of Clinical Applications Relationship Specialty Start Date End Date Isabel Cota MD [address] [place] [address] PCP - General Internal Medicine 05/29/21
--- OUTSIDE RECORDS SUMMARY | 2025-05-04 16:44 | XMS_ITS | Encounter Summary ---
Author Organization [employer] Address [address] [facility] 7t [place] [address] Care Team Providers Care Phone Manager Name Role Phone Anabel Patel MD Primary Care Provide r Matthias Michelle RN Unavailable [phone] Jennifer Deng Unavailable Reason for Visit * Reason Comments Med Change Request Encounter Details Date Type Department Care Team ([facility] st Contact Info) Description 03/20/2025 Refill [facility]INE [address] [place], [place] [phone] Anabel Patel MD [address] [place], [place] [phone] Primary insomnia Social History Tobacco Use Types Packs/Day Years Used Date Smoking Tobacco: Former Cigarettes Passive Smoke Exposure: Past Smokeless Tobacco: Never Alcohol Use Standard Drinks/Week Comments Never 0 (1 standard drink = 0.6 oz pur e alcohol) Depression Answer Date Recorded Patient Health Questionnaire-9 Score 16 12/25/2024 Patient Health Questionnaire-9 Score 16 12/25/2024 Last PHQ-9: Questionnaire Data Not on file 0 12/25/2024 Housing Stability Answer Date Recorded What is [...] Date Recorded Patient Health Questionnaire-2 Score 6 12/25/2024 Internet Access Answer Date Recorded Internet Access [...] Time PHQ-9 Depression Total Score: 16 025 9:52 AM EDT documented as of this encounter Care Teams Phone Manager Relationship Specialty Start Date End Date Anabel Patel MD [address] [place] [address] PCP - General Internal Medicine 09/21/23 Matthias Michelle, SILAS [address] [place] [address] Registered Nurse Family Medicine 04/30/25 Jennifer Deng 04/30/25 documented as of this encounter
--- OUTSIDE RECORDS SUMMARY | 2025-05-04 16:44 | XMS_ITS | Clinical Summary ---
Author Organization [facility] Address [address] [place] [address] Phone Care Team Providers Care Branding Machine Operator Name Role Phone Tatyana Murillo MD Primary Care Provider [phone] Allergies Active Allergy Reactions Criticality Noted Date [...] Encounters Date Type Department Care Team Description 04/28/2025 12:38 PM EDT - 04/28/2025 1:33 PM EDT Emergency [facility] Emergency [address] [place] [address] Plantar fasciitis of right foot (Primary Dx) Discharge Disposition: Home or Self Care from Last 3 Months Surgical History Surgery Date Site/Laterality Comments THYROIDECTOMY PROCEDURE: HISTORICAL TOTAL THYROIDECTOMY OTHER SURGICAL HISTORY PROCEDURE: KIDNEY STONE PANEL TUBAL LIGATION 2011 PROCEDURE: HISTORICAL TUBAL LIGATION Medical History Medical History Date Comments Anxiety and depression 10/25/2017 DX:Anxiet y and depression Bipolar 2 disorder (CMS/[facility] V24, CMS/[facility] V28) 10/25/2017 DX:Bipolar 2 disorder (HCC) Hypothyroidism 10/25/2017 DX:Hypothyroidis m Vitamin D insufficiency 10/25/2017 DX:Vitam in D insufficiency Tobacco abuse 10/25/2017 DX:Tobacco abuse Migraine headache 10/25/2017 DX:Migraine he adache Obesity (BMI 30-39.9) 10/25/2017 DX:Obesity (BMI 30-39.9) CKD (chronic kidney disease) stage 3, GFR 30-59 ml/min ([facility]/HCC V24, CMS/HCC V28) 10/26/2017 DX:CKD (chronic kidney disea se) stage 3, GFR 30-59 ml/min ([facility]); COMMENT: S/p renal biopsy, pathology report [...] Sign Reading Time Taken Comments Blood Pressure 121/87 04/28/2025 12:19 PM EDT Pulse 88 04/28/2025 12:19 PM EDT Temperature 36.8 C (98.2 F) 04/28/2025 12:19 PM EDT Respiratory Rate 20 04/28/2025 12:19 PM EDT Oxygen Saturation 100% 04/28/2025 12:19 PM EDT Inhaled Oxygen Concentration - - Weight 94.8 kg (209 lb) 04/28/2025 12:19 PM EDT Height 162.6 cm (5' 4 ) 04/28/2025 12:19 PM EDT Body Mass Index 35.87 04/28/2025 12:19 PM EDT Plan of Treatment Health Maintenance Due [...] (2 - Td or Tdap) 02/17/2022 02/18/2012 Social Influencers of Health Screening 07/26/2022 Depression Screening 08/23/2024 COVID-19 Vaccine ( season) 2025 Influenza Vaccine (#1) 2025 , 06/02/2018, 05/19/2017, Additional history exists Cholesterol Screening (Lipid Panel) 09/13/2029 09/13/2024 HIV Screening Completed 10/19/2024, 09/21/2023 Hepatitis C Screening Completed 10/19/2024, 024 HIB Vaccines Aged Out No longer [...] Procedure Name Priority Date/Time Associated Diagnosis Comments XR FOOT 3+ VIEWS RIGHT STAT 04/28/2025 12:49 PM EDT from Last 3 Months Results * XR Foot 3+ Views Right (04/28/2025 12:49 PM EDT) Anatomical Region Laterality Modality Lower Extremities, Foot Right [facility] 04/28/2025 1:21 PM EDT Impressions 04/28/2025 1:22 PM EDT No acute findings. -------- FINAL REPORT -------- Dictated By: Fredis Melendez Dictated Date: 04/28/2025 13:21 ET Assigned Physician: Fredis Melendez Reviewed and Electronically Signed By: Fredis Melendez Signed Date: 04/28/2025 13:22 ET Workstation ID: [id number] Transcribed By: Self Edit Transcribed Date: 04/28/2025 13:21 ET Narrative 04/28/2025 1:22 PM EDT PROCEDURE: Radiographs of the right foot. HISTORY: acute pain Difficulty weightbearing on right foot no injury pain mild swelling.. COMPARISON: None. FINDINGS: 3 views of the right foot. Mild hallux valgus. Bony mineralization is normal. No fracture, malalignment, erosion, or bony lesion. Procedure Note Fredis Melendez MD - 04/28/2025 PROCEDURE: Radiographs of the right foot. HISTORY: acute pain Difficulty weightbearing on right foot no injury pain mild swelling.. COMPARISON: None. FINDINGS: 3 views of the right foot. Mild hallux valgus. Bony mineralization isnormal. No fracture, malalignment, erosion, or bony lesion. IMPRESSION: No acute findings. -------- FINAL REPORT -------- Dictated By: Fredis Melendez Dictated Date: 04/28/2025 13:21 ET Assigned Physician: Fredis Melendez Reviewed and Electronically Signed By: Fredis Melendez Signed Date: 04/28/2025 13:22 ET Workstation ID: [id number] Transcribed By: Self Edit Transcribed Date: 04/28/2025 13:21 ET [facility] XR PROCEDURES Final Resu lt from Last 3 Months Insurance [address] [place] [id number] MEDICAID - [place] Advance Directives * Full [...] currently active code status orders. Care Teams Branding Machine Operator Relationship Specialty Start Date End Date Tatyana Murillo MD [address] [place] [id number] PCP - General Internal Medicine 06/26/21
--- OUTSIDE RECORDS SUMMARY | 2025-05-04 16:44 | XMS_ITS ---
Author Organization [employer] Address [address] [place] [address] Care Team Providers Care Welder Journeyman Name Role Phone Anabel Patel MD Primary Care Provide r Matthias Michelle RN Unavailable Jennifer Deng Unavailable CM Complex Status:Identified (Enrolling) Start date:04/30/2025 Enrollment reason:ADT Feed Overview ED- Pt went to [facility] ED on 04/28/25. Case Team Name Relationship Phone Matthias Michelle RN(Responsible Staff) Registered [facility] [phone] Continued Care and Services Coordination
--- OUTSIDE RECORDS SUMMARY | 2025-05-04 16:44 | XMS_ITS | Encounter Summary ---
Author Organization [facility], Address [address] [place] [address] Phone Care Team Providers Care Chemical Applicator Name Role Phone Isabel Cota MD Primary Care Provider [phone] Encounter Details Date Type Department Care Team ([facility] st Contact Info) Description 10/19/2024 Documentation Only [facility], [address] [place] [address] [place]ilsa [place], [place] [address] [place] [address] Social History Tobacco Use Types [...] on filedocumented in this encounter Care Teams Chemical Applicator Relationship Specialty Start Date End Date Isabel Cota MD [address] [place] [address] PCP - General Internal Medicine 05/29/21 documented as of this encounter
--- OUTSIDE RECORDS SUMMARY | 2025-05-04 16:44 | XMS_ITS | Encounter Summary ---
Author Organization [facility], Address [address] [place] [address] Phone Care Team Providers Care Vegetable I Farmworker Name Role Phone Isabel Cota MD Primary Care Provider [phone] Encounter Details Date Type Department Care Team ([facility] st Contact Info) Description 10/30/2024 Documentation Only [facility], [address] [place] [address] [place], [place] [address] [place] [address] Social History Tobacco Use Types [...] on filedocumented in this encounter Care Teams Vegetable I Farmworker Relationship Specialty Start Date End Date Isabel Cota MD [address] [place] [address] PCP - General Internal Medicine 05/29/21 documented as of this encounter
[2025-05-07 13:53] LABS: TS Negative Control Passed; TS Panel A 0; TS Panel B 0; TS Positive Control Passed; TSpotTB Negative (Negative)
== END 2025-05-04 13:50 | disposition home or self-care (01) ==
LOC: HO.HHCL 13:49
PROVIDERS: Nurse Practitioner Family; PCP Internal Medicine; Visit Provider Internal Medicine
DX: Z11.1 Encounter for screening for respiratory tuberculosis (principal); E87.6 Hypokalemia; Z91.09 Other allergy status, other than to drugs and biological substances
CPT/HCPCS: 36415; 80048; 82785; 86481

== ENCOUNTER 2025-06-05 14:39 | Outpatient (REF) | payer MEDICAID, SELFPAY ==
--- NOTE | 2025-06-05 | EMG_ITS ---
Chief complaint:?Pain, weakness, numbness Reason for referral: G56.03 Bilateral Carpal tunnel syndrome Referred by:?Anabel Cardona MD Procedure done: Bilateral upper extremities N Bilateral median and ulnar motor studies were performed. Bilateral median and ulnar mixed sensory studies were performed. Bilateral radial sensory studies were performed. EMG needle examination was performed. Bilateral median and lateral antecubital brachial sensory studies were performed. All electrical parameters were with a normal range. Impression: This is an unremarkable study with no evidence of entrapment neuropathy, plexopathy, or radiculopathy. [facility]
--- OUTSIDE RECORDS SUMMARY | 2025-06-05 17:32 | XMS_ITS | Encounter Summary ---
Author Organization [facility] Address [address] [place] [address] Care Team Providers Care Diesel Electrician Name Role Phone Isabel Coughlin MD Primary Care Provider Unavail Tatyana Garcia MD Primary Care Provider Isabel Dang MD Primary Care Provider Tatyana Wyatt MD Primary Care Provider Edy chao [facility], Pcp Primary Care Provider Unavailabl e Reason for Visit * Reason Onset Date Comments er follow up 09/02/2018 Encounter Details Date Type Department Care Team Description 09/02/2018 Telephone Adult Medicine [address] [address] Isabel Coughlin MD er follow up Social History Tobacco Use Types Packs/Day Years Used Date Smoking Tobacco: Every Day Smokeless Tobacco: Never Alcohol Use Standard Drinks/Week Comments No 0 (1 standard drink = 0.6 oz pur e alcohol) Sex Assigned at Date Recorded Not on file documented as of this encounter Miscellaneous Notes * Telephone Encounter - Dominique Webster - 09/02/2018 10:27 AM EST ER follow-up appointment booked YES 09/06/2018 If ER or UC follow up, can be booked with [facility] or . If hospital admission follow up MUST be booked with a physician Appointment time: 930AM Provider visit is scheduled with: Velma Moore PA-C Hospital/ center patient was treated at: [facility] Date of visit: 09/01/2018 Was this only an ER/UC visit or was the patient admitted to the hospital? ER visit onlyER visit only If patient was admitted what was the date of discharge? N/A Reason/diagnosis for visit or stay: headache Was visit or stay related to an [...] on filedocumented in this encounter Care Teams Diesel Electrician Relationship Specialty Start Date End Date Isabel Coughlin MD PCP - General Internal Medicine 09/03/17 06/25/21 Tatyana Murillo MD PCP - General Internal Medicine 06/26/21 07/13/21 Isabel Coughlin MD PCP - General Internal Medicine 07/14/21 09/17/21 Tatyana Murillo MD PCP - General Internal Medicine 09/18/21 [facility] 07/06/22 documented as of this encounter
--- OUTSIDE RECORDS SUMMARY | 2025-06-05 17:32 | XMS_ITS | Encounter Summary ---
Author Organization [facility] Address [address] [place] [address] Care Team Providers Care Instructor Physical Name Role Phone Isabel Coughlin MD Primary Care Provider Unavail Tatyana Garcia MD Primary Care Provider Isabel Dang MD Primary Care Provider Unavail Tatyana Garcia MD Primary Care Provider Edy Padilla, Pcp Primary Care Provider Unavailabl e Encounter Details Date Type Department Care Team Description 10/28/2017 Release of Information Medical Records [address] [place] [id number] Abstract, Provider Social History Tobacco Use Types Packs/Day Years [...] on filedocumented in this encounter Care Teams Instructor Physical Relationship Specialty Start Date End Date Isabel Coughlin MD PCP - General Internal Medicine 09/03/17 06/25/21 Tatyana Murillo MD PCP - General Internal Medicine 06/26/21 07/13/21 Isabel Coughlin MD PCP - General Internal Medicine 07/14/21 09/17/21 Tatayna Murillo MD PCP - General Internal Medicine 09/18/21 07/05/22 Darlin Padilla PCP - General Internal Medicine 07/06/22 documented as of this encounter
--- OUTSIDE RECORDS SUMMARY | 2025-06-05 17:32 | XMS_ITS | Encounter Summary ---
Author Organization [facility] Address [address] [facility] [place] [address] Care Team Providers Care Parachute Packer Name Role Phone Isabel Coughlin MD Primary Care Provider Unavail Tatyana Garcia MD Primary Care Provider Isabel Dang MD Primary Care Provider Unavail Tatyana Garcia MD Primary Care Provider Edy chao [facility] Pcp Primary Care Provider Unavailabl e Encounter Details Date Type Department Care Team Description 11/23/2019 Orders Only Medical Records [address] [place] [address] FNP [address] [place] [address] Social History Tobacco Use Types Packs/Day Years [...] Procedure Name Priority Date/Time Associated Diagnosis Comments OUTSIDE SLEEP STUDY Routine 11/19/2019 documented in this encounter Results * OUTSIDE SLEEP STUDY (11/19/2019) [facility] documented in this encounter Visit Diagnoses Not on filedocumented in this encounter Care Teams Parachute Packer Relationship Specialty Start Date End Date Isabel Coughlin MD PCP - General Internal Medicine 09/03/17 06/25/21 Tatyana Murillo MD PCP - General Internal Medicine 06/26/21 07/13/21 Isabel Coughlin MD PCP - General Internal Medicine 07/14/21 09/17/21 Tatyana Murillo MD PCP - General Internal Medicine 09/18/21 07/05/22 [facility], Pcp PCP - General Internal Medicine 07/06/22 documented as of this encounter
--- OUTSIDE RECORDS SUMMARY | 2025-06-05 17:32 | XMS_ITS | Clinical Summary ---
Author Organization [employer] Address [address] [facility] [address] [place] [address] Care Team Providers Care Medical Transcription Radiology Name Role Phone Anabel Patel MD Primary Care Provide r Matthias Michelle RN Unavailable [phone] Jennifer Deng Unavailable Allergies Active Allergy [...] (twelve) hours. 60 capsule 1 4 Active busPIRone (Buspar) 15 MG [...] 30 MIN ANTES DE DORMIR 4 Active Farxiga 10 MGIndications:St age 1 chronic kidney disease, unspecified whether stage 3a or 3b CKD (CMS/HCC) (HCC) TAKE 1 TABLET BY MOUTH EVERY DAY [...] 1 each 2 5 10/19/19 26 Active allopurinol (Zyloprim) 100 MG tabletIndication s:Stage 3 chronic kidney disease, unspecified whether stage 3a or 3b CKD (CMS/HCC) ([facility]) TAKE 1 TABLET BY MOUTH EVERY DAY IN THE MORNING 90 tablet 5 Active potassium chloride CR (Klor-Con M20) 20 MEQ ER tabletIndication s:Hypokalemia Take 1 tablet (20 mEq) by mouth 2 times daily. Do not crush or chew. 14 tablet 5 02/03/20 26 Active ferrous gluconate (Fergon) 324 (38 Fe) MG tabletIndication s:Iron deficiency anemia, unspecified iron deficiency anemia type TAKE 1 TABLET (324 MG) BY MOUTH EVERY OTHER DAY. 45 tablet 2 5 Active Ascorbic Acid (vitamin C) 500 MG tabletIndication s:Iron deficiency anemia, unspecified iron deficiency anemia type TAKE 1 TABLET (500 MG) BY MOUTH EVERY OTHER DAY. WITH IRON SUPPLEMENT 45 tablet 2 5 Active D3-1000 25 MCG (1000 UT) tabletIndication s:Stage 3b chronic kidney disease (CMS/HCC) ([facility]) TAKE 1 TABLET (25 MCG) BY MOUTH ONCE PER DAY. 90 tablet 1 5 Active ferrous gluconate (Fergon) 324 (38 Fe) MG tabletIndication s:Iron deficiency anemia, unspecified iron deficiency anemia type Take 1 tablet (324 mg) by mouth every other day. 15 tablet 11 5 04/27/20 26 Active ascorbic acid (Vitamin C) 500 MG tabletIndication s:Iron deficiency anemia, unspecified iron deficiency anemia type Every other day with iron supplement 30 tablet 11 5 Active cholecalciferol (Vitamin D-3) 25 MCG (1000 UT) tabletIndication s:Vitamin D deficiency Take 1 tablet (25 mcg) by mouth Once per day. 60 tablet 1 5 Active famotidine (Pepcid) 20 MG tabletIndication s:Epigastric pain Take 1 tablet (20 mg) by mouth Once per day. 30 tablet 2 5 04/27/20 26 Active aluminum-magnesi um hydroxide-simeth icone (Maalox) 200-200-20 MG/5ML suspensionIndica tions:Epigastric pain Take 30 mL by mouth before breakfast, before lunch, before evening meal, and at bedtime. 1680 mL 5 Active hydrOXYzine HCl (Atarax) 25 MG tabletIndication s:Primary insomnia TAKE 1 TABLET BY MOUTH IF NEEDED IN THE MORNING, AT NOON, AND AT BEDTIME FOR ITCHING OR ANXIETY (FOR ANXIETY OR INSOMNIA UP TO 50MG). 90 tablet 1 5 Active Active Problems Problem Noted [...] 2:47 PM EDT): I prescribed for patient Robyn, she is known to have some constipation [...] recurrent major depressive disorder, without psychotic features ([facility]) 11/20/2024 Assessment & Plan (11/22/2024 11:58 AM [...] kidney disease) stage 4, GFR 15-29 ml/min ([facility]) 10/19/2023 Cannabis abuse 09/22/2023 Stage 3 chronic kidney disease ([facility]) 024 Assessment & Plan (01/25/2025 2:48 PM EDT): [...] referral on next appointments Bipolar 2 disorder ([facility]) 09/21/2023 Assessment & Plan (09/22/2023 11:21 AM [...] Encounters Date Type Department Care Team Description 05/21/2025 Patient Outreach [address] [address] Anabel Patel MD Care Coordination (C3 -[facility] telephone call outreach) 05/16/[address] [facility] [address] [place] [address] Anabel Patel MD Care Management (C3CM- Initial assessment/enrollmen t) 05/15/2025 Patient Outreach [address] [address] Anabel Patel MD Care Coordination (C3 -[facility] telephone call outreach) 05/14/2025 Patient Outreach [address] [address] Anabel Patel MD Care Coordination (C3 -[facility] telephone call outreach ) 05/14/2025 Patient Outreach [address] [address] Anabel Patel MD Care Coordination (C3 -[facility] telephone call outreach) 05/04/2025 Orders Only GENERIC EXTERNAL DATA DEPARTMENT Provider, Generic External Data 05/04/[address] [address] Anabel Patel MD Lab Orders 05/01/[address] [address] Anabel Patel MD Primary insomnia 04/30/2025 Patient Outreach [address] [address] Anabel Patel MD Care Coordination (C3 -[facility] Jennifer Deng chart review/) 04/30/2025 Patient Outreach [facility] [address] [place] [phone] Anabel Patel MD Care Coordination (C3- chart review) 04/30/2025 Patient Outreach [address] [address] Anabel Patel MD 04/27/2025 11:00 AM EDT Office Visit [facility] [address] [place] [phone] Anabel Patel MD Bilateral carpal tunnel syndrome (Primary Dx); Right foot pain; Fibromyalgia; Hypokalemia; Vitamin D deficiency; Iron deficiency anemia, unspecified iron deficiency anemia type; Epigastric pain 04/27/2025 Travel 04/27/2025 Refill [facility] [address] [place] [phone] Anabel Patel MD Stage 3b chronic kidney disease (CMS/HCC) 04/26/2025 Refill [facility] [address] [place] [address] Anabel Patel MD Iron deficiency anemia, unspecified iron deficiency anemia type 04/26/2025 Telephone [facility] [address] [place] [phone] Anabel Patel MD chart prep 04/20/2025 Travel 04/18/2025 Patient Outreach [address] [address] Anabel Patel MD Pre-visit Planning ([facility] screening completed on 10/19/2024) 03/20/2025 Refill [facility] [address] [place] [phone] Anabel Patel MD Primary insomnia from Last 3 Months Immunizations Immunization Administration [...] before you got money to buy more: Often true 05/14/2025 Within the past 12 months,th e food you bought just didn't last and you didn't have enough money to get more: Often true Transportation Answer Date Recorded In the past 12 months, has l ack of transportation kept you from medical appts, meetings, work or from getting things needed for daily living? No 05/14/2025 Utilities Answer Date Recorded In the past 12 months, has t he electric, gas, oil or water company threatened to shut off services in your home? No 05/14/2025 Depression Answer Date Recorded Patient Health Questionnaire-2 [...] 04/27/2025 11:30 AM EDT Plan of Treatment Upcoming Encounters Date Type Department Care Team (Late st Contact Info) Description 08/01/2025 3:00 PM EST Office Visit [facility] [address] [place], [place] [phone] Anabel Patel MD [address] [place] [address] Health Maintenance Due Date Last Done Comments Family Planning (PISQ) 2003 HPV Vaccines (1 - 3-dose series) 2003 Hepatitis A Vaccines (1 of 2 - Risk 2-dose series) 2007 Hepatitis B Vaccines (1 of 3 - 19+ 3-dose series) 2007 DTaP/Tdap/Td Vaccines (2 - Td or Tdap) 02/17/2022 02/18/2012 COVID-19 Vaccine ( - season) 2025 Influenza Vaccine (#1) 2025 , 06/02/2018, 05/19/2017, Additional history exists Dental Oral Exam 06/09/2025 12/07/2024, 09/17/2023 Dental Prophylaxis 06/09/2025 12/07/2024, 12/31/2023 Depression Monitoring 10/25/2025 04/27/2025, 025 Dental X-Ray: Bitewings 12/08/2025 12/07/2024, 09/17 Alcohol/Substance Use Screening 01/25/2026 01/25/2025 Disability Screening 01/25/2026 01/25/2025 Tobacco Screening 04/27/2026 04/27/2025 Cervical Cancer Screening 05/07/2026 HPV/Cotest 05/07/2026 05/07/2021 Pap Smear 05/07/2026 05/07/2021 SDOH Screening 05/14/2026 05/14/2025 Dental X-Ray: Full Mouth 09/18/2026 09/17/2023 Lipid [...] Procedure Name Priority Date/Time Associated Diagnosis Comments IMMUNOGLOBULIN E Routine 05/04/2025 1:55 PM EDT T-SPOT(R).TB Routine 05/04/2025 1:55 PM EDT Screening examination for pulmonary tuberculosis BASIC METABOLIC PANEL Routine 05/04/2025 1:55 PM EDT Hypokalemia PROPHYLAXIS - ADULT Routine 12/07/2024 [...] Recently Relevant to Health Maintenance Results * T-SPOT??.TB (05/04/2025 1:55 PM EDT) [facility] T Spot TB Negative Negative [facility] Comment:A negative test resu lt does not exclude the possibilityof exposure to or infection with Mycobacteriumtuberculosis (M. tuberculosis). Patients with recentexposure to TB infected individuals exhibiting anegative T-SPOT.TB result should be considered forretesting within 6 weeks or if other relevant clinicalsymptoms indicate. Results from T-SPOT.TB testing mustbe used in conjunction with each individual'sepidemiological history, current medical status,and results of other diagnostic evaluations.The T-SPOT.TB test is qualitative and results arereported as positive, borderline, or negative, giventhat the test controls perform as expected. In linewith the Centers for Disease Control and Prevention's2010 recommendation to report quantitative measurementsalongside the qualitative result, the laboratoryprovides spot counts for informational purposes only.The T-SPOT.TB test should not be interpreted as aquantitative test. TS PANEL A 0 [facility] TS PANEL B 0 [facility] Negative Control Passed [facility] Positive Control Passed [facility] Comment:For additional infor taran, please refer [email or web address].[facility]/faq/VIL647(This link is being provided for informational/educational purposes only.)THIS TEST WAS PERFORMED AT:[employer] [id number] [place] [address]BENXXJRJOHN COOMBS MD,PHD 05/04/2025 1:55 PM EDT 05/04/2025 4:01 PM EDT us Anabel Cardona MD LAB BLOOD ORDERABLES Final Result Performing Organization Address [facility] Co de Phone Number [facility] [address] [place] [phone] * Immunoglobulin E (05/04/2025 1:55 PM EDT) Immunoglobulin E 114 <MQ=814 kU/L [facility] Comment:THIS TEST WAS PERFOR MED AT:[employer] [place] [id number] NICK MD 05/04/2025 1:55 PM EDT 05/04/2025 4:01 PM EDT us Generic External Data Provider LAB BLOOD ORDERAB LES Final Result Performing Organization Address [facility] de Phone Number [facility] [address] [place] [phone] * (ABNORMAL) Basic Metabolic Panel (05/04/2025 1:55 PM EDT) Sodium 139 135 - 145 mmol/L [facility] Potassium 3.3 3.3 - 5.1 mmol/L [facility] Chloride 102 96 - 108 mmol/L [facility] Carbon Dioxide 25 22 - 29 mmol/L [facility] Anion Gap 15 12 - 20 [facility] Urea Nitrogen (BUN) 38(H) 9 - 16 mg/dL [facility] Creatinine, Serum 2.73(H) 0.5 - 1.4 mg/dL [facility] Estimated Glomerular Filt Rate 20 [facility] Comment:Chronic Kidney Disea se: Estimated GFR < 60 mL/min/[id number] Kidney Disease: Estimated GFR < 15 mL/min/1.73m2 Glucose 94 60 - 115 mg/dL [facility] Calcium 8.5 8.4 - 10.2 mg/dL [facility] Blood Venous blood specimen / Unknown 05/04/2025 1:55 PM EDT 05/04/2025 4:01 PM EDT Anabel Cardona MD LAB BLOOD ORDERABLES Final Result Performing Organization Address City/[facility]/ZIP Co de Phone Number [facility] [address] [place] [phone] * Hepatitis C Antibody with Reflex to HCV, RNA, Quantitative, Real-Time PCR (10/19/2024 10:25 AM EST) Hepatitis C Antibody Nonreactive Nonreactive [facility] Comment:Antibodies to HCV no t detected; does not exclude early acuteHCV infection. Blood Venous blood specimen / Unknown 10/19/2024 10:25 AM EST 10/19/2024 11:48 AM EST us Anabel Cardona MD LAB BLOOD ORDERABLES Final Result Performing Organization Address [facility] Co de Phone Number [facility] [address] [place] [phone] * HIV-1/2 Antigen and Antibodies, Fourth Generation, with Reflexes (10/19/2024 10:25 AM EST) HIV AB/AG Nonreactive Nonreactive [facility] Comment:HIV-1 p24 Ag and/or HIV-1/HIV-2 Ab not detected.A test result that is nonreactive does not exclude thepossibility of exposure to or infection with HIV-1 and/orHIV-2. Nonreactive results in this assay for individualswith prior exposure to HIV-1 and/or HIV-2 may be due toantigen and antibody levels that are below the limit ofdetection of this assay.The [employer] Alinity HIV Ag/Ab Combo assay result andsupplemental assay results should be interpreted inconjunction with the patient's clinical presentation,history and other laboratory results. If the results areinconsistent with clinical evidence, additional testing issuggested to confirm the result. Blood Venous blood specimen / Unknown 10/19/2024 10:25 AM EST 10/19/2024 11:48 AM EST us Anabel Cadrona MD LAB BLOOD ORDERABLES Final Result Performing Organization Address [facility] Co de Phone Number [facility] [address] [place] [phone] * (ABNORMAL) Lipid Panel, Standard (09/13/2024 11:25 AM EST) Triglycerides 151(H) <150 mg/dL [facility] Comment:Desirable Triglyceri de: less than 150 mg/dLBorderline High Triglyceride 150-199 mg/dLHigh Triglyceride: 200-499 mg/dLVery High Triglyceride: greater than or equal to 5OO mg/dL Cholesterol 182 <200 mg/dL [facility] Comment:Desirable Cholestero l: less than 200 mg/dLBorderline High Cholesterol: 200-239 mg/dLHigh Cholesterol: greater than 239 mg/dL LDL Cholesterol Calculated 114(H) <100 mg/dL [facility] Comment:Desirable LDL: less than 100 mg/dLNear Optimal/Above Optimal LDL: 110- 129 mg/dLBorderline High LDL: 130-159 mg/dLHigh LDL: 160-189 mg/dLVery High LDL: greater than or equal to 190 mg/dL HDL Cholesterol 38(L) >40 mg/dL [facility] Comment:Desirable HDL: great er than 40 mg/dL Note: This HDL assay may give artificially low results in patients with liver disease. Blood Venous blood specimen / Unknown 09/13/2024 11:25 AM EST 09/13/2024 1:19 PM EST us Anabel Cardona MD LAB BLOOD ORDERABLES Final Result Performing Organization Address City/[facility]/ZIP Co de Phone Number [facility] [address] [place] [phone] * HM PAP/HPV (05/07/2021) Pap Smear 1. NILM 1. NILM HPV Not Detected Undetected, Indeterminat e, Quantitative , Not Detected Historical Provider MD HEALTH MAINTENANCE Final Result from Last 3 Months or Most Recently Relevant to Health Maintenance Insurance [facility] C3 DENTAL-[facility] MEDICAID STAND ADULT Care Teams Medical Transcription Radiology Relationship Specialty Start Date End Date Anabel Patel MD [address] [place] [address] PCP - General Internal Medicine 09/21/23 Matthias Michelle, RN [address] [place] [phone] Registered Nurse Family Medicine 04/30/25 Jennifer Deng 04/30/25
--- OUTSIDE RECORDS SUMMARY | 2025-06-05 17:32 | XMS_ITS | Clinical Summary ---
Author Organization [facility] Address [address] [facility] [place] [address] Care Team Providers Care Acetylene Operator Name Role Phone Community, Pcp Primary Care Provider Unavailabl e Allergies Active Allergy Reactions Severity Noted Date Comments Penicillins 10/25/2017 Medications Medication Sig Dispensed Refills Start Date End Date Status Zolpidem Tartrate 10 MG Tab Take by mouth daily. 0 Active dicyclomine (BENTYL) 10 MG capsule TAKE 1 CAPSULE BY MOUTH 4 TIMES A DAY. BEFORE MEALS & NIGHTLY. 120 Cap 0 08/27/2020 Active famotidine (PEPCID) 20 MG tablet Take 1 tablet by mouth at bedtime as needed for Heartburn. 60 tablet 12 05/21/2021 Active Active Problems Problem Noted Date JOAN (obstructive sleep apnea) 08/30/2019 Overview: Does not use CPAP machine 10/2019 Home Sleep Study did not reveal sleep apnea or nocturnal hypoxia. Presently patient asking if she wishes for diagnostic study. Will order the study if she plans to pursue CPAP treatment if sleep apnea identified. Anxiety and depression 08/03/2018 CKD (chronic kidney disease) stage 3, GF R 30-59 ml/min 10/26/2017 Overview: 10/26/17: S/p renal biopsy, pathology report pending. 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 Bipolar 2 disorder 10/25/2017 Vitamin D insufficiency 10/25/2017 Tobacco abuse 10/25/2017 Migraine headache 10/25/2017 Obesity (BMI 30-39.9) 10/25/2017 Resolved Problems Problem Noted Date Resolved Date CKD (chronic kidney disease) stage 3, GFR 30-59 ml/min 10/26/2017 10/26/2017 Acute renal insufficiency 10/26/20172017 Overview: Referral to nephrology Anxiety and depression 10/25/2017 8 Hypothyroidism 10/25/2017 08/30/2019 Immunizations Name Administration Dates Next Due Influenza Vaccine-quadrivalent 4 Years Plus 05/23 Family History Medical History Relation Name Comments Hypertension Father Diabetes cancer bone Maternal Grandmother Diabetes Mother Hypertension Relation Name Status Comments Father Maternal Grandmother Mother Social History Tobacco Use Types Packs/Day Years Used Date Smoking Tobacco: Every Day Cigarettes 0.5 15 Smokeless Tobacco: Never Tobacco Cessation:Ready to Q uit: Yes; Counseling Given: Yes Comments:depends on stress level Alcohol Use Standard Drinks/Week Comments No 0 (1 standard drink = 0.6 oz pur e alcohol) Sex Assigned at Date Recorded Not on file Last Filed Vital Signs Vital Sign Reading Time Taken Comments Blood Pressure 118/80 05/21/2021 11:06 AM EDT Pulse 80 05/21/2021 11:06 AM EDT Temperature 37.1 C (98.8 F) 05/21/2021 11:06 AM EDT Respiratory Rate 14 05/21/2021 11:06 AM EDT Oxygen Saturation 100% 11/02/2019 10:31 AM EDT Inhaled Oxygen Concentration - - Weight 93.2 kg (205 lb 6.4 oz) 05/21/2021 11:06 AM EDT Height 162.6 cm (5' 4 ) 05/21/2021 11:06 AM EDT Body Mass Index 35.26 05/21/2021 11:06 AM EDT Plan of Treatment Health Maintenance Due Date Last Done Comments Covid-19 Vaccine (#1) 01/28/1989 BASELINE HEALTH EXAM 18-39 2007 DTAP/TDAP/TD (1 - Tdap) 2007 CHOLESTEROL SCREENING 2008 CERVICAL CANCER SCREENING 2009 TOBACCO CHECK/ADVISE 08/31/2022 08/31/2020, 08/25/2020, 08/05/2020, Additional history exists BMI CHECK/ADVISE 08/23/2024 05/21/2021, 07/2020, 10/09/2019, Additional history exists DEPRESSION SCREENING/FOLLOWUP 08/23/2024, 11/27/2019, 11/02/2019, Additional history exists SOCIAL NEEDS SCREENING 08/23/2024 08/30/2019 (Comple jose g) INFLUENZA (#1) 2025 08/30/2019 (Exte rnal Completion of Vaccination per patient), 06/02/2018 PNEUMOCOCCAL VACCINE FOR HIG H RISK PATIENTS (#1) 2053 Care Teams Acetylene Operator Relationship Specialty Start Date End Date Community, Pcp PCP - General Internal Medicine 07/06/22
--- OUTSIDE RECORDS SUMMARY | 2025-06-05 17:32 | XMS_ITS | Encounter Summary ---
Author Organization [facility] Address [address] [place] [address] Care Team Providers Care Inner Tube Tuber Machine Operator Name Role Phone Juan A Coughlin MD Primary Care Provider Unavail Tatyana Garcia MD Primary Care Provider Juan A Dang MD Primary Care Provider Tatyana Wyatt MD Primary Care Provider Edy chao [facility], Pcp Primary Care Provider Unavailabl e Reason for Visit * Reason Onset Date Comments Chronic Kidney Disease 05/27/2021 Encounter Details Date Type Department Care Team Description 05/27/2021 Telephone Adult Medicine [address] [address] Juan A Coughlin MD Chronic Kidney Disease [...] Pt was seen her for f/u of [facility] , had UTI and was given [...] traveled recently to another state outside of [place], [place], [place], [place], [place], [place], [place]? NO o If yes, did you quarantine [...] vehicle accident? NO If yes, gather 3rd green party insurance information Date of accident/Injury: How long has patient had these symptoms?: 2 WEEKS PCP: JUAN A COUGHLIN Payor: [employer] FFS / Plan: [employer] / Product Type: MEDICAID RISK documented in this encounter Plan of Treatment Not on file documented as of this encounter Visit Diagnoses Not on filedocumented in this encounter Care Teams Inner Tube Tuber Machine Operator Relationship Specialty Start Date End Date Juan A Coughlin MD PCP - General Internal Medicine 09/03/17 06/25/21 Tatyana Murillo MD PCP - General Internal Medicine 06/26/21 07/13/21 Juan A Coughlin MD PCP - General Internal Medicine 07/14/21 09/17/21 Tatyana Murillo MD PCP - General Internal Medicine 09/18/21 07/05/22 [facility], Pcp PCP - General Internal Medicine 07/06/22 documented as of this encounter
--- OUTSIDE RECORDS SUMMARY | 2025-06-05 17:32 | XMS_ITS | Encounter Summary ---
Author Organization [facility] [facility] Address [address] [facility] [address] [place] [address] Care Team Providers Care Water And Gas Helper Name Role Phone Anabel Patel MD Primary Care Provide r Matthias Michelle RN Unavailable [phone] Jennifer Deng Unavailable Reason for Visit * Reason Onset Date Comments New patient 06/25/2023 Encounter Details Date Type Department Care Team (Late st Contact Info) Description 06/25/2023 Telephone [facility] [address] [place], [place] [phone] Elvis Tsai MD [address] [place], [place] [phone] New patient Social History Tobacco Use Types [...] 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 EFFECTIVE SINCE 06/25/2023 documented in this encounter Plan of Treatment Upcoming Encounters Date Type Department Care Team (Late st Contact Info) Description 08/01/2025 3:00 PM EST Office Visit [facility] [address] [place], [place] [phone] Anabel Patel MD [address] [place], [place] [phone] documented as of this encounter Visit Diagnoses Not on filedocumented in this encounter Care Teams Water And Gas Helper Relationship Specialty Start Date End Date Anabel Patel MD [address] [place] [address] [phone] PCP - General Internal Medicine 09/21/23 Matthias Michelle, RN [address] [place] [phone] Registered Nurse Family Medicine 04/30/25 Jennifer Deng 04/30/25 documented as of this encounter
--- OUTSIDE RECORDS SUMMARY | 2025-06-05 17:32 | XMS_ITS | Encounter Summary ---
Author Organization [facility] Address [address] [facility] [place] [place] [address] Care Team Providers Care Senior Cisco Network Engineer Name Role Phone Isabel Coughlin MD Primary Care Provider Unavail able Tatyana Murillo MD Primary Care Provider Isabel Dang MD Primary Care Provider Unavail Tatyana Garcia MD Primary Care Provider Edy Padilla, Pcp Primary Care Provider Unavailabl e Encounter Details Date Type Department Care Team Description 10/09/2019 [facility] Medical Records [address] [place] [phone] Abstract, Provider Social History Tobacco Use Types [...] on filedocumented in this encounter Care Teams Senior Cisco Network Engineer Relationship Specialty Start Date End Date [...]
--- OUTSIDE RECORDS SUMMARY | 2025-06-05 17:32 | XMS_ITS ---
Author Organization [employer] Address [address] [facility] 7[address] [place] [address] Care Team Providers Care Slabber Light Name Role Phone Anabel Patel MD Primary Care Provide r Matthias Michelle RN Unavailable [phone] Jennifer Deng Unavailable CHW Complex Status:Enrolled (Active) Start date:04/30/2025 Enrollment date:05/14/2025 Enrollment reason:ADT Feed Overview ED- Pt went to [facility] ED on 04/28/25. Case Team Name Relationship Phone Jennifer Deng(Responsible Staff) Continued Care and Services Coordination
--- OUTSIDE RECORDS SUMMARY | 2025-06-05 17:32 | XMS_ITS | Encounter Summary ---
Author Organization [facility] Address [address] [place] [address] Care Team Providers Care Risk Developer Name Role Phone Isabel Coughlin MD Primary Care Provider Tatyana Wyatt MD Primary Care Provider Edy Padilla, Pcp Primary Care Provider Darryl morales Encounter Details Date Type Department Care Team Description 07/24/2021 Traffic Checker Report Medical Records [address] [place] [address] Guille Mcginnis MD Social History Tobacco Use [...] on filedocumented in this encounter Care Teams Risk Developer Relationship Specialty Start Date End Date Isabel Coughlin MD PCP - General Internal Medicine 07/14/21 09/17/21 Tatyana Murillo MD PCP - General Internal Medicine 09/18/21 07/05/22 Darlin Padilla PCP - General Internal Medicine 07/06/22 documented as of this encounter
--- OUTSIDE RECORDS SUMMARY | 2025-06-05 17:32 | XMS_ITS | Encounter Summary ---
Author Organization [employer] Address [address] [facility] [address] [place] [address] Care Team Providers Care Shot Core Drill Operator Name Role Phone Anabel Patel MD Primary Care Provide r Matthias Michelle RN Unavailable [phone] Jennifer Deng Unavailable Reason for Visit * Reason Onset Date Comments rs SRP appt 06/06/2024 Encounter Details Date Type Department Care Team ([facility] st Contact Info) Description 06/06/2024 Telephone C [facility] [address] [place] [phone] Jeremiah Shepherd rs SRP appt Social History [...] called in unable to make it to [facility] appt today due to illness. She would like to rs. [facility] appts not available on PAR side. Pls reach out to patient for rajan HADDAD documented in this encounter Plan of Treatment Upcoming Encounters Date Type Department Care Team (Late st Contact Info) Description 08/01/2025 3:00 PM EST Office Visit [facility] MEDICINE [address] [place] [phone] Anabel Patel MD [address] [place] [address] documented as of this encounter Visit Diagnoses Not on filedocumented in this encounter Additional Health Concerns Assessment Noted Time PHQ-9 Depression Total Score: 19 024 10:24 AM EST documented as of this encounter Care Teams Shot Core Drill Operator Relationship Specialty Start Date End Date Anabel Patel MD [address] [place] [address] PCP - General Internal Medicine 09/21/23 Matthias Michelle RN [address] [place] [address] Registered Nurse Family Medicine 04/30/25 Jennifer Deng 04/30/25 documented as of this encounter
--- OUTSIDE RECORDS SUMMARY | 2025-06-05 17:32 | XMS_ITS ---
Author Organization [employer] Address [address] [facility] 7[address] [place] [address] Care Team Providers Care Couture Alterations Dressmaker Name Role Phone Anabel Patel MD Primary Care Provide r Matthias Michelle RN Unavailable [phone] Jennifer Deng Unavailable CM Complex Status:Outreach In Progress (Enrolling) Start date:04/30/2025 Enrollment reason:ADT Feed Overview ED- Pt went to [facility] ED on 04/28/25. Case Team Name Relationship Phone Matthias Michelle RN(Responsible Staff) Registered [facility] [phone] Continued Care and Services Coordination
--- OUTSIDE RECORDS SUMMARY | 2025-06-05 17:32 | XMS_ITS | Encounter Summary ---
Author Organization [facility] Address [address] [facility] [place] [address] Care Team Providers Care Signals Intelligence Analysis Manager Name Role Phone Isabel Coughlin MD Primary Care Provider Unavail able Tatyana Murillo MD Primary Care Provider Isabel Dang MD Primary Care Provider Unavail Tatyana Garcia MD Primary Care Provider Edy chao [facility], Pcp Primary Care Provider Unavailabl e Encounter Details Date Type Department Care Team Description 01/04/2019 Second Worker Report Medical Records [address] [place] [phone] Chele Askew MD Social History Tobacco Use [...] on filedocumented in this encounter Care Teams Signals Intelligence Analysis Manager Relationship Specialty Start Date End Date Isabel [...]
--- OUTSIDE RECORDS SUMMARY | 2025-06-05 17:32 | XMS_ITS | Encounter Summary ---
Author Organization [facility] Address [address] [place] [address] Care Team Providers Care Shoe Designer Name Role Phone Isabel Coughlin MD Primary Care Provider Unavail able Tatyana Murillo MD Primary Care Provider Isabel Dang MD Primary Care Provider Unavail Tatyana Garcia MD Primary Care Provider Edy Padilla, Pcp Primary Care Provider Unavailabl e Encounter Details Date Type Department Care Team Description 07/04/2018 Release of Information Medical Records [address] [place] [id number] Abstract, Provider Social History Tobacco Use Types [...] on filedocumented in this encounter Care Teams Shoe Designer Relationship Specialty Start Date End Date Isabel [...]
--- OUTSIDE RECORDS SUMMARY | 2025-06-05 17:32 | XMS_ITS | Clinical Summary ---
Author Organization [facility] Address [address] [place] [address] Phone Care Team Providers Care Galley Hand Name Role Phone Tatyana Murillo MD Primary Care Provider [phone] Allergies Active Allergy Reactions Criticality Noted Date [...] EDT - 04/28/2025 1:33 PM EDT Emergency [facility] Emergency [address] [place] [address] Plantar fasciitis of right foot (Primary Dx) Discharge Disposition: Home or Self Care from Last 3 Months Surgical History Surgery Date Site/Laterality Comments THYROIDECTOMY PROCEDURE: HISTORICAL TOTAL THYROIDECTOMY OTHER SURGICAL HISTORY PROCEDURE: KIDNEY STONE PANEL TUBAL LIGATION 2011 PROCEDURE: HISTORICAL TUBAL LIGATION Medical History Medical History Date Comments Anxiety and depression 10/25/2017 DX:Anxiet y and depression Bipolar 2 disorder (CMS/[facility] V24, CMS/[facility] V28) 10/25/2017 DX:Bipolar 2 disorder (HCC) Hypothyroidism 10/25/2017 DX:Hypothyroidis m Vitamin D insufficiency 10/25/2017 DX:Vitam in D insufficiency Tobacco abuse 10/25/2017 DX:Tobacco abuse Migraine headache 10/25/2017 DX:Migraine he adache Obesity (BMI 30-39.9) 10/25/2017 DX:Obesity (BMI 30-39.9) CKD (chronic kidney disease) stage 3, GFR 30-59 ml/min ([facility]/HCC V24, CMS/HCC V28) 10/26/2017 DX:CKD (chronic kidney disea se) stage 3, GFR 30-59 ml/min ([facility]); COMMENT: S/p renal biopsy, pathology report [...] Safety Answer Date Record ed Physical Abuse Unrecognized value 09/01/2024 Verbal Abuse Unrecognized value 09/01/2024 Comments Unknown Sex and Gender Information [...] 2007 Cervical Cancer Screening: Pap Smear 2009 HPV Vaccines (1 - 3-dose SCDM series) 2015 DTaP,Tdap,and Td Vaccines (2 - Td or Tdap) 02/17/2022 02/18/2012 Social Influencers of Health Screening 07/26/2022 Depression Screening 08/23/2024 COVID-19 Vaccine ( season) 2025 Influenza Vaccine (#1) 2025 , 06/02/2018, 05/19/2017, Additional history exists Cholesterol Screening (Lipid Panel) 09/13/2029 09/13/2024 RSV Immunization Adult Patients (1 - 1-dose 75+ series) 2063 HIV Screening Completed 10/19/2024, 09/21/2023 Hepatitis C [...] Laterality Modality Lower Extremities, Foot Right Radiogra phic Imaging 04/28/2025 1:21 PM EDT Impressions 04/28/2025 1:22 PM EDT No acute findings. -------- FINAL REPORT -------- Dictated By: Fredis Melendez Dictated Date: 04/28/2025 13:21 ET Assigned Physician: Fredis Melendez Reviewed and Electronically Signed By: Fredis Melendez Signed Date: 04/28/2025 13:22 ET Workstation ID: [id number] Transcribed By: Self Edit Transcribed Date: 04/28/2025 [...] Signed Date: 04/28/2025 13:22 ET Workstation ID: [id number] Transcribed By: Self Edit Transcribed Date: 04/28/2025 13:21 ET Kg [facility] IM[facility] XR PROCEDURES Final Resu lt from Last 3 Months Insurance MEDICAID - [place] Advance Directives * Full [...] currently active code status orders. Care Teams Galley Hand Relationship Specialty Start Date End Date Tatyana Murillo MD [address] [place] [address] PCP - General Internal Medicine 06/26/21
--- OUTSIDE RECORDS SUMMARY | 2025-06-05 17:33 | XMS_ITS | Encounter Summary ---
Author Organization [employer] Address [address] [facility] 7[address] [place] [address] Care Team Providers Care Orthodontist Name Role Phone Anabel Patel MD Primary Care Provide r Matthias Michelle RN Unavailable [phone] Jennifer Deng Unavailable Reason for Visit * Reason Comments Med Change Request Encounter Details Date Type Department Care Team ([facility] st Contact Info) Description 03/20/2025 Refill [facility] MEDICINE [address] [place], [place] [phone] Anabel Patel MD [address] [place], [place] [phone] Primary insomnia Social History Tobacco Use Types [...] housing situation today? I have mrena leal 10/19/[address] you [...] Description 08/01/2025 3:00 PM EST Office Visit [facility] MEDICINE [address] [place] [phone] Anabel Patel MD [address] [place] [phone] documented as of this encounter Visit Diagnoses Diagnosis Primary insomnia Persistent disorder of initiating or maintaining sleep documented in this encounter Additional Health Concerns Assessment Noted Time PHQ-9 Depression Total Score: 16 025 9:52 AM EDT documented as of this encounter Care Teams Orthodontist Relationship Specialty Start Date End Date Anabel Patel MD [address] [place] [address] PCP - General Internal Medicine 09/21/23 Matthias Michelle, SILAS [address] [place] [phone] Registered Nurse Family Medicine 04/30/25 Jennifer Deng 04/30/25 documented as of this encounter
== END 2025-06-05 14:40 | disposition home or self-care (01) ==
LOC: HO.NEURO 14:39
PROVIDERS: Visit Provider Internal Medicine
DX: G56.03 Carpal tunnel syndrome, bilateral upper limbs (principal); R53.1 Weakness; R20.0 Anesthesia of skin; R52 Pain, unspecified
CPT/HCPCS: 95886; 95913

== ENCOUNTER → 2025-06-05 15:30 | Outpatient (BNV) | payer MEDICAID, SELFPAY | PROVIDERS: Visit Provider Psychiatry & Neurology Neurology | DX: G56.03 Carpal tunnel syndrome, bilateral upper limbs (principal) | CPT/HCPCS: 95886; 95913 ==